=== PATIENT | female | born 1970 | race African-American/Black ===

== ENCOUNTER 2017-07-05 17:48 | Emergency (ER) | payer OTHER ==
--- NOTE | 2017-07-05 19:15 | ER ---
Nurse's Notes [facility] Name: Bailey Loepz Age: 46 yrs Sex: Female : 1970 Arrival Date: 07/05/2017 Time: 17:52 Bed 17 Private MD: Diagnosis: Acute pharyngitis;Fever, unspecified;Acute tonsillitis Presentation: 07/05 17:56 Presenting complaint: Patient states: i have sore throat that started yesterday, its hj hard to swallow; denies fever, reports cold;. Transition of care: patient was not received from another setting of care. Onset of symptoms was July 05, 2017. Care prior to arrival: None. 17:56 Method Of Arrival: Ambulatory hj 17:56 Acuity: ALBERTO 4 hj Triage Assessment: 17:57 General: Appears in no apparent distress. uncomfortable, Behavior is calm, cooperative, hj appropriate for age. Pain: Complains of pain in throat. EENT: Reports pain when swallowing. 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 - Social history:: Smoking status: Patient/guardian denies using tobacco. - Family history:: not pertinent. Screenin:44 Abuse screen: Denies threats or abuse. Nutritional screening: No deficits noted. tw2 Tuberculosis screening: No symptoms or risk factors identified. Fall Risk None identified. Assessment: 17:58 Respiratory: Airway is patent Respiratory effort is even, unlabored, Respiratory hj pattern is regular, symmetrical, Breath sounds are clear. EENT: Throat. 18:45 General: Appears in no apparent distress. comfortable, Behavior is calm, cooperative, em sore throat since yesterday, denies fever. Pain: Complains of pain in throat. Neuro: Level of Consciousness is awake, alert, obeys commands, Oriented to person, place, time, situation. Cardiovascular: Denies chest pain, Capillary refill < 3 seconds Patient's skin is warm and dry. Respiratory: Airway is patent Respiratory effort is even, unlabored, Respiratory pattern is regular, symmetrical. GI: Abdomen is round non-distended. : No signs and/or symptoms were reported regarding the genitourinary system. EENT: Throat is clear is pink. Derm: Skin is intact, Skin is pink, warm \T\ dry. Musculoskeletal: Range of motion: intact in all extremities. 18:50 Reassessment: I agree with the above assessment by Greg Lema LVN. 19:43 Reassessment: Patient appears in no apparent distress at this time. Patient and/or wh family updated on plan of care and expected duration. Pain level reassessed. Patient is alert, oriented x 3, equal unlabored respirations, skin warm/dry/pink. Vital Signs: 17:58 BP 137 / 94; Pulse 96; Resp 18; Temp 97.5(TE); Pulse Ox 98% on R/A; Weight 113.4 kg; hj Height 5 ft. 3 in. (160.02 cm); 17:58 Body Mass Index 44.29 (113.40 kg, 160.02 cm) ED Course: 17:52 Patient arrived in ED. rg4 17:56 Triage completed. hj 17:59 Arm band placed on right wrist. hj 18:34 Lucius Eubanks MD is Attending Physician. [facility] 18:36 Greg Lema LVN is Primary Nurse. em 18:40 No provider procedures requiring assistance completed. Patient did not have IV access em during this emergency room visit. 18:45 Call light in reach. Adult w/ patient. tw2 19:10 Rosalba Vines MD is Referral Physician. [facility] Administered Medications: 19:20 Drug: Rocephin (cefTRIAXone) 1 grams Route: IM; Site: right gluteus; 19:43 Follow up: Response: No adverse reaction 19:20 Drug: Augmentin 875 mg Route: PO; 19:43 Follow up: Response: No adverse reaction Outcome: 19:15 Discharge ordered by . [facility] 19:44 Discharged to home ambulatory, with family. 19:44 Condition: good 19:44 Discharge instructions given to patient, family, Instructed on discharge instructions, follow up and referral plans. medication usage, POC Pharyngitis Demonstrated understanding of instructions, follow-up care, medications, POC Prescriptions given X 1. 19:45 Patient left the ED. Signatures: Lucius Eubanks MD MD cha Munoz, Edgar, DOLL DRESSER DOLL DRESSER Caren Costello RN Valente Tierney RN RN hj Wise, Tara, RN RN tw2 Kary Dupree 4 Angelito Magana Corrections: (The following items were deleted from the chart) 18:00 17:58 Pulse 96bpm; Resp 18bpm; Pulse Ox 98% RA; Temp 97.5F Temporal; 113.4 kg; Height 5 hj ft. 3 in.; BMI: 44.2; hj
--- NOTE | 2017-07-05 19:15 | EDPHYS ---
Physician Documentation [facility] Name: Bailey Lopez Age: 46 yrs Sex: Female : 1970 Arrival Date: 07/05/2017 Time: 17:52 Bed 17 Private MD: ED Physician Lucius Eubanks HPI: 07/05 19:06 This 46 yrs old Black Female presents to ER via Ambulatory with complaints of Sore cayden Throat. 19:06 The patient presents with sore throat. The patient describes throat pain as raw, cayden scratchy. Onset: The symptoms/episode began/occurred 1 day(s) ago. Severity of symptoms: At their worst the symptoms were moderate, in the emergency department the symptoms are unchanged. Modifying factors: The symptoms are alleviated by. Associated signs and symptoms: The patient has no apparent associated signs or symptoms. The patient has not experienced similar symptoms in the past. 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 - Social history:: Smoking status: Patient/guardian denies using tobacco. - Family history:: not pertinent. ROS: 19:06 Constitutional: Negative for fever, chills, and weight loss, Eyes: Negative for injury, cayden pain, redness, and discharge, Neck: Negative for injury, pain, and swelling, Cardiovascular: Negative for chest pain, palpitations, and edema, Respiratory: Negative for shortness of breath, cough, wheezing, and pleuritic chest pain, Abdomen/GI: Negative for abdominal pain, nausea, vomiting, diarrhea, and constipation, Back: Negative for injury and pain, : Negative for injury, bleeding, discharge, and swelling, MS/Extremity: Negative for injury and deformity, Skin: Negative for injury, rash, and discoloration, Neuro: Negative for headache, weakness, numbness, tingling, and seizure, Psych: Negative for depression, anxiety, suicide ideation, homicidal ideation, and hallucinations, Allergy/Immunology: Negative for hives, rash, and allergies, Endocrine: Negative for neck swelling, polydipsia, polyuria, polyphagia, and marked weight changes, Hematologic/Lymphatic: Negative for swollen nodes, abnormal bleeding, and unusual bruising. 19:06 ENT: Positive for difficulty swallowing, rhinorrhea, sore throat. 19:06 Neck: Positive for swollen nodes, of the right jaw and left jaw. Exam: 19:06 Constitutional: This is a well developed, well nourished patient who is awake, alert, cayden and in no acute distress. Head/Face: Normocephalic, atraumatic. Eyes: Pupils equal round and reactive to light, extra-ocular motions intact. Lids and lashes normal. Conjunctiva and sclera are non-icteric and not injected. Cornea within normal limits. Periorbital areas with no swelling, redness, or edema. Chest/axilla: Normal chest wall appearance and motion. Nontender with no deformity. No lesions are appreciated. Cardiovascular: Regular rate and rhythm with a normal S1 and S2. No gallops, murmurs, or rubs. Normal PMI, no JVD. No pulse deficits. Respiratory: Lungs have equal breath sounds bilaterally, clear to auscultation and percussion. No rales, rhonchi or wheezes noted. No increased work of breathing, no retractions or nasal flaring. Abdomen/GI: Soft, non-tender, with normal bowel sounds. No distension or tympany. No guarding or rebound. No evidence of tenderness throughout. Back: No spinal tenderness. No costovertebral tenderness. Full range of motion. Pelvic Exam: Normal external genitalia. Speculum exam with closed cervical os, no discharge or bleeding noted. Bimanual exam with normal adnexa, no adnexal or cervical motion tenderness. Normal uterus. Female : Normal external genitalia. Skin: Warm, dry with normal turgor. Normal color with no rashes, no lesions, and no evidence of cellulitis. MS/ Extremity: Pulses equal, no cyanosis. Neurovascular intact. Full, normal range of motion. Neuro: Awake and alert, GCS 15, oriented to person, place, time, and situation. Cranial nerves II-XII grossly intact. Motor strength 5/5 in all extremities. Sensory grossly intact. Cerebellar exam normal. Normal gait. Psych: Awake, alert, with orientation to person, place and time. Behavior, mood, and affect are within normal limits. 19:06 ENT: Mouth: is normal, no abscess, no drooling, no injury, no laceration, no lesion(s), (-) tongue elevation (-) trismus no ulcerations, no gum abnomalities, no lip abnormalities, no mucosal abnormalities, no tongue abnormalities, Posterior pharynx: Tonsils: with erythema, Uvula: midline, swelling, that is mild, erythema, that is mild, that is moderate, exudate, is not appreciated, peritonsillar mass, is not appreciated, pooling of secretions, is not appreciated. Vital Signs: 17:58 BP 137 / 94; Pulse 96; Resp 18; Temp 97.5(TE); Pulse Ox 98% on R/A; Weight 113.4 kg; Height 5 ft. 3 in. (160.02 cm); 17:58 Body Mass Index 44.29 (113.40 kg, 160.02 cm) MDM: 18:34 Patient medically screened. [facility] 19:09 Data reviewed: vital signs, nurses notes, lab test result(s). [facility] 07/05 18:00 Order name: Strep; Complete Time: 19:05 07/05 18:27 Order name: Throat Culture EDMS Administered Medications: 19:20 Drug: Rocephin (cefTRIAXone) 1 grams Route: IM; Site: right gluteus; 19:43 Follow up: Response: No adverse reaction 19:20 Drug: Augmentin 875 mg Route: PO; 19:43 Follow up: Response: No adverse reaction Disposition: 07/05/17 19:15 Discharged to Home. Impression: Acute pharyngitis, Fever, unspecified, Acute tonsillitis. - Condition is Stable. - Discharge Instructions: Fever, Adult, Pharyngitis, Tonsillitis, Tonsillitis, [id number], Pharyngitis, [id number]. - Prescriptions for Augmentin 875- 125 mg Oral Tablet - take 1 tablet by ORAL route every 12 hours for 10 days; 20 tablet. - Medication Reconciliation Form, Thank You Letter, Antibiotic Education, Prescription Opioid Use form. - Follow up: Private Physician; When: 2 - 3 days; Reason: Recheck today's complaints, Continuance of care, Re-evaluation by your physician. Follow up: Rosalba Vines MD; When: 2 - 3 days; Reason: Recheck today's complaints, Continuance of care, Re-evaluation by your physician. - Problem is new. - Symptoms have improved. Signatures: Dispatcher [employer] Lucius Rashid MD MD cha Joaquin, Henry RN RN hj Cony Caro RN RN tw2 Angeilto Magana
[2017-07-05] MEDS ORDERED: AMOX/K CLAV 875 MG TAB ONE (19:29)
[2017-07-05] MEDS ORDERED: CEFTRIAXONE 1000 MG/VIAL ONE (19:29)
== END 2017-07-05 19:45 | disposition home or self-care (01) ==
LOC: ER 17:48
DX: J03.90 Acute tonsillitis, unspecified (principal); R50.9 Fever, unspecified; Z88.5 Allergy status to narcotic agent; Z88.6 Allergy status to analgesic agent; Z88.8 Allergy status to other drugs, medicaments and biological substances
CPT/HCPCS: 87070; 87081; 96372; 99283

== ENCOUNTER 2018-03-14 15:09 | Emergency (ER) | payer OTHER, SELFPAY ==
[2018-03-14] MEDS ORDERED: ONDANSETRON 4 MG/2 ML VIAL ONE ×2 (16:30→19:40)
[2018-03-14] MEDS ORDERED: NA CHLORIDE 0.9% 1,000 ML ONE (16:30)
[2018-03-14 16:34] LABS: Absolute Lymphocytes (CBC) 2.6 K/uL (0.7-4.9); Absolute Monocytes 0.9 K/uL (0.1-1.3); Absolute Neutrophil 8.6 K/uL (1.8-8.0); Basophils % 0.6 % (0-1.3); Eosinophils % 3.6 % (0-4.4); Lymphocytes % 20.5 % (15.3-44.8); MCH 28.2 pg (27.0-35.0); MPV 8.6 fL (7.6-11.3); Monocytes % 6.8 % (3.3-12.3); RBC Red Blood Cell Count 4.63 M/uL (3.86-4.86)
[2018-03-14 16:42] LABS: Protime INR 1.18
[2018-03-14 17:17] LABS: ALT/SGPT 35 U/L (12-78); AST/SGOT 19 U/L (15-37); Albumin 3.5 g/dL (3.4-5.0); Alkaline Phosphatase 91 U/L (45-117); BUN Blood Urea Nitrogen 3 mg/dL (7-18); Bicarbonate 29 mmol/L (21-32); Bilirubin Direct 0.1 mg/dL (0-0.2); Bilirubin Total 0.4 mg/dL (0.2-1.0); Glucose Level 130 mg/dL (74-106); Lipase 81 U/L (73-393); Magnesium 1.8 mg/dL (1.8-2.4); NT PRO-BNP 8 pg/mL (<125); Protein, Total 8.1 g/dL (6.4-8.2); Sodium Level 141 mmol/L (136-145); Troponin (Emerg Dept Use Only) < 0.02 ng/mL (0.0-0.045)
[2018-03-14 17:18] LABS: Potassium 2.6 mmol/L (3.5-5.1)
--- NOTE | 2018-03-14 17:25 | EKG ---
Test Date: 2018-03-14 Test Time: 16:12:05 Back Shoe Operator: TAMIKO MEASUREMENT RESULTS: Intervals: Rate: 91 HI: 200 QRSD: 98 QT: 382 QTc: 469 [place]: P: 27 HI: 200 QRS: -12 T: 83 INTERPRETIVE STATEMENTS: Normal sinus rhythm Nonspecific ST and T wave abnormality Abnormal ECG No previous ECG available for comparison Electronically Signed On 03-14-18 17:24:51 CONFIGURATION MANAGER by Ronak Connell
--- NOTE | 2018-03-14 17:28 | RAD REPORT ---
EXAM DESCRIPTION: [place]as[place] Single View03/14/2018 5:00 pm CLINICAL HISTORY: cough COMPARISON: none FINDINGS: The lungs appear clear of acute infiltrate. The heart is normal size IMPRESSION: No acute abnormalities displayed
[2018-03-14] MEDS ORDERED: KCL 20 MEQ/100 mL IVPB 20 MEQ/100 ML BAG IV ONE ×2 (17:50→18:50)
[2018-03-14] MEDS ORDERED: NS KCL 20MEQ 1,000 ML IV ONE (17:50)
[2018-03-14] MEDS ORDERED: KETOROLAC 30 MG/ML INJ ONE (17:57)
[2018-03-14] MEDS ORDERED: NA CHLORIDE 0.9% 500 ML ONE (18:53)
--- NOTE | 2018-03-14 19:17 | RAD REPORT ---
EXAM DESCRIPTION: CTAbdomen Pelvis W Contrast - 03/14/2018 6:56 pm CLINICAL HISTORY: Abdominal pain. ABD PAIN COMPARISON: No comparisons TECHNIQUE: Biphasic CT imaging of the abdomen and pelvis was performed with 100 ml non-ionic IV cont rast. All CT scans are performed using dose optimization technique as appropriate and may include automated exposure control or mA/KV adjustment according to patient size. FINDINGS: The lung bases are clear. Mild diffuse fatty liver. Postsurgical changes are present about the stomach. The spleen, adrenal gla nds, pancreas and kidneys are within normal limits. Small fat containing umbilical hernia. No bowel obstruction, free air, free fluid or abscess. The appendix is short but normal. Mild coloni c diverticulosis. No evidence of significant lymphadenopathy. No suspicious bony findings. IMPRESSION: No acute intra-abdominal or pelvic finding. Fatty liver.
--- NOTE | 2018-03-14 19:23 | ER ---
Nurse's Notes [facility] Name: Bailey Lopez Age: 47 yrs Sex: Female : 1970 Arrival Date: 03/14/2018 Time: 15:13 Bed 27 Private MD: out of town, doctor Diagnosis: Hypokalemia;Abdominal tenderness;Obesity, unspecified;Vomiting Presentation: 03/14 15:24 Presenting complaint: Patient states: RLQ pain and vomiting that began 4 days. ago. ss Transition of care: patient was not received from another setting of care. Onset of symptoms was March 10, 2018. Risk Assessment: Do you want to hurt yourself or someone else? Patient reports no desire to harm self or others. Initial Sepsis Screen: Does the patient meet any 2 criteria? No. Patient's initial sepsis screen is negative. Does the patient have a suspected source of infection? No. Patient's initial sepsis screen is negative. Care prior to arrival: None. 15:24 Method Of Arrival: Ambulatory ss 15:24 Acuity: ALBERTO 3 ss Triage Assessment: 16:42 General: Appears in no apparent distress. uncomfortable, well groomed, Behavior is kr2 calm, cooperative, appropriate for age. Pain: Complains of pain in right lower quadrant Pain does not radiate. Pain currently is 9 out of 10 on a pain scale. Quality of pain is described as aching, sharp, Is continuous, Alleviated by nothing. Aggravated by increased activity. GI: Reports nausea, vomiting. Historical: - Allergies: 15:25 ACETAMINOPHEN; ss 15:25 Codeine; ss 15:25 meperidine HCl; ss 15:25 Oxycodone HCl; ss 15:25 propoxyphene napsylate; ss 15:25 Morphine; ss - PSHx: 15:25 Back surgery; Hysterectomy; ss - Immunization history:: Adult Immunizations unknown. - Social history:: Smoking status: Patient/guardian denies using tobacco. - Ebola Screening: : Patient denies exposure to infectious person Patient denies travel to an Ebola-affected area in the 21 days before illness onset. Screenin:42 Abuse screen: Denies threats or abuse. Denies injuries from another. Nutritional kr2 screening: No deficits noted. Tuberculosis screening: No symptoms or risk factors identified. Fall Risk None identified. Assessment: 16:43 General: Appears in no apparent distress. uncomfortable, well groomed, well developed, kr2 well nourished, Behavior is calm, cooperative, appropriate for age. Pain: Complains of pain in right lower quadrant Pain does not radiate. Pain currently is 9 out of 10 on a pain scale. Quality of pain is described as aching, sharp, Is continuous, Alleviated by rest, Aggravated by increased activity. Neuro: Level of Consciousness is awake, alert, obeys commands, Oriented to person, place, time, situation, Appropriate for age. Cardiovascular: Capillary refill < 3 seconds in bilateral fingers Patient's skin is warm and dry. Respiratory: Airway is patent Respiratory effort is even, unlabored, Respiratory pattern is regular, symmetrical. GI: Abdomen is non-distended, obese, Bowel sounds present X 4 quads. Abd is soft X 4 quads Abdomen is tender to palpation in right lower quadrant Reports nausea, vomiting. : Urine is clear. EENT: Oral mucosa is moist. Derm: Skin is intact, is healthy with good turgor, Skin is pink, warm \T\ dry. Musculoskeletal: Circulation, motion, and sensation intact. 18:00 Reassessment: Patient appears in no apparent distress at this time. Patient and/or kr2 family updated on plan of care and expected duration. Pain level reassessed. Patient is alert, oriented x 3, equal unlabored respirations, skin warm/dry/pink. 19:05 Reassessment: Patient appears in no apparent distress at this time. Patient and/or kr2 family updated on plan of care and expected duration. Pain level reassessed. Patient is alert, oriented x 3, equal unlabored respirations, skin warm/dry/pink. States pain has decreased. 20:00 Reassessment: Patient appears in no apparent distress at this time. Patient and/or kr2 family updated on plan of care and expected duration. Pain level reassessed. Patient is alert, oriented x 3, equal unlabored respirations, skin warm/dry/pink. 21:40 Reassessment: Patient appears in no apparent distress at this time. Patient and/or kr2 family updated on plan of care and expected duration. Pain level reassessed. Patient is alert, oriented x 3, equal unlabored respirations, skin warm/dry/pink. Patient states feeling better. Vital Signs: 15:25 BP 162 / 101; Pulse 97; Resp 16; Temp 98.0(TE); Pulse Ox 99% on R/A; Weight 117.93 kg; ss Height 5 ft. 3 in. (160.02 cm); Pain 10/10; 16:41 BP 139 / 79; Pulse 97; Resp 17; Pulse Ox 99% ; kr2 18:00 BP 134 / 67; Pulse 88; Resp 17; Pulse Ox 99% on R/A; kr2 19:06 BP 120 / 66; Pulse 80; Resp 16; Pulse Ox 99% on R/A; kr2 20:00 BP 130 / 70; Pulse 89; Resp 17; Pulse Ox 99% on R/A; kr2 21:30 BP 124 / 84; Pulse 82; Resp 16; Pulse Ox 99% on R/A; kr2 15:25 Body Mass Index 46.06 (117.93 kg, 160.02 cm) ED Course: 15:13 Patient arrived in ED. mr 15:13 None, None is Private Physician. mr 15:13 out of town, doctor is Private Physician. mr 15:24 Triage completed. ss 15:25 Arm band placed on right wrist. ss 15:47 Johanne Castañeda, KOMAL is Primary Nurse. kr2 15:51 Lucius Eubanks MD is Attending Physician. cayden 16:25 Inserted saline lock: 20 gauge in left antecubital area, using aseptic technique. Blood kr2 collected. 16:48 Patient has correct armband on for positive identification. Bed in low position. Call kr2 light in reach. Side rails up X 1. radiation monitor on. Pulse ox on. NIBP on. Door closed. Warm blanket given. Pillow given. Head of bed elevated. 17:32 XRAY Chest (1 view) In Process Unspecified. EDMS 18:56 CT Abd/Pelvis - W/Contrast In Process Unspecified. EDMS 21:40 No provider procedures requiring assistance completed. IV discontinued, intact, kr2 bleeding controlled, No redness/swelling at site. Pressure dressing applied. Administered Medications: 16:27 Drug: Zofran 4 mg Route: IVP; Site: left antecubital; kr2 16:28 Drug: NS 0.9% 1000 ml Route: IV; Rate: 1 bolus; Site: left antecubital; kr2 17:45 Drug: Potassium Chloride 20 mEq Route: IV; Rate: per protocol; Site: left antecubital; kr2 20:47 Follow up: Response: No adverse reaction; IV Status: Completed infusion kr2 17:45 Drug: NS 0.9% with KCl 20 mEq/L 1000 ml Route: IV; Rate: 125 ml/hr; Site: left kr2 antecubital; 21:35 Follow up: Response: No adverse reaction; IV Status: Order to discontinue infusion kr2 18:40 Drug: Zofran 4 mg Route: IVP; Site: left antecubital; kr2 19:00 Follow up: Response: No adverse reaction; Nausea is decreased kr2 18:56 Drug: Potassium Chloride 20 mEq Route: IV; Rate: per protocol; Site: left antecubital; kr2 20:50 Follow up: Response: No adverse reaction; IV Status: Completed infusion kr2 19:37 Drug: Potassium Effervescent Tablet 50 mEq Route: PO; kr2 20:46 Follow up: Response: No adverse reaction kr2 20:45 Drug: Bentyl 20 mg Route: PO; kr2 21:30 Follow up: Response: No adverse reaction; Pain is decreased kr2 Outcome: 19:23 Discharge ordered by MD. rodarte 21:40 Discharged to home ambulatory. kr2 21:40 Condition: good 21:40 Discharge instructions given to patient, Instructed on discharge instructions, follow up and referral plans. medication usage, Demonstrated understanding of instructions, follow-up care, medications, Prescriptions given X 4. 21:41 Patient left the ED. kr2 Signatures: Dispatcher [employer] Lucius Rashid MD MD cha Rivera, Mary mr Nelli Meadows RN RN ss Reaves, Karey, RN RN kr2
--- NOTE | 2018-03-14 19:23 | EDPHYS ---
Physician Documentation [facility] Name: Bailey Lopez Age: 47 yrs Sex: Female : 1970 Arrival Date: 03/14/2018 Time: 15:13 Bed 27 Private MD: out of town, doctor ED Physician Lucius Eubanks HPI: 03/14 16:46 This 47 yrs old Black Female presents to ER via Ambulatory with complaints of Vomiting. cayden 16:46 The patient presents to the emergency department with nausea, vomiting, abdominal pain, cayden of the right lower quadrant. Onset: The symptoms/episode began/occurred 3 day(s) ago. Possible causes: unknown. The symptoms are aggravated by nothing. The symptoms are alleviated by nothing. Associated signs and symptoms: The patient has no apparent associated signs or symptoms. Severity of symptoms: At their worst the symptoms were mild moderate in the emergency department the symptoms have resolved. The patient has not experienced similar symptoms in the past. Historical: - Allergies: 15:25 ACETAMINOPHEN; ss 15:25 Codeine; ss 15:25 meperidine HCl; ss 15:25 Oxycodone HCl; ss 15:25 propoxyphene napsylate; ss 15:25 Morphine; ss - PSHx: 15:25 Back surgery; Hysterectomy; ss - Immunization history:: Adult Immunizations unknown. - Social history:: Smoking status: Patient/guardian denies using tobacco. - Ebola Screening: : Patient denies exposure to infectious person Patient denies travel to an Ebola-affected area in the 21 days before illness onset. ROS: 16:48 Constitutional: Negative for fever, chills, and weight loss, Eyes: Negative for injury, cayden pain, redness, and discharge, ENT: Negative for injury, pain, and discharge, Neck: Negative for injury, pain, and swelling, Cardiovascular: Negative for chest pain, palpitations, and edema, Respiratory: Negative for shortness of breath, cough, wheezing, and pleuritic chest pain, Back: Negative for injury and pain, : Negative for injury, bleeding, discharge, and swelling, MS/Extremity: Negative for injury and deformity, Skin: Negative for injury, rash, and discoloration, Neuro: Negative for headache, weakness, numbness, tingling, and seizure, Psych: Negative for depression, anxiety, suicide ideation, homicidal ideation, and hallucinations, Allergy/Immunology: Negative for hives, rash, and allergies, Endocrine: Negative for neck swelling, polydipsia, polyuria, polyphagia, and marked weight changes, Hematologic/Lymphatic: Negative for swollen nodes, abnormal bleeding, and unusual bruising. 16:48 Abdomen/GI: Positive for abdominal pain, of the right lower quadrant. Exam: 16:48 Constitutional: This is a well developed, well nourished patient who is awake, alert, cayden and in no acute distress. Head/Face: Normocephalic, atraumatic. Eyes: Pupils equal round and reactive to light, extra-ocular motions intact. Lids and lashes normal. Conjunctiva and sclera are non-icteric and not injected. Cornea within normal limits. Periorbital areas with no swelling, redness, or edema. ENT: Nares patent. No nasal discharge, no septal abnormalities noted. Tympanic membranes are normal and external auditory canals are clear. Oropharynx with no redness, swelling, or masses, exudates, or evidence of obstruction, uvula midline. Mucous membranes moist. Neck: Trachea midline, no thyromegaly or masses palpated, and no cervical lymphadenopathy. Supple, full range of motion without nuchal rigidity, or vertebral point tenderness. No Meningismus. Chest/axilla: Normal chest wall appearance and motion. Nontender with no deformity. No lesions are appreciated. Cardiovascular: Regular rate and rhythm with a normal S1 and S2. No gallops, murmurs, or rubs. Normal PMI, no JVD. No pulse deficits. Respiratory: Lungs have equal breath sounds bilaterally, clear to auscultation and percussion. No rales, rhonchi or wheezes noted. No increased work of breathing, no retractions or nasal flaring. Back: No spinal tenderness. No costovertebral tenderness. Full range of motion. Skin: Warm, dry with normal turgor. Normal color with no rashes, no lesions, and no evidence of cellulitis. MS/ Extremity: Pulses equal, no cyanosis. Neurovascular intact. Full, normal range of motion. Neuro: Awake and alert, GCS 15, oriented to person, place, time, and situation. Cranial nerves II-XII grossly intact. Motor strength 5/5 in all extremities. Sensory grossly intact. Cerebellar exam normal. Normal gait. Psych: Awake, alert, with orientation to person, place and time. Behavior, mood, and affect are within normal limits. 16:48 Abdomen/GI: Inspection: abdomen appears normal, Bowel sounds: normal, Palpation: moderate abdominal tenderness, Liver: no appreciated palpable abnormalities, Hernia: not appreciated. Vital Signs: 15:25 BP 162 / 101; Pulse 97; Resp 16; Temp 98.0(TE); Pulse Ox 99% on R/A; Weight 117.93 kg; ss Height 5 ft. 3 in. (160.02 cm); Pain 10/10; 16:41 BP 139 / 79; Pulse 97; Resp 17; Pulse Ox 99% ; kr2 18:00 BP 134 / 67; Pulse 88; Resp 17; Pulse Ox 99% on R/A; kr2 19:06 BP 120 / 66; Pulse 80; Resp 16; Pulse Ox 99% on R/A; kr2 20:00 BP 130 / 70; Pulse 89; Resp 17; Pulse Ox 99% on R/A; kr2 21:30 BP 124 / 84; Pulse 82; Resp 16; Pulse Ox 99% on R/A; kr2 15:25 Body Mass Index 46.06 (117.93 kg, 160.02 cm) ss MDM: 15:52 Patient medically screened. [facility] 16:49 Data reviewed: vital signs, nurses notes, lab test result(s), EKG, radiologic studies. [facility] 03/14 15:55 Order name: Basic Metabolic Panel; Complete Time: 18:25 [facility] 03/14 15:55 Order name: CBC with Diff; Complete Time: 17:25 [facility] 03/14 15:55 Order name: LFT's; Complete Time: 18:25 [facility] 03/14 15:55 Order name: Magnesium; Complete Time: 18:25 [facility] 03/14 15:55 Order name: NT PRO-BNP; Complete Time: 18:25 [facility] 12 15:55 Order name: PT-INR; Complete Time: 17:25 [facility] 12 15:55 Order name: Troponin (emerg Dept Use Only); Complete Time: 18:25 [facility] 03/14 15:55 Order name: XRAY Chest (1 view); Complete Time: 18:25 [facility] 03/14 15:55 Order name: Lipase; Complete Time: 18:25 [facility] 03/14 15:55 Order name: Urine Culture [facility] 03/14 16:43 Order name: CT Abd/Pelvis - W/Contrast; Complete Time: 19:27 [facility] 03/14 16:54 Order name: Urine Dipstick--Ancillary (enter results) 03/14 16:54 Order name: Urine --Ancillary (enter results) 03/14 21:03 Order name: Potassium kr2 03/14 15:55 Order name: EKG; Complete Time: 15:56 [facility] 03/14 15:55 Order name: Cardiac monitoring; Complete Time: 16:13 [facility] 03/14 15:55 Order name: EKG - Nurse/Tech; Complete Time: 16:13 [facility] 03/14 15:55 Order name: IV Saline Lock; Complete Time: 16:14 [facility] 03/14 15:55 Order name: Labs collected and sent; Complete Time: 16:14 [facility] 03/14 15:55 Order name: O2 Per Protocol; Complete Time: 16:14 [facility] 03/14 15:55 Order name: O2 Sat Monitoring; Complete Time: 16:14 [facility] 03/14 15:55 Order name: Urine Dipstick-Ancillary (obtain specimen); Complete Time: 16:49 [facility] 03/14 19:21 Order name: PO challenge: juice; Complete Time: 19:38 [facility] Administered Medications: 16:27 Drug: Zofran 4 mg Route: IVP; Site: left antecubital; kr2 16:28 Drug: NS 0.9% 1000 ml Route: IV; Rate: 1 bolus; Site: left antecubital; kr2 17:45 Drug: Potassium Chloride 20 mEq Route: IV; Rate: per protocol; Site: left antecubital; kr2 20:47 Follow up: Response: No adverse reaction; IV Status: Completed infusion kr2 17:45 Drug: NS 0.9% with KCl 20 mEq/L 1000 ml Route: IV; Rate: 125 ml/hr; Site: left kr2 antecubital; 21:35 Follow up: Response: No adverse reaction; IV Status: Order to discontinue infusion kr2 18:40 Drug: Zofran 4 mg Route: IVP; Site: left antecubital; kr2 19:00 Follow up: Response: No adverse reaction; Nausea is decreased kr2 18:56 Drug: Potassium Chloride 20 mEq Route: IV; Rate: per protocol; Site: left antecubital; kr2 20:50 Follow up: Response: No adverse reaction; IV Status: Completed infusion kr2 19:37 Drug: Potassium Effervescent Tablet 50 mEq Route: PO; kr2 20:46 Follow up: Response: No adverse reaction kr2 20:45 Drug: Bentyl 20 mg Route: PO; kr2 21:30 Follow up: Response: No adverse reaction; Pain is decreased kr2 Disposition: 03/14/18 19:23 Discharged to Home. Impression: Hypokalemia, Abdominal tenderness, Obesity, unspecified, Vomiting. - Condition is Stable. - Discharge Instructions: Abdominal Pain, Adult, Potassium Content of Foods, Nausea and Vomiting, Adult, Obesity, Adult, Nausea and Vomiting, Adult, [id number], Abdominal Pain, Adult, [id number], Hypokalemia. - Prescriptions for Bentyl 20 mg Oral Tablet - take 1 tablet by ORAL route every 6 hours As needed; 20 tablet. Pepcid 20 mg Oral Tablet - take 1 tablet by ORAL route every 12 hours for 10 days; 20 tablet. Zofran 4 mg Oral Tablet - take 1 tablet by ORAL route every 12 hours As needed; 14 tablet. Potassium Chloride 20 meq Oral Packet - take 1 packet by ORAL route every 12 hours 1 packet in 6 (six) ounces of water or juice; Take after meal; 20 packet. - Medication Reconciliation Form, Thank You Letter, Antibiotic Education, Prescription Opioid Use form. - Follow up: Private Physician; When: 2 - 3 days; Reason: Recheck today's complaints, Continuance of care, Re-evaluation by your physician. - Problem is new. - Symptoms have improved. Signatures: Dispatcher [employer] EDIN Lucius Eubanks MD MD cha Smirch, Shelby, RN RN Johanne Castañeda RN RN kr2 Corrections: (The following items were deleted from the chart) 21:41 19:23 03/14/2018 19:23 Discharged to Home. Impression: Hypokalemia; Abdominal kr2 tenderness; Obesity, unspecified; Vomiting. Condition is Stable. Forms are Medication Reconciliation Form, Thank You Letter, Antibiotic Education, Prescription Opioid Use. Follow up: Private Physician; When: 2 - 3 days; Reason: Recheck today's complaints, Continuance of care, Re-evaluation by your physician. Problem is new. Symptoms have improved. cayden
[2018-03-14] MEDS ORDERED: POTASSIUM 25 MEQ EFFERV TAB ONE (19:40)
[2018-03-14] MEDS ORDERED: DICYCLOMINE HCL 10 MG CAP ONE (20:41)
[2018-03-14 22:07] LABS: Urine Blood NEGATIVE (NEG); Urine Glucose NEGATIVE (NEG); Urine Protein NEGATIVE (NEG); Urine Specific Gravity 1.015 (1.005-1.030)
== END 2018-03-14 21:41 | disposition home or self-care (01) ==
LOC: ER 15:09
DX: E87.6 Hypokalemia (principal); R11.10 Vomiting, unspecified; E66.9 Obesity, unspecified; Z88.5 Allergy status to narcotic agent; Z88.6 Allergy status to analgesic agent; Z88.8 Allergy status to other drugs, medicaments and biological substances
CPT/HCPCS: 36415; 71045; 74177; 80048; 80076; 81003; 81025; 83690; 83735; 83880; 84132; 84484; 85025; 85610; 87086; 87088; 93005; 96361; 96365; 96366; 96375; 99284; J2405; J7030; Q9967

== ENCOUNTER 2018-09-28 23:54 | Emergency (ER) | payer SELFPAY ==
[2018-09-29 00:44] LABS: Absolute Lymphocytes (CBC) 2.7 K/uL (0.7-4.9); Basophils % 0.6 % (0-1.3); Eosinophils % 3.2 % (0-4.4); Hematocrit 39.7 % (36.0-45.0); Lymphocytes % 26.5 % (15.3-44.8); MPV 8.5 fL (7.6-11.3); Monocytes % 7.8 % (3.3-12.3); RBC Red Blood Cell Count 4.96 M/uL (3.86-4.86)
[2018-09-29] MEDS ORDERED: PROMETHAZINE 25 MG/ML VIAL ONE (00:44)
[2018-09-29] MEDS ORDERED: FENTANYL CITR 100 MCG/2 ML ONE (00:46)
[2018-09-29] MEDS ORDERED: NA CHLORIDE 0.9% 1,000 ML ONE (00:46)
[2018-09-29 01:08] LABS: Urine Blood NEGATIVE (NEG); Urine Glucose NEGATIVE (NEG); Urine Protein NEGATIVE (NEG); Urine Specific Gravity 1.015 (1.005-1.030)
[2018-09-29 01:09] LABS: ALT/SGPT 25 U/L (12-78); AST/SGOT 19 U/L (15-37); Albumin 3.5 g/dL (3.4-5.0); Alkaline Phosphatase 83 U/L (45-117); BUN Blood Urea Nitrogen 6 mg/dL (7-18); Bicarbonate 29 mmol/L (21-32); Bilirubin Direct < 0.1 mg/dL (0-0.2); Bilirubin Total 0.2 mg/dL (0.2-1.0); Glucose Level 94 mg/dL (74-106); Lipase 83 U/L (73-393); Potassium 2.6 mmol/L (3.5-5.1); Protein, Total 7.8 g/dL (6.4-8.2); Sodium Level 140 mmol/L (136-145)
[2018-09-29] MEDS ORDERED: KCL 20 MEQ/100 mL IVPB 20 MEQ/100 ML BAG IV ONE (01:36)
[2018-09-29] MEDS ORDERED: KETOROLAC 30 MG/ML INJ ONE (02:07)
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
[2018-09-29] MEDS ORDERED: HYDROMORPHONE HCL 1 MG/ML INJ ONE (03:19)
--- NOTE | 2018-09-29 10:31 | RAD REPORT ---
EXAM DESCRIPTION: CT - Abdomen Pelvis W Contrast - 09/29/2018 6:33 am CLINICAL HISTORY: The patient is 47 years old and is Female; right lower abdominal pain TECHNIQUE: Axial computed tomography images of the abdomen and pelvis with intravenous contrast. S agittal and coronal reformatted images were created and reviewed. This CT exam was performed using one or more of the following dose reduction techniques: automated exposure control, adjustment of t he mA and/or kV according to patient size, and/or use of iterative reconstruction technique. COMPARISON: CT of the abdomen and pelvis March 14, 2018. FINDINGS: LUNG BASES: There is mild subsegmental atelectasis and/or scarring in bilateral lung bas es. ABDOMEN: LIVER: There is a diffuse decrease in hepatic parenchymal density, consistent with fatty infiltr ation. GALLBLADDER AND BILE DUCTS: The gallbladder is not well distended. PANCREAS: No ductal dilation. No mass. SPLEEN: Unremarkable. ADRENALS: Unremarkable. No mass. KIDNEYS AND URETERS: The right kidney has a lobular contour. The kidneys enhance symmetrically. No obstructing renal or ureteral calculus is seen. STOMACH AND BOWEL: Postsurgical change of the stomach consistent with a gastric sleeve is noted. The small bowel is normal in caliber. A moderate amount stool is present throughout the colon. There is no mucosal thickening or evidence of bowel obstruction. PELVIS: APPENDIX: The appendix is normal in caliber without surrounding inflammation. BLADDER: The bladder is not well distended. Mild diffuse bladder wall thickening is present. REPRODUCTIVE: The patient is status post hysterectomy. Suggestion of a bilobed right ovarian c yst measuring approximately 4.7 x 2.4 cm is noted. ABDOMEN and PELVIS: INTRAPERITONEAL SPACE: Unremarkable. No free air. No significant fluid collection. BONES/JOINTS: No acute fracture. SOFT TISSUES: The soft tissues are normal. VASCULATURE: Unremarkable. No abdominal aortic aneurysm. LYMPH NODES: Unremarkable. No enlarged lymph nodes. IMPRESSION: 1. Mild diffuse bladder wall thickening which may be secondary to incomplete: However, mild cystitis is within the differential. 2. Findings suggestive of a bilobed right ovarian cyst. Recommend follow-up pelvic US in 6-12 weeks . Reference: J Am Cassidy Radiol 2013;[id number] Electronically signed by: Shanice Avila MD 09/29/2018 1:59 AM CDT Due to temporary technical issues with the PACS/Fluency reporting system, reports are being signed by the in house radiologist as a courtesy to ensure prompt reporting. The interpreting radiologist is f ully responsible for the content of the report.
== END 2018-09-29 03:48 | disposition home or self-care (01) ==
LOC: ER 23:54
DX: N83.299 Other ovarian cyst, unspecified side (principal); Z88.5 Allergy status to narcotic agent; Z88.8 Allergy status to other drugs, medicaments and biological substances
CPT/HCPCS: 36415; 74177; 80048; 80076; 81003; 83690; 85025; 99285; J1170; J2550; J3010; J7030; Q9967

== ENCOUNTER 2019-06-13 10:38 | Emergency (ER) | payer SELFPAY ==
--- OUTSIDE RECORDS SUMMARY | 2019-06-13 10:40 | XMS REPORT ---
:1970 [facility] Address [address] [place] [address] Dr. Abraham [address] [place] [id number] Care Team Providers Name Role Phone Unavailable Unavailable Unavailable Problems This patient has no known problems. Allergies, Adverse Reactions, Alerts This patient has no known allergies or adverse reactions. Medications This patient has no known medications.
[2019-06-13] MEDS ORDERED: CLINDAMYCIN 600MG/D5W 600 MG/50 ML BAG IV ONE (11:45)
[2019-06-13] MEDS ORDERED: NA CHLORIDE 0.9% 1,000 ML ONE (11:45)
[2019-06-13] MEDS ORDERED: TRAMADOL HCL 50 MG TAB ONE (11:46)
[2019-06-13 12:02] LABS: Absolute Lymphocytes (CBC) 2.2 K/uL (0.7-4.9); Basophils % 0.7 % (0-1.3); Hematocrit 37.8 % (36.0-45.0); Lymphocytes % 23.9 % (15.3-44.8); MPV 8.4 fL (7.6-11.3); RBC Red Blood Cell Count 4.72 M/uL (3.86-4.86)
[2019-06-13 12:22] LABS: Albumin 3.6 g/dL (3.4-5.0); Bilirubin Total 0.5 mg/dL (0.2-1.0); Protein, Total 8.4 g/dL (6.4-8.2)
--- NOTE | 2019-06-13 12:59 | RAD REPORT ---
EXAM DESCRIPTION: CT - Abdomen Pelvis W Contrast - 06/13/2019 12:41 pm CLINICAL HISTORY: Abdominal pain COMPARISON: September 2018 TECHNIQUE: Computed axial tomography of the abdomen pelvis was obtained. 100 cc Isovue-300 was admin istered intravenously. Oral contrast was not requested which limits evaluation of bowel. All CT scans are performed using dose optimization technique as appropriate and may include automated exposure control or mA/KV adjustment according to patient size. FINDINGS: Areas of cortical thinning right kidney may be secondary to prior inflammation Mild fatty liver. Postsurgical changes involve the stomach The spleen, pancreas, adrenal and left kidney appear unremarkable. There is no evidence of diverticulitis. A amidline dehiscence involves the anterior subcutaneous fat of the pelvis. The AP diameter is approx imately 7 centimeters. No underlying fluid-filled abscess noted. Stranding within the anterior subcut aneous fat is present. Very small periumbilical hernia. IMPRESSION: Midline dehiscence involves the anterior subcutaneous fat of the pelvis with AP diameter of 7 centimeters No underlying fluid-filled abscess
[2019-06-13] MEDS ORDERED: FENTANYL CITR 100 MCG/2 ML ONE (13:37)
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
[2019-06-13 15:58] VITALS: O2SAT 100
[2019-06-13 16:02] VITALS: BP 122/78; TEMP 98
== END 2019-06-13 15:05 | disposition home or self-care (01) ==
LOC: ER 10:38
DX: S31.109A Unspecified open wound of abdominal wall, unspecified quadrant without penetration into peritoneal cavity, initial encounter (principal); Z88.5 Allergy status to narcotic agent; Z88.8 Allergy status to other drugs, medicaments and biological substances
CPT/HCPCS: 36415; 74177; 80053; 83690; 85025; 96365; 96366; 96375; 99284; J3010; J7030; Q9967

== ENCOUNTER 2020-10-01 06:28 | Emergency (ER) | payer SELFPAY ==
--- OUTSIDE RECORDS SUMMARY | 2020-10-01 06:30 | XMS REPORT | Continuity of Care Document ---
:1970 Author Organization [facility] t Address [address] [place] [address] Care Team Providers Name Role Phone Pa Kerr Attending Clinician Problems This patient has no known problems. Allergies, Adverse Reactions, Alerts This patient has no known allergies or adverse reactions. Medications This patient has no known medications. Procedures This patient has no known procedures. Encounters Start End Encounter Admission Attending Care Care Encounter Source Date/Time Date/Time Type Type Clinicians Facility Department ID 2019-08-09 2019-08-09 [id number] 07:42:49 09:05:00 Genevieve Pineda [id number] [place] [id number] [place] [id number] Results This patient has no known results.
[2020-10-01] MEDS ORDERED: ONDANSETRON 4 MG/2 ML VIAL ONE ×2 (07:23→08:48)
[2020-10-01] MEDS ORDERED: MORPHINE 4 MG/ML SYR ONE (07:23)
[2020-10-01] MEDS ORDERED: HYDROMORPHONE HCL 1 MG/ML INJ ONE ×2 (07:30→09:18)
[2020-10-01] MEDS ORDERED: NA CHLORIDE 0.9% 1,000 ML ONE (07:31)
[2020-10-01 07:34] LABS: Basophils % 0.5 % (0-1.3); Hematocrit 36.9 % (36.0-45.0); Lymphocytes % 25.3 % (15.3-44.8); RBC Red Blood Cell Count 4.71 M/uL (3.86-4.86)
[2020-10-01 07:57] LABS: Albumin 3.6 g/dL (3.4-5.0); Bilirubin Direct 0.2 mg/dL (0-0.2); Bilirubin Total 0.5 mg/dL (0.2-1.0); Protein, Total 7.8 g/dL (6.4-8.2)
[2020-10-01 08:00] LABS: Potassium 2.9 mmol/L (3.5-5.1)
[2020-10-01 08:01] LABS: Urine Specific Gravity/Preg 1.005 (1.005-1.030)
[2020-10-01] MEDS ORDERED: POTASSIUM CL SA 10 MEQ TAB PO ONE (08:25)
[2020-10-01] MEDS ORDERED: KCL 20 MEQ/100 mL IVPB 20 MEQ/100 ML BAG IV ONE (08:25)
--- NOTE | 2020-10-01 08:29 | RAD REPORT ---
EXAM DESCRIPTION: CT - Abdomen Pelvis W Contrast - 10/01/2020 8:12 am CLINICAL HISTORY: Abdominal pain COMPARISON: 2017 and 2019 TECHNIQUE: Computed axial tomography of the abdomen pelvis was obtained. 100 cc Isovue-300 was admin istered intravenously. Oral contrast was not requested which limits evaluation of bowel and appendix. All CT scans are performed using dose optimization technique as appropriate and may include automated exposure control or mA/KV adjustment according to patient size. FINDINGS: Fatty liver. Post surgical changes of gastric bypass Spleen, pancreas, and adrenals appear unremarkable. Renal cortical thinning perhaps related to prior inflammation. There is no evidence of diverticulitis. A portion of the appendix is seen and is normal caliber. 2.3 centimeter round structure within the posterior upper mid pelvis probably ovary. Hysterectomy has been performed. Small umbilical hernia IMPRESSION: No acute abnormality is displayed.
[2020-10-01] MEDS ORDERED: NA CHLORIDE 0.9% 100 ML ONE (09:18)
[2020-10-01] MEDS ORDERED: NA CHLORIDE 0.9% 250 ML ONE (09:21)
--- NOTE | 2020-10-01 09:56 | RAD REPORT ---
EXAM DESCRIPTION: US - Transvaginal Study Probe - 10/01/2020 9:31 am CLINICAL HISTORY: Abdominal pain COMPARISON: CT October 01, 2020 FINDINGS: Hysterectomy 2 centimeter structure is present within the right adnexa. Blood flow was not clearly seen. The left adnexae is unremarkable. Left ovary is not seen. No significant free fluid is seen. IMPRESSION: 2 centimeter structure within the right adnexa may represent the right ovary seen within the posterior upper pelvis midline on the recent CT scan. Blood flow was not clearly visualized. Alt nicholas this can indicate an ovarian torsion given that the ovary is not enlarged, there is no surround ing fluid and increased flow to the periphery is not seen most likely a torsion is not present and th e apparent lack of flow is secondary to technical factors. This all should be correlated clinically. If the patient has indeterminate clinical findings followup CT and ultrasound would be helpful for re -evaluation
[2020-10-01] MEDS ORDERED: PROMETHAZINE INJ 25 MG/ML AMP ONE (11:28)
[2020-10-01] MEDS ORDERED: FENTANYL CITR 100 MCG/2 ML ONE (11:29)
[2020-10-01] MEDS ORDERED: NA CHLORIDE 0.9% 50 ML ONE (11:29)
[2020-10-01] MEDS ORDERED: HYDROCODONE/APAP 10/325 TAB ONE (12:50)
--- NOTE | 2020-10-01 13:03 | EDPHYS ---
Physician Documentation [facility] Name: Bailey Lopez Age: 49 yrs Sex: Female : 1970 Arrival Date: 10/01/2020 Time: 06:33 Bed 14 Private MD: ED Physician Renan Marsh HPI: 10/01 07:40 This 49 yrs old Black Female presents to ER via Ambulatory with complaints of Abdominal kdr Pain, Nausea. 07:40 The patient presents to the emergency department with nausea, that is mild, abdominal kdr pain, of the right lower quadrant. Onset: The symptoms/episode began/occurred gradually, Wednesday. Possible causes: unknown. The symptoms are aggravated by movement, pressure, The symptoms are alleviated by nothing. Associated signs and symptoms: Pertinent positives: abdominal pain, nausea, Pertinent negatives: anorexia, belching, constipation, diarrhea, dysuria, flatulence, GI bleeding, hematuria. Severity of symptoms: At their worst the symptoms were moderate severe just prior to arrival, in the emergency department the symptoms are unchanged. The patient has not experienced similar symptoms in the past. The patient has not recently seen a physician. 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 - Social history:: Smoking status: unknown. ROS: 07:40 Constitutional: Negative for fever, chills, and weight loss, Eyes: Negative for injury, kdr pain, redness, and discharge, ENT: Negative for injury, pain, and discharge, Neck: Negative for injury, pain, and swelling, Cardiovascular: Negative for chest pain, palpitations, and edema, Respiratory: Negative for shortness of breath, cough, wheezing, and pleuritic chest pain, Back: Negative for injury and pain, : Negative for injury, bleeding, discharge, and swelling, MS/Extremity: Negative for injury and deformity, Skin: Negative for injury, rash, and discoloration, Neuro: Negative for headache, weakness, numbness, tingling, and seizure activity. Psych: Negative for depression, anxiety, suicide ideation, homicidal ideation, and hallucinations, Allergy/Immunology: Negative for hives, rash, and allergies, Endocrine: Negative for neck swelling, polydipsia, polyuria, polyphagia, and marked weight changes, Hematologic/Lymphatic: Negative for swollen nodes, abnormal bleeding, and unusual bruising. 07:40 Abdomen/GI: Positive for abdominal pain, nausea, Negative for diarrhea, constipation, abdominal cramps, abdominal distension, anorexia, dysphagia, hematemesis, black/tarry stool, rectal pain, rectal bleeding, bowel incontinence. Exam: 07:40 Constitutional: This is a well developed, well nourished patient who is awake, alert, kdr and in no acute distress. Head/Face: Normocephalic, atraumatic. Eyes: Pupils equal round and reactive to light, extra-ocular motions intact. Lids and lashes normal. Conjunctiva and sclera are non-icteric and not injected. Cornea within normal limits. Periorbital areas with no swelling, redness, or edema. Neck: Trachea midline, no thyromegaly or masses palpated, and no cervical lymphadenopathy. Supple, full range of motion without nuchal rigidity, or vertebral point tenderness. No Meningismus. Chest/axilla: Normal chest wall appearance and motion. Nontender with no deformity. No lesions are appreciated. Cardiovascular: Regular rate and rhythm with a normal S1 and S2. No gallops, murmurs, or rubs. Normal PMI, no JVD. No pulse deficits. Respiratory: Lungs have equal breath sounds bilaterally, clear to auscultation and percussion. No rales, rhonchi or wheezes noted. No increased work of breathing, no retractions or nasal flaring. Back: No spinal tenderness. No costovertebral tenderness. Full range of motion. Skin: Warm, dry with normal turgor. Normal color with no rashes, no lesions, and no evidence of cellulitis. MS/ Extremity: Pulses equal, no cyanosis. Neurovascular intact. Full, normal range of motion. Neuro: Awake and alert, GCS 15, oriented to person, place, time, and situation. Cranial nerves II-XII grossly intact. Motor strength 5/5 in all extremities. Sensory grossly intact. Cerebellar exam normal. Normal gait. Psych: Awake, alert, with orientation to person, place and time. Behavior, mood, and affect are within normal limits. 07:40 Abdomen/GI: Inspection: obese Bowel sounds: diminished, in all quadrants, Palpation: soft, moderate abdominal tenderness, in the right lower quadrant, mass, is not appreciated, rebound tenderness, is appreciated in the right lower quadrant. Vital Signs: 06:42 BP 156 / 94; Pulse 84; Resp 18; Temp 98.3(O); Pulse Ox 100% on R/A; Weight 108.86 kg; mw2 Height 5 ft. 2 in. (157.48 cm); 07:00 BP 144 / 67; Pulse 69; Resp 20; Pulse Ox 96% on R/A; kg 07:21 BP 154 / 79; Pulse 75; Resp 20; Pulse Ox 99% on R/A; kg 08:43 BP 121 / 76; Pulse 75; Resp 18; Pulse Ox 97% on R/A; ph 10:18 BP 113 / 74; Pulse 77; Resp 16; Pulse Ox 96% on R/A; ph 12:13 BP 144 / 103; Pulse 81; Resp 18; Temp 97.8; Pulse Ox 99% on R/A; ph 13:14 BP 142 / 78; Pulse 78; Resp 18; Temp 97.9; Pulse Ox 100% on R/A; ph 06:42 Body Mass Index 43.90 (108.86 kg, 157.48 cm) 2 MDM: 07:40 Differential diagnosis: Nonspecific abd pain, gastritis, cholecystitis, appendicitis. kdr Data reviewed: vital signs, nurses notes, lab test result(s), radiologic studies, CT scan. Counseling: I had a detailed discussion with the patient and/or guardian regarding: the historical points, exam findings, and any diagnostic results supporting the discharge/admit diagnosis, lab results, radiology results. 13:02 Patient medically screened. kdr 13:16 Physician consultation: Brenna Oviedo MD regarding consult, patient's condition, kdr need to come to ED to see patient, and will see patient in ED, shortly. 13:16 Response to treatment: the patient's symptoms have markedly improved after treatment, kdr patient is well hydrated. The patient was comfortable with d/c and follow-up. 10/01 07:07 Order name: Urine --Ancillary (enter results) kdr 10/01 07:07 Order name: CBC with Diff kdr 10/01 07:07 Order name: Chem 7 kdr 10/01 07:07 Order name: LFT's kdr 10/01 07:48 Order name: CBC with Automated Diff; Complete Time: 07:56 EDMS 10/01 08:00 Order name: Basic Metabolic Panel; Complete Time: 08:05 EDMS 10/01 07:07 Order name: CT Abd/Pelvis - IV Contrast Only kdr 10/01 08:00 Order name: Liver (Hepatic) Function; Complete Time: 08:05 EDMS 10/01 08:01 Order name: Urine --Ancillary; Complete Time: 08:05 EDMS 10/01 08:30 Order name: CT; Complete Time: 08:45 EDMS 10/01 08:59 Order name: US Transvaginal Study (Probe) [facility] 10/01 09:58 Order name: US; Complete Time: 10:07 EDMS 10/01 07:07 Order name: Urine Dipstick-Ancillary (obtain specimen); Complete Time: 07:19 [facility] Administered Medications: 07:17 Drug: Zofran (Ondansetron) 4 mg Route: IVP; Site: left antecubital; ph 08:43 Follow up: Response: No adverse reaction ph 07:17 Drug: NS 0.9% 1000 ml Route: IV; Rate: 1 bolus; Site: left antecubital; ph 09:00 Follow up: Response: No adverse reaction; IV Status: Completed infusion; IV Intake: ph 1000ml 07:19 Drug: Dilaudid (HYDROmorphone) 1 mg Route: IVP; Site: left antecubital; ph 08:43 Follow up: Response: No adverse reaction; Pain is decreased; RASS: Alert and Calm (0) ph 08:30 Drug: Potassium Chloride 20 mEq Route: IV; Rate: calculated rate; Site: left ph antecubital; 10:49 Follow up: Response: No adverse reaction; IV Status: Completed infusion; IV Intake: ph 100ml 08:30 Drug: Potassium Chloride 40 mEq Route: PO; ph 08:44 Follow up: Response: No adverse reaction ph 08:35 Drug: Zofran (Ondansetron) 4 mg Route: IVP; Site: left antecubital; ph 08:44 Follow up: Response: No adverse reaction ph 08:54 CANCELLED (Duplicate Order): Dilaudid (HYDROmorphone) 1 mg IVP at calculated rate once ph over 30 mins; RASS on ADMIN: Combtv4, Very Agttd3, Agttd2, Rstlss1, AlertClm0, Drwsy-1, Lt Sdtn-2, Mod Sdtn-3, Dp Sdtn-4, UnArsble-5 09:05 Drug: Dilaudid (HYDROmorphone) 1 mg Route: IVP; Site: left antecubital; ph 10:49 Follow up: Response: No adverse reaction; Pain is decreased ph 09:05 Drug: NS 0.9% 250 ml Route: IV; Rate: 150 ml/hr; Site: left antecubital; ph 10:25 Follow up: Response: No adverse reaction; IV Status: Completed infusion; IV Intake: ph 250ml 11:16 Drug: Phenergan (promethazine) 12.5 mg Route: IVP; Site: left antecubital; ph 13:14 Follow up: Response: No adverse reaction; Nausea is decreased ph 11:16 Drug: fentaNYL (PF) 50 mcg Route: IVP; Site: left antecubital; ph 13:14 Follow up: Response: No adverse reaction; Pain is decreased ph 12:35 Drug: [place] (HYDROcodone-acetaminophen) 10 mg-325 mg 1 tabs Route: PO; ph 13:14 Follow up: Response: No adverse reaction ph Disposition: 10/01/20 13:02 Discharged to Home. Impression: Abdominal and pelvic pain. - Condition is Stable. - Discharge Instructions: Abdominal Pain, Adult, Zjir-ae-Prma. - Prescriptions for Zofran ODT 4 mg Oral tablet,disintegrating - place 1 tablet by TRANSLINGUAL route every 4-6 hours As needed; 12 tablet. ketorolac 10 mg Oral tablet - take 1 tablet by ORAL route every 6 hours not to exceed 40 mg in 24hrs; 12 tablet. - Medication Reconciliation Form, Thank You Letter, SBAR form form. - Follow up: Private Physician; When: 2 - 3 days; Reason: If symptoms return, Further diagnostic work-up, Recheck today's complaints, Continuance of care, Re-evaluation by your physician. - Problem is new. - Symptoms have improved. Signatures: Dispatcher [employer] EDRenan Moreno MD MD kdr Lizz Whitley RN RN Nicolasa, Shawn, RN RN jm8 Dayanara Aldridge, RN RN kg Corrections: (The following items were deleted from the chart) 08:54 08:54 Dilaudid (HYDROmorphone) 1 mg IVP at calculated rate once over 30 mins; RASS on ph ADMIN: Combtv4, Very Agttd3, Agttd2, Rstlss1, AlertClm0, Drwsy-1, Lt Sdtn-2, Mod Sdtn-3, Dp Sdtn-4, UnArsble-5 ordered. ph 13:16 13:02 10/01/2020 13:02 Discharged to Home. Impression: Abdominal and pelvic pain. ph Condition is Stable. Forms are SBAR form, Medication Reconciliation Form, Thank You Letter, Antibiotic Education, Prescription Opioid Use. Follow up: Private Physician; When: 2 - 3 days; Reason: If symptoms return, Further diagnostic work-up, Recheck today's complaints, Continuance of care, Re-evaluation by your physician. Problem is new. Symptoms have improved. kdr
--- NOTE | 2020-10-01 13:03 | ER ---
Nurse's Notes [facility] Name: Bailey Lopez Age: 49 yrs Sex: Female : 1970 Arrival Date: 10/01/2020 Time: 06:33 Bed 14 Private MD: Diagnosis: Abdominal and pelvic pain Presentation: 10/01 06:49 Chief complaint: Patient states: I've been having abdominal pain and nausea since jm8 wednesday. Coronavirus screen: Client denies travel out of the [place] in the last 14 days. At this time, the client does not indicate any symptoms associated with coronavirus-19. Ebola Screen: Patient negative for fever greater than or equal to 101.5 degrees Fahrenheit, and additional compatible Ebola Virus Disease symptoms Patient denies exposure to infectious person. Patient denies travel to an Ebola-affected area in the 21 days before illness onset. Initial Sepsis Screen: Does the patient meet any 2 criteria? No. Patient's initial sepsis screen is negative. Does the patient have a suspected source of infection? No. Patient's initial sepsis screen is negative. Risk Assessment: Do you want to hurt yourself or someone else? Patient reports no desire to harm self or others. Onset of symptoms was September 29, 2020. 06:49 Method Of Arrival: Ambulatory 8 06:49 Acuity: ALBERTO 3 jm8 Triage Assessment: 06:53 General: Appears in no apparent distress. uncomfortable, Behavior is calm, cooperative, jm8 appropriate for age. Pain: Complains of pain in abdomen Pain currently is 10 out of 10 on a pain scale. Pain began 2-3 days ago. Noted to be guarding, Also complains of nausea. EENT: No deficits noted. No signs and/or symptoms were reported regarding the EENT system. Neuro: No deficits noted. Level of Consciousness is awake, alert, obeys commands, Oriented to person, place, time. Cardiovascular: No deficits noted. Respiratory: No deficits noted. Airway is patent Trachea midline Respiratory effort is even, unlabored, Respiratory pattern is regular, symmetrical. GI: Abdomen is round Bowel sounds present X 4 quads. Abd is soft and non tender Reports lower abdominal pain, upper abdominal pain, nausea. : No deficits noted. No signs and/or symptoms were reported regarding the genitourinary system. Derm: No deficits noted. No signs and/or symptoms reported regarding the dermatologic system. Musculoskeletal: No deficits noted. No signs and/or symptoms reported regarding the musculoskeletal system. 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 - Social history:: Smoking status: unknown. Screenin:52 Abuse screen: Denies threats or abuse. Denies injuries from another. Nutritional 8 screening: No deficits noted. Tuberculosis screening: No symptoms or risk factors identified. Fall Risk None identified. Assessment: 07:21 General: Appears in no apparent distress. uncomfortable, Behavior is calm, cooperative, ph appropriate for age, Denies fever. Pain: Complains of pain in right upper quadrant and right lower quadrant. Neuro: Level of Consciousness is awake, alert, obeys commands, Oriented to person, place, time, situation. Cardiovascular: Capillary refill < 3 seconds in bilateral fingers Patient's skin is warm and dry. Respiratory: Airway is patent Respiratory effort is even, unlabored, Respiratory pattern is regular, symmetrical. GI: Abdomen is non-distended, Reports lower abdominal pain, upper abdominal pain, nausea, Patient currently denies diarrhea, vomiting. : No signs and/or symptoms were reported regarding the genitourinary system. Derm: Skin is intact, Skin is pink, warm \\T\\ dry. Musculoskeletal: Circulation, motion, and sensation intact. Range of motion: intact in all extremities. 08:35 Reassessment: Patient appears in no apparent distress at this time. Patient and/or ph family updated on plan of care and expected duration. Pain level reassessed. Patient is alert, oriented x 3, equal unlabored respirations, skin warm/dry/pink. Pt reports that pain has " gone down to a tolerable level." C/O nausea after taking PO K+, ERP notified and verbal order received for IVP Zofran, see MAR. 09:11 Reassessment: Patient appears in no apparent distress at this time. Patient and/or ph family updated on plan of care and expected duration. Pain level reassessed. Patient is alert, oriented x 3, equal unlabored respirations, skin warm/dry/pink. PT taken to US via stretcher. 10:53 Reassessment: Patient appears in no apparent distress at this time. Patient and/or ph family updated on plan of care and expected duration. Pain level reassessed. Patient is alert, oriented x 3, equal unlabored respirations, skin warm/dry/pink. Pt states that pain has decreased, reports slight nausea, awaiting US results, VSS SO at bedside. 13:15 Reassessment: Patient appears in no apparent distress at this time. Patient and/or ph family updated on plan of care and expected duration. Pain level reassessed. Patient is alert, oriented x 3, equal unlabored respirations, skin warm/dry/pink. Pt instructed to follow up w/ vp ancillary, d/c home w/ SO. Vital Signs: 06:42 BP 156 / 94; Pulse 84; Resp 18; Temp 98.3(O); Pulse Ox 100% on R/A; Weight 108.86 kg; mw2 Height 5 ft. 2 in. (157.48 cm); 07:00 BP 144 / 67; Pulse 69; Resp 20; Pulse Ox 96% on R/A; kg 07:21 BP 154 / 79; Pulse 75; Resp 20; Pulse Ox 99% on R/A; kg 08:43 BP 121 / 76; Pulse 75; Resp 18; Pulse Ox 97% on R/A; ph 10:18 BP 113 / 74; Pulse 77; Resp 16; Pulse Ox 96% on R/A; ph 12:13 BP 144 / 103; Pulse 81; Resp 18; Temp 97.8; Pulse Ox 99% on R/A; ph 13:14 BP 142 / 78; Pulse 78; Resp 18; Temp 97.9; Pulse Ox 100% on R/A; ph 06:42 Body Mass Index 43.90 (108.86 kg, 157.48 cm) mw2 ED Course: 06:33 Patient arrived in ED. bp1 06:51 Triage completed. jm8 06:54 Patient has correct armband on for positive identification. Bed in low position. Call jm8 light in reach. Side rails up X2. Adult w/ patient. 06:55 Arm band placed on right wrist. jm8 06:59 Renan Marsh MD is Attending Physician. kdr 07:06 Lizz Whitley, RN is Primary Nurse. ph 07:18 Initial lab(s) drawn, by ED staff, sent to lab. Inserted saline lock: 20 gauge in left ph antecubital area, using aseptic technique. ,using aseptic technique. per Dayanara SAUCEDA Blood collected. 07:39 No provider procedures requiring assistance completed. Patient did not have IV access kg during this emergency room visit. 07:56 LFT's Sent. mh5 07:56 Chem 7 Sent. mh5 07:57 Warm blanket given. Pulse ox on. NIBP on. mh5 08:41 CBC with Diff Sent. mh5 Administered Medications: 07:17 Drug: Zofran (Ondansetron) 4 mg Route: IVP; Site: left antecubital; ph 08:43 Follow up: Response: No adverse reaction ph 07:17 Drug: NS 0.9% 1000 ml Route: IV; Rate: 1 bolus; Site: left antecubital; ph 09:00 Follow up: Response: No adverse reaction; IV Status: Completed infusion; IV Intake: ph 1000ml 07:19 Drug: Dilaudid (HYDROmorphone) 1 mg Route: IVP; Site: left antecubital; ph 08:43 Follow up: Response: No adverse reaction; Pain is decreased; RASS: Alert and Calm (0) ph 08:30 Drug: Potassium Chloride 20 mEq Route: IV; Rate: calculated rate; Site: left ph antecubital; 10:49 Follow up: Response: No adverse reaction; IV Status: Completed infusion; IV Intake: ph 100ml 08:30 Drug: Potassium Chloride 40 mEq Route: PO; ph 08:44 Follow up: Response: No adverse reaction ph 08:35 Drug: Zofran (Ondansetron) 4 mg Route: IVP; Site: left antecubital; ph 08:44 Follow up: Response: No adverse reaction ph 08:54 CANCELLED (Duplicate Order): Dilaudid (HYDROmorphone) 1 mg IVP at calculated rate once ph over 30 mins; RASS on ADMIN: Combtv4, Very Agttd3, Agttd2, Rstlss1, AlertClm0, Drwsy-1, Lt Sdtn-2, Mod Sdtn-3, Dp Sdtn-4, UnArsble-5 09:05 Drug: Dilaudid (HYDROmorphone) 1 mg Route: IVP; Site: left antecubital; ph 10:49 Follow up: Response: No adverse reaction; Pain is decreased ph 09:05 Drug: NS 0.9% 250 ml Route: IV; Rate: 150 ml/hr; Site: left antecubital; ph 10:25 Follow up: Response: No adverse reaction; IV Status: Completed infusion; IV Intake: ph 250ml 11:16 Drug: Phenergan (promethazine) 12.5 mg Route: IVP; Site: left antecubital; ph 13:14 Follow up: Response: No adverse reaction; Nausea is decreased ph 11:16 Drug: fentaNYL (PF) 50 mcg Route: IVP; Site: left antecubital; ph 13:14 Follow up: Response: No adverse reaction; Pain is decreased ph 12:35 Drug: [place] (HYDROcodone-acetaminophen) 10 mg-325 mg 1 tabs Route: PO; ph 13:14 Follow up: Response: No adverse reaction ph Intake: 09:00 IV: 1000ml; Total: 1000ml. ph 10:25 IV: 250ml; Total: 1250ml. ph 10:49 IV: 100ml; Total: 1350ml. ph Outcome: 13:02 Discharge ordered by . kdr 13:15 Discharged to home via wheelchair, with significant other. ph 13:15 Condition: good 13:15 Discharge instructions given to patient, Instructed on discharge instructions, follow up and referral plans. medication usage, Demonstrated understanding of instructions, follow-up care, medications, Prescriptions given X 3. 13:16 Patient left the ED. ph Signatures: Renan Marsh MD MD kdr Hall, Patricia RN RN ph Stefani Sanderson 5 Babita Dixon mw2 Alyce Bustamante Joseph RN RN jm8 Dayanara Aldridge RN RN kg Corrections: (The following items were deleted from the chart) 12:12 07:39 Discharged to home ambulatory, kg ph :03 18:39 Condition: good kg ph : Discharge instructions given to patient, Instructed on discharge instructions, ph follow up and referral plans. Demonstrated understanding of instructions, follow-up care, medications, Prescriptions given X 1, kg
[2020-10-01 13:49] VITALS: BP 142/78; TEMP 97.9; O2SAT 100
--- NOTE | 2020-10-01 14:49 | CON ---
Date of Consultation: 10/01/2020 Requesting Physician: Renan Marsh MD from the ER. Reason For Consultation: Right lower quadrant pain and right adnexal mass. History Of Present Illness: The patient is a 49-year-old, 5, para 5, presented to the emerge ncy room with severe abdominal pain, mostly right lower quadrant and severe nausea for 2 days. Onset of pain was 2 days ago. The patient woke up from her sleep, spontaneous onset. Pain is severe, sha rp, and constant. New onset pain. Never experienced pain to this level. Denies any vaginal bleedin g, urinary symptoms like dysuria or urgency or frequency, hematuria, and no evidence of any constipat ion, diarrhea, or blood in the stool. Review of Systems: No evidence of any fever, chills. Mostly anxious. Does not have any neurological symptoms or cardia c or respiratory symptoms. Past Copy Holder History: Significant for 5 pregnancies, all delivered via . The patient had an ab dominal hysterectomy at the time of her last delivery for hemorrhage by the patient's hist ory. No records available for review. No known prior history of ovarian cyst (on review of the melissa rds here at the hospital in 2019, the patient was seen for pain and she seemed to have a CT scan whic h showed about 4.7 cm cystic mass on the right ovary, but she had recovered well from it and has done well so far). Past Surgical History: Significant for back surgeries x2, section x5, abdominal hysterectom y in 1995, and a gastric bypass or sleeve. Past Medical History: Significant for back pain and morbid obesity. Medications: Tramadol p.r.n. Allergies: MULTIPLE TO CODEINE, DARVOCET-N 100, DEMEROL, MEPERIDINE, MORPHINE, OXYCODONE, AND PROPOX YPHENE. Social History: No tobacco, alcohol, or drug use. Physical Examination: Vital Signs: Most recently; temperature of 97.8, blood pressure of 144/103, pulse of 81, respiratory rate 18, and O2 sats 99% on room air. General: As I examined the patient in the room, she was not in distress; however, propped herself up on pillows in her bed. Awake, alert, and slightly anxious. The patient is a morbidly obese lady. Neck: No palpable masses. Abdomen: Soft, nondistended. Tender in the right lower quadrant. She seemed to have a bilobed pann us from her scar and on the scar on the anterior abdominal wall, there was at least 8 cm lower midline scar, intertrigo or superficial yeast infection due to which there was erosion on the skin and exposure between her divided panniculus. The patient stated that this was not unusual for her during the warm season where sweat gets trapped and she has this. On abdominal exam, no evid ence of any hernia. Tender right lower quadrant. No rebound. Left unremarkable. Pelvic: Deferred at this time due to the patient's discomfort. Laboratory Data: Her labs were all normal. No elevation in white cell count 10.2 and there is no le ft shift. Her hemoglobin 14; MCV and the white count is 7.9, hemoglobin of actually 12 g. Platelet count of 192. Ultrasound was reviewed. She has a 2.3 cm right adnexal mass, most likely an ovarian or adnexal cyst. On CT scan, she had a similar mass which is located in the mid pelvis in the posterior aspect and did not appear to be acutely inflamed around. All the bowels unremarkable, no evidence of any diverticulitis and on the appendix mostly unremarkable. Assessment And Plan: 1.Right lower quadrant pain. CT and ultrasound showing no acute inflammatory changes. The ovarian mass on the right side compared to previous CT from 2 years ago which was 4.7 cm is only 2.3 cm, so i t could be a physiological process or even if it is something like an endometrioma and it must be obs erved given the patient's risks and the size of the cyst being so small. 2.Pain medication has been given in the ER and she will be managed with oral pain medications. Her gynecological etiology does not seem likely to her severe constant right lower quadrant pain at this time. She can be managed as outpatient and she can definitely see me in the office. 3.Right pelvic mass which 2.3 cm, not suspicious for any cancer. No need for any CA-125. I would check an FSH level to see if she is close to menopause and if the cyst would go away. If t yunior were not, then I would manage her with Depot progesterone injection so we can suppress the ovulat ion and decrease the chance of this recurrence. 4.Morbid obesity. The patient has risk for sleep apnea as well as postoperative risk for any other problems, so to be managed appropriately and back pain is her other problem. She has chronic back pa in and back surgeries. Managing this would be appropriate and all these were communicated with Dr. Pa jason in the ER. No pecan huller etiology acute that needs any surgical intervention at this time. The patie nt will be seen as outpatient if she is deemed to be stable to be discharged and the etiology of GI a nd is ruled out. NITZA/SAIDA Voice ID: [id number] Report ID: [id number]
[2020-10-02] MEDS ORDERED: NA CHLORIDE 0.9% 500 ML ONE (15:13)
== END 2020-10-01 13:16 | disposition home or self-care (01) ==
LOC: ER 06:28
DX: R10.2 Pelvic and perineal pain (principal); Z88.5 Allergy status to narcotic agent; Z88.8 Allergy status to other drugs, medicaments and biological substances
CPT/HCPCS: 36415; 74177; 76830; 80048; 80076; 81025; 83001; 85025; 96361; 96365; 96366; 96375; 99284; J1170; J2405; J2550; J3010; J3480; J7030; J7050; Q9967

== ENCOUNTER 2021-10-11 14:02 | Emergency (ER) | payer BC ==
[2021-10-11] MEDS ORDERED: IBUPROFEN 400 MG TAB ONE (16:23)
--- NOTE | 2021-10-11 17:09 | ER ---
Nurse's Notes [facility] Name: Bailey Lopez Age: 50 yrs Sex: Female : 1970 Arrival Date: 10/11/2021 Time: 14:06 Bed 12 Private MD: Diagnosis: Coronavirus infection, unspecified Presentation: 10/11 14:26 Chief complaint: Patient states: fever, chills, body aches, SOB, cough, CP, sore throat vg1 and nausea x 3 days. Coronavirus screen: Vaccine status: Patient reports receiving the 2nd dose of the covid vaccine. Ebola Screen: Patient denies exposure to infectious person. Patient denies travel to an Ebola-affected area in the 21 days before illness onset. Initial Sepsis Screen: Does the patient meet any 2 criteria? HR > 90 bpm. Does the patient have a suspected source of infection? No. Patient's initial sepsis screen is negative. Risk Assessment: Do you want to hurt yourself or someone else? Patient reports no desire to harm self or others. Onset of symptoms was October 11, 2021. 14:26 Method Of Arrival: Ambulatory vg1 14:26 Acuity: ALBERTO 3 vg1 Triage Assessment: 14:28 General: Appears uncomfortable, Behavior is cooperative. Pain: Complains of pain in vg1 generalize body Pain currently is 10 out of 10 on a pain scale. 14:28 Neuro: Level of Consciousness is awake, alert, obeys commands, Oriented to person, vg1 place, time, situation. Cardiovascular: Patient's skin is warm and dry. Respiratory: Airway is patent Respiratory effort is even, unlabored. GI: Reports nausea. 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 - Social history:: Smoking status: Patient denies any tobacco usage or history of. Screenin:45 Abuse screen: Denies threats or abuse. Denies injuries from another. Nutritional ss screening: No deficits noted. Tuberculosis screening: Never had TB. Fall Risk None identified. Assessment: 17:34 Reassessment: Patient appears in no apparent distress at this time. Patient and/or jb4 family updated on plan of care and expected duration. Pain level reassessed. Patient is alert, oriented x 3, equal unlabored respirations, skin warm/dry/pink. Vital Signs: 14:26 BP 111 / 82; Pulse 100; Resp 16; Temp 99.0(O); Pulse Ox 100% ; Weight 98.88 kg; Height vg1 5 ft. 3 in. (160.02 cm); Pain 9/10; 14:26 Body Mass Index 38.62 (98.88 kg, 160.02 cm) vg1 ED Course: 14:06 Patient arrived in ED. 4 14:17 Adán Irvin PA is PHCP. [facility] 14:17 Renan Marsh MD is Attending Physician. [facility] 14:28 Triage completed. vg1 14:28 Arm band placed on. EKG completed in triage. Results shown to MD. vg1 14:36 EKG done, COVID swab sent to lab. Flu and/or RSV swab sent to lab. Strep swab sent to vg1 lab. 16:44 Nelli Meadows, RN is Primary Nurse. ss 16:45 Patient has correct armband on for positive identification. Bed in low position. Call ss light in reach. 17:34 No provider procedures requiring assistance completed. Patient did not have IV access jb4 during this emergency room visit. Administered Medications: 16:17 Drug: Ibuprofen 400 mg Route: PO; vg1 17:32 Not Given (Medication unavailablee): Robitussin Pediatric (dextromethorphan) Liquid 20 jb4 mg PO once Medication: 17:34 VIS not applicable for this client. jb4 Outcome: 17:08 Discharge ordered by . gustavo 17:34 Discharged to home ambulatory, with family. jb4 17:34 Condition: stable 17:34 Discharge instructions given to patient, Instructed on discharge instructions, follow up and referral plans. medication usage, Demonstrated understanding of instructions, follow-up care, medications, Prescriptions given X 3. 17:35 Patient left the ED. jb4 Signatures: Adán Irvin PA PA jmm Smirch, Shelby, RN RN ss Kary Dupree rg4 Masood Acevedo RN RN jb4 Oriana Dupree RN RN vg1
--- NOTE | 2021-10-11 17:09 | EDPHYS ---
Physician Documentation [facility] Name: Bailey Lopez Age: 50 yrs Sex: Female : 1970 Arrival Date: 10/11/2021 Time: 14:06 Bed 12 Private MD: ED Physician Renan Marsh HPI: 10/11 17:00 This 50 yrs old Black Female presents to ER via Ambulatory with complaints of Flu jmm Symptoms. 17:00 The patient or guardian reports cough. Onset: The symptoms/episode began/occurred jmm gradually, 3 day(s) ago. Modifying factors: The symptoms are alleviated by nothing. the symptoms are aggravated by nothing. Associated signs and symptoms: Pertinent positives: fever, sore throat. It is unknown whether or not the patient has had similar symptoms in the past. 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 - Social history:: Smoking status: Patient denies any tobacco usage or history of. ROS: 17:00 Constitutional: Positive for body aches, fatigue. jmm 17:00 Cardiovascular: Positive for chest pain, with cough. 17:00 All other systems are negative. 17:00 Cardiovascular: Positive for chest pain, with cough. jmm 17:00 Respiratory: Positive for cough. Exam: 17:00 Constitutional: This is a well developed, well nourished patient who is awake, alert, jmm and in no acute distress. Head/Face: atraumatic. Eyes: EOMI, no conjunctival erythema appreciated 17:00 Neck: Trachea midline, Supple Chest/axilla: Normal chest wall appearance and motion. Cardiovascular: Regular rate and rhythm. No edema appreciated Respiratory: Normal respirations, no respiratory distress appreciated Abdomen/GI: Non distended Back: Normal ROM Skin: General appearance color normal MS/ Extremity: Moves all extremities, no obvious deformities appreciated, no edema noted to the lower extremities Neuro: Awake and alert Psych: Behavior is normal, Mood is normal, Patient is cooperative and pleasant 17:00 ENT: Posterior pharynx: erythema, that is moderate. Vital Signs: 14:26 BP 111 / 82; Pulse 100; Resp 16; Temp 99.0(O); Pulse Ox 100% ; Weight 98.88 kg; Height vg1 5 ft. 3 in. (160.02 cm); Pain 9/10; 14:26 Body Mass Index 38.62 (98.88 kg, 160.02 cm) vg1 MDM: 16:07 Patient medically screened. [facility] 17:06 Data reviewed: vital signs, nurses notes. Counseling: I had a detailed discussion with [facility] the patient and/or guardian regarding: the historical points, exam findings, and any diagnostic results supporting the discharge/admit diagnosis, lab results, the need for outpatient follow up, to return to the emergency department if symptoms worsen or persist or if there are any questions or concerns that arise at home. ED course: Patient is alert and non toxic in appearance in the ED. No signs of resp distress. Advised to follow up with pcp and otherwise given strict return precautions. patient understood and agrees with the plan of care. . 10/11 14:25 Order name: SARS-COV-2 RT PCR (Document "Date of Onset" if Symptomatic); Complete Time: [facility] 16:54 10/11 14:25 Order name: Influenza Screen (a \\T\\ B); Complete Time: 16:47 [facility] 10/11 14:26 Order name: Strep; Complete Time: 16:47 [facility] 10/11 16:25 Order name: Throat Culture EDMS Administered Medications: 16:17 Drug: Ibuprofen 400 mg Route: PO; vg1 17:32 Not Given (Medication unavailablee): Robitussin Pediatric (dextromethorphan) Liquid 20 jb4 mg PO once Disposition: 17:42 Co-signature as Attending Physician, Renan Marsh MD I agree with the assessment and kdr plan of care. Disposition Summary: 10/11/21 17:08 Discharge Ordered Location: Home [facility] Condition: Stable [facility] Diagnosis - Coronavirus infection, unspecified [facility] Followup: jmm - With: Private Physician - When: 2 - 3 days - Reason: Recheck today's complaints, Continuance of care, Re-evaluation by your physician Discharge Instructions: - Discharge Summary Sheet daiiman - COVID-19 jm Forms: - Medication Reconciliation Form [facility] - Thank You Letter jmm - Antibiotic Education jmm - Prescription Opioid Use jm Prescriptions: - Paxlovid - take 1 application by ORAL route 2 times per day for 5 days; 1 packet; Refills: jmm 0, Product Selection Permitted - promethazine-DM - take 5 milliliter by ORAL route every 4-6 hours; 120 milliliter; Refills: 0, jmm Product Selection Permitted - albuterol sulfate 90 mcg/actuation Inhalation HFA aerosol inhaler - inhale 2 puff by INHALATION route every 4 hours; 1 Pump; Refills: 0, Product jmm Selection Permitted Signatures: Dispatcher [employer] EDRenan Moreno MD MD kdr Mickail, Joel, PA PA Oriana Carlin RN RN vg1 Masood Acevedo RN jb4 Corrections: (The following items were deleted from the chart) 17:02 17:00 Cardiovascular: Negative for chest pain, palpitations, and edema, Respiratory: [facility] Negative for shortness of breath, cough, wheezing, and pleuritic chest pain, jm
[2021-10-11 17:40] VITALS: BP 111/82; TEMP 99; O2SAT 100
--- NOTE | 2021-10-14 12:49 | EKG ---
Test Date: 2021-10-11 Test Time: 14:31:19 Borematic Operator: CATIA MEASUREMENT RESULTS: Intervals: Rate: 96 ME: 188 QRSD: 88 QT: 370 QTc: 467 [place]: P: 32 ME: 188 QRS: -30 T: 4 INTERPRETIVE STATEMENTS: Normal sinus rhythm Left axis deviation Voltage criteria for left ventricular hypertrophy Nonspecific T wave abnormality Abnormal ECG Compared to ECG 03/14/2018 16:12:05 Left-axis deviation now present Left ventricular hypertrophy now present T-wave abnormality now present ST (T wave) deviation no longer present Electronically Signed On 10-14-21 12:47:39 CDT by Kevin Crisostomo
== END 2021-10-11 17:35 | disposition home or self-care (01) ==
LOC: ER 14:02
DX: U07.1 COVID-19 (principal); Z88.5 Allergy status to narcotic agent; Z88.8 Allergy status to other drugs, medicaments and biological substances
CPT/HCPCS: 93005; 87070; 87081; 87804 ×2; 99284; U0003

== ENCOUNTER 2021-10-18 19:51 | Emergency (ER) | payer BC ==
[2021-10-18] MEDS ORDERED: NA CHLORIDE 0.9% 1,000 ML ONE (20:23)
[2021-10-18] MEDS ORDERED: ONDANSETRON 4 MG/2 ML VIAL ONE ×2 (20:23→21:55)
[2021-10-18] MEDS ORDERED: KETOROLAC 30 MG/ML INJ ONE (20:23)
[2021-10-18 20:39] LABS: Absolute Lymphocytes (CBC) 2.9 K/uL (0.7-4.9); Hematocrit 37.1 % (36.0-45.0); Lymphocytes % 30.4 % (15.3-44.8); MCV 80.9 fL (80-100); MPV 8.3 fL (7.6-11.3); RBC Red Blood Cell Count 4.58 M/uL (3.86-4.86)
[2021-10-18 20:50] LABS: Albumin 3.3 g/dL (3.4-5.0); Bilirubin Total 0.2 mg/dL (0.2-1.0); Protein, Total 7.5 g/dL (6.4-8.2)
--- NOTE | 2021-10-18 21:35 | RAD REPORT ---
EXAM DESCRIPTION: CT - Abdomen Pelvis W Contrast - 10/18/2021 9:18 pm CLINICAL HISTORY: Abdominal pain COMPARISON: 2020 TECHNIQUE: Computed axial tomography of the abdomen pelvis was obtained. 100 cc Isovue-300 was admin istered intravenously. Oral contrast was not requested which limits evaluation of bowel and appendix All CT scans are performed using dose optimization technique as appropriate and may include automated exposure control or mA/KV adjustment according to patient size. FINDINGS: Liver, spleen, pancreas and adrenals appear unremarkable Renal cortical thinning may be related to prior inflammation. An abnormal appendix is not visualized No adnexal mass There is no evidence of diverticulitis. Postsurgical changes involve the stomach IMPRESSION: No acute abnormality is displayed.
--- NOTE | 2021-10-18 22:19 | ER ---
Nurse's Notes [facility] Name: Bailey Lopez Age: 50 yrs Sex: Female : 1970 Arrival Date: 10/18/2021 Time: 19:55 Bed 20 Private MD: Diagnosis: Nausea with vomiting, unspecified Presentation: 10/18 20:00 Chief complaint: Patient states: "I have been vomiting since ." Patient also tw5 explains that she is having lower abdominal pain. Coronavirus screen: Vaccine status: Patient reports receiving the 2nd dose of the covid vaccine. Moderna. Ebola Screen: Patient negative for fever greater than or equal to 101.5 degrees Fahrenheit, and additional compatible Ebola Virus Disease symptoms Patient denies exposure to infectious person. Patient denies travel to an Ebola-affected area in the 21 days before illness onset. Initial Sepsis Screen: Does the patient meet any 2 criteria? HR > 90 bpm. No. Patient's initial sepsis screen is negative. Does the patient have a suspected source of infection? Yes: Acute abdominal pain. Risk Assessment: Do you want to hurt yourself or someone else? Patient reports no desire to harm self or others. Onset of symptoms was October 15, 2021. 20:00 Method Of Arrival: Ambulatory tw5 20:00 Acuity: ALBERTO 3 tw5 Triage Assessment: 20:02 Pain: Complains of pain in right lower quadrant Pain currently is 7 out of 10 on a pain tw5 scale. GI: Reports vomiting. 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 - Social history:: Smoking status: Patient/guardian denies using tobacco, the patient reports quitting approximately 10 years ago. Screenin:21 Abuse screen: Denies threats or abuse. Denies injuries from another. Nutritional lg3 screening: No deficits noted. Tuberculosis screening: No symptoms or risk factors identified. Fall Risk None identified. Assessment: 20:21 General: Appears in no apparent distress. uncomfortable, Behavior is calm, cooperative. lg3 Pain: Complains of pain in right upper quadrant and right lower quadrant. Neuro: No deficits noted. Level of Consciousness is awake, alert, Oriented to person, place, time, situation. Cardiovascular: No deficits noted. Denies chest pain, shortness of breath, Capillary refill < 3 seconds Clubbing of nail beds is absent JVD is absent Patient's skin is warm and dry. Respiratory: No deficits noted. Airway is patent Trachea midline Respiratory effort is even, unlabored, Respiratory pattern is regular, symmetrical, Breath sounds are clear bilaterally. GI: Abdomen is round non-distended, Bowel sounds present X 4 quads. Abd is soft X 4 quads Abdomen is tender to palpation in right upper quadrant and right lower quadrant Reports intolerance of fluids, intolerance of food, nausea, vomiting. : No deficits noted. No signs and/or symptoms were reported regarding the genitourinary system. EENT: No deficits noted. No signs and/or symptoms were reported regarding the EENT system. Derm: No deficits noted. No signs and/or symptoms reported regarding the dermatologic system. Skin is intact, is healthy with good turgor, Skin is dry, Skin temperature is warm. Musculoskeletal: No deficits noted. No signs and/or symptoms reported regarding the musculoskeletal system. Circulation, motion, and sensation intact. Range of motion: intact in all extremities. 21:27 Reassessment: Patient appears in no apparent distress at this time. No changes from lg3 previously documented assessment. Patient and/or family updated on plan of care and expected duration. Pain level reassessed. Patient is alert, oriented x 3, equal unlabored respirations, skin warm/dry/pink. 22:32 Reassessment: Patient appears in no apparent distress at this time. No changes from lg3 previously documented assessment. Patient and/or family updated on plan of care and expected duration. Pain level reassessed. Patient is alert, oriented x 3, equal unlabored respirations, skin warm/dry/pink. Patient states feeling better. Patient states symptoms have improved. Vital Signs: 20:00 BP 147 / 91; Pulse 101; Resp 18; Temp 98.3(O); Pulse Ox 100% on R/A; Weight 99.34 kg; tw5 Height 5 ft. 2 in. (157.48 cm); Pain 7/10; 22:32 BP 136 / 88; Pulse 84; Resp 17 S; Pulse Ox 100% on R/A; lg3 20:00 Body Mass Index 40.06 (99.34 kg, 157.48 cm) tw5 ED Course: 19:55 Patient arrived in ED. bp1 19:57 [facility]C [facility] kb 19:57 Lucius Eubanks MD is Attending Physician. kb 20:02 Triage completed. tw5 20:02 Arm band placed on right wrist. tw5 20:04 Angelica Olmos, KOMAL is Primary Nurse. lg3 20:20 Lipase Sent. lg3 20:20 CMP Sent. lg3 20:21 Patient has correct armband on for positive identification. Placed in gown. Bed in low lg3 position. Call light in reach. Side rails up X 1. Client placed on continuous cardiac and pulse oximetry monitoring. NIBP monitoring applied. Door closed. Noise minimized. Warm blanket given. 20:21 CBC with Diff Sent. lg3 20:21 Inserted saline lock: 22 gauge in left antecubital area, using aseptic technique. Blood lg3 collected. 21:20 CT Abd/Pelvis - IV Contrast Only In Process Unspecified. EDMS 22:32 No provider procedures requiring assistance completed. IV discontinued, intact, lg3 bleeding controlled, No redness/swelling at site. Pressure dressing applied. Administered Medications: 20:21 Drug: NS 0.9% 1000 ml Route: IV; Rate: 1 bolus; Site: left antecubital; lg3 22:32 Follow up: IV Status: Completed infusion; IV Intake: 1000ml lg3 20:21 Drug: Zofran (Ondansetron) 4 mg Route: IVP; Site: left antecubital; lg3 20:21 Follow up: Response: No adverse reaction lg3 20:21 Drug: Ketorolac 15 mg Route: IVP; Site: left antecubital; lg3 20:21 Follow up: Response: No adverse reaction lg3 21:59 Drug: Zofran (Ondansetron) 4 mg Route: IVP; Site: left antecubital; lg3 21:59 Follow up: Response: No adverse reaction lg3 Medication: 22:33 VIS not applicable for this client. lg3 Intake: 22:32 IV: 1000ml; Total: 1000ml. lg3 Outcome: 22:19 Discharge ordered by MD. evans 22:33 Discharged to home ambulatory. lg3 22:33 Condition: stable 22:33 Discharge instructions given to patient, Instructed on discharge instructions, medication usage, Demonstrated understanding of instructions, medications, Prescriptions given X 1. 22:45 Patient left the ED. lg3 Signatures: Dispatcher [employer] EDPina Ford, MARY-C HAT BRAIDER-Angelica Murguia, RN RN lg3 Alyce Bustamante Tiffany tw5 Corrections: (The following items were deleted from the chart) 20:06 20:00 Initial Sepsis Screen: Does the patient meet any 2 criteria? Temp <36.0*C tw5 (96.8*F)) or > 38.3*C (100.9*F). HR > 90 bpm. Yes Does the patient have a suspected source of infection? Yes: Acute abdominal pain tw5 20:06 20:00 BP 147 / 91; Pulse 101bpm; Resp 18bpm; Pulse Ox 100% RA; Temp 96.5F; 99.34 kg; tw5 Height 5 ft. 2 in.; BMI: 40.0; Pain 7/10; tw5
--- NOTE | 2021-10-18 22:20 | EDPHYS ---
Physician Documentation [facility] Name: Bailey Lopez Age: 50 yrs Sex: Female : 1970 Arrival Date: 10/18/2021 Time: 19:55 Bed 20 Private MD: ED Physician Lucius Eubanks HPI: 10/18 22:20 This 50 yrs old Black Female presents to ER via Ambulatory with complaints of Vomiting. kb 22:20 The patient presents to the emergency department with nausea, vomiting. Onset: The kb symptoms/episode began/occurred 3 day(s) ago. Possible causes: unknown. The symptoms are aggravated by nothing. The symptoms are alleviated by nothing. Associated signs and symptoms: Pertinent positives: nausea, vomiting. Severity of symptoms: At their worst the symptoms were moderate in the emergency department the symptoms are unchanged. The patient has not experienced similar symptoms in the past. The patient has not recently seen a physician. Pt reports nausea and vomiting for 3 days. States she had covid last week . 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 - Social history:: Smoking status: Patient/guardian denies using tobacco, the patient reports quitting approximately 10 years ago. ROS: 22:20 Constitutional: Negative for fever, chills, and weight loss. kb 22:20 Abdomen/GI: Positive for nausea and vomiting, Negative for abdominal pain, diarrhea. 22:20 All other systems are negative. Exam: 22:20 Constitutional: This is a well developed, well nourished patient who is awake, alert, kb and in no acute distress. Head/Face: Normocephalic, atraumatic. ENT: Moist Mucous membranes Cardiovascular: Regular rate and rhythm with a normal S1 and S2. No gallops, murmurs, or rubs. No pulse deficits. Respiratory: Respirations even and unlabored. No increased work of breathing. Talking in full sentences Skin: Warm, dry with normal turgor. Normal color. MS/ Extremity: Pulses equal, no cyanosis. Neurovascular intact. Full, normal range of motion. Neuro: Awake and alert, GCS 15, oriented to person, place, time, and situation. Moves all extremities. Normal gait. Psych: Awake, alert, with orientation to person, place and time. Behavior, mood, and affect are within normal limits. 22:20 Abdomen/GI: Inspection: abdomen appears normal, Bowel sounds: normal, Palpation: soft, moderate abdominal tenderness, in the right lower quadrant. Vital Signs: 20:00 BP 147 / 91; Pulse 101; Resp 18; Temp 98.3(O); Pulse Ox 100% on R/A; Weight 99.34 kg; tw5 Height 5 ft. 2 in. (157.48 cm); Pain 7/10; 22:32 BP 136 / 88; Pulse 84; Resp 17 S; Pulse Ox 100% on R/A; lg3 20:00 Body Mass Index 40.06 (99.34 kg, 157.48 cm) tw5 MDM: 20:01 Patient medically screened. kb 22:20 Data reviewed: vital signs, nurses notes. Data interpreted: Pulse oximetry: on room air kb is 100 %. Interpretation: normal. Counseling: I had a detailed discussion with the patient and/or guardian regarding: the historical points, exam findings, and any diagnostic results supporting the discharge/admit diagnosis, lab results, radiology results, the need for outpatient follow up, a family practitioner, to return to the emergency department if symptoms worsen or persist or if there are any questions or concerns that arise at home. 10/18 20:01 Order name: CBC with Diff; Complete Time: 20:57 kb 10/18 20:01 Order name: CMP; Complete Time: 20:57 kb 10/18 20:01 Order name: Lipase; Complete Time: 20:57 kb 10/18 20:01 Order name: CT Abd/Pelvis - IV Contrast Only; Complete Time: 21:37 kb 10/18 20:01 Order name: IV Saline Lock; Complete Time: 20:21 kb 10/18 20:01 Order name: Labs collected and sent; Complete Time: 20:21 kb 10/18 21:41 Order name: PO challenge; Complete Time: 22:10 kb Administered Medications: 20:21 Drug: NS 0.9% 1000 ml Route: IV; Rate: 1 bolus; Site: left antecubital; lg3 22:32 Follow up: IV Status: Completed infusion; IV Intake: 1000ml lg3 20:21 Drug: Zofran (Ondansetron) 4 mg Route: IVP; Site: left antecubital; lg3 20:21 Follow up: Response: No adverse reaction lg3 20:21 Drug: Ketorolac 15 mg Route: IVP; Site: left antecubital; lg3 20:21 Follow up: Response: No adverse reaction lg3 21:59 Drug: Zofran (Ondansetron) 4 mg Route: IVP; Site: left antecubital; lg3 21:59 Follow up: Response: No adverse reaction lg3 Disposition Summary: 10/18/21 22:19 Discharge Ordered Location: Home kb Condition: Stable kb Diagnosis - Nausea with vomiting, unspecified kb Followup: kb - With: Emergency Department - When: As needed - Reason: Worsening of condition Followup: kb - With: Private Physician - When: 2 - 3 days - Reason: Recheck today's complaints, Continuance of care, Re-evaluation by your physician Discharge Instructions: - Discharge Summary Sheet kb - Nausea and Vomiting, Adult, [id number] kb Forms: - Medication Reconciliation Form kb - Thank You Letter kb - Antibiotic Education kb - Prescription Opioid Use kb Prescriptions: - Zofran 4 mg Oral Tablet - take 1 tablet by ORAL route every 6 hours As needed; 20 tablet; Refills: 0, kb Product Selection Permitted Signatures: Dispatcher [employer] Pina [place], Angelica Turner, RN RN lg3 Regine Mares tw5
[2021-10-18 23:05] VITALS: TEMP 98.3; O2SAT 100
[2021-10-18 23:06] VITALS: BP 136/88
== END 2021-10-18 22:45 | disposition home or self-care (01) ==
LOC: ER 19:51
DX: R11.2 Nausea with vomiting, unspecified (principal); Z88.5 Allergy status to narcotic agent; Z88.8 Allergy status to other drugs, medicaments and biological substances
CPT/HCPCS: 85025; 36415; 83690; 80053; 74177; Q9967; J7030; J2405 ×2; 96361; 96374; 96375; 99284

== ENCOUNTER 2021-11-23 09:45 | Emergency (ER) | payer BC ==
--- OUTSIDE RECORDS SUMMARY | 2021-11-23 09:52 | XMS REPORT | Continuity of Care Document ---
:1970 Author Organization [facility] t Address [address] [place] [address] Care Team Providers Name Role Phone JUAQUIN INIGUEZ Primary Care Physician Unavailable AGUSTINA KURTZ Attending Clinician Unavailable Andria Burciaga MD Attending Clinician Ernestina Don MD Attending Clinician Ahmet Sarabia DO Attending Clinician Agustina Kurtz MD Attending Clinician Dante Nieves MD Attending Clinician Doctor Unassigned, [place] Attending Clinician Unavailable Javi Kerr Attending Clinician JAVI MCGEE Attending Clinician Unavailable AGUSTINA KURTZ Admitting Clinician Unavailable Ahmet Sarabia DO Admitting Clinician JAVI MCGEE Admitting Clinician Unavailable Payers Payer Name Policy Type Policy Number Effective Date Expiration Date S an[place] MEDICAID PENDING PENDING 2020 00:00:00 Problems Condition Condition Condition Status Onset Resolution Last Treating Co mments Source Name Details Category Date Date Treatment Clinician Date Gastrojeju Gastrojeju Disease Active Overview : Univers nal ulcer nal ulcer 6-30 Formattin i ty of 00:00: g of this [place] 00 note Medical might be Branch different from the original. 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 Added automatic ally from request for surgery [id number] Obesity Obesity Disease Active Univers (BMI (BMI 2- ity of 30-39.9) 30-39.9) 00:00: [place] 00 Medical Branch Seasonal Seasonal Disease Active Unive rs allergies allergies ity of [facility] Depression Depression Disease Active U nivers ity of [facility] Allergies, Adverse Reactions, Alerts Allergy Allergy Status Severity Reaction(s) Onset Inactive Treating Comm ents Source Name Type Date Date Clinician Britton Propensi Active Swelling Univer s ty to 2-07 ity of adverse 00:00: [place] reaction [facility] Branch Chocolat Propensi Active Swelling Univ ers e Flavor ty to 2-07 ity of adverse 00:00: [place] reaction Medical s Branch Latex Propensi Active Swelling Univer s ty to 2-07 ity of adverse 00:00: [place] reaction [facility] s Branch Mushroom Propensi Active Swelling Univ ers ty to 2-07 ity of adverse 00:00: [place] reaction Medical Branch Peanut Propensi Active Swelling Univer s ty to 2-07 ity of adverse 00:00: [place] reaction [facility] Branch AZITHROM DRUG Active Swelling Univer s YCIN INGREDI 2-07 ity of 00:00: [place] 00 Medical Branch BLACK DRUG Active Swelling Univers PEPPER INGREDI 2-07 ity of 00:00: [place] 00 Medical Branch TREE Food Active Swelling 2017-0 Univers NUTS 2-07 ity of 00:00: [place] 00 Medical Branch BRITTON DRUG Active Swelling 2017-0 Univers INGREDI 2-07 ity of 00:00: [place] 00 Medical Branch CHOCOLAT DRUG Active Swelling 2017-0 Univer s E FLAVOR INGREDI 2-07 ity of 00:00: [place] 00 Medical Branch LATEX DRUG Active Swelling 2017-0 Univers INGREDI 2-07 ity of 00:00: [place] 00 Medical Branch MUSHROOM DRUG Active Swelling 2017-0 Univer s INGREDI 2-07 ity of 00:00: [place] 00 Medical Branch PEANUT DRUG Active Swelling 2017-0 Univers INGREDI 2-07 ity of 00:00: [place] 00 Medical Branch Azithrom Propensi Active Swelling 2017-0 Univ ers ycin ty to 2-07 ity of adverse 00:00: [place] reaction 00 Medical s Branch Black Propensi Active Swelling 2017-0 Univer s Pepper ty to 2-07 ity of adverse 00:00: [place] reaction 00 Medical s Branch Tree Propensi Active Swelling 2017-0 Univer s Nuts ty to 2-07 ity of adverse 00:00: [place] reaction 00 Medical s Branch CODEINE DRUG Active Swelling 2016-0 Univers INGREDI 3-05 ity of 00:00: [place] 00 Medical Branch MEPERIDI DRUG Active Swelling 2016-0 Univer s NE HCL INGREDI 3-05 ity of 00:00: [place] 00 Medical Branch MORPHINE DRUG Active Swelling 2016-0 Univer s INGREDI 3-05 ity of 00:00: [place] 00 Medical Branch PENICILL DRUG Active Swelling 2016-0 Univer s IN INGREDI 3-05 ity of 00:00: [place] 00 Medical Branch METHOCAR DRUG Active Swelling 2016-0 Univer s BAMOL INGREDI 3-05 ity of 00:00: [place] 00 Medical Branch CARISOPR DRUG Active Swelling 2016-0 Univer s ODOL INGREDI 3-05 ity of 00:00: [place] 00 Medical Branch HYDROCOD DRUG Active Swelling 2016-0 Univer s ONE-ACET 3-05 ity of AMINOPHE 00:00: [place] N 00 Medical Branch Codeine Propensi Active Swelling 2016-0 Unive rs ty to 3-05 ity of adverse 00:00: [place] reaction 00 Medical s Branch Meperidi Propensi Active Swelling 2016-0 Univ ers ne Hcl ty to 3-05 ity of adverse 00:00: [place] reaction 00 Medical s Branch Morphine Propensi Active Swelling Univ ers ty to 3-05 ity of adverse 00:00: [place] reaction Medical s Branch Penicill Propensi Active Swelling Univ ers in ty to 3-05 ity of adverse 00:00: [place] reaction Medical s Branch Methocar Propensi Active Swelling Univ ers bamol ty to 3-05 ity of adverse 00:00: [place] reaction Medical s Branch Carisopr Propensi Active Swelling Univ ers odol ty to 3-05 ity of adverse 00:00: [place] reaction Medical s Branch Hydrocod Propensi Active Swelling Univ ers one-Acet ty to 3-05 ity of aminophe adverse 00:00: [place] n reaction Medical s Branch Penicill Propensi Active Swelling Univ ers in ty to 3-05 ity of adverse 00:00: [place] reaction Medical s Branch Social History Social Habit Start Date Stop Date Quantity Comments Source Exposure to Not sure University SARS-CoV-2 [place] Medical (event) Branch Alcohol intake 2020-10-09 2020-10-09 Current University of 00:00:00 00:00:00 non-drinker of [facility] alcohol Branch (finding) Tobacco use and 2020-10-09 2020-10-09 Never used Universit y of exposure 00:00:00 00:00:00 [facility] Sex Ass[birth year] Universit y of 00:00:00 00:00:00 [facility] Smoking Status Start Date Stop Date Source Former smoker 2020-10-09 00:00:00 2020-10-09 00:00:00 Universi ty of [facility] Medications Ordered Filled Start Stop Current Ordering Indication Dosage Frequency Signature Comments Components Source Medication Medication Date Date Medication? Clinician (SIG) Name Name busPIRone Yes 10mg Take 10 mg Un shin 10 mg 6-30 by mouth 3 ity of tablet 23:47: (three) [place] 20 times Medical daily. Branch lithium Yes 300mg Take 300 Unive rs carbonate 6-30 mg by ity of 300 mg 23:47: mouth 3 [place] tablet 20 (three) Medical times Branch daily. busPIRone 2020-0 Yes 10mg Take 10 mg Un shin 10 mg 6-30 by mouth 3 ity of tablet 17:46: (three) [place] 39 times Medical daily. Branch lithium 2020-0 Yes 300mg Take 300 Unive rs carbonate 6-30 mg by ity of 300 mg 17:46: mouth 3 [place] tablet 39 (three) Medical times Branch daily. omeprazole 2020-0 Yes 40mg 40 mg, Unive rs (PRILOSEC) 6-30 Oral, BID, ity of capsule 40 13:00: First dose [place] mg 00 on Wed Medical 10/09/20 at Branch 0800, Until Discontinu ed, Routine sucralfate 2020-0 Yes 1g 1,000 mg Uni vers (CARAFATE) 6-30 (1 g), ity of 100 mg/mL 13:00: Oral, QID, [place] suspension 00 First dose Med ical 1,000 mg on Wed [place] 10/09/20 at 0800, Until Discontinu ed, Routine omeprazole 2020-0 Yes 40mg 40 mg, Unive rs (PRILOSEC) 6-30 Oral, BID, ity of capsule 40 13:00: First dose [place] mg 00 on Wed [facility] 10/09/20 at Branch 0800, Until Discontinu ed, Routine sucralfate 2020-0 Yes 1g 1,000 mg Uni vers (CARAFATE) 6-30 (1 g), ity of 100 mg/mL 13:00: Oral, QID, [place] suspension 00 First dose Med ical 1,000 mg on Wed [place] 10/09/20 at 0800, Until Discontinu ed, Routine KCL 2020-0 2020- No 40meq 40 mEq, Univers (POTASSIUM 6-30 06-30 Intravenou it y of CHLORIDE) 13:00: 17:25 s, [place] 40 mEq in 00 :00 Administer Medi nicolas NaCl 0.9% over 4 Branch (NS) 250 mL Hours, ONCE, 1 dose, [facility] 10/09/20 at 0800, Routine KCL 2020-0 2020- No 40meq 40 mEq, Univers (POTASSIUM 6-30 06-30 Intravenou it y of CHLORIDE) 13:00: 17:25 s, [place] 40 mEq in 00 :00 Administer Medi nicolas NaCl 0.9% over 4 Branch (NS) 250 mL Hours, ONCE, 1 dose, 10/09/20 at 0800, Routine magnesium 2020-0 2020- No 4g 4 g, IV Univ ers sulfate in 10-09 Piggyback, it y of water 4 12:45: 13:24 ONCE, 1 [place] gram/50 mL 00 :00 dose, Wed Medi nicolas (8 %) IV 10/09/20 at [facility] Piggyback 4 0745, g Routine KCL 2020-2020- No 40meq 40 mEq, Univers (KLOR-CON 10-09 Oral, ity of M20) tablet 12:45: 13:25 ONCE, 1 [place] 40 mEq 00 :00 dose, Wed Medical 10/09/20 at [place] 0745, Routine magnesium 2020-0 2020- No 4g 4 g, IV Univ ers sulfate in 10-09 Piggyback, it y of water 4 12:45: 13:24 ONCE, 1 [place] gram/50 mL 00 :00 dose, Wed Medi nicolas (8 %) IV 10/09/20 at [facility] Piggyback 4 0745, g Routine KCL 2020-2020- No 40meq 40 mEq, Univers (KLOR-CON 10-09 Oral, ity of M20) tablet 12:45: 13:25 ONCE, 1 [place] 40 mEq 00 :00 dose, Wed Medical 10/09/20 at [place] 0745, Routine D5W 0.45% 2020-2020- No 50mL at 100 Unive rs NaCl 10-09 mL/hr, 50 ity of (1/2NS) IV 12:15: 20:44 mL, IV [place] infusion 50 00 :00 Infusion, Med ical mL CONTINUOUS Branch , Starting Wed10/09/20 at 0715, Until Wed10/09/20 at 1544, Routine D5W 0.45% 2020-0 2020- No 50mL at 100 Unive rs NaCl 10-09 mL/hr, 50 ity of (1/2NS) IV 12:15: 20:44 mL, IV [place] infusion 50 00 :00 Infusion, Med ical mL CONTINUOUS Branch , Starting Wed10/09/20 at 0715, Until Wed10/09/20 at 1544, Routine acetaminoph 2021-0 Yes 1000mg 1,000 mg, Univers en 6-30 Oral, Q8H, ity of (TYLENOL) 11:00: First dose [place] tablet 00 on Wed Medical 1,000 mg 10/09/20 at Bran h 0600, Until Discontinu ed, Routine acetaminoph 2021-0 Yes 1000mg 1,000 mg, Univers en 6-30 Oral, Q8H, ity of (TYLENOL) 11:00: First dose [place] tablet 00 on Wed Medical 1,000 mg 10/09/20 at Bran h 0600, Until Discontinu ed, Routine pantoprazol 2020-0 Yes 40mg 40 mg, IV U nivers e 630 Piggyback, ity of (PROTONIX) 01:00: Q12H, [place] 40 mg in 00 First dose Medic al NaCl 0.9% on Wed Branch (NS) 100 mL 10/08/20 at IV 1999, Piggyback Until Discontinu ed, 100 mL D5W 0.45% 2020-0 2020- No 1000mL at 100 Uni vers NaCl 10-09 06-30 mL/hr, ity of (1/2NS) IV 01:00: 12:01 1,000 mL, [place] infusion 00 :48 IV Medical 1,000 mL Infusion, Branch CONTINUOUS , Starting Wed10/08/20 at 2000, Until Wed10/09/20 at 0701, Routine D5W 0.45% 2020-0 2020- No 1000mL at 100 Uni vers NaCl 10-09-30 mL/hr, ity of (1/2NS) IV 01:00: 12:01 1,000 mL, [place] infusion 00 :48 IV Medical 1,000 mL Infusion, Branch CONTINUOUS , Starting Wed10/08/20 at 1999, Until Wed10/09/20 at 0701, Routine pantoprazol 2020-0 2020- No 40mg 40 mg, IV Univers e 10-0930 Piggyback, ity of (PROTONIX) 01:00: 19:04 Q12H, [place] 40 mg in 00 :36 First dose Medic al NaCl 0.9% on Tue Branch (NS) 100 mL 10/08/20 at IV 1999, Piggyback Until Discontinu ed, 100 mL acetaminoph 2020-0 Yes [id number] 1000mg Take 2 Univers en 500 mg 6-30 tablets by ity of tablet 00:00: mouth [place] 00 every 8 Medical (eight) Branch hours as needed for Pain. acetaminoph Yes [id number] 1000mg Take 2 Univers en 500 mg 6-30 tablets by ity of tablet 00:00: mouth [place] 00 every 8 Medical (eight) Branch hours as needed for Pain. omeprazole 2020- No [id number] 40mg Take 1 Univers 40 mg 6-30 08-12 capsule by ity of capsule 00:00: 04:59 mouth 2 [place] 00 :00 (two) Medical times Branch daily for 42 days. sucralfate 2020- No [id number] 1g Take 1 Univers 1 gram 6-30 08-12 tablet by ity of tablet 00:00: 04:59 mouth 4 [place] 00 :00 (four) Medical times Branch daily for 42 days. omeprazole 2020- No [id number] 40mg Take 1 Univers 40 mg 6-30 08-12 capsule by ity of capsule 00:00: 04:59 mouth 2 [place] 00 :00 (two) Medical times Branch daily for 42 days. sucralfate 2020- No [id number] 1g Take 1 Univers 1 gram 6-30 08-12 tablet by ity of tablet 00:00: 04:59 mouth 4 [place] 00 :00 (four) Medical times Branch daily for 42 days. KCL 20 mEq 2020- No [id number] 20meq Take 1 Univers tablet 6-30 07-04 tablet by ity of 00:00: 04:59 mouth [place] 00 :00 daily for Medical 3 days. Branch D5W 0.45% 2020- No 1000mL at 125 Uni vers NaCl 10-08 06-30 mL/hr, ity of (1/2NS) IV 20:45: 00:59 1,000 mL, [place] infusion 00 :45 IV Medical 1,000 mL Infusion, Branch CONTINUOUS , Starting 10/08/20 at 1545, Until Tu10/08/20 at 1959, Routine D5W 0.45% 2021-0 2021- No 1000mL at 125 Uni vers NaCl 10-08 06-30 mL/hr, ity of (1/2NS) IV 20:45: 00:59 1,000 mL, [place] infusion 00 :45 IV Medical 1,000 mL Infusion, Branch CONTINUOUS , Starting Wed10/08/20 at 1545, Until Wed10/08/20 at 1959, Routine KCL No Intravenou Univer s (POTASSIUM 10-08 06-30 s, ity of CHLORIDE) 17:15: 01:08 Administer [place] 40 mEq in 00 :00 over 4 Medical NaCl 0.9% Hours, Branch (NS) 250 mL ONCE, 1 dose, Wed10/08/20 at 1215, Routine KCL No Intravenou Univer s (POTASSIUM 10-08 06-30 s, ity of CHLORIDE) 17:15: 01:08 Administer [place] 40 mEq in 00 :00 over 4 Medical NaCl 0.9% Hours, Branch (NS) 250 mL ONCE, 1 dose, Wed10/08/20 at 1215, Routine acetaminoph No 1000mg 1,000 mg, Univers en ADULT 10-08 IV ity of (OFIRMEV) 11:00: 03:25 Infusion, [place] injection 00 :59 Administer Medi nicolas 1,000 mg over 15 Branch Minutes, Q8H, 3 doses, First dose on Wed10/08/20 at 0600, Last dose on Wed10/08/20 at 2200, Routine
Indicatio n: Non-periop erative Patient
Approved by: Per Policy (NPO Status) acetaminoph No 1000mg 1,000 mg, Univers en ADULT 10-08 IV ity of (OFIRMEV) 11:00: 03:25 Infusion, [place] injection 00 :59 Administer Medi nicolas 1,000 mg over 15 Branch Minutes, Q8H, 3 doses, First dose on Wed10/08/20 at 0600, Last dose on Wed10/08/20 at 2200, Routine
Indicatio n: Non-periop erative Patient
Approved by: Per Policy (NPO Status) D5W 0.45% 2020- No 1000mL at 125 Uni vers NaCl - 06-29 mL/hr, ity of (1/2NS) IV 04:30: 19:44 1,000 mL, [place] infusion 00 :00 IV Medical 1,000 mL Infusion, Branch CONTINUOUS , Starting 10/07/20 at 2330, Until Tu10/08/20 at 1444, Routine D5W 0.45% 2020- No 1000mL at 125 Uni vers NaCl 10-08-29 mL/hr, ity of (1/2NS) IV 04:30: 19:44 1,000 mL, [place] infusion 00 :00 IV Medical 1,000 mL Infusion, Branch CONTINUOUS , Starting 10/07/20 at 2330, Until Wed10/08/20 at 1444, Routine iohexol 2020- No [id number] 150mL 150 mL, Univers (OMNIPAQUE -07 10-28 Oral, ity of 300-150 mL) 16:15: 16:10 ONCE, 1 [place] injection 00 :00 dose, Mon Medic al 150 mL 10/07/20 at Branch 1115, Routine iohexol 2020- No [id number] 150mL 150 mL, Univers (OMNIPAQUE - 06-28 Oral, ity of 300-150 mL) 16:15: 16:10 ONCE, 1 [place] injection 00 :00 dose, Mon Medic al 150 mL 10/07/20 at Branch 1115, Routine FENTanyl PF Yes 50ug 50 mcg, Uni vers (SUBLIMAZE 6-27 Slow IV ity of (PF)) 23:33: Push, [place] injection 01 Q6HPRN, Medical 50 mcg Starting Branch [place] 10/06/20 at 1833, Until Discontinu ed, Routine, Pain (scale 7-10) FENTanyl PF Yes 50ug 50 mcg, Uni vers (SUBLIMAZE 6-27 Slow IV ity of (PF)) 23:33: Push, [place] injection 01 Q6HPRN, Medical 50 mcg Starting Branch [place] 10/06/20 at 1833, Until Discontinu ed, Routine, Pain (scale 7-10) metoclopram Yes 10mg 10 mg, IV U nivers bibi HCl 10-06 Piggyback, ity of (REGLAN) 10 23:00: Q6H, First [place] mg in NaCl 00 dose on Medica l 0.9% (NS) [facility] piggyback 10/06/20 at 1800, Until Discontinu ed, 50 mL metoclopram 0 Yes 10mg 10 mg, IV U nivers bibi HCl 10-06 Piggyback, ity of (REGLAN) 10 23:00: Q6H, First [place] mg in NaCl 00 dose on Medica l 0.9% (NS) [facility] piggyback 10/06/20 at 1800, Until Discontinu ed, 50 mL enoxaparin 0 Yes 40mg 40 mg, Unive rs (LOVENOX) 10-06 Subcutaneo ity of injection 22:00: us, DAILY, [place] 40 mg 00 First dose Medical on [facility] 10/06/20 at 1700, Until Discontinu ed, Routine enoxaparin Yes 40mg 40 mg, Unive rs (LOVENOX) 10-06 Subcutaneo ity of injection 22:00: us, DAILY, [place] 40 mg 00 First dose Medical on [facility] 10/06/20 at 1700, Until Discontinu ed, Routine bisacodyL 2020-2020- No 10mg 10 mg, Unive rs (DULCOLAX) 10-06 Rectal, ity o f suppository 20:00: 20:47 ONCE, 1 [place] 10 mg 00 :00 dose, [facility] 10/06/20 at Branch 1500, Routine NaCl 0.9% 2020-0 202- No IV Univers (NS) 1000 10-06 Infusion, ity of mL + KCL 40 20:00: 20:47 at 42 [place] mEq 00 :00 mL/hr, Medical ONCE, 1 Branch dose, [place] 10/06/20 at 1500, Routine bisacodyL 2020-0 2020- No 10mg 10 mg, Unive rs (DULCOLAX) 10-06 Rectal, ity o f suppository 20:00: 20:47 ONCE, 1 [place] 10 mg 00 :00 dose, [facility] 10/06/20 at Branch 1500, Routine NaCl 0.9% 2021-0 2021- No IV Univers (NS) 1000 10-06 Infusion, ity of mL + KCL 40 20:00: 20:47 at 42 [place] mEq 00 :00 mL/hr, Medical ONCE, 1 Branch dose, 10/06/20 at 1500, Routine D5W 0.45% 2020- No 1000mL at 100 Uni vers NaCl 10-06 mL/hr, ity of (1/2NS) IV 19:45: 04:19 1,000 mL, [place] infusion 00 :04 IV Medical 1,000 mL Infusion, Branch CONTINUOUS , Starting 10/06/20 at 1445, Until 10/07/20 at 2319, Routine D5W 0.45% 2020- No 1000mL at 100 Uni vers NaCl 10-06 mL/hr, ity of (1/2NS) IV 19:45: 04:19 1,000 mL, [place] infusion 00 :04 IV Medical 1,000 mL Infusion, Branch CONTINUOUS , Starting 10/06/20 at 1445, Until 10/07/20 at 2319, Routine pantoprazol 2020- No 40mg 40 mg, IV Univers e 10-06 Piggyback, ity of (PROTONIX) 19:30: 13:42 Q24H, 3 [place] as 40 mg in 00 :18 doses, Medical NaCl 0.9% First dose Bran ch (NS) 100 mL on Sun MINI-BAG 10/06/20 at 1430, Last dose on Wed10/08/20 at 1430, 100 mL pantoprazol 2020- No 40mg 40 mg, IV Univers e 10-06 Piggyback, ity of (PROTONIX) 19:30: 13:42 Q24H, 3 [place] as 40 mg in 00 :18 doses, Medical NaCl 0.9% First dose Bran ch (NS) 100 mL on Sun MINI-BAG 10/06/20 at 1430, Last dose on Wed10/08/20 at 1430, 100 mL ketorolac 2020- No 30mg 30 mg, Unive rs (TORADOL) 10-06 Slow IV ity of injection 18:47: 21:08 [place], [place] 30 mg 44 :00 Q6HPRN, 4 Medical doses, Branch Starting 10/06/20 at 1347, Until Discontinu ed, Routine, Pain (scale 4-6)
[facility] : LEON DALTON ketorolac 2020- No 30mg 30 mg, Unive rs (TORADOL) 10-06 Slow IV ity of injection 18:47: 21:08 [place], [place] 30 mg 44 :00 Q6HPRN, 4 Medical doses, Branch Starting 10/06/20 at 1347, Until Discontinu ed, Routine, Pain (scale 4-6)
Fa culty member approving Restricted medication : LEON DALTON KCL 2020- No 75mL/h IV Univers (POTASSIUM 10-06 Infusion, ity of CHLORIDE) 13:30: 18:42 Q12H ABX, [place] 10 mEq in 00 :28 2 doses, Medica l NaCl 0.9% First dose Bran ch (NS) 1,000 on Sun mL IV 10/06/20 at Infusion 0830, Last dose on 10/06/20 at 2030, 1,000 mL, at 75 mL/hr KCL 2020- No 75mL/h IV Univers (POTASSIUM 10-06 Infusion, ity of CHLORIDE) 13:30: 18:42 Q12H ABX, [place] 10 mEq in 00 :28 2 doses, Medica l NaCl 0.9% First dose Bran ch (NS) 1,000 on Sun mL IV 10/06/20 at Infusion 0830, Last dose on 10/06/20 at 2030, 1,000 mL, at 75 mL/hr metroNIDAZO 2020- No 500mg 500 mg, IV Univers LE in NaCl 10-06 Infusion, ity of (iso-os) 11:30: 03:25 Q8H ABX, [place] (FLAGYL 00 :59 First dose Medica l I.V.) RTU on [place] Branch IV infusion 10/06/20 at 500 mg 0630, Until Discontinu ed, 100 mL
Reas on for Anti-Infec tive: Empiric Therapy for Suspected Infection< br>Empiric Therapy Site: Abdominal< br>Duratio n of therapy: 7 days ciprofloxac 2020- No 400mg 400 mg, IV Univers in in 5 % 10-06 Piggyback, ity of dextrose 11:30: 03:25 Administer [place] (CIPRO) 00 :59 over 60 Medical piggyback Minutes, Branch 400 mg Q12H ABX, First dose on [place] 10/06/20 at 0630, Until Discontinu ed, Routine
Reason for Anti-Infec tive: Empiric Therapy for Suspected Infection< br>Empiric Therapy Site: Abdominal< br>Duratio n of therapy: 7 days metroNIDAZO 2020- No 500mg 500 mg, IV Univers LE in NaCl 10-06 Infusion, ity of (iso-os) 11:30: 03:25 Q8H ABX, [place] (FLAGYL 00 :59 First dose Medica l I.V.) RTU on [facility] IV infusion 10/06/20 at 500 mg 0630, Until Discontinu ed, 100 mL
Reas on for Anti-Infec tive: Empiric Therapy for Suspected Infection< br>Empiric Therapy Site: Abdominal< br>Duratio n of therapy: 7 days ciprofloxac 2020- No 400mg 400 mg, IV Univers in in 5 % 10-06 Piggyback, ity of dextrose 11:30: 03:25 Administer [place] (CIPRO) 00 :59 over 60 Medical piggyback Minutes, Branch 400 mg Q12H ABX, First dose on [place] 10/06/20 at 0630, Until Discontinu ed, Routine
Reason for Anti-Infec tive: Empiric Therapy for Suspected Infection< br>Empiric Therapy Site: Abdominal< br>Duratio n of therapy: 7 days FENTanyl PF No 25ug 25 mcg, Un shin (SUBLIMAZE 10-06 Slow IV ity o f (PF)) 10:15: 23:34 [place], [place] injection 29 :13 Q6HPRN, Medical 25 mcg Starting Branch [place] 10/06/20 at 0515, Until [place] 10/06/20 at 1834, Routine, Pain (scale 7-10) FENTanyl PF No 25ug 25 mcg, Un shin (SUBLIMAZE 10-06 Slow IV ity o f (PF)) 10:15: 23:34 [place], [place] injection 29 :13 Q6HPRN, Medical 25 mcg Starting [facility] 10/06/20 at 0515, Until [place] 10/06/20 at 1834, Routine, Pain (scale 7-10) traMADoL No 50mg 50 mg, Univer s (ULTRAM) 10-06 Oral, ity of tablet 50 08:15: 07:42 ONCE, 1 [place] mg 00 :00 dose, [facility] 10/06/20 at [place] 0315, Routine traMADoL 2020- No 50mg 50 mg, Univer s (ULTRAM) 10-06 Oral, ity of tablet 50 08:15: 07:42 ONCE, 1 [place] mg 00 :00 dose, [facility] 10/06/20 at [place] 0315, Routine NaCl 0.9% No 1000mL at 125 Uni vers (NS) IV 10-06 mL/hr, IV ity of infusion 08:00: 10:28 Infusion, [place] 1,000 mL 00 :29 CONTINUOUS Medic al , Starting [facility] 10/06/20 at 0300, Until [place] 10/06/20 at 0528, Routine NaCl 0.9% 2020- No 1000mL at 125 Uni vers (NS) IV 10-06 mL/hr, IV ity of infusion 08:00: 10:28 Infusion, [place] 1,000 mL 00 :29 CONTINUOUS Medic al , Starting [facility] 10/06/20 at 0300, Until [place] 10/06/20 at 0528, Routine Tramadol No 50mg Take 50 mg Un shin (RYBIX ODT) 10-06 by mouth 3 i ty of 50 mg 07:48: 00:00 (three) [place] tablet 52 :00 times Medical daily. [place] cyclobenzap No 10mg Take 10 mg Univers rine 10-06 by mouth. ity of (FLEXERIL) 07:48: 00:00 [place] 10 mg 52 :00 Medical tablet Branch Tramadol 2020- No 50mg Take 50 mg Un shin (RYBIX ODT) 10-06 by mouth 3 i ty of 50 mg 07:48: 00:00 (three) [place] tablet 52 :00 times Medical daily. Branch cyclobenzap 2020- No 10mg Take 10 mg Univers rine 10-06 by mouth. ity of (FLEXERIL) 07:48: 00:00 [place] 10 mg 52 :00 Medical tablet Branch ondansetron Yes 4mg 4 mg, Slow Univers (ZOFRAN 6-27 IV Push, ity of (PF)) 07:48: Q6HPRN, [place] injection 4 Starting Medi nicolas mg [facility] 10/06/20 at 0248, Until Discontinu ed, Routine, Nausea and Vomiting (N/V) ondansetron Yes 4mg 4 mg, Slow Univers (ZOFRAN 6-27 IV Push, ity of (PF)) 07:48: Q6HPRN, [place] injection 4 Starting Medi nicolas mg [facility] 10/06/20 at 0248, Until Discontinu ed, Routine, Nausea and Vomiting (N/V) iopamidol 2020- No [id number] 100mL 100 mL, Univers (ISOVUE 10-06 Intravenou ity o f 370-500 mL) 06:00: 04:50 s, ONCE, 1 [place] injection 00 :00 dose, Sun Medic al 100 mL 10/06/20 at Branch 0100, Routine iopamidol 2020- No [id number] 100mL 100 mL, Univers (ISOVUE 10-06 Intravenou ity o f 370-500 mL) 06:00: 04:50 s, ONCE, 1 [place] injection 00 :00 dose, Sun Medic al 100 mL 10/06/20 at Branch 0100, Routine NaCl 0.9% 2020- No 1000mL at 999 Uni vers (NS) IV 10-06 mL/hr, ity of infusion 05:30: 10:28 Intravenou [place] 1,000 mL 00 :29 s, Medical CONTINUOUS Branch , Starting 10/06/20 at 0030, Until 10/06/20 at 0528, Routine ondansetron 2020- No 4mg 4 mg, Slow Univers (ZOFRAN 10-06 IV Push, ity of (PF)) 05:30: 04:34 ONCE, 1 [place] injection 4 00 :00 dose, Sun Med ical mg 10/06/20 at Branch 0030, VISHAL dicyclomine 2020- No 20mg 20 mg, Uni vers (BENTYL) 10-06 Intramuscu ity of injection 05:30: 04:34 [place], ONCE, [place] 20 mg 00 :00 1 dose, [facility] [facility] 10/[facility]/20 at 0030, Routine NaCl 0.9% 2020- No 1000mL at 999 Uni vers (NS) IV 10-06 mL/hr, ity of infusion 05:30: 10:28 [place] 1,000 mL 00 :29 s, [facility] , Starting 10/06/20 at 0030, Until 10/06/20 at 0528, Routine ondansetron 2020- No 4mg 4 mg, Slow Univers (ZOFRAN 10-06 IV Push, ity of (PF)) 05:30: 04:34 ONCE, 1 [place] injection 4 00 :00 dose, [facility] mg 10/06/20 at Branch 0030, VISHAL dicyclomine 2020- No 20mg 20 mg, Uni vers (BENTYL) 10-06 Intramuscu ity of injection 05:30: 04:34 lar, ONCE, [place] 20 mg 00 :00 1 dose, [facility] 10/06/20 at 0030, Routine benzonatate 2020-0 Yes [id number] 100mg Take 1 Univers 100 mg 4-29 capsule by ity of capsule 00:00: mouth 3 [place] 00 (three) Medical times Branch daily as needed for Cough. benzonatate 2020-0 Yes [id number] 100mg Take 1 Univers 100 mg 4-29 capsule by ity of capsule 00:00: mouth 3 [place] 00 (three) Medical times Branch daily as needed for Cough. benzonatate 2020- No [id number] 100mg Take 1 Univers 100 mg 08-08 capsule by ity of capsule 00:00: 00:00 mouth 3 [place] 00 :00 (three) Medical times Branch daily as needed for Cough. benzonatate 2020- No [id number] 100mg Take 1 Univers 100 mg 08-08- capsule by ity of capsule 00:00: 00:00 mouth 3 [place] 00 :00 (three) Medical times Branch daily as needed for Cough. predniSONE 2019- No [id number] 20mg Take 1 Univers 20 mg 08-08 05-04 tablet by ity of tablet 00:00: 04:59 mouth 2 [place] 00 :00 (two) Medical times Branch daily for 4 days. dicyclomine Yes [id number] 20mg Take 1 Univers (BENTYL) 20 6-21 tablet by ity of mg tablet 00:00: mouth 4 [place] 00 (four) Medical times Branch daily. dicyclomine Yes [id number] 20mg Take 1 Univers (BENTYL) 20 6-21 tablet by ity of mg tablet 00:00: mouth 4 [place] 00 (four) Medical times Branch daily. dicyclomine 2020- No [id number] 20mg Take 1 Univers (BENTYL) 20 6-21 -26 tablet by it y of mg tablet 00:00: 00:00 mouth 4 [place] (four) Medical times Branch daily. dicyclomine 2020- No [id number] 20mg Take 1 Univers (BENTYL) 20 6-21 -26 tablet by it y of mg tablet 00:00: 00:00 mouth 4 [place] 00 :[place] (four) Medical times Branch daily. Tramadol 2017- Yes 50mg Take 50 mg Uni vers (RYBIX ODT) 9-27 by mouth 3 it y of 50 mg 21:42: (three) [place] tablet 38 times Medical daily. Branch cyclobenzap Yes 10mg Take 10 mg Univers rine - by mouth. ity of (FLEXERIL) 21:42: [place] 10 mg 38 Medical tablet Branch Tramadol 2016- Yes 50mg Take 50 mg Uni vers (RYBIX ODT) 9-27 by mouth 3 it y of 50 mg 21:42: (three) [place] tablet 38 times Medical daily. Branch cyclobenzap Yes 10mg Take 10 mg Univers rine 9-27 by mouth. ity of (FLEXERIL) 21:42: [place] 10 mg 38 Medical tablet Branch traMADOL Yes 50mg Take 1 Tab Uni vers (ULTRAM) 50 3-06 by mouth ity of mg tablet 00:00: every 8 [place] 00 (eight) Medical hours as Branch needed for Pain (scale 4-6). traMADOL Yes 50mg Take 1 Tab Uni vers (ULTRAM) 50 3-06 by mouth ity of mg tablet 00:00: every 8 [place] 00 (eight) Medical hours as Branch needed for Pain (scale 4-6). traMADOL 2020- No 50mg Take 1 Tab Un shin (ULTRAM) 50 06-15-26 by mouth ity of mg tablet 00:00: 00:00 [place] 8 [place] 00 :[place] (eight) Medical hours as Branch needed for Pain (scale 4-6). traMADOL 2020- No 50mg Take 1 Tab Un shin (ULTRAM) 50 06-15-26 by mouth ity of mg tablet 00:00: 00:00 [place] 8 [place] 00 :[place] (eight) Medical hours as Branch needed for Pain (scale 4-6). Immunizations Ordered Filled Immunization Date Status Comments [facility] e Immunization Name Name SARS-COV-2 COVID-19 2020-06-09 Completed Unive rsity of MODERNA VACCINE 00:00:00 [facility] SARS-COV-2 COVID-19 2020-06-09 Completed Unive rsity of MODERNA VACCINE 00:00:00 [facility] SARS-COV-2 COVID-19 2020-05-26 Completed Unive rsity of MODERNA VACCINE 00:00:00 [facility] SARS-COV-2 COVID-19 2020-05-26 Completed Unive rsity of MODERNA VACCINE 00:00:00 [facility] Vital Signs Vital Name Observation Time Observation Value Comments Source Systolic blood 2020-10-09 20:48:00 155 mm[Hg] Univer sity of pressure [facility] Diastolic blood 2020-10-09 20:48:00 94 mm[Hg] Unive rsity of pressure [facility] Heart rate 2020-10-09 20:48:00 70 /min [facility] [place] [facility] Body temperature 2020-10-09 20:48:00 36.33 Sayra Univ ers[facility] [place] [facility] Respiratory rate 2020-10-09 20:48:00 16 /min Univ [facility] [place] [facility] Oxygen saturation in 2020-10-09 20:48:00 95 /min University of Arterial blood by [place] [employer] nicolas Pulse oximetry Branch Body height 2020-10-08 18:02:00 152.4 cm [facility] [place] [facility] Body weight 2020-10-08 18:02:00 113 kg [facility] [place] [facility] BMI 2020-10-08 18:02:00 48.65 kg/m2 [facility] [place] [facility] Systolic blood 2020-10-08 18:02:00 146 mm[Hg] Univer sity of pressure [facility] [place] [facility] Diastolic blood 2020-10-08 18:02:00 89 mm[Hg] Unive rsity of pressure [facility] [place] [facility] Heart rate 2020-10-08 18:02:00 72 /min [facility] [place] [facility] Body temperature 2020-10-08 18:02:00 36.28 Sayra [facility] [place] [facility] Respiratory rate 2020-10-08 18:02:00 18 /min Univ [facility] [place] [facility] Body height 2020-10-08 18:02:00 152.4 cm [facility] [place] [facility] Body weight 2020-10-08 18:02:00 113 kg [facility] [place] [facility] BMI 2020-10-08 18:02:00 48.65 kg/m2 [facility] [place] [facility] Oxygen saturation in 2020-10-08 18:02:00 98 /min University of Arterial blood by [facility] nicolas Pulse oximetry Branch Systolic blood 2019-08-09 13:42:00 148 mm[Hg] Univer sity of pressure [place] [facility] Diastolic blood 2019-08-09 13:42:00 90 mm[Hg] Unive rsity of pressure [place] [facility] Heart rate 2019-08-09 13:42:00 87 /min [facility] [place] [facility] Respiratory rate 2019-08-09 13:42:00 16 /min Univ ersity of [place] [facility] Oxygen saturation in 2019-08-09 13:42:00 98 /min University of Arterial blood by [facility] Pulse oximetry Strong Body temperature 2019-08-09 12:48:00 36.83 Sayra [facility] ersity [facility] Body height 2019-08-09 12:48:00 157.5 cm Universi ty [facility] Body weight 2019-08-09 12:48:00 114.306 kg Universi ty [facility] BMI 2019-08-09 12:48:00 46.09 kg/m2 Universi ty [facility] Systolic blood 2019-08-09 13:42:00 148 mm[Hg] Univer sity of pressure [facility] Diastolic blood 2019-08-09 13:42:00 90 mm[Hg] Unive rsity of pressure [facility] Heart rate 2019-08-09 13:42:00 87 /min [facility] Respiratory rate 2019-08-09 13:42:00 16 /min [facility] Oxygen saturation in 2019-08-09 13:42:00 98 /min [place] of Arterial blood by [facility] Pulse oximetry [place] Body temperature 2019-08-09 12:48:00 36.83 Sayra [facility] Body height 2019-08-09 12:48:00 157.5 cm Universi ty [facility] Body weight 2019-08-09 12:48:00 114.306 kg [facility] BMI 2019-08-09 12:48:00 46.09 kg/m2 [facility] Procedures Procedure Date / Time Performing Source Performed Clinician MAGNESIUM 2020-10-09 [facility] 22:[facility]00 [facility] BASIC METABOLIC PANEL (NA, K, CL, 2020-10-09 Srini gunderson, University of CO2, GLUCOSE, BUN, CREATININE, CA) 22:25:00 [facility] PHOSPHORUS 2020-10-09 Srini Yates, [facility] 09:52:00 [facility] MAGNESIUM 2020-10-09 [facility] 09:52:00 [facility] BASIC METABOLIC PANEL (NA, K, CL, 2020-10-09 Srini gunderson, University of CO2, GLUCOSE, BUN, CREATININE, CA) 09:52:00 [facility] CBC WITH DIFF 2020-10-09 Srini Yates, [place] of 09:52:00 [facility] PHOSPHORUS 2020-10-09 Srini Yates, [place] of 09:52:00 [facility] MAGNESIUM 2020-10-09 Srini Yates, [place] of 09:52:00 [facility] BASIC METABOLIC PANEL (NA, K, CL, 2020-10-09 Srini gunderson, [facility] CO2, GLUCOSE, BUN, CREATININE, CA) 09:52:00 [facility] CBC WITH DIFF 2020-10-09 Srini Yates, [place] of 09:52:00 [facility] ESOPHAGOGASTRODUODENOSCOPY 2020-10-08 Dante Nieves Uni versity of 18:05:00 [facility] ESOPHAGOGASTRODUODENOSCOPY 2020-10-08 [facility] 18:05:00 [facility] EGD (ENDO) 2020-10-08 [facility] of 15:42:34 [facility] EGD (ENDO) 2020-10-08 [facility] of 15:42:34 [facility] CBC WITH DIFF 2020-10-08 Shalom [facility] 10:22:00 [facility] CBC WITH DIFF 2020-10-08 Shalom [facility] 10:22:00 [facility] PREALBUMIN, SERUM 2020-10-08 Santiago RauschDerek [facility] 09:31:00 [facility] PHOSPHORUS 2020-10-08 [facility] 09:31:00 [facility] MAGNESIUM 2020-10-08 [facility] 09:31:00 [facility] HEPATIC FUNCTION PANEL ([id number]) 2020-10-08 Ruben Rausch U niversity of (ALB,T.PRO,BILI 09:31:00 [facility],BU/BC,ALT,AST,ALK PHOS) Branch BASIC METABOLIC PANEL (NA, K, CL, 2020-10-08 [facility] CO2, GLUCOSE, BUN, CREATININE, CA) 09:31:00 [facility] PREALBUMIN, SERUM 2020-10-08 Santiago RauschDerek [place] of 09:31:00 [facility] PHOSPHORUS 2020-10-08 Milligan [facility]ly [facility] 09:31:00 [facility] MAGNESIUM 2020-10-08 [facility] of 09:31:00 [facility] HEPATIC FUNCTION PANEL ([id number]) 2020-10-08 Ruben Rausch niversity of (ALB,T.PRO,BILI 09:31:00 [facility],BU/BC,ALT,AST,ALK PHOS) Strong BASIC METABOLIC PANEL (NA, K, CL, 2020-10-08 [facility] CO2, GLUCOSE, BUN, CREATININE, CA) 09:31:00 [facility] PROTHROMBIN TIME / INR 2020-10-08 Shalom [facility] Universit y of 09:30:00 [facility] PROTHROMBIN TIME / INR 2020-10-08 [facility] [place] [facility] of 09:30:00 [facility] ENDOSCOPY PROCEDURE DOCUMENTATION 2020-10-08 [facility] of 05:01:00 Unassigned, No [facility] ENDOSCOPY PROCEDURE DOCUMENTATION 2020-10-08 [facility] of 05:01:00 Unassigned, No [facility] POCT GLUCOSE (AUTOMATED) 2020-10-07 Ahmet Sarabia Univers ity of 21:39:00 [facility] POCT GLUCOSE (AUTOMATED) 2020-10-07 Ahmet Sarabia Univers ity of 21:39:00 [facility] UPPER GI SERIES 2020-10-07 [facility] of 16:59:55 [facility] UPPER GI SERIES 2020-10-07 [facility] 16:59:55 Silas [facility] POCT GLUCOSE (AUTOMATED) 2020-10-07 Ahmet Sarabia Univers ity of 16:24:00 [facility] POCT GLUCOSE (AUTOMATED) 2020-10-07 Ahmet Sarabia Univers ity of 16:24:00 [facility] POCT GLUCOSE (AUTOMATED) 2020-10-07 Ahmet Sarabia Univers ity of 12:38:00 [facility] POCT GLUCOSE (AUTOMATED) 2020-10-07 Ahmet Sarabia of 12:38:00 [facility] BASIC METABOLIC PANEL (NA, K, CL, 2020-10-07 [facility] of CO2, GLUCOSE, BUN, CREATININE, CA) 09:36:00 [facility] CBC WITH DIFF 2020-10-07 [facility], [facility] of 09:36:00 [facility] BASIC METABOLIC PANEL (NA, K, CL, 2020-10-07 [facility] of CO2, GLUCOSE, BUN, CREATININE, CA) 09:36:00 [facility] CBC WITH DIFF 2020-10-07 [facility] of 09:36:00 [facility] MAGNESIUM 2020-10-06 Tennille Bahena of 15:16:00 [facility] COMP. METABOLIC PANEL ([id number]) 2020-10-06 Tennille Bahena iversity of 15:16:00 [facility] CBC WITH DIFF 2020-10-06 Tennille [place] of 15:16:00 [facility] PROTHROMBIN TIME / INR 2020-10-06 Tennille Bahena y of 15:16:00 [facility] ACTIVATED PARTIAL THRMPLAS MATHIEU 2020-10-06 Tennille Ba[place]a niversity of 15:16:00 [facility] MAGNESIUM 2020-10-06 Tennille [place] of 15:16:00 [facility] COMP. METABOLIC PANEL ([id number]) 2020-10-06 Tennille Bahena iversity of 15:16:00 [facility] CBC WITH DIFF 2020-10-06 Tennille [place] of 15:16:00 [facility] PROTHROMBIN TIME / INR 2020-10-06 [facility] 15:16:00 [facility] ACTIVATED PARTIAL THRMPLAS MATHIEU 2020-10-06 Tennille Bahena U niversity of 15:16:00 [facility] ABORH CONFIRMATION 2020-10-06 [facility] o f 15:15:00 [facility] ABORH CONFIRMATION 2020-10-06 [facility] o f 15:15:00 [facility] HB ABO GROUPING 2020-10-06 Tennille Bahena [place] of 15:00:00 [facility] HB ABO GROUPING 2020-10-06 [facility] of 15:00:00 [facility] COVID-19 (ID NOW RAPID TESTING) 2020-10-06 Andria Burciaga [place] of 05:45:00 [facility] LAB ONLY COVID INTERPRETATION 2020-10-06 Andria Burciaga U niversity of 05:45:00 [facility] COVID-19 (ID NOW RAPID TESTING) 2020-10-06 Andria Burciaga [place] of 05:45:00 [facility] LAB ONLY COVID INTERPRETATION 2020-10-06 Andria Burciaga U niversity of 05:45:[address] [facility] [address] ABDOMEN PELVIS W CONTRAST 2020-10-06 Andria Burciaga Un iversity of 04:57:[address] [facility] [address] ABDOMEN PELVIS W CONTRAST 2020-10-06 Andria Burciaga Un iversity of 04:57:14 [facility] URINALYSIS 2020-10-06 Andria Burciaga [place] of 03:23:00 [facility] URINALYSIS 2020-10-06 Andria Burciaga [place] of 03:23:00 [facility] LIPASE 2020-10-06 Andria Burciaga [place] of 03:15:00 [facility] COMP. METABOLIC PANEL ([id number]) 2020-10-06 Andria Burciaga U niversity of 03:15:00 [facility] CBC WITH DIFF 2020-10-06 Andria Burciaga [place] of 03:15:00 [facility] LIPASE 2020-10-06 Andria Burciaga [place] of 03:15:00 [facility] COMP. METABOLIC PANEL ([id number]) 2020-10-06 Andria Burciaga U niversity of 03:15:00 [facility] CBC WITH DIFF 2020-10-06 Andria Burciaga [place] of 03:15:00 [facility] NOTICE OF PRIVACY PRACTICES 2020-10-06 Doctor Univ ersity of 02:28:51 Unassigned, No [facility] NOTICE OF PRIVACY PRACTICES 2020-10-[address] [facility] ersity of 02:28:51 Unassigned, No [facility] CONSENT/REFUSAL FOR DIAGNOSIS AND 2020-10-06 [facility] 02:24:47 Unassigned, No [facility] HOSPITAL ADMISSION 2020-10-05 [facility] of 05:01:00 Unassigned, No [facility] HOSPITAL ADMISSION 2020-10-05 [facility] of 05:01:00 Unassigned, No [facility] XR CHEST 1 VW COVID 2019-08-09 Javi Mcgee [place] o f 13:20:51 [facility] CORONAVIRUS COVID-19 TESTING 2019-08-09 Javi Mcgee [facility] versity of 12:53:00 [facility] Encounters Start End Encounter Admission Attending Care Care Encounter Source Date/Time Date/Time Type Type Clinicians Facility Department ID 2021-02-10 Outpatient [facility] [id number] Univers 13:59:03 [place] ity of [facility] 2021-02-10 Emergency [facility] [id number] Univers 04:05:52 ity of [facility] 2020-10-05 2020-10-09 Emergency KennedimdAndria [id number] Univers 21:33:00 18:47:00 Ernestina Don [id number] ity of [facility] [id number] [facility] chew [id number] Medical 091 Branch 2020-10-08 2020-10-08 [facility] [id number] Univers 12:55:00 13:27:00 Dante ICAL [id number] it y of SCIENCES 4.2.7.2.686 [place] as BLDG [id number] [facility] 020 Branch 2020-10-05 2020-10-05 Orders Doctor QUINTERO [id number] Univers 00:00:00 00:00:00 Only UnassignedBRYAN [id number] ity of [facility] [id number] [place] as [id number] Medi [address] 2019-08-09 2019-08-09 Emergency [facility] [id number] 07:42:49 09:05:00 Javi Pineda [id number] [place] 4.2.7.2.686 [place] [id number] 2019-08-09 2019-08-09 Emergency [facility] ERT [id number] Univers 07:42:49 09:05:00 JAVI ity of [facility] 2019-08-09 2019-08-09 Emergency [facility] [id number] Univers 07:42:49 09:05:00 Javi Pa Pineda [id number] i ty of [place] 4.2.7.2.686 [facility] [id number] [address] Results Test Description Test Time Test Comments Results Result Comments Source BASIC METABOLIC PANEL (NA, K, CL, CO2, GLUCOSE, BUN, 2020-09 23:24:32 CREATININE, CA) Test Item Value Reference Range Interpretation Comme nts NA (test code = 6527854390) 138 mmol/L 135-145 K (test code = 6140767570) 3.6 mmol/L 3.5-5.0 CL (test code = 1562132452) 109 mmol/L 98-108 H CO2 TOTAL (test code = 5248724282) 22 mmol/L 23-31 L AGAP (test code = 9176758310) 2-16 BUN (test code = 0921396324) <2 7-23 L GLUCOSE (test code = 4190618403) 89 mg/dL 70-110 CREATININE (test code = 0.82 mg/dL 0.50-1.04 4026229089) CALCIUM (test code = 0438704330) 8.8 mg/dL 8.6-10.6 eGFR (test code = 6985182125) mL/min/1.73m2 TARYN (test code = TARYN) Association of Glomerular Filtration Rate (GFR) and Staging of Kidney Disease* + +-------- + ------+| GFR (mL/min/1.73 m2) ?| With Kidney Damage ?| ?Without Kidney Damage+ +-- + +| ?>90 ?| ?Stage one ?| ? Normal ?+ +------- + -------+| ?60-89 ?| ?Stage two ?| ? Decreased GFR ? + +-------- + ------+| ?30-59 ?| ?Stage three ?| ? Stage three ? + +-------- + ------+| ?15-29 ?| ?Stage four ? | ? Stage four ?+ +------- + -------+| ?<15 (or dialysis) ? ?| ?Stage five ? | ? Stage five ?+ +------- + -------+ *Each stage assumes the associated GFR level has been in effect for at least three months. ?Stages 1 to 5, with or without kidney disease, indicate chronic kidney disease. Notes: Determination of stages one and two (with eGFR >59mL/min/1.73 m2) requires estimation of kidney damage for at least three months as defined by structural or functional abnormalities of the kidney, manifested by either:Pathological abnormalities or Markers of kidney damage (including abnormalities in the composition of the blood or urine or abnormalities in imaging tests). Lab Interpretation (test code = Abnormal 99834-2) [facility]19[facility]12 Test Item Value Reference Range Interpretation Comments MAGNESIUM (test code = 9170443575) 2.5 mg/dL 1.7-2.4 H Lab Interpretation (test code = Abnormal 94152-1) [facility]OLIC PAN[facility] (NA, K, CL, CO2, GLUCOSE, BUN, CREATININE, CA)2020-10-09 10:44:18 Test Item Value Reference Range Interpretation Comments NA (test code = 140 mmol/L 135-145 8847994021) K (test code = 3.1 mmol/L 3.5-5.0 L 2624496942) CL (test code = 106 mmol/L 98-108 0829038292) CO2 TOTAL (test code = 27 mmol/L 23-31 6627645648) AGAP (test code = 2-16 4238188475) BUN (test code = 2 mg/dL 7-23 L 1145379245) GLUCOSE (test code = 106 mg/dL 70-110 1925425277) CREATININE (test code = 0.91 mg/dL 0.50-1.04 6721511124) CALCIUM (test code = 9.1 mg/dL 8.6-10.6 1035520590) eGFR (test code = mL/min/1.73m2 6298160204) TARYN (test code = TARYN) Association of Glomerular Filtration Rate (GFR) and Staging of Kidney Disease* + --+ --+ ------+| GFR (mL/min/1.73 m2) ?| With Kidney Damage ?| ?Without Kidney Damage+ --------+ --------+ +| ?>90 ?| ?Stage one ?| ? Normal ?+ ---+ ---+ -------+| ?60-89 ?| ?Stage two ?| ? Decreased GFR ? + --+ --+ ------+| ?30-59 ?| ?Stage three ?| ? Stage three ? + --+ --+ ------+| ?15-29 ?| ?Stage four ? | ? Stage four ?+ ---+ ---+ -------+| ?<15 (or dialysis) ? ?| ?Stage five ? | ? Stage five ?+ ---+ ---+ -------+ *Each stage assumes the associated GFR level has been in effect for at least three months. ?Stages 1 to 5, with or without kidney disease, indicate chronic kidney disease. Notes: Determination of stages one and two (with eGFR >59mL/min/1.73 m2) requires estimation of kidney damage for at least three months as defined by structural or functional abnormalities of the kidney, manifested by either:Pathological abnormalities or Markers of kidney damage (including abnormalities in the composition of the blood or urine or abnormalities in imaging tests). Lab Interpretation Abnormal (test code = 34423-6) [facility] 10:44:18 Test Item Value Reference Range Interpretation Comments MAGNESIUM (test code = 2794892783) 1.6 mg/dL 1.7-2.4 L Lab Interpretation (test code = Abnormal 63006-2) [facility] 10:44:18 Test Item Value Reference Range Interpretation Comments PHOSPHORUS (test code = 9101057864) 2.9 mg/dL 2.5-5.0 Lab Interpretation (test code = Normal 88535-0) [facility] METABOLIC PANEL (NA, K, CL, CO2, GLUCOSE, BUN, CREATININE, CA)2020-10-09 10:44:18 Test Item Value Reference Range Interpretation Comments NA (test code = 140 mmol/L 135-145 1393189194) K (test code = 3.1 mmol/L 3.5-5.0 L 2594880735) CL (test code = 106 mmol/L 98-108 8935213848) CO2 TOTAL (test code = 27 mmol/L 23-31 1620985771) AGAP (test code = 2-16 6790705796) BUN (test code = 2 mg/dL 7-23 L 4200223622) GLUCOSE (test code = 106 mg/dL 70-110 5926316158) CREATININE (test code = 0.91 mg/dL 0.50-1.04 4386601843) CALCIUM (test code = 9.1 mg/dL 8.6-10.6 8345489048) eGFR (test code = mL/min/1.73m2 1208018633) TARYN (test code = TARYN) Association of Glomerular Filtration Rate (GFR) and Staging of Kidney Disease* + --+ --+ ------+| GFR (mL/min/1.73 m2) ?| With Kidney Damage ?| ?Without Kidney Damage+ --------+ --------+ +| ?>90 ?| ?Stage one ?| ? Normal ?+ ---+ ---+ -------+| ?60-89 ?| ?Stage two ?| ? Decreased GFR ? + --+ --+ ------+| ?30-59 ?| ?Stage three ?| ? Stage three ? + --+ --+ ------+| ?15-29 ?| ?Stage four ? | ? Stage four ?+ ---+ ---+ -------+| ?<15 (or dialysis) ? ?| ?Stage five ? | ? Stage five ?+ ---+ ---+ -------+ *Each stage assumes the associated GFR level has been in effect for at least three months. ?Stages 1 to 5, with or without kidney disease, indicate chronic kidney disease. Notes: Determination of stages one and two (with eGFR >59mL/min/1.73 m2) requires estimation of kidney damage for at least three months as defined by structural or functional abnormalities of the kidney, manifested by either:Pathological abnormalities or Markers of kidney damage (including abnormalities in the composition of the blood or urine or abnormalities in imaging tests). Lab Interpretation Abnormal (test code = 92325-6) [facility]18 Test Item Value Reference Range Interpretation Comments MAGNESIUM (test code = 5041877983) 1.6 mg/dL 1.7-2.4 L Lab Interpretation (test code = Abnormal 92134-6) [facility] 10[facility]44:18 Test Item Value Reference Range Interpretation Comments PHOSPHORUS (test code = 0906447602) 2.9 mg/dL 2.5-5.0 Lab Interpretation (test code = Normal 20363-3) [facility] [id number] 10:29:58 Test Item Value Reference Range Interpretation Comments WBC (test code = See_Comment [Automated 0790-2) message] The sy stem which generated this result transmitted reference range : 4.30 - 11.10 10*3/?L. The reference range was not used to interpret this result as normal/abnormal . RBC (test code = See_Comment [Automated 219-8) message] The sy stem which generated this result transmitted reference range : 3.93 - 5.25 10*6/?L. The reference range was not used to interpret this result as normal/abnormal . HGB (test code = 11.2 g/dL 11.6-15.0 L 718-7) HCT (test code = 34.6 % 35.7-45.2 L 4544-3) MCV (test code = 79.9 fL 80.6-95.5 L 787-2) MCH (test code = 25.9 pg 25.9-32.8 785-6) MCHC (test code = 32.4 g/dL 31.6-35.1 786-4) RDW-SD (test code = 37.1 fL 39.0-49.9 L 70315-6) RDW-CV (test code = 13.0 % 12.0-15.5 788-0) PLT (test code = See_Comment [Automated 537-3) message] The sy stem which generated this result transmitted reference range : 166 - 358 10*3/ ?L. The reference r christy was not used to interpret this result as normal/abnormal . MPV (test code = 10.5 fL 9.5-12.9 36633-7) NRBC/100 WBC (test See_Comment [Automat ed code = 8960076090) message] The system which generated this result transmitted reference range : 0.0 - 10.0 /100 WBCs. The refer ence range was not u sed to interpret th is result as normal/abnormal . NRBC x10^3 (test code <0.01 See_Comment [Auto mated = 2090346138) message] The s ystem which generated this result transmitted reference range : 10*3/?L. The reference range was not used to interpret this result as normal/abnormal . GRAN MAT (NEUT) % 60.2 % (test code = 770-8) IMM GRAN % (test code 0.20 % = 6239602261) LYMPH % (test code = 24.1 % 736-9) MONO % (test code = 9.5 % 5905-5) EOS % (test code = 5.4 % 713-8) BASO % (test code = 0.6 % 706-2) GRAN MAT x10^3(ANC) 2.99 10*3/uL 1.88-7.09 (test code = 1221607425) IMM GRAN x10^3 (test <0.03 0.00-0.06 code = 1572384616) LYMPH x10^3 (test code 1.20 10*3/uL 1.32-3.29 L = 731-0) MONO x10^3 (test code 0.47 10*3/uL 0.33-0.92 = 742-7) EOS x10^3 (test code = 0.27 10*3/uL 0.03-0.39 711-2) BASO x10^3 (test code 0.03 10*3/uL 0.01-0.07 = 704-7) Lab Interpretation Abnormal (test code = 69970-3) [facility] WITH [id number] 10:29:58 Test Item Value Reference Range Interpretation Comments WBC (test code = See_Comment [Automated 6690-2) message] The sy stem which generated this result transmitted reference range : 4.30 - 11.10 10*3/?L. The reference range was not used to interpret this result as normal/abnormal . RBC (test code = See_Comment [Automated 789-8) message] The sy stem which generated this result transmitted reference range : 3.93 - 5.25 10*6/?L. The reference range was not used to interpret this result as normal/abnormal . HGB (test code = 11.2 g/dL 11.6-15.0 L 718-7) HCT (test code = 34.6 % 35.7-45.2 L 4544-3) MCV (test code = 79.9 fL 80.6-95.5 L 787-2) MCH (test code = 25.9 pg 25.9-32.8 785-6) MCHC (test code = 32.4 g/dL 31.6-35.1 786-4) RDW-SD (test code = 37.1 fL 39.0-49.9 L 62092-8) RDW-CV (test code = 13.0 % 12.0-15.5 788-0) PLT (test code = See_Comment [Automated 777-3) message] The sy stem which generated this result transmitted reference range : 166 - 358 10*3/ ?L. The reference r christy was not used to interpret this result as normal/abnormal . MPV (test code = 10.5 fL 9.5-12.9 48062-6) NRBC/100 WBC (test See_Comment [Automat ed code = 5261576282) message] The system which generated this result transmitted reference range : 0.0 - 10.0 /100 WBCs. The refer ence range was not u sed to interpret th is result as normal/abnormal . NRBC x10^3 (test code <0.01 See_Comment [Auto mated = 7170252207) message] The s ystem which generated this result transmitted reference range : 10*3/?L. The reference range was not used to interpret this result as normal/abnormal . GRAN MAT (NEUT) % 60.2 % (test code = 770-8) IMM GRAN % (test code 0.20 % = 7600822952) LYMPH % (test code = 24.1 % 736-9) MONO % (test code = 9.5 % 5905-5) EOS % (test code = 5.4 % 713-8) BASO % (test code = 0.6 % 706-2) GRAN MAT x10^3(ANC) 2.99 10*3/uL 1.88-7.09 (test code = 9591545822) IMM GRAN x10^3 (test <0.03 0.00-0.06 code = 8992448400) LYMPH x10^3 (test code 1.20 10*3/uL 1.32-3.29 L = 731-0) MONO x10^3 (test code 0.47 10*3/uL 0.33-0.92 = 742-7) EOS x10^3 (test code = 0.27 10*3/uL 0.03-0.39 711-2) BASO x10^3 (test code 0.03 10*3/uL 0.01-0.07 = 704-7) Lab Interpretation Abnormal (test code = 93295-4) [facility] Test Item Value Reference Range Interpretation Comments MAGNESIUM (test code = 9977927828) 1.7 mg/dL 1.7-2.4 Lab Interpretation (test code = Normal 17133-2) [facility] 16:43:24 Test Item Value Reference Range Interpretation Comments PHOSPHORUS (test code = 2967791269) 2.9 mg/dL 2.5-5.0 Lab Interpretation (test code = Normal 27964-1) [facility] Test Item Value Reference Range Interpretation Comments MAGNESIUM (test code = 6297741124) 1.7 mg/dL 1.7-2.4 Lab Interpretation (test code = Normal 79049-8) [facility] 16:43:24 Test Item Value Reference Range Interpretation Comments PHOSPHORUS (test code = 4032573990) 2.9 mg/dL 2.5-5.0 Lab Interpretation (test code = Normal 37243-1) [facility] WITH [id number] 10:49:23 Test Item Value Reference Range Interpretation Comments WBC (test code = See_Comment [Automated 6690-2) message] The sy stem which generated this result transmitted reference range : 4.30 - 11.10 10*3/?L. The reference range was not used to interpret this result as normal/abnormal . RBC (test code = See_Comment [Automated 789-8) message] The sy stem which generated this result transmitted reference range : 3.93 - 5.25 10*6/?L. The reference range was not used to interpret this result as normal/abnormal . HGB (test code = 10.9 g/dL 11.6-15.0 L 718-7) HCT (test code = 33.1 % 35.7-45.2 L 4544-3) MCV (test code = 78.8 fL 80.6-95.5 L 787-2) MCH (test code = 26.0 pg 25.9-32.8 785-6) MCHC (test code = 32.9 g/dL 31.6-35.1 786-4) RDW-SD (test code = 37.0 fL 39.0-49.9 L 16956-3) RDW-CV (test code = 13.0 % 12.0-15.5 788-0) PLT (test code = See_Comment [Automated 777-3) message] The sy stem which generated this result transmitted reference range : 166 - 358 10*3/ ?L. The reference r christy was not used to interpret this result as normal/abnormal . MPV (test code = 10.2 fL 9.5-12.9 79994-4) NRBC/100 WBC (test See_Comment [Automat ed code = 9559175227) message] The system which generated this result transmitted reference range : 0.0 - 10.0 /100 WBCs. The refer ence range was not u sed to interpret th is result as normal/abnormal . NRBC x10^3 (test code <0.01 See_Comment [Auto mated = 0179862908) message] The s ystem which generated this result transmitted reference range : 10*3/?L. The reference range was not used to interpret this result as normal/abnormal . GRAN MAT (NEUT) % 56.3 % (test code = 770-8) IMM GRAN % (test code 0.20 % = 9390926860) LYMPH % (test code = 29.2 % 736-9) MONO % (test code = 9.2 % 5905-5) EOS % (test code = 4.7 % 713-8) BASO % (test code = 0.4 % 706-2) GRAN MAT x10^3(ANC) 3.11 10*3/uL 1.88-7.09 (test code = 2469904147) IMM GRAN x10^3 (test <0.03 0.00-0.06 code = 3338926831) LYMPH x10^3 (test code 1.61 10*3/uL 1.32-3.29 = 731-0) MONO x10^3 (test code 0.51 10*3/uL 0.33-0.92 = 742-7) EOS x10^3 (test code = 0.26 10*3/uL 0.03-0.39 711-2) BASO x10^3 (test code <0.03 0.01-0.07 = 704-7) Lab Interpretation Abnormal (test code = 90465-4) [facility] WITH [id number] 10:49:23 Test Item Value Reference Range Interpretation Comments WBC (test code = See_Comment [Automated 8390-2) message] The sy stem which generated this result transmitted reference range : 4.30 - 11.10 10*3/?L. The reference range was not used to interpret this result as normal/abnormal . RBC (test code = See_Comment [Automated 519-8) message] The sy stem which generated this result transmitted reference range : 3.93 - 5.25 10*6/?L. The reference range was not used to interpret this result as normal/abnormal . HGB (test code = 10.9 g/dL 11.6-15.0 L 718-7) HCT (test code = 33.1 % 35.7-45.2 L 4544-3) MCV (test code = 78.8 fL 80.6-95.5 L 787-2) MCH (test code = 26.0 pg 25.9-32.8 785-6) MCHC (test code = 32.9 g/dL 31.6-35.1 786-4) RDW-SD (test code = 37.0 fL 39.0-49.9 L 11478-1) RDW-CV (test code = 13.0 % 12.0-15.5 788-0) PLT (test code = See_Comment [Automated 777-3) message] The sy stem which generated this result transmitted reference range : 166 - 358 10*3/ ?L. The reference r christy was not used to interpret this result as normal/abnormal . MPV (test code = 10.2 fL 9.5-12.9 80450-8) NRBC/100 WBC (test See_Comment [Automat ed code = 5439672241) message] The system which generated this result transmitted reference range : 0.0 - 10.0 /100 WBCs. The refer ence range was not u sed to interpret th is result as normal/abnormal . NRBC x10^3 (test code <0.01 See_Comment [Auto mated = 2738075151) message] The s ystem which generated this result transmitted reference range : 10*3/?L. The reference range was not used to interpret this result as normal/abnormal . GRAN MAT (NEUT) % 56.3 % (test code = 770-8) IMM GRAN % (test code 0.20 % = 0356641460) LYMPH % (test code = 29.2 % 736-9) MONO % (test code = 9.2 % 5905-5) EOS % (test code = 4.7 % 713-8) BASO % (test code = 0.4 % 706-2) GRAN MAT x10^3(ANC) 3.11 10*3/uL 1.88-7.09 (test code = 8539980672) IMM GRAN x10^3 (test <0.03 0.00-0.06 code = 4758688571) LYMPH x10^3 (test code 1.61 10*3/uL 1.32-3.29 = 731-0) MONO x10^3 (test code 0.51 10*3/uL 0.33-0.92 = 742-7) EOS x10^3 (test code = 0.26 10*3/uL 0.03-0.39 711-2) BASO x10^3 (test code <0.03 0.01-0.07 = 704-7) Lab Interpretation Abnormal (test code = 30431-2) [facility] 10:[facility]00 Test Item Value Reference Range Interpretation Comments PALB (test code = 86987-8) 10.1 mg/dL 18.0-45.0 L Lab Interpretation (test code = Abnormal 83225-3) [facility] 10:42:00 Test Item Value Reference Range Interpretation Comments PALB (test code = 30173-4) 10.1 mg/dL 18.0-45.0 L Lab Interpretation (test code = Abnormal 17564-5) [facility] (NA, K, CL, CO2, GLUCOSE, BUN, CREATININE, CA)2020-10-08 10:33:38 Test Item Value Reference Range Interpretation Comments NA (test code = 142 mmol/L 135-145 4746637249) K (test code = 3.3 mmol/L 3.5-5.0 L 6256052570) CL (test code = 107 mmol/L 98-108 6427196615) CO2 TOTAL (test code = 24 mmol/L 23-31 2023703323) AGAP (test code = 2-16 2672021964) BUN (test code = 4 mg/dL 7-23 L 9124044564) GLUCOSE (test code = 100 mg/dL 70-110 4601197135) CREATININE (test code = 0.84 mg/dL 0.50-1.04 4659535866) CALCIUM (test code = 9.3 mg/dL 8.6-10.6 2670825827) eGFR (test code = mL/min/1.73m2 6572964151) TARYN (test code = TARYN) Association of Glomerular Filtration Rate (GFR) and Staging of Kidney Disease* + --+ --+ ------+| GFR (mL/min/1.73 m2) ?| With Kidney Damage ?| ?Without Kidney Damage+ --------+ --------+ +| ?>90 ?| ?Stage one ?| ? Normal ?+ ---+ ---+ -------+| ?60-89 ?| ?Stage two ?| ? Decreased GFR ? + --+ --+ ------+| ?30-59 ?| ?Stage three ?| ? Stage three ? + --+ --+ ------+| ?15-29 ?| ?Stage four ? | ? Stage four ?+ ---+ ---+ -------+| ?<15 (or dialysis) ? ?| ?Stage five ? | ? Stage five ?+ ---+ ---+ -------+ *Each stage assumes the associated GFR level has been in effect for at least three months. ?Stages 1 to 5, with or without kidney disease, indicate chronic kidney disease. Notes: Determination of stages one and two (with eGFR >59mL/min/1.73 m2) requires estimation of kidney damage for at least three months as defined by structural or functional abnormalities of the kidney, manifested by either:Pathological abnormalities or Markers of kidney damage (including abnormalities in the composition of the blood or urine or abnormalities in imaging tests). Lab Interpretation Abnormal (test code = 51527-3) [facility] (ALB,T.PRO,BILI T,BU/BC,ALT,AST,ALK PHOS)2020-10-08 10:33:38 Test Item Value Reference Range Interpretation Comments TOTAL BILI (test code = 6722427109) 0.4 mg/dL 0.1-1.1 BILI UNCON (test code = 7378492779) 0.0 mg/dL 0.1-1.1 L BILI CONJ (test code = 3185795524) 0.0 mg/dL 0.0-0.3 T PROTEIN (test code = 7255453925) 6.8 g/dL 6.3-8.2 ALBUMIN (test code = 0975368644) 3.7 g/dL 3.5-5.0 ALK PHOS (test code = 1021174839) 69 U/L 34-122 ALTv (test code = 1742-6) 14 U/L 5-35 AST(SGOT) (test code = 0146350852) 22 U/L 13-40 Lab Interpretation (test code = Abnormal 37114-9) [facility] (NA, K, CL, CO2, GLUCOSE, BUN, CREATININE, CA)2020-10-08 10:33:38 Test Item Value Reference Range Interpretation Comments NA (test code = 142 mmol/L 135-145 2111488868) K (test code = 3.3 mmol/L 3.5-5.0 L 8345696377) CL (test code = 107 mmol/L 98-108 4518279225) CO2 TOTAL (test code = 24 mmol/L 23-31 8227024574) AGAP (test code = 2-16 8865305509) BUN (test code = 4 mg/dL 7-23 L 2845417658) GLUCOSE (test code = 100 mg/dL 70-110 7423609389) CREATININE (test code = 0.84 mg/dL 0.50-1.04 4238565665) CALCIUM (test code = 9.3 mg/dL 8.6-10.6 3603421051) eGFR (test code = mL/min/1.73m2 4282074624) TARYN (test code = TARYN) Association of Glomerular Filtration Rate (GFR) and Staging of Kidney Disease* + --+ --+ ------+| GFR (mL/min/1.73 m2) ?| With Kidney Damage ?| ?Without Kidney Damage+ --------+ --------+ +| ?>90 ?| ?Stage one ?| ? Normal ?+ ---+ ---+ -------+| ?60-89 ?| ?Stage two ?| ? Decreased GFR ? + --+ --+ ------+| ?30-59 ?| ?Stage three ?| ? Stage three ? + --+ --+ ------+| ?15-29 ?| ?Stage four ? | ? Stage four ?+ ---+ ---+ -------+| ?<15 (or dialysis) ? ?| ?Stage five ? | ? Stage five ?+ ---+ ---+ -------+ *Each stage assumes the associated GFR level has been in effect for at least three months. ?Stages 1 to 5, with or without kidney disease, indicate chronic kidney disease. Notes: Determination of stages one and two (with eGFR >59mL/min/1.73 m2) requires estimation of kidney damage for at least three months as defined by structural or functional abnormalities of the kidney, manifested by either:Pathological abnormalities or Markers of kidney damage (including abnormalities in the composition of the blood or urine or abnormalities in imaging tests). Lab Interpretation Abnormal (test code = 72814-0) [facility]40009[facility] (ALB,T.PRO,BILI T,BU/BC,ALT,AST,ALK PHOS)2020-10-08 10:33:38 Test Item Value Reference Range Interpretation Comments TOTAL BILI (test code = 0830748209) 0.4 mg/dL 0.1-1.1 BILI UNCON (test code = 7331007760) 0.0 mg/dL 0.1-1.1 L BILI CONJ (test code = 4898219604) 0.0 mg/dL 0.0-0.3 T PROTEIN (test code = 3244879270) 6.8 g/dL 6.3-8.2 ALBUMIN (test code = 5487971048) 3.7 g/dL 3.5-5.0 ALK PHOS (test code = 5212325675) 69 U/L 34-122 ALTv (test code = 1742-6) 14 U/L 5-35 AST(SGOT) (test code = 7480007835) 22 U/L 13-40 Lab Interpretation (test code = Abnormal 17690-2) [facility] CenterPROTHROM[facility] / [id number] 09:53:19 Test Item Value Reference Range Interpretation Comments PROTIME PATIENT (test See_Comment H [Auto mated message] code = 5964-2) The system [employer] generated this result transmitted ref erence range: 10.1 - 1 2.6 Seconds. The reference range was not used to int erpret this result as normal/abnormal . INR (test code = 6301-6) Nor mal INR <1.1; Warfarin Therap eutic range 2.0 to 3. 0 or 2.5 to 3.5, dep ending upon the indica tions. Lab Interpretation (test Abnormal code = 91479-0) [facility] Center[facility] / [id number] 09:53:19 Test Item Value Reference Range Interpretation Comments PROTIME PATIENT (test See_Comment H [Auto mated message] code = 5964-2) The system [employer] generated this result transmitted ref erence range: 10.1 - 1 2.6 Seconds. The reference range was not used to int erpret this result as normal/abnormal . INR (test code = 6301-6) Nor mal INR <1.1; Warfarin Therap eutic range 2.0 to 3. 0 or 2.5 to 3.5, dep ending upon the indica tions. Lab Interpretation (test Abnormal code = 45944-9) [facility] [id number] 22:24:38COVID DMT InterpretationInterpretation/Recommendations: Molecular NAAT Tests for Active Infection with the SARS-CoV-2 Virus: The patient has currently tested negative for the SARS-CoV-2 virus that causes COVID-19 illness. This most likely indicates that the patient does not have an active infection with the SARS-CoV-2 virus. However, infection is not completely ruled out as the false negative rate for molecular NAAT testing using a nasopharyngeal sample can be up to 30%, mostly dependent on the timing of sample collection in relation to illness onset and any deficiencies in sampling techniques. If the patient has symptoms concerning for COVID-19 illness, a repeat NAAT test (PCR, Rapid ID Now, etc.) should be performed, at which time the SARS-CoV-2 virus - if present - may have reached a detectable viral load (usually peaking by the end of the first week of symptoms). Tests for IgM and/or IgG Antibodies to the SARS-CoV-2 Virus: If the patient develops COVID-19 illness in the future, testing for IgM and IgG antibodies approximately 3 weeks after illness onset will likely indicate if the patient has produced antibodies to the SARS-CoV-2 virus. However, some patients may take longer to develop detectable antibodies, while some patients who were infected with SARS-CoV-2 may never develop antibodies. While antibodies to SARS-CoV-2 may provide some degree of immunity, at this time the strength and duration of the antibody response is unknown. Interpretation Result Comments:These interpretation comments are based upon all COVID-19 testing the patient has had at [facility], including molecular NAAT testing (more commonly known as PCR testing and Rapid ID Now testing) and antibody testing. It does not take into account any testingthat a patient has had outside of the [facility] medical record. [facility] SERVICESCOVID NopzjomNEYU-AeP-2 Rapid ID NOW (no units) ? ? Date ? Value ? 10/06/2020 ? Not Detected ? ? ? 08/09/2019 ? Not Detected ? [facility] [id number] 22:24:38COVID DMT InterpretationInterpretation/Recommendations: Molecular NAAT Tests for Active Infection with the SARS-CoV-2 Virus: The patient has currently tested negative for the SARS-CoV-2 virus that causes COVID-19 illness. This most likely indicates that the patient does not have an active infection with the SARS-CoV-2 virus. However, infection is not completely ruled out as the false negative rate for molecular NAAT testing using a nasopharyngeal sample can be up to 30%, mostly dependent on the timing of sample collection in relation to illness onset and any deficiencies in sampling techniques. If the patient has symptoms concerning for COVID-19 illness, a repeat NAAT test (PCR, Rapid ID Now, etc.) should be performed, at which time the SARS-CoV-2 virus - if present - may have reached a detectable viral load (usually peaking by the end of the first week of symptoms). Tests for IgM and/or IgG Antibodies to the SARS-CoV-2 Virus: If the patient develops COVID-19 illness in the future, testing for IgM and IgG antibodies approximately 3 weeks after illness onset will likely indicate if the patient has produced antibodies to the SARS-CoV-2 virus. However, some patients may take longer to develop detectable antibodies, while some patients who were infected with SARS-CoV-2 may never develop antibodies. While antibodies to SARS-CoV-2 may provide some degree of immunity, at this time the strength and duration of the antibody response is unknown. Interpretation Result Comments:These interpretation comments are based upon all COVID-19 testing the patient has had at [facility], including molecular NAAT testing (more commonly known as PCR testing and Rapid ID Now testing) and antibody testing. It does not take into account any testingthat a patient has had outside of the [facility] medical record. [facility] SERVICESC[facility] VcapafqLMHH-AgR-0 Rapid ID NOW (no units) ? ? Date ? Value ? 10/06/2020 ? Not Detected ? ? ? 08/09/2019 ? Not Detected ? [facility]UCOSE (AUTOMATED)2020-10-07 21:55:58 Test Item Value Reference Range Interpretation Comments POCT GLU (test code = 1505305216) 91 mg/dL 70-110 Lab Interpretation (test code = Normal 31371-6) [facility]2020-10-07 21:55:58 Test Item Value Reference Range Interpretation Comments POCT GLU (test code = 4853070892) 91 mg/dL 70-110 Lab Interpretation (test code = Normal 79808-0) [facility] CenterFL [facility] [id number] 19:11:13 Focal accumulation of contrast which widely communicates with the adjacentbowel is present along the posterior margin of the jejunum at the level ofthe gastrojejunostomy. No free spill of contrast into the peritonealcavity. Findings correspond to appearance on CT and thick and may representcontained perforation or contained area of focal dehiscence. EXAM: [place] UPPER GI SERIES HISTORY: 49 years old Female with gastric leak after sleeve May do in AM TECHNIQUE: Oral Omnipaque was administered as contrast for this focusedexam. COMPARISON: CT abdomen pelvis with contrast, 10/06/2020 FINDINGS: Focused evaluation of the gastric pouch and gastrojejunal anastomosis wasperformed in this patient with history of gastric bypass. Focal accumulation of contrast along the posterior margin of the jejunalsegment at the level of the gastrojejunostomy anastomosis best seen onlater images which were performed with patient in supine AP and LPOposition (see arrows). Normal bowel folds are not seen in this area.Appears t o communicate widely with the adjacent bowel lumen. Corresponds toappearance seen on recent CT examination. No free spill of contrast intothe peritoneal cavity. 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 COMPARISON: CT abdomen pelvis with contrast, 10/06/2020FINDINGS:Focused evaluation of the gastric pouch and gastrojejunal anastomosis wasperformed in thispatient with history of gastric bypass.Focal accumulation of contrast along the posterior margin of the jejunalsegment at the level of the gastrojejunostomy anastomosis best seen onlater images which were performed with patient in supine AP and LPOposition (see arrows). Normal bowel folds are not seenin this area.Appears to communicate widely with the adjacent bowel lumen. Corresponds toappearance seen on recent CT examination. No free spill of contrast intothe peritoneal cavity.IMPRESSIONFocal accumulation of contrast which widely communicates with the adjacentbowel is present along the posteriormargin of the jejunum at the level ofthe gastrojejunostomy. No free spill of contrast into the perito nealcavity. Findings correspond to appearance on CT and thick and may representcontained perforationor contained area of focal dehiscence.[facility] UPPER GI [id number] 19:11:13 Focal accumulation of contrast which widely communicates with the adjacentbowel is present along the posterior margin of the jejunum at the level ofthe gastrojejunostomy. No free spill of contrast into the peritonealcavity. Findings correspond to appearance on CT and thick and may representcontained perforation or contained area of focal dehiscence. EXAM: [place] UPPER GI SERIES HISTORY: 49 years old Female with gastric leak after sleeve May do in AM TECHNIQUE: Oral Omnipaque was administered as contrast for this focusedexam. COMPARISON: CT abdomen pelvis with contrast, 10/06/2020 FINDINGS: Focused evaluation of the gastric pouch and gastrojejunal anastomosis wasperformed in this patient with history of gastric bypass. Focal accumulation of contrast along the posterior margin of the jejunalsegment at the level of the gastrojejunostomy anastomosis best seen onlater images which were performed with patient in supine AP and LPOposition (see arrows). Normal bowel folds are not seen in this area.Appears to communicate widely with the adjacent bowel lumen. Corresponds toappearance seen on recent CT examination. No free spill of contrast intothe peritoneal cavity. 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 COMPARISON: CT abdomen pelvis with contrast, 10/06/2020FINDINGS:Focused evaluation of the gastric pouch and gastrojejunal anastomosis wasperformed in thispatient with history of gastric bypass.Focal accumulation of contrast along the posterior margin of the jejunalsegment at the level of the gastrojejunostomy anastomosis best seen onlater images which were performed with patient in supine AP and LPOposition (see arrows). Normal bowel folds are not seenin this area.Appears to communicate widely with the adjacent bowel lumen. Corresponds toappearance seen on recent CT examination. No free spill of contrast intothe peritoneal cavity.IMPRESSIONFocal accumulation of contrast which widely communicates with the adjacentbowel is present along the posteriormargin of the jejunum at the level ofthe gastrojejunostomy. No free spill of contrast into the peritonealcavity. Findings correspond to appearance on CT and thick and may representcontained perforation or contained area of focal dehiscence.[facility] GLUCOSE (AUTOMATED)2020-10-07 16:47:39 Test Item Value Reference Range Interpretation Comments POCT GLU (test code = 8726526997) 88 mg/dL 70-110 Lab Interpretation (test code = Normal 00693-2) [facility] GLUCOSE (AUTOMATED)2020-10-07 16:47:39 Test Item Value Reference Range Interpretation Comments POCT GLU (test code = 0441677772) 88 mg/dL 70-110 Lab Interpretation (test code = Normal 52565-2) [facility] ABDOMEN PELVIS W [id number] 14:27:34Addendum by Umang Sheldon MD on 10/07/2020 9:43 AM* * * * * * * * ADDENDUM: * * * * * * * *New focal wall thickening of left lower quadrant abdominal wall at the oflaparoscopic scar. 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 Findingssuggestive of dehiscence of gastroduodenal anastomosis versus containedperforation of gastrojejunal anastomosis ulceration. Small pocket of ?fluidnear anastomosis as above. ?Surgical consultation is recommended. The findings of this study, including contained perforation of sleevegastrectomy, have been discussed with and acknowledged by ANDRIA Sanford S over the phone on 10/06/2020 at 12:49 AM with readback. Preliminary Report Dictated by Resident: Umang Franz ?MD Pito., have reviewed this study and agree with theabove report.EXAM: CT ABDOMEN/PELVIS WITH CONTRAST HISTORY: ? 49 years-old Female presenting with Diverticulitis suspected LLQPAIN COMPARISON: CT abdomen pelvis with contrast 09/30/2018 TECHNIQUE AND FINDINGS: Contiguous axial imaging from the level of the lungbases through the proximal thighs was performed after the administration of120 cc of intravenous Omnipaque contrast. Coronal and sagittalreconstructions were obtained. ?Auto mA and/or iterative reconstructionwere used to reduce radiation dose. FINDINGS: LOWER THORAX: The lungs bases are clear. No cardiomegaly. LIVER: No focal hepatic lesions. Normal contour. GALLBLADDER AND BILIARY TREE: No intrahepatic biliary ductal dilation. Noradiopaque cholelithias is. No gallbladder wall thickening. Top normaldiameter common bile duct measuring up to 6 mm in diameter with tapering atampulla of Vater. SPLEEN: No splenomegaly. PANCREAS: No ductal dilation or masses. Mild pancreatic lipomatosis isnoted. ADRENAL GLANDS: No adrenal nodules. KIDNEYS: No hydronephrosis, stones, or masses. Lobulated appearance of bothkidneys with parenchymal scarring. Symmetric enhancement of the renalparenchyma. LYMPH NODES: No lymphadenopathy. 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 There is disruption of the jejunal wall near anastomosis withadj acent edema suggestive of dehiscence at anastomoses (2:37). Otherpossibility includes anastomosis consultation with contained perforation.There is associated diffuse wall thickening of the stomach witha 2.1 x 2.0x 2.6 cm fluid collection and surrounding fat stranding. Fat strandingsurrounds the adjacent distal transverse colon/splenic flexure. No boweldilation. The appendix is not visualized; however, no pericecalinflammatory changes to suggest appendicitis.No free intra-abdominal air. PELVIS/BLADDER: The urinary bladder appears unremarkable for the degree ofdistention. Prior hysterectomy. VESSELS: Unremarkable. BONES AND SOFT TISSUES: No suspicious lytic or sclerotic bony lesions. OPLLat the level of T12-L1 with mild spinal canal narrowing. [facility], Radiant Results Inft User - 10/07/2020 9:28 AM CDT EXAM: CT ABDOMEN/PELVIS WITH CONTRASTHISTORY: 49 years-old Female presenting with Diverticulitis suspected LLQPAINCOMPARISON: CT abdomen pelvis with contrast 09/30/2018TECHNIQUE AND FINDINGS: Contiguous axial imaging from the level of the lungbases through the proximal thighs was performed after the administration of120 cc of intravenous Omnipaque contrast. Coronal and sagittalreconstructions were obtained. Auto mA and/or iterative reconstructionwere used to reduce radiation dose.FINDINGS:LOWER THORAX: The lungs bases are clear. No cardiomegaly.LIVER: No focal hepatic lesions. Normal contour.GALLBLADDER AND BILIARY TREE: No intrahepatic biliary ductal dilation. Noradiopaque cholelithiasis. No gallbladder wall thickening. Top normaldiameter common bile duct measuring up to 6 mm in diameter with tapering atampulla of Vater.SPLEEN: No splenomegaly.PANCREAS: No ductal dilation or masses. Mild pancreatic lipomatosis isnoted.ADRENAL GLANDS:No adrenal nodules.KIDNEYS: No hydronephrosis, stones, or masses. Lobulated appearance of bothkidneys with parenchymal scarring. 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 There is disruption of the jejunal wall near anastomosis withadjacent edema suggestive of dehiscence at anastomoses (2:37). Otherpossibility includes anastomosis consultation with contained perforation.There is associated diffuse wall thickening of the stomach with a 2.1 x 2.0x 2.6 cm fluid collection and surrounding fat stranding. Fat strandingsurrounds the adjacent distal transverse colon/splenic flexure. No boweldilation. The appendix is not visualized; however, no pericecalinflammatory changes to suggest appendicitis.No free intra-abdominal air.PELVIS/BLADDER: The urinary bladder appears unremarkable for the degreeofdistention. Prior hysterectomy.VESSELS: Unremarkable.BONES AND SOFT TISSUES: No suspicious lytic or sclerotic bony lesions. OPLLat the level of T12-L1 with mild spinal canal narrowing.IMPRESSIONChanges of modified sleeve gastrectomy with gastric bypass. Findingssuggestive of dehiscence of gastroduodenal anastomosis versus containedperforation of gastrojejunal anastomosis ulceration. Small pocket of fluidnear anastomosis as above. Surgical consultation is recommended.The findings of this study, including contained perforation of sleevegastrectomy, have been discussed with and acknowledged by ANDRIA Sanford S over the phone on 10/06/2020 at 12:49 AM with readback.Preliminary Report Dictated by Resident: Umang Beasley MD., have reviewed this study and agree with theabove report.[facility] 2020[facility] 14:27:34Addendum by Umang Sheldon MD on 10/07/2020 9:43 AM* * * * * * * * ADDENDUM: * * * * * * * *New focal wall thickening of left lower quadrant abdominal wall at the oflaparoscopic scar. 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 Findingssuggestive of dehiscence of gastroduodenal anastomosis versus containedperforation of gastrojejunal anastomosis ulceration. Small pocket of ?fluidnear anastomosis as above. ?Surgical consultation is recommended. The findings of this study, including contained perforation of sleevegastrectomy, have been discussed with and acknowledged by ANDRIA Sanford S over the phone on 10/06/2020 at 12:49 AM with readback. Preliminary Report Dictated by Resident: Umang Franz MD., have reviewed this study and agree with theabove report.EXAM: CT ABDOMEN/PELVIS WITH CONTRAST HISTORY: ? 49 years-old Female presenting with Diverticulitis suspected LLQPAIN COMPARISON: CT abdomen pelvis with contrast 09/30/2018 TECHNIQUE AND FINDINGS: Contiguous axial imaging from the level of the lungbases through the proximal thighs was performed after the administration of120 cc of intravenous Omnipaque contrast. Coronal and sagittalreconstructions were obtained. ?Auto mA and/or iterative reconstructionwere used to reduce radiation dose. FINDINGS: LOWER THORAX: The lungs bases are clear. No cardiomegaly. LIVER: No focal hepatic lesions. Normal contour. GALLBLADDER AND BILIARY TREE: No intrahepatic biliary ductal dilation. Noradiopaque cholelithias is. No gallbladder wall thickening. Top normaldiameter common bile duct measuring up to 6 mm in diameter with tapering atampulla of Vater. SPLEEN: No splenomegaly. PANCREAS: No ductal dilation or masses. Mild pancreatic lipomatosis isnoted. ADRENAL GLANDS: No adrenal nodules. KIDNEYS: No hydronephrosis, stones, or masses. Lobulated appearance of bothkidneys with parenchymal scarring. Symmetric enhancement of the renalparenchyma. LYMPH NODES: No lymphadenopathy. 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 There is disruption of the jejunal wall near anastomosis withadj acent edema suggestive of dehiscence at anastomoses (2:37). Otherpossibility includes anastomosis consultation with contained perforation.There is associated diffuse wall thickening of the stomach witha 2.1 x 2.0x 2.6 cm fluid collection and surrounding fat stranding. Fat strandingsurrounds the adjacent distal transverse colon/splenic flexure. No boweldilation. The appendix is not visualized; however, no pericecalinflammatory changes to suggest appendicitis.No free intra-abdominal air. PELVIS/BLADDER: The urinary bladder appears unremarkable for the degree ofdistention. Prior hysterectomy. VESSELS: Unremarkable. BONES AND SOFT TISSUES: No suspicious lytic or sclerotic bony lesions. OPLLat the level of T12-L1 with mild spinal canal narrowing. [facility], Radiant Results Inft User - 10/07/2020 9:28 AM CDT EXAM: CT ABDOMEN/PELVIS WITH CONTRASTHISTORY: 49 years-old Female presenting with Diverticulitis suspected LLQPAINCOMPARISON: CT abdomen pelvis with contrast 09/30/2018TECHNIQUE AND FINDINGS: Contiguous axial imaging from the level of the lungbases through the proximal thighs was performed after the administration of120 cc of intravenous Omnipaque contrast. Coronal and sagittalreconstructions were obtained. Auto mA and/or iterative reconstructionwere used to reduce radiation dose.FINDINGS:LOWER THORAX: The lungs bases are clear. No cardiomegaly.LIVER: No focal hepatic lesions. Normal contour.GALLBLADDER AND BILIARY TREE: No intrahepatic biliary ductal dilation. Noradiopaque cholelithiasis. No gallbladder wall thickening. Top normaldiameter common bile duct measuring up to 6 mm in diameter with tapering atampulla of Vater.SPLEEN: No splenomegaly.PANCREAS: No ductal dilation or masses. Mild pancreatic lipomatosis isnoted.ADRENAL GLANDS:No adrenal nodules.KIDNEYS: No hydronephrosis, stones, or masses. Lobulated appearance of bothkidneys with parenchymal scarring. 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 There is disruption of the jejunal wall near anastomosis withadjacent edema suggestive of dehiscence at anastomoses (2:37). Otherpossibility includes anastomosis consultation with contained perforation.There is associated diffuse wall thickening of the stomach with a 2.1 x 2.0x 2.6 cm fluid collection and surrounding fat stranding. Fat strandingsurrounds the adjacent distal transverse colon/splenic flexure. No boweldilation. The appendix is not visualized; however, no pericecalinflammatory changes to suggest appendicitis.No free intra-abdominal air.PELVIS/BLADDER: The urinary bladder appears unremarkable for the degreeofdistention. Prior hysterectomy.VESSELS: Unremarkable.BONES AND SOFT TISSUES: No suspicious lytic or sclerotic bony lesions. OPLLat the level of T12-L1 with mild spinal canal narrowing.IMPRESSIONChanges of modified sleeve gastrectomy with gastric bypass. Findingssuggestive of dehiscence of gastroduodenal anastomosis versus containedperforation of gastrojejunal anastomosis ulceration. Small pocket of fluidnear anastomosis as above. Surgical consultation is recommended.The findings of this study, including contained perforation of sleevegastrectomy, have been discussed with and acknowledged by ANDRIA Sanford S over the phone on 10/06/2020 at 12:49 AM with readback.Preliminary Report Dictated by Resident: Adalid Wong, Umang Sheldon MD., have reviewed this study and agree with theabove report.[facility] GLUCOSE (AUTOMATED) 2020-10-07 12:46:58 Test Item Value Reference Range Interpretation Comments POCT GLU (test code = 0570746698) 105 mg/dL 70-110 Lab Interpretation (test code = Normal 13046-3) [facility] GLUCOSE (AUTOMATED)2020-10-07 12:46:58 Test Item Value Reference Range Interpretation Comments POCT GLU (test code = 1705454261) 105 mg/dL 70-110 Lab Interpretation (test code = Normal 97535-8) [facility] Metabolic Panel (NA, K, CL, CO2, GLUCOSE, BUN, CREATININE, CA)2020-10-07 11:03:21 Test Item Value Reference Range Interpretation Comments NA (test code = 139 mmol/L 135-145 7593595373) K (test code = 3.5 mmol/L 3.5-5.0 1298219719) CL (test code = 108 mmol/L 98-108 0680890417) CO2 TOTAL (test code 23 mmol/L 23-31 = 6452263042) AGAP (test code = 2-16 5671424601) BUN (test code = 7 mg/dL 7-23 4500990718) GLUCOSE (test code = 74 mg/dL 70-110 0813454158) CREATININE (test code 0.87 mg/dL 0.50-1.04 = 6828003422) CALCIUM (test code = 9.2 mg/dL 8.6-10.6 1014796561) eGFR (test code = mL/min/1.73m2 1330439651) TARYN (test code = TARYN) Association of Glomerular Filtration Rate (GFR) and Staging of Kidney Disease* + + +- +| GFR (mL/min/1.73 m2) ?| With Kidney Damage ?| ?Without Kidney Damage+ ------+ ----+ ------+| ?>90 ?| ?Stage one ?| ? Normal ?+ -+ + -+| ?60-89 ?| ?Stage two ?| ? Decreased GFR ? + + +- +| ?30-59 ?| ?Stage three ?| ? Stage three ? + + +- +| ?15-29 ?| ?Stage four ? | ? Stage four ?+ -+ + -+| ?<15 (or dialysis) ? ?| ?Stage five ? | ? Stage five ?+ -+ + -+ *Each stage assumes the associated GFR level has been in effect for at least three months. ?Stages 1 to 5, with or without kidney disease, indicate chronic kidney disease. Notes: Determination of stages one and two (with eGFR >59mL/min/1.73 m2) requires estimation of kidney damage for at least three months as defined by structural or functional abnormalities of the kidney, manifested by either:Pathological abnormalities or Markers of kidney damage (including abnormalities in the composition of the blood or urine or abnormalities in imaging tests). [facility] Metabolic Panel (NA, K, CL, CO2, GLUCOSE, BUN, CREATININE, CA)2020-10-07 11:03:21 Test Item Value Reference Range Interpretation Comments NA (test code = 139 mmol/L 135-145 5229995473) K (test code = 3.5 mmol/L 3.5-5.0 2006766435) CL (test code = 108 mmol/L 98-108 8640813795) CO2 TOTAL (test code 23 mmol/L 23-31 = 7251408010) AGAP (test code = 2-16 6598310169) BUN (test code = 7 mg/dL 7-23 2997958473) GLUCOSE (test code = 74 mg/dL 70-110 5312112074) CREATININE (test code 0.87 mg/dL 0.50-1.04 = 9049876351) CALCIUM (test code = 9.2 mg/dL 8.6-10.6 6847844101) eGFR (test code = mL/min/1.73m2 3037021179) TARYN (test code = TARYN) Association of Glomerular Filtration Rate (GFR) and Staging of Kidney Disease* + + +- +| GFR (mL/min/1.73 m2) ?| With Kidney Damage ?| ?Without Kidney Damage+ ------+ ----+ ------+| ?>90 ?| ?Stage one ?| ? Normal ?+ -+ + -+| ?60-89 ?| ?Stage two ?| ? Decreased GFR ? + + +- +| ?30-59 ?| ?Stage three ?| ? Stage three ? + + +- +| ?15-29 ?| ?Stage four ? | ? Stage four ?+ -+ + -+| ?<15 (or dialysis) ? ?| ?Stage five ? | ? Stage five ?+ -+ + -+ *Each stage assumes the associated GFR level has been in effect for at least three months. ?Stages 1 to 5, with or without kidney disease, indicate chronic kidney disease. Notes: Determination of stages one and two (with eGFR >59mL/min/1.73 m2) requires estimation of kidney damage for at least three months as defined by structural or functional abnormalities of the kidney, manifested by either:Pathological abnormalities or Markers of kidney damage (including abnormalities in the composition of the blood or urine or abnormalities in imaging tests). [facility] with [id number] 10:54:19 Test Item Value Reference Range Interpretation Comments WBC (test code = See_Comment [Automated 7490-2) message] The sy stem which generated this result transmitted reference range : 4.30 - 11.10 10*3/?L. The reference range was not used to interpret this result as normal/abnormal . RBC (test code = See_Comment [Automated 279-8) message] The sy stem which generated this result transmitted reference range : 3.93 - 5.25 10*6/?L. The reference range was not used to interpret this result as normal/abnormal . HGB (test code = 10.8 g/dL 11.6-15.0 L 718-7) HCT (test code = 34.7 % 35.7-45.2 L 4544-3) MCV (test code = 84.0 fL 80.6-95.5 787-2) MCH (test code = 26.2 pg 25.9-32.8 785-6) MCHC (test code = 31.1 g/dL 31.6-35.1 L 786-4) RDW-SD (test code = 39.9 fL 39.0-49.9 94039-0) RDW-CV (test code = 13.2 % 12.0-15.5 788-0) PLT (test code = See_Comment L [Automated 777-3) message] The sy stem which generated this result transmitted reference range : 166 - 358 10*3/ ?L. The reference r christy was not used to interpret this result as normal/abnormal . MPV (test code = 11.9 fL 9.5-12.9 88580-4) NRBC/100 WBC (test See_Comment [Automat ed code = 2979027172) message] The system which generated this result transmitted reference range : 0.0 - 10.0 /100 WBCs. The refer ence range was not u sed to interpret th is result as normal/abnormal . NRBC x10^3 (test code <0.01 See_Comment [Auto mated = 0994197308) message] The s ystem which generated this result transmitted reference range : 10*3/?L. The reference range was not used to interpret this result as normal/abnormal . GRAN MAT (NEUT) % 53.8 % (test code = 770-8) IMM GRAN % (test code 0.20 % = 5702984352) LYMPH % (test code = 32.6 % 736-9) MONO % (test code = 7.5 % 5905-5) EOS % (test code = 5.3 % 713-8) BASO % (test code = 0.6 % 706-2) GRAN MAT x10^3(ANC) 2.64 10*3/uL 1.88-7.09 (test code = 6005887974) IMM GRAN x10^3 (test <0.03 0.00-0.06 code = 6789221742) LYMPH x10^3 (test code 1.60 10*3/uL 1.32-3.29 = 731-0) MONO x10^3 (test code 0.37 10*3/uL 0.33-0.92 = 742-7) EOS x10^3 (test code = 0.26 10*3/uL 0.03-0.39 711-2) BASO x10^3 (test code 0.03 10*3/uL 0.01-0.07 = 704-7) Lab Interpretation Abnormal (test code = 35988-5) [facility] with Rkqsspiyvqpq3210-28-83 10:54:19 Test Item Value Reference Range Interpretation Comments WBC (test code = See_Comment [Automated 6690-2) message] The sy stem which generated this result transmitted reference range : 4.30 - 11.10 10*3/?L. The reference range was not used to interpret this result as normal/abnormal . RBC (test code = See_Comment [Automated 789-8) message] The sy stem which generated this result transmitted reference range : 3.93 - 5.25 10*6/?L. The reference range was not used to interpret this result as normal/abnormal . HGB (test code = 10.8 g/dL 11.6-15.0 L 718-7) HCT (test code = 34.7 % 35.7-45.2 L 4544-3) MCV (test code = 84.0 fL 80.6-95.5 787-2) MCH (test code = 26.2 pg 25.9-32.8 785-6) MCHC (test code = 31.1 g/dL 31.6-35.1 L 786-4) RDW-SD (test code = 39.9 fL 39.0-49.9 81490-1) RDW-CV (test code = 13.2 % 12.0-15.5 788-0) PLT (test code = See_Comment L [Automated 777-3) message] The sy stem which generated this result transmitted reference range : 166 - 358 10*3/ ?L. The reference r christy was not used to interpret this result as normal/abnormal . MPV (test code = 11.9 fL 9.5-12.9 76994-8) NRBC/100 WBC (test See_Comment [Automat ed code = 6052164156) message] The system which generated this result transmitted reference range : 0.0 - 10.0 /100 WBCs. The refer ence range was not u sed to interpret th is result as normal/abnormal . NRBC x10^3 (test code <0.01 See_Comment [Auto mated = 5011706026) message] The s ystem which generated this result transmitted reference range : 10*3/?L. The reference range was not used to interpret this result as normal/abnormal . GRAN MAT (NEUT) % 53.8 % (test code = 770-8) IMM GRAN % (test code 0.20 % = 6537498196) LYMPH % (test code = 32.6 % 736-9) MONO % (test code = 7.5 % 5905-5) EOS % (test code = 5.3 % 713-8) BASO % (test code = 0.6 % 706-2) GRAN MAT x10^3(ANC) 2.64 10*3/uL 1.88-7.09 (test code = 7426280334) IMM GRAN x10^3 (test <0.03 0.00-0.06 code = 0841226834) LYMPH x10^3 (test code 1.60 10*3/uL 1.32-3.29 = 731-0) MONO x10^3 (test code 0.37 10*3/uL 0.33-0.92 = 742-7) EOS x10^3 (test code = 0.26 10*3/uL 0.03-0.39 711-2) BASO x10^3 (test code 0.03 10*3/uL 0.01-0.07 = 704-7) Lab Interpretation Abnormal (test code = 72168-2) [facility] Tnskzfi6061-32-75 16:10:08 Test Item Value Reference Range Interpretation Comments ABO & RH (test code O Positive Performe d at [facility] = 20) Laboratory [facility] [place], [place] [id number] Free: [phone] A No. [id number] IAT (test code = Negative Performed a t [place] 1185) Laboratory [facility] [place] [phone] Free: [phone] A No. [id number] [facility] Volxycf4105-82-75 16:10:08 Test Item Value Reference Range Interpretation Comments ABO & RH (test code O Positive Performe d at [place] = 20) Laboratory [facility] [place] [phone] Free: [phone] A No. [id number] IAT (test code = Negative Performed a t [facility] 1185) Laboratory [facility] [place] [phone] Free: [phone] A No. [id number] [facility]:44[facility]41 Test Item Value Reference Range Interpretation Comments MAGNESIUM (test code = 9722844793) 2.0 mg/dL 1.7-2.4 Lab Interpretation (test code = Normal 04878-9) [facility] 15:44:41 Test Item Value Reference Range Interpretation Comments MAGNESIUM (test code = 5952572822) 2.0 mg/dL 1.7-2.4 Lab Interpretation (test code = Normal 74298-9) [facility] ([id number])2020-10-06 15:44:21 Test Item Value Reference Range Interpretation Comments NA (test code = 140 mmol/L 135-145 7894250729) K (test code = 3.0 mmol/L 3.5-5.0 L 6337053965) CL (test code = 106 mmol/L 98-108 4091656431) CO2 TOTAL (test code = 26 mmol/L 23-31 6127982916) AGAP (test code = 2-16 8125355448) BUN (test code = 9 mg/dL 7-23 5589065311) GLUCOSE (test code = 81 mg/dL 70-110 9960732865) CREATININE (test code = 0.91 mg/dL 0.50-1.04 3430793275) TOTAL BILI (test code = 0.5 mg/dL 0.1-1.3 3727773380) CALCIUM (test code = 9.2 mg/dL 8.6-10.6 1104877727) T PROTEIN (test code = 7.4 g/dL 6.3-8.2 0026543895) ALBUMIN (test code = 3.8 g/dL 3.5-5.0 5145471743) ALK PHOS (test code = 80 U/L 34-122 0132877961) ALTv (test code = 17 U/L 5-35 1742-6) AST(SGOT) (test code = 21 U/L 13-40 4919672558) eGFR (test code = mL/min/1.73m2 0959302291) TARYN (test code = TARYN) Association of Glomerular Filtration Rate (GFR) and Staging of Kidney Disease* + --+ --+ ------+| GFR (mL/min/1.73 m2) ?| With Kidney Damage ?| ?Without Kidney Damage+ --------+ --------+ +| ?>90 ?| ?Stage one ?| ? Normal ?+ ---+ ---+ -------+| ?60-89 ?| ?Stage two ?| ? Decreased GFR ? + --+ --+ ------+| ?30-59 ?| ?Stage three ?| ? Stage three ? + --+ --+ ------+| ?15-29 ?| ?Stage four ? | ? Stage four ?+ ---+ ---+ -------+| ?<15 (or dialysis) ? ?| ?Stage five ? | ? Stage five ?+ ---+ ---+ -------+ *Each stage assumes the associated GFR level has been in effect for at least three months. ?Stages 1 to 5, with or without kidney disease, indicate chronic kidney disease. Notes: Determination of stages one and two (with eGFR >59mL/min/1.73 m2) requires estimation of kidney damage for at least three months as defined by structural or functional abnormalities of the kidney, manifested by either:Pathological abnormalities or Markers of kidney damage (including abnormalities in the composition of the blood or urine or abnormalities in imaging tests). Lab Interpretation Abnormal (test code = 62591-0) [facility]. METABOLIC PANEL (74326)2020-10-06 15:44:21 Test Item Value Reference Range Interpretation Comments NA (test code = 140 mmol/L 135-145 8155429569) K (test code = 3.0 mmol/L 3.5-5.0 L 7857415315) CL (test code = 106 mmol/L 98-108 7044170667) CO2 TOTAL (test code = 26 mmol/L 23-31 3355212299) AGAP (test code = 2-16 8016749950) BUN (test code = 9 mg/dL 7-23 4365241699) GLUCOSE (test code = 81 mg/dL 70-110 5497777897) CREATININE (test code = 0.91 mg/dL 0.50-1.04 7318631004) TOTAL BILI (test code = 0.5 mg/dL 0.1-1.1 6426245296) CALCIUM (test code = 9.2 mg/dL 8.6-10.6 7127468290) T PROTEIN (test code = 7.4 g/dL 6.3-8.2 7318053931) ALBUMIN (test code = 3.8 g/dL 3.5-5.0 5187085827) ALK PHOS (test code = 80 U/L 34-122 5761508031) ALTv (test code = 17 U/L 5-35 1742-6) AST(SGOT) (test code = 21 U/L 13-40 3506639952) eGFR (test code = mL/min/1.73m2 3557703858) TARYN (test code = TARYN) Association of Glomerular Filtration Rate (GFR) and Staging of Kidney Disease* + --+ --+ ------+| GFR (mL/min/1.73 m2) ?| With Kidney Damage ?| ?Without Kidney Damage+ --------+ --------+ +| ?>90 ?| ?Stage one ?| ? Normal ?+ ---+ ---+ -------+| ?60-89 ?| ?Stage two ?| ? Decreased GFR ? + --+ --+ ------+| ?30-59 ?| ?Stage three ?| ? Stage three ? + --+ --+ ------+| ?15-29 ?| ?Stage four ? | ? Stage four ?+ ---+ ---+ -------+| ?<15 (or dialysis) ? ?| ?Stage five ? | ? Stage five ?+ ---+ ---+ -------+ *Each stage assumes the associated GFR level has been in effect for at least three months. ?Stages 1 to 5, with or without kidney disease, indicate chronic kidney disease. Notes: Determination of stages one and two (with eGFR >59mL/min/1.73 m2) requires estimation of kidney damage for at least three months as defined by structural or functional abnormalities of the kidney, manifested by either:Pathological abnormalities or Markers of kidney damage (including abnormalities in the composition of the blood or urine or abnormalities in imaging tests). Lab Interpretation Abnormal (test code = 76832-6) [facility] [id number] 15:36:39 Test Item Value Reference Range Interpretation Comments ABO & RH (test code O Positive Performe d at RUST = 20) Laboratory Serv [facility] [address] [place] [address] Free: [phone] A No. [id number] [facility] [id number] 15:36:39 Test Item Value Reference Range Interpretation Comments ABO & RH (test code O Positive Performe d at [facility] = 20) Laboratory Serv [facility] [address] [place] [address] Free: [phone] A No. [id number] [facility] [id number] 15:33:00 Test Item Value Reference Range Interpretation Comments APTT Patient (test See_Comment [Automat ed code = 3173-2) message] The system which generated this result transmitted reference range : 23 - 38 Seconds . The reference range was not used to interpr et this result as normal/abnormal . TARYN (test code = TARYN) The [facility] patient population mean normal value for aPTT is 30 seconds. Lab Interpretation Normal (test code = 98430-4) [facility] [id number] 15:33:00 Test Item Value Reference Range Interpretation Comments APTT Patient (test See_Comment [Automat ed code = 3173-2) message] The system which generated this result transmitted reference range : 23 - 38 Seconds . The reference range was not used to interpr et this result as normal/abnormal . TARYN (test code = TARYN) The [facility] patient population mean normal value for aPTT is 30 seconds. Lab Interpretation Normal (test code = 07555-9) [facility] / [id number] 15:31:00 Test Item Value Reference Range Interpretation Comments PROTIME PATIENT (test See_Comment [Auto mated message] code = 5964-2) The system [facility] generated this result transmitted ref erence range: 12.0 - 1 4.7 Seconds. The re ference range was not u sed to interpret this result as normal/abnor mal. INR (test code = 6301-6) Nor mal INR <1.1; Warfarin Therap eutic range 2.0 to 3. 0 or 2.5 to 3.5, dep ending upon the indica tions. Lab Interpretation (test Normal code = 01991-8) [facility] / [id number] 15:31:00 Test Item Value Reference Range Interpretation Comments PROTIME PATIENT (test See_Comment [Auto mated message] code = 5964-2) The system ich generated this result transmitted ref erence range: 12.0 - 1 4.7 Seconds. The re ference range was not u sed to interpret this result as normal/abnor mal. INR (test code = 6301-6) Nor mal INR <1.1; Warfarin Therap eutic range 2.0 to 3. 0 or 2.5 to 3.5, dep ending upon the indica tions. Lab Interpretation (test Normal code = 63940-0) [facility] WITH [id number] 15:22:21 Test Item Value Reference Range Interpretation Comments WBC (test code = See_Comment [Automated 9290-2) message] The sy stem which generated this result transmitted reference range : 4.30 - 11.10 10*3/?L. The reference range was not used to interpret this result as normal/abnormal . RBC (test code = See_Comment [Automated 379-8) message] The sy stem which generated this result transmitted reference range : 3.93 - 5.25 10*6/?L. The reference range was not used to interpret this result as normal/abnormal . HGB (test code = 11.0 g/dL 11.6-15.0 L 718-7) HCT (test code = 33.2 % 35.7-45.2 L 4544-3) MCV (test code = 79.2 fL 80.6-95.5 L 787-2) MCH (test code = 26.3 pg 25.9-32.8 785-6) MCHC (test code = 33.1 g/dL 31.6-35.1 786-4) RDW-SD (test code = 37.1 fL 39.0-49.9 L 36253-4) RDW-CV (test code = 13.1 % 12.0-15.5 788-0) PLT (test code = See_Comment [Automated 777-3) message] The sy stem which generated this result transmitted reference range : 166 - 358 10*3/ ?L. The reference r christy was not used to interpret this result as normal/abnormal . MPV (test code = 10.2 fL 9.5-12.9 73621-7) NRBC/100 WBC (test See_Comment [Automat ed code = 7310748191) message] The system which generated this result transmitted reference range : 0.0 - 10.0 /100 WBCs. The refer ence range was not u sed to interpret th is result as normal/abnormal . NRBC x10^3 (test code <0.01 See_Comment [Auto mated = 4162443696) message] The s ystem which generated this result transmitted reference range : 10*3/?L. The reference range was not used to interpret this result as normal/abnormal . GRAN MAT (NEUT) % 65.3 % (test code = 770-8) IMM GRAN % (test code 0.40 % = 6235122971) LYMPH % (test code = 22.6 % 736-9) MONO % (test code = 8.8 % 5905-5) EOS % (test code = 2.5 % 713-8) BASO % (test code = 0.4 % 706-2) GRAN MAT x10^3(ANC) 4.75 10*3/uL 1.88-7.09 (test code = 7881749695) IMM GRAN x10^3 (test 0.03 10*3/uL 0.00-0.06 code = 5254795221) LYMPH x10^3 (test code 1.64 10*3/uL 1.32-3.29 = 731-0) MONO x10^3 (test code 0.64 10*3/uL 0.33-0.92 = 742-7) EOS x10^3 (test code = 0.18 10*3/uL 0.03-0.39 711-2) BASO x10^3 (test code 0.03 10*3/uL 0.01-0.07 = 704-7) Lab Interpretation Abnormal (test code = 43279-0) [facility] WITH [id number] 15:22:21 Test Item Value Reference Range Interpretation Comments WBC (test code = See_Comment [Automated 6690-2) message] The sy stem which generated this result transmitted reference range : 4.30 - 11.10 10*3/?L. The reference range was not used to interpret this result as normal/abnormal . RBC (test code = See_Comment [Automated 789-8) message] The sy stem which generated this result transmitted reference range : 3.93 - 5.25 10*6/?L. The reference range was not used to interpret this result as normal/abnormal . HGB (test code = 11.0 g/dL 11.6-15.0 L 718-7) HCT (test code = 33.2 % 35.7-45.2 L 4544-3) MCV (test code = 79.2 fL 80.6-95.5 L 787-2) MCH (test code = 26.3 pg 25.9-32.8 785-6) MCHC (test code = 33.1 g/dL 31.6-35.1 786-4) RDW-SD (test code = 37.1 fL 39.0-49.9 L 65732-3) RDW-CV (test code = 13.1 % 12.0-15.5 788-0) PLT (test code = See_Comment [Automated 777-3) message] The sy stem which generated this result transmitted reference range : 166 - 358 10*3/ ?L. The reference r christy was not used to interpret this result as normal/abnormal . MPV (test code = 10.2 fL 9.5-12.9 22120-6) NRBC/100 WBC (test See_Comment [Automat ed code = 1209428747) message] The system which generated this result transmitted reference range : 0.0 - 10.0 /100 WBCs. The refer ence range was not u sed to interpret th is result as normal/abnormal . NRBC x10^3 (test code <0.01 See_Comment [Auto mated = 8562690250) message] The s ystem which generated this result transmitted reference range : 10*3/?L. The reference range was not used to interpret this result as normal/abnormal . GRAN MAT (NEUT) % 65.3 % (test code = 770-8) IMM GRAN % (test code 0.40 % = 0077284290) LYMPH % (test code = 22.6 % 736-9) MONO % (test code = 8.8 % 5905-5) EOS % (test code = 2.5 % 713-8) BASO % (test code = 0.4 % 706-2) GRAN MAT x10^3(ANC) 4.75 10*3/uL 1.88-7.09 (test code = 2872551382) IMM GRAN x10^3 (test 0.03 10*3/uL 0.00-0.06 code = 7909325970) LYMPH x10^3 (test code 1.64 10*3/uL 1.32-3.29 = 731-0) MONO x10^3 (test code 0.64 10*3/uL 0.33-0.92 = 742-7) EOS x10^3 (test code = 0.18 10*3/uL 0.03-0.39 711-2) BASO x10^3 (test code 0.03 10*3/uL 0.01-0.07 = 704-7) Lab Interpretation Abnormal (test code = 92502-7) [facility]ID [facility]2020-10-06 06:31:15 Test Item Value Reference Range Interpretation Comments SARS-CoV-2 Rapid ID NOW Not Detected Not Detected (test code = 71888-7) TARYN (test code = TARYN) ID NOW COVID-19 Assay is an isothermal nucleic acid amplification test intended for the qualitative detection of nucleic acid from SARS-CoV-2 viral RNA in nasopharyngeal (ARTIST MANAGER) specimens. It is used under Emergency Use Authorization (EUA) by FDA. The limit of detection (LOD) of the assay is 125 Genome Equivalents/mL. A positive result is indicative of the presence of SARS-CoV-2 RNA. ?Clinical correlation with patient history and other diagnostic information is necessary to determine patient infection status. A negative (Not Detected) result does not preclude SARS-CoV-2 infection. In patients with clinical symptoms and other tests that are consistent with SARS-CoV-2 infection, negative results should be treated as presumptive negative and a new specimen should be tested with alternative PCR molecular test. Invalid: Please collect a new specimen for repeat patient testing if clinically indicated. Lab Interpretation Normal (test code = 97949-2) [facility]ID [facility]2020-10-06 06:31:15 Test Item Value Reference Range Interpretation Comments SARS-CoV-2 Rapid ID NOW Not Detected Not Detected (test code = 12951-1) TARYN (test code = TARYN) ID NOW COVID-19 Assay is an isothermal nucleic acid amplification test intended for the qualitative detection of nucleic acid from SARS-CoV-2 viral RNA in nasopharyngeal (ARTIST MANAGER) specimens. It is used under Emergency Use Authorization (EUA) by FDA. The limit of detection (LOD) of the assay is 125 Genome Equivalents/mL. A positive result is indicative of the presence of SARS-CoV-2 RNA. ?Clinical correlation with patient history and other diagnostic information is necessary to determine patient infection status. A negative (Not Detected) result does not preclude SARS-CoV-2 infection. In patients with clinical symptoms and other tests that are consistent with SARS-CoV-2 infection, negative results should be treated as presumptive negative and a new specimen should be tested with alternative PCR molecular test. Invalid: Please collect a new specimen for repeat patient testing if clinically indicated. Lab Interpretation Normal (test code = 81427-5) [facility] [id number] 04:23:07 Test Item Value Reference Range Interpretation Comments NA (test code = 139 mmol/L 135-145 3114321648) K (test code = 3.0 mmol/L 3.5-5.0 L 9794186246) CL (test code = 103 mmol/L 98-108 3197670195) CO2 TOTAL (test code = 28 mmol/L 23-31 2017008143) AGAP (test code = 2-16 6194519227) BUN (test code = 12 mg/dL 7-23 7141411746) GLUCOSE (test code = 100 mg/dL 70-110 6924260086) CREATININE (test code = 1.18 mg/dL 0.50-1.04 H 7952016195) TOTAL BILI (test code = 0.4 mg/dL 0.1-1.7 2873802269) CALCIUM (test code = 9.5 mg/dL 8.6-10.6 4131924668) T PROTEIN (test code = 7.8 g/dL 6.3-8.2 4094380620) ALBUMIN (test code = 4.1 g/dL 3.5-5.0 8735254337) ALK PHOS (test code = 90 U/L 34-122 5910136796) ALTv (test code = 19 U/L 5-35 1742-6) AST(SGOT) (test code = 24 U/L 13-40 9252013840) eGFR (test code = mL/min/1.73m2 7483121527) TARYN (test code = TARYN) Association of Glomerular Filtration Rate (GFR) and Staging of Kidney Disease* + --+ --+ ------+| GFR (mL/min/1.73 m2) ?| With Kidney Damage ?| ?Without Kidney Damage+ --------+ --------+ +| ?>90 ?| ?Stage one ?| ? Normal ?+ ---+ ---+ -------+| ?60-89 ?| ?Stage two ?| ? Decreased GFR ? + --+ --+ ------+| ?30-59 ?| ?Stage three ?| ? Stage three ? + --+ --+ ------+| ?15-29 ?| ?Stage four ? | ? Stage four ?+ ---+ ---+ -------+| ?<15 (or dialysis) ? ?| ?Stage five ? | ? Stage five ?+ ---+ ---+ -------+ *Each stage assumes the associated GFR level has been in effect for at least three months. ?Stages 1 to 5, with or without kidney disease, indicate chronic kidney disease. Notes: Determination of stages one and two (with eGFR >59mL/min/1.73 m2) requires estimation of kidney damage for at least three months as defined by structural or functional abnormalities of the kidney, manifested by either:Pathological abnormalities or Markers of kidney damage (including abnormalities in the composition of the blood or urine or abnormalities in imaging tests). Lab Interpretation Abnormal (test code = 82092-6) [facility] [id number] 04:23:07 Test Item Value Reference Range Interpretation Comments NA (test code = 139 mmol/L 135-145 5664875282) K (test code = 3.0 mmol/L 3.5-5.0 L 8626033809) CL (test code = 103 mmol/L 98-108 4623218223) CO2 TOTAL (test code = 28 mmol/L 23-31 9721155054) AGAP (test code = 2-16 6477982046) BUN (test code = 12 mg/dL 7-23 1306950952) GLUCOSE (test code = 100 mg/dL 70-110 6040022753) CREATININE (test code = 1.18 mg/dL 0.50-1.04 H 7794093381) TOTAL BILI (test code = 0.4 mg/dL 0.1-1.2 3791960327) CALCIUM (test code = 9.5 mg/dL 8.6-10.6 9833090761) T PROTEIN (test code = 7.8 g/dL 6.3-8.2 1184502077) ALBUMIN (test code = 4.1 g/dL 3.5-5.0 0147305798) ALK PHOS (test code = 90 U/L 34-122 0842806409) ALTv (test code = 19 U/L 5-35 1742-6) AST(SGOT) (test code = 24 U/L 13-40 6008354274) eGFR (test code = mL/min/1.73m2 1631750408) TARYN (test code = TARYN) Association of Glomerular Filtration Rate (GFR) and Staging of Kidney Disease* + --+ --+ ------+| GFR (mL/min/1.73 m2) ?| With Kidney Damage ?| ?Without Kidney Damage+ --------+ --------+ +| ?>90 ?| ?Stage one ?| ? Normal ?+ ---+ ---+ -------+| ?60-89 ?| ?Stage two ?| ? Decreased GFR ? + --+ --+ ------+| ?30-59 ?| ?Stage three ?| ? Stage three ? + --+ --+ ------+| ?15-29 ?| ?Stage four ? | ? Stage four ?+ ---+ ---+ -------+| ?<15 (or dialysis) ? ?| ?Stage five ? | ? Stage five ?+ ---+ ---+ -------+ *Each stage assumes the associated GFR level has been in effect for at least three months. ?Stages 1 to 5, with or without kidney disease, indicate chronic kidney disease. Notes: Determination of stages one and two (with eGFR >59mL/min/1.73 m2) requires estimation of kidney damage for at least three months as defined by structural or functional abnormalities of the kidney, manifested by either:Pathological abnormalities or Markers of kidney damage (including abnormalities in the composition of the blood or urine or abnormalities in imaging tests). Lab Interpretation Abnormal (test code = 52817-7) [facility], [id number] 04:22:26 Test Item Value Reference Range Interpretation Comments LIPASE (test code = 8287467461) 37 U/L 0-220 Lab Interpretation (test code = Normal 54998-3) [facility], [id number] 04:22:26 Test Item Value Reference Range Interpretation Comments LIPASE (test code = 0757401371) 37 U/L 0-220 Lab Interpretation (test code = Normal 18926-6) [facility]ysis[facility] 04:12:09 Test Item Value Reference Range Interpretation Comments APPEARANCE (test code = Cloudy Clear A 8142088520) COLOR (test code = Chanel Yellow A 1137122351) PH (test code = 4.8-8.0 6466619731) SP GRAVITY (test code = 1.003-1.030 0022635432) GLU U QUAL (test code = Normal Normal 8630825597) BLOOD (test code = Negative Negative 1291142211) KETONES (test code = 20 mg/dL Negative A 9499795561) PROTEIN (test code = 30 mg/dL Negative A 2887-8) UROBILIN (test code = 2.0 mg/dL Normal A 4023701154) BILIRUBIN (test code = Negative Negative 9835366908) NITRITE (test code = Negative Negative 1596283508) LEUK DENG (test code = Negative Negative 7071463684) RBC/HPF (test code = See_Comment H [Autom ated message] 2065867891) The system [employer] generated this result transmit arturo reference range : 0 - 3 HPF. The refe rence range was not u sed to interpret th is result as normal/abnormal . WBC/HPF (test code = See_Comment H [Autom ated message] 2972229416) The system [employer] generated this result transmit arturo reference range : 0 - 5 HPF. The refe rence range was not u sed to interpret th is result as normal/abnormal . BACTERIA (test code = Few Negative A 5329803824) MUCOUS (test code = Marked Negative LPF A 6742656842) SQ EPITH (test code = HPF 4760973757) HYAL CAST (test code = See_Comment H [Aut omated message] 8344718353) The system [employer] generated this result transmit arturo reference range : <=2 LPF. The refere nce range was not u sed to interpret th is result as normal/abnormal . Lab Interpretation (test Abnormal code = 11405-3) [facility] 04:12:09 Test Item Value Reference Range Interpretation Comments APPEARANCE (test code = Cloudy Clear A 3904540960) COLOR (test code = Chanel Yellow A 6694591011) PH (test code = 4.8-8.0 0508078055) SP GRAVITY (test code = 1.003-1.030 4809941230) GLU U QUAL (test code = Normal Normal 3818424306) BLOOD (test code = Negative Negative 9247087899) KETONES (test code = 20 mg/dL Negative A 3174836799) PROTEIN (test code = 30 mg/dL Negative A 2887-8) UROBILIN (test code = 2.0 mg/dL Normal A 0208854704) BILIRUBIN (test code = Negative Negative 7061294457) NITRITE (test code = Negative Negative 3126318174) LEUK DENG (test code = Negative Negative 9161185569) RBC/HPF (test code = See_Comment H [Autom ated message] 4779593335) The system [employer] generated this result transmit arturo reference range : 0 - 3 HPF. The refe rence range was not u sed to interpret th is result as normal/abnormal . WBC/HPF (test code = See_Comment H [Autom ated message] 6104787693) The system [employer] generated this result transmit arturo reference range : 0 - 5 HPF. The refe rence range was not u sed to interpret th is result as normal/abnormal . BACTERIA (test code = Few Negative A 4753859239) MUCOUS (test code = Marked Negative LPF A 9962377353) SQ EPITH (test code = HPF 9329516407) HYAL CAST (test code = See_Comment H [Aut omated message] 5369036858) The system [employer] generated this result transmit arturo reference range : <=2 LPF. The refere nce range was not u sed to interpret th is result as normal/abnormal . Lab Interpretation (test Abnormal code = 12509-3) [facility] with Xgrxclyqzlqi7629-20-17 03:48:43 Test Item Value Reference Range Interpretation Comments WBC (test code = See_Comment [Automated 6690-2) message] The sy stem which generated this result transmitted reference range : 4.30 - 11.10 10*3/?L. The reference range was not used to interpret this result as normal/abnormal . RBC (test code = See_Comment [Automated 789-8) message] The sy stem which generated this result transmitted reference range : 3.93 - 5.25 10*6/?L. The reference range was not used to interpret this result as normal/abnormal . HGB (test code = 11.7 g/dL 11.6-15.0 718-7) HCT (test code = 35.3 % 35.7-45.2 L 4544-3) MCV (test code = 78.8 fL 80.6-95.5 L 787-2) MCH (test code = 26.1 pg 25.9-32.8 785-6) MCHC (test code = 33.1 g/dL 31.6-35.1 786-4) RDW-SD (test code = 36.4 fL 39.0-49.9 L 73914-1) RDW-CV (test code = 12.9 % 12.0-15.5 788-0) PLT (test code = See_Comment [Automated 777-3) message] The sy stem which generated this result transmitted reference range : 166 - 358 10*3/ ?L. The reference r christy was not used to interpret this result as normal/abnormal . MPV (test code = 10.5 fL 9.5-12.9 71380-0) NRBC/100 WBC (test See_Comment [Automat ed code = 7177047768) message] The system which generated this result transmitted reference range : 0.0 - 10.0 /100 WBCs. The refer ence range was not u sed to interpret th is result as normal/abnormal . NRBC x10^3 (test code <0.01 See_Comment [Auto mated = 0244629776) message] The s ystem which generated this result transmitted reference range : 10*3/?L. The reference range was not used to interpret this result as normal/abnormal . GRAN MAT (NEUT) % 64.4 % (test code = 770-8) IMM GRAN % (test code 0.30 % = 1401037629) LYMPH % (test code = 23.9 % 736-9) MONO % (test code = 9.0 % 5905-5) EOS % (test code = 2.1 % 713-8) BASO % (test code = 0.3 % 706-2) GRAN MAT x10^3(ANC) 4.93 10*3/uL 1.88-7.09 (test code = 8279820637) IMM GRAN x10^3 (test <0.03 0.00-0.06 code = 6340546070) LYMPH x10^3 (test code 1.83 10*3/uL 1.32-3.29 = 731-0) MONO x10^3 (test code 0.69 10*3/uL 0.33-0.92 = 742-7) EOS x10^3 (test code = 0.16 10*3/uL 0.03-0.39 711-2) BASO x10^3 (test code <0.03 0.01-0.07 = 704-7) Lab Interpretation Abnormal (test code = 43928-2) [facility] with Cvfhmllxohld6073-54-19 03:48:43 Test Item Value Reference Range Interpretation Comments WBC (test code = See_Comment [Automated 6690-2) message] The sy stem which generated this result transmitted reference range : 4.30 - 11.10 10*3/?L. The reference range was not used to interpret this result as normal/abnormal . RBC (test code = See_Comment [Automated 789-8) message] The sy stem which generated this result transmitted reference range : 3.93 - 5.25 10*6/?L. The reference range was not used to interpret this result as normal/abnormal . HGB (test code = 11.7 g/dL 11.6-15.0 718-7) HCT (test code = 35.3 % 35.7-45.2 L 4544-3) MCV (test code = 78.8 fL 80.6-95.5 L 787-2) MCH (test code = 26.1 pg 25.9-32.8 785-6) MCHC (test code = 33.1 g/dL 31.6-35.1 786-4) RDW-SD (test code = 36.4 fL 39.0-49.9 L 96869-4) RDW-CV (test code = 12.9 % 12.0-15.5 788-0) PLT (test code = See_Comment [Automated 777-3) message] The sy stem which generated this result transmitted reference range : 166 - 358 10*3/ ?L. The reference r christy was not used to interpret this result as normal/abnormal . MPV (test code = 10.5 fL 9.5-12.9 99263-8) NRBC/100 WBC (test See_Comment [Automat ed code = [id number]) message] The system which generated this result transmitted reference range : 0.0 - 10.0 /100 WBCs. The refer ence range was not u sed to interpret th is result as normal/abnormal . NRBC x10^3 (test code <0.01 See_Comment [Auto mated = [id number]) message] The s ystem which generated this result transmitted reference range : 10*3/?L. The reference range was not used to interpret this result as normal/abnormal . GRAN MAT (NEUT) % 64.4 % (test code = 770-8) IMM GRAN % (test code 0.30 % = 7650028068) LYMPH % (test code = 23.9 % 736-9) MONO % (test code = 9.0 % 5905-5) EOS % (test code = 2.1 % 713-8) BASO % (test code = 0.3 % 706-2) GRAN MAT x10^3(ANC) 4.93 10*3/uL 1.88-7.09 (test code = 9016080235) IMM GRAN x10^3 (test <0.03 0.00-0.06 code = 9714666939) LYMPH x10^3 (test code 1.83 10*3/uL 1.32-3.29 = 731-0) MONO x10^3 (test code 0.69 10*3/uL 0.33-0.92 = 742-7) EOS x10^3 (test code = 0.16 10*3/uL 0.03-0.39 711-2) BASO x10^3 (test code <0.03 0.01-0.07 = 704-7) Lab Interpretation Abnormal (test code = 77584-8) [facility] [id number] 13:36:00 Test Item Value Reference Range Interpretation Comments SARS-CoV-2 (test code = Not Detected Not Detected 66610-6) TARYN (test code = TARYN) ID NOW COVID-19 Assay is an isothermal nucleic acid amplification test intended for the qualitative detection of nucleic acid from SARS-CoV-2 viral RNA in nasopharyngeal (ARTIST MANAGER) specimens. It is used under Emergency Use Authorization (EUA) by FDA. The limit of detection (LOD) of the assay is 125 Genome Equivalents/mL. A positive result is indicative of the presence of SARS-CoV-2 RNA. ?Clinical correlation with patient history and other diagnostic information is necessary to determine patient infection status. A negative (Not Detected) result does not preclude SARS-CoV-2 infection. Clinical correlation with patient history and other diagnostic information should be used in patient management decisions. Invalid: Please collect a new specimen for repeat patient testing if clinically indicated. Lab Interpretation Normal (test code = 06351-7) [facility] 1 VW [id number] 13:25:33 1. Minimal bibasilar pulmonary congestion, nonspecific finding were viralinfection/bronchitis.2. Nopneumonia. Disclaimer: Generally, the findings on chest imaging in COVID-19 are notspecific, and overlap with other infections, including influenza, H1N1,SARS and MERS.According to the Centers for Disease Control (CDC) and the [employer], viral testing remains the only specific method of diagnosiseven if CXR or CT findings are suggestive of COVID-19. PROCEDURE: CHEST XRAY, portable AP erect view. CLINICAL INDICATION: cough COMPARISON: Chest x-ray dated 11/25/2017. FINDINGS: Lungs: Minimal congestion in the lower lungs without focal area ofconsolidation. Pleura: No pleural effusion or pneumothorax is seen. The heart isborderline enlarged. No acute bony abnormality. [facility], Radiant Results Inft User - 08/09/2019 8:26 AM CDTPROCEDURE: CHEST XRAY, portable AP erect view.CLINICAL INDICATION: cough COMPARISON: Chest x-ray dated 11/25/2017.FINDINGS:Lungs: Minimal congestion in the lower lungs without focal area ofconsolidation.Pleura: No pleural effusion or pneumothorax is seen. The heart isborderline enlarged.No acute bony abnormality.IMPRESSION1. Minimal bibasilar pulmonary congestion, nonspecific finding were viralinfection/bronchitis.2. No pneumonia. Disclaimer: Generally, the findings on chest imaging in COVID-19 are notspecific, and overlap with other infections, including influenza, H1N1,SARS and MERS.According to the Centers for Disease Control (CDC) and the [employer], viral testing remains the only specific method of diagnosiseven if CXR or CT findings are suggestive of COVID-19.[facility]"
[2021-11-23 11:48] LABS: Absolute Lymphocytes (CBC) 2.2 K/uL (0.7-4.9); Hematocrit 37.2 % (36.0-45.0); Lymphocytes % 21.8 % (15.3-44.8); MCV 81.4 fL (80-100); RBC Red Blood Cell Count 4.57 M/uL (3.86-4.86)
--- NOTE | 2021-11-23 12:38 | RAD REPORT ---
EXAM DESCRIPTION: CT - Soft Tissue Neck W/Contr CLINICAL HISTORY: left sided swelling Neck pain and swelling. COMPARISON: SOFT TISSUE NECK W CONTRAST dated 12/31/[address] scans are performed using dose optimization technique as appropriate and may includ e automated exposure control or mA/KV adjustment according to patient size. FINDINGS: Nasopharyngeal tissues are normal in appearance. Fossa Rosenmller are normal. Parapharyngeal fat triangles are symmetric. Tongue base structures are normal. Left palatine tonsil a ppears prominent in size. Epiglottis and aryepiglottic folds are normal. Piriform sinuses are well aerated. The vocal cords are normal in appearance. There is enlargement with surrounding swelling inflammation and mildly prominent lymph nodes affectin g the left submandibular gland. There is no evidence of ranula. No evidence of sialolith. Upper lung wang are clear. Included intracranial contents are unremarkable. IMPRESSION: Sialoadenitis of the left submandibular gland is suspected. Enlargement of the left palatine tonsils noted. Direct visualization may be considered for followup.
[2021-11-23] MEDS ORDERED: TRAMADOL HCL 50 MG TAB ONE (12:47)
[2021-11-23] MEDS ORDERED: CEFTRIAXONE 1000 MG/VIAL ONE (13:09)
--- NOTE | 2021-11-23 13:11 | ER ---
Nurse's Notes [facility] Name: Bailey Lopez Age: 50 yrs Sex: Female : 1970 Arrival Date: 11/23/2021 Time: 09:47 Bed 18 Private MD: Diagnosis: Acute sialoadenitis Presentation: 11/23 10:44 Chief complaint: Patient states: Swelling to L side of neck and jaw that began last ss night, worse this morning. Coronavirus screen: Client denies travel out of the [place] in the last 14 days. Ebola Screen: Patient denies exposure to infectious person. Patient denies travel to an Ebola-affected area in the 21 days before illness onset. Initial Sepsis Screen: Does the patient meet any 2 criteria? No. Patient's initial sepsis screen is negative. Does the patient have a suspected source of infection? No. Patient's initial sepsis screen is negative. Risk Assessment: Do you want to hurt yourself or someone else? Patient reports no desire to harm self or others. Onset of symptoms was November 23, 2021. 10:44 Method Of Arrival: Ambulatory ss 10:44 Acuity: ALBERTO 3 ss Triage Assessment: 13:22 General: Appears in no apparent distress. comfortable, Behavior is calm, cooperative, bm7 appropriate for age. Pain: Complains of pain in face. EENT: left side of face swollen . Neuro: No deficits noted. Cardiovascular: No deficits noted. Respiratory: No deficits noted. GI: No deficits noted. No signs and/or symptoms were reported involving the gastrointestinal system. : No deficits noted. No signs and/or symptoms were reported regarding the genitourinary system. Derm: swelling to to the left side of the face. 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 - Social history:: Smoking status: Patient denies any tobacco usage or history of. Screenin:23 Abuse screen: Denies threats or abuse. Nutritional screening: No deficits noted. bm7 Tuberculosis screening: No symptoms or risk factors identified. Fall Risk None identified. Assessment: 12:35 Reassessment: Patient and/or family updated on plan of care and expected duration. Pain bm7 level reassessed. Patient is alert, oriented x 3, equal unlabored respirations, skin warm/dry/pink. Vital Signs: 10:44 BP 137 / 94; Pulse 73; Resp 17; Temp 98.3(TE); Pulse Ox 98% on R/A; Weight 99.34 kg; ss Height 5 ft. 3 in. (160.02 cm); Pain 10/10; 13:25 BP 148 / 90; Pulse 78; Resp 16; Pulse Ox 100% on R/A; Pain 3/10; bm7 10:44 Body Mass Index 38.79 (99.34 kg, 160.02 cm) ED Course: 09:47 Patient arrived in ED. rg4 10:25 Adán Irvin PA is PHCP. jmm 10:25 Lucius Eubanks MD is Attending Physician. jmm 10:45 Triage completed. ss 10:45 Arm band placed on right wrist. ss 11:32 Initial lab(s) drawn, by me, sent to lab. Inserted saline lock: 20 gauge in right dh3 antecubital area, using aseptic technique. Blood collected. 12:25 Alyce Raymond, RN is Primary Nurse. bm7 12:[address] via stretcher. bm7 12:28 CT Soft Tissue Neck W/contr In Process Unspecified. EDMS 13:10 Apolonia Watson MD is Referral Physician. jmm 13:23 Patient has correct armband on for positive identification. Bed in low position. Call bm7 light in reach. Side rails up X 1. equipment monitor phototypesetting on. Pulse ox on. 13:23 No provider procedures requiring assistance completed. IV discontinued, intact, bm7 bleeding controlled, No redness/swelling at site. Pressure dressing applied. Administered Medications: 12:40 Drug: traMADol 50 mg Route: PO; bm7 13:25 Follow up: Response: Pain is decreased bm7 13:04 Drug: Rocephin (cefTRIAXone) 1 grams Route: IV; Rate: calculated rate; Site: right bm7 antecubital; 13:25 Follow up: Response: No adverse reaction bm7 Medication: 13:23 VIS not applicable for this client. bm7 Outcome: 13:10 Discharge ordered by . gustavo 13:23 Discharged to home ambulatory. bm7 13:23 Condition: good 13:23 Discharge instructions given to patient, Instructed on discharge instructions, follow up and referral plans. medication usage, Demonstrated understanding of instructions, follow-up care, medications, Prescriptions given X 1. 13:25 Patient left the ED. bm7 Signatures: Dispatcher [employer] EDMS Adán Irvin PA PA jmm Smirch, Shelby, RN RN Kary Apple 4 Joelle Vines 3 Alyce Raymond, RN RN bm7
--- NOTE | 2021-11-23 13:11 | EDPHYS ---
Physician Documentation [facility] Name: Bailey Lopez Age: 50 yrs Sex: Female : 1970 Arrival Date: 11/23/2021 Time: 09:47 Bed 18 Private MD: Lucius Martin HPI: 11/23 10:28 This 50 yrs old Black Female presents to ER via Ambulatory with complaints of Facial jmm Swelling. 10:28 Onset: The symptoms/episode began/occurred gradually, this morning. Associated signs jmm and symptoms: Pertinent positives:. This is a 50-year-old female with no chronic medical conditions presents emerged department with complaints of left-sided neck swelling which she awoke to earlier this morning. Patient denies sore throat, cough, earache, fever. Patient states pain is elicited on swallowing.. 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 - Social history:: Smoking status: Patient denies any tobacco usage or history of. ROS: 10:28 Constitutional: Negative for fever, chills, and weight loss, Cardiovascular: Negative jmm for chest pain, palpitations, and edema, Respiratory: Negative for shortness of breath, cough, wheezing, and pleuritic chest pain. 10:28 ENT: Positive for Neck swelling. 10:28 All other systems are negative. Exam: 10:28 Constitutional: This is a well developed, well nourished patient who is awake, alert, jmm and in no acute distress. Head/Face: atraumatic. Eyes: EOMI, no conjunctival erythema appreciated 10:28 Chest/axilla: Normal chest wall appearance and motion. Cardiovascular: Regular rate and rhythm. No edema appreciated Respiratory: Normal respirations, no respiratory distress appreciated Abdomen/GI: Non distended Back: Normal ROM Skin: General appearance color normal MS/ Extremity: Moves all extremities, no obvious deformities appreciated, no edema noted to the lower extremities Neuro: Awake and alert Psych: Behavior is normal, Mood is normal, Patient is cooperative and pleasant 10:28 ENT: Left-sided submandibular swelling, mildly tender to palpation. Vital Signs: 10:44 BP 137 / 94; Pulse 73; Resp 17; Temp 98.3(TE); Pulse Ox 98% on R/A; Weight 99.34 kg; ss Height 5 ft. 3 in. (160.02 cm); Pain 10/10; 13:25 BP 148 / 90; Pulse 78; Resp 16; Pulse Ox 100% on R/A; Pain 3/10; bm7 10:44 Body Mass Index 38.79 (99.34 kg, 160.02 cm) ss MDM: 10:28 Patient medically screened. [facility] 12:56 Data reviewed: vital signs, nurses notes. Counseling: I had a detailed discussion with [facility] the patient and/or guardian regarding: the historical points, exam findings, and any diagnostic results supporting the discharge/admit diagnosis. 12:58 Counseling: I had a detailed discussion with the patient and/or guardian regarding: lab [facility] results, radiology results, the need for outpatient follow up, to return to the emergency department if symptoms worsen or persist or if there are any questions or concerns that arise at home. 11/23 10:30 Order name: CBC with Diff; Complete Time: 12:09 [facility] 11/23 10:30 Order name: BMP; Complete Time: 12:09 [facility] 11/23 10:30 Order name: Saline Lock; Complete Time: 11:34 [facility] 11/23 10:30 Order name: CT Soft Tissue Neck W/contr; Complete Time: 12:42 [facility] Administered Medications: 12:40 Drug: traMADol 50 mg Route: PO; bm7 13:25 Follow up: Response: Pain is decreased bm7 13:04 Drug: Rocephin (cefTRIAXone) 1 grams Route: IV; Rate: calculated rate; Site: right bm7 antecubital; 13:25 Follow up: Response: No adverse reaction bm7 Disposition Summary: 11/23/21 13:10 Discharge Ordered Location: Home [facility] Condition: Stable [facility] Diagnosis - Acute sialoadenitis [facility] Followup: [facility] - With: Apolonia Watson MD - When: 2 - 3 days - Reason: Recheck today's complaints, Continuance of care, Re-evaluation by your physician Discharge Instructions: - Discharge Summary Sheet dai - Salivary Gland Infection [facility] Forms: - Medication Reconciliation Form [facility] - Thank You Letter gustavo - Antibiotic Education dai - Prescription Opioid Use [facility] Prescriptions: - Augmentin 875-125 mg Oral Tablet - take 1 tablet by ORAL route every 12 hours for 10 days; 20 tablet; Refills: 0, [facility] Product Selection Permitted - Ultracet 37.5-325 mg Oral Tablet - take 1 tablet by ORAL route every 6 hours - for up to 5 days; do not exceed 8 jmm tablets per day.; 12 tablet; Refills: 0, Product Selection Permitted Signatures: Dispatcher [employer] Adán Howard PA PA jmm Smirch, Shelby, RN RN ss Alyce Raymond RN RN bm7
[2021-11-23 13:36] VITALS: TEMP 98.3
[2021-11-23 13:38] VITALS: BP 148/90; O2SAT 100
== END 2021-11-23 13:25 | disposition home or self-care (01) ==
LOC: ER 09:45
DX: K11.21 Acute sialoadenitis (principal); Z88.5 Allergy status to narcotic agent; Z88.8 Allergy status to other drugs, medicaments and biological substances
CPT/HCPCS: 85025; 80048; 36415; 70491; Q9967; 96374; 99285

== ENCOUNTER 2023-08-04 20:38 | Emergency (ER) | payer BC ==
--- OUTSIDE RECORDS SUMMARY | 2023-08-04 20:47 | XMS REPORT | Continuity of Care Document ---
Author Name Unknown Address [address] [facility] [address] [place] [address] [facility] Address [address] [facility] [address] [place] [address] Care Team Providers Care [employer] Name Role Phone Nico Black Primary Care Physician [phone] AGUSTINA KURTZ Attending Clinician Unavailable RADIOLOGY Attending Clinician Unavailable MICHELL MÉNDEZ Attending Clinician UnavailMichell Chery MD Attending Clinician [phone] Doctor Unassigned, [place] Attending Clinician U navailable Radiology Attending Clinician Unavailable Pob, [facility] Main Attending Clinician UnavailKLEBER Stewart Attending Clinician Unavailable Kleber Amador MD Attending Clinician [phone] [facility] Attending Clinician Unavailable General Surgery, General Attending Clinician Anita vailable [email or web address] Attending Clinician UnavailAndria Martin MD Attending Clinician [phone] Ernestina Don MD Attending Clinician [phone] Ahmet Sarabia DO Attending Clinician [phone] Agustina Kurtz MD Attending Clinician [phone] Dante Nieves MD Attending Clinician [phone] Javi Kerr Attending Clinician [phone] JAVI MCGEE Attending Clinician Unavailable AGUSTINA KURTZ Admitting Clinician Unavailable MICHELL MÉNDEZ Admitting Clinician UnavailMichell Chery MD Admitting Clinician [phone] KLEBER AMADOR Admitting Clinician Unavailable [email or web address]_S Admitting Clinician UnavailAhmet Corona DO Admitting Clinician [phone] JAVI MCGEE Admitting Clinician Unavailable Payers Payer Name Policy Type Policy Number Effective Date Expirati on Date Source MEDICAID PENDING PENDING 2020 00:00:00 [facility] [id number] 2022 00:00:00 [facility] [id number] 2023 00:00:00 Problems Condition Name Condition Details Condition Category Status Onset Date Resolution Date Last Treatment Date Treating Clinician Comments Source Chronic wound infection of abdomen, 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 Disease Active 628 00:00: 00 [facility] Abdominal pain Abdominal pain Disease Active 10-06 00:00: 00 [facility] Morbid obesity with body mass index of 40.0-49.9 Morbid obesity with body mass index of 40.0-49.9 Disease Active 6 00:00: 00 [facility] Morbid obesity with body mass index of 40.0-49.9 Morbid obesity with body mass index of 40.0-49.9 Disease Active 10-06 00:00: 00 [facility] Anastomoti c leak of stomach Anastomoti c leak of stomach Disease Active 10-05 00:00: 00 Overview: Formattin g of this note might be different from the original. Added automatic ally from request for surgery [id number] [facility] Obesity (BMI 30-39.9) Obesity (BMI 30-39.9) Disease Active 05-19 00:00: 00 [facility] Seasonal allergies Seasonal allergies Disease Active [facility] Depression Depression Disease Active [facility] Allergies, Adverse Reactions, Alerts Allergy Name Allergy Type Status Severity Reaction(s) Onset Date Inactive Date Treating Clinician Comments Source Demerol - Oral Propensi ty to adverse reaction to drug Active 2021-04 0 00:00: 00 Demerol Propensi ty to adverse reaction to drug Active 8 00:00: 00 AZITHROM YCIN DRUG INGREDI Active Swelling 05-19 00:00: 00 [facility] BLACK PEPPER DRUG INGREDI Active Swelling 05-19 00:00: 00 [facility] TREE NUTS Food Active Swelling 05-19 00:00: 00 [facility] BRITTON DRUG INGREDI Active Swelling 05-19 00:00: 00 [facility] CHOCOLAT E FLAVOR DRUG INGREDI Active Swelling 05-19 00:00: 00 [facility] LATEX DRUG INGREDI Active Swelling 05-19 00:00: 00 [facility] MUSHROOM DRUG INGREDI Active Swelling 05-19 00:00: 00 [facility] PEANUT DRUG INGREDI Active Swelling 05-19 00:00: 00 [facility] Azithrom ycin Propensi ty to adverse reaction s Active Swelling 05-19 00:00: 00 [facility] Black Pepper Propensi ty to adverse reaction s Active Swelling 05-19 00:00: 00 [facility] Tree Nuts Propensi ty to adverse reaction s Active Swelling 0 05-19 00:00: 00 [facility] Britton Propensi ty to adverse reaction s Active Swelling 0 05-19 00:00: 00 [facility] Chocolat e Flavor Propensi ty to adverse reaction s Active Swelling 0 05-19 00:00: 00 [facility] Latex Propensi ty to adverse reaction s Active Swelling 0 05-19 00:00: 00 [facility] Mushroom Propensi ty to adverse reaction s Active Swelling 05-19 00:00: 00 [facility] Peanut Propensi ty to adverse reaction s Active Swelling 05-19 00:00: 00 [facility] CODEINE DRUG INGREDI Active Swelling 0 06-14 00:00: 00 [facility] MEPERIDI NE HCL DRUG INGREDI Active Swelling 0 06-14 00:00: 00 [facility] MORPHINE DRUG INGREDI Active Swelling 06-14 00:00: 00 [facility] PENICILL IN DRUG INGREDI Active Swelling 0 06-14 00:00: 00 [facility] METHOCAR BAMOL DRUG INGREDI Active Swelling 0 06-14 00:00: 00 [facility] CARISOPR ODOL DRUG INGREDI Active Swelling 06-14 00:00: 00 [facility] HYDROCOD ONE-ACET AMINOPHE N DRUG Active Swelling 0 06-14 00:00: 00 [facility] Codeine Propensi ty to adverse reaction s Active Swelling 0 06-14 00:00: 00 [facility] Meperidi ne Hcl Propensi ty to adverse reaction s Active Swelling 0 06-14 00:00: 00 [facility] Morphine Propensi ty to adverse reaction s Active Swelling 0 305 00:00: 00 [facility] Penicill in Propensi ty to adverse reaction s Active Swelling 0 06-14 00:00: 00 [facility] Methocar bamol Propensi ty to adverse reaction s Active Swelling 06-14 00:00: 00 [facility] Carisopr odol Propensi ty to adverse reaction s Active Swelling 06-14 00:00: 00 [facility] Hydrocod one-Acet aminophe n Propensi ty to adverse reaction s Active Swelling 06-14 00:00: 00 [facility] Penicill in Propensi ty to adverse reaction s Active Swelling 06-14 00:00: 00 [facility] Social History Social Habit Start Date Stop Date Quantity Comments Source History of tobacco use Current smoker [facility] Sexual orientation [facility] Exposure to SARS-CoV-2 (event) Not sure [facility] History of Social function 2023-05-27 00:00:00 2023-05-27 00:00:00 [facility] Alcohol intake 2023-05-21 00:00:00 2023-05-21 00:00:00 Current non-drinker of alcohol (finding) [facility] Tobacco use and exposure 2023-05-03 00:00:00 2023-05-03 00:00:00 Smokeless tobacco non-user [facility] Sex Assigned At 1970 00:00:00 1970 00:00:00 [facility] Smoking Status Start Date Stop Date Source Ex-smoker 2023-05-03 00:00:00 2023-05-03 00:00:00 [facility] Medications Ordered Medication Name Filled Medication Name Start Date Stop Date Current Medication? Ordering Clinician Indication Dosage Frequency Signature (SIG) Comments Components Source busPIRone 10 mg tablet 05-27 09:45: 48 05-27 00:00 :00 No 10mg Take 1 tablet by mouth in the morning and 1 tablet at noon and 1 tablet in the evening. [facility] lithium carbonate 300 mg tablet 05-27 09:45: 48 05-27 00:00 :00 No 300mg Take 1 tablet by mouth in the morning and 1 tablet at noon and 1 tablet in the evening. [facility] traMADoL 50 mg tablet 05-27 09:45: 48 05-27 00:00 :00 No 50mg Take 1 tablet by mouth every 6 (six) hours as needed. [facility] cyclobenzap rine HCl (CYCLOBENZA SHAYE ORAL) 05-27 09:45: 48 05-27 00:00 :00 No Take by mouth. [facility] ergocalcife rol, vitamin d2, (VITAMIN D2) 1,250 mcg (50,000 unit) capsule 05-24 00:00: 00 10-21 04:59 :00 Yes [id number] 45221S Take 1 capsule by mouth weekly for 150 days. [facility] iopamidol (ISOVUE 370-500 mL) injection 90 mL 05-21 14:30: 00 05-21 14:35 :00 No [id number] 90mL 90 mL, Intravenou s, ONCE, 1 dose, On Wed05/21/23 at 0845, Routine [facility] cyclobenzap rine HCl (CYCLOBENZA SHAYE ORAL) 05-17 10:11: 15 Yes Take by mouth. [facility] lithium carbonate 300 mg tablet 05-17 10:09: 07 Yes 300mg Take 1 tablet by mouth in the morning and 1 tablet at noon and 1 tablet in the evening. [facility] traMADoL 50 mg tablet 05-17 10:09: 07 Yes 50mg Take 1 tablet by mouth every 6 (six) hours as needed. [facility] iopamidol (ISOVUE 370-500 mL) injection 80 mL 05-06 17:00: 00 05-06 16:15 :00 No [id number] 80mL 80 mL, Intravenou s, ONCE, 1 dose, On Wed05/06/23 at 1100, Routine [facility] busPIRone 10 mg tablet 05-03 08:43: 36 Yes 10mg Take 1 tablet by mouth in the morning and 1 tablet at noon and 1 tablet in the evening. [facility] lithium carbonate 300 mg tablet 05-03 08:43: 36 Yes 300mg Take 1 tablet by mouth in the morning and 1 tablet at noon and 1 tablet in the evening. [facility] traMADoL 50 mg tablet 05-03 08:43: 36 Yes 50mg Take 1 tablet by mouth every 6 (six) hours as needed. [facility] pantoprazol e 40 mg EC tablet 05-03 00:00: 00 05-27 00:00 :00 No [id number] 40mg Take 1 tablet by mouth in the morning for 90 days. [facility] FLUoxetine 20 mg capsule 04-28 00:00: 00 05-27 00:00 :00 No 20mg Take 1 capsule by mouth every morning. [facility] hydrOXYzine 25 mg tablet 04-28 00:00: 00 05-27 00:00 :00 No TAKE 1 TABLET BY MOUTH FOUR TIMES DAILY NEEDED FOR ANXIETY [facility] risperiDONE 1 mg tablet 04-28 00:00: 00 05-27 00:00 :00 No 1mg Take 1 tablet by mouth at bedtime. [facility] traZODone 50 mg tablet 04-28 00:00: 00 05-27 00:00 :00 No TAKE 1 TABLET BY MOUTH EVERY DAY NEEDED FOR SLEEP. [facility] TAKE 1 TABLET BY MOUTH THREE TIMES A DAY DIRECTED FOR 30 DAYS 2021-04 00:00: 00 No TAKE 1 TABLET BY MOUTH THREE TIMES DAILY FOR 7 DAYS 2021-04 0-24 00:00: 00 No busPIRone 10 mg tablet 10-09 23:47: 20 Yes 10mg Take 10 mg by mouth 3 (three) times daily. [facility] lithium carbonate 300 mg tablet 10-09 23:47: 20 Yes 300mg Take 300 mg by mouth 3 (three) times daily. [facility] busPIRone 10 mg tablet 10-09 18:47: 20 Yes 10mg Take 10 mg by mouth 3 (three) times daily. [facility] lithium carbonate 300 mg tablet 10-09 18:47: 20 Yes 300mg Take 300 mg by mouth 3 (three) times daily. [facility] it[facility] busPIRone 10 mg tablet 10-09 17:46: 39 Yes 10mg Take 10 mg by mouth 3 (three) times daily. [facility] it[facility] lithium carbonate 300 mg tablet 10-09 17:46: 39 Yes 300mg Take 300 mg by mouth 3 (three) times daily. [facility] omeprazole (PRILOSEC) capsule 40 mg 10-09 13:00: 00 Yes 40mg 40 mg, Oral, BID, First dose on Wed10/09/20 at 0800, Until Discontinu ed, Routine [facility] sucralfate (CARAFATE) 100 mg/mL suspension 1,000 mg 10-09 13:00: 00 Yes 1g 1,000 mg (1 g), Oral, QID, First dose on Wed10/09/20 at 0800, Until Discontinu ed, Routine [facility] KCL (POTASSIUM CHLORIDE) 40 mEq in NaCl 0.9% (NS) 250 mL 10-09 13:00: 00 10-09 17:25 :00 No 40meq 40 mEq, Intravenou s, Administer over 4 Hours, ONCE, 1 dose, Wed10/09/20 at 0800, Routine [facility] magnesium sulfate in water 4 gram/50 mL (8 %) IV Piggyback 4 g 10-09 12:45: 00 10-09 13:24 :00 No 4g 4 g, IV Piggyback, ONCE, 1 dose, Wed10/09/20 at 0745, Routine [facility] KCL (KLOR-CON M20) tablet 40 mEq 10-09 12:45: 00 10-09 13:25 :00 No 40meq 40 mEq, Oral, ONCE, 1 dose, Wed10/09/20 at 0745, Routine [facility] D5W 0.45% NaCl (1/2NS) IV infusion 50 mL 10-09 12:15: 00 10-09 20:44 :00 No 50mL at 100 mL/hr, 50 mL, IV Infusion, CONTINUOUS , Starting Wed10/09/20 at 0715, Until Wed10/09/20 at 1544, Routine [facility] acetaminoph en (TYLENOL) tablet 1,000 mg 10-09 11:00: 00 Yes 1000mg 1,000 mg, Oral, Q8H, First dose on Wed10/09/20 at 0600, Until Discontinu ed, Routine [facility] D5W 0.45% NaCl (1/2NS) IV infusion 1,000 mL 10-09 01:00: 00 10-09 12:01 :48 No 1000mL at 100 mL/hr, 1,000 mL, IV Infusion, CONTINUOUS , Starting Wed10/08/20 at 2000, Until Wed10/09/20 at 0701, Routine [facility] pantoprazol e (PROTONIX) 40 mg in NaCl 0.9% (NS) 100 mL IV Piggyback 10-09 01:00: 00 10-09 19:04 :36 No 40mg 40 mg, IV Piggyback, Q12H, First dose on Wed10/08/20 at 2000, Until Discontinu ed, 100 mL [facility] acetaminoph en 500 mg tablet 10-09 00:00: 00 05-27 00:00 :00 No [id number] 1000mg Take 2 tablets by mouth every 8 (eight) hours as needed for Pain. [facility] omeprazole 40 mg capsule 10-09 00:00: 00 11-21 04:59 :00 No [id number] 40mg Take 1 capsule by mouth 2 (two) times daily for 42 days. [facility] sucralfate 1 gram tablet 10-09 00:00: 00 11-21 04:59 :00 No [id number] 1g Take 1 tablet by mouth 4 (four) times daily for 42 days. [facility] KCL 20 mEq tablet 10-09 00:00: 00 10-13 04:59 :00 No [id number] 20meq Take 1 tablet by mouth daily for 3 days. [facility] D5W 0.45% NaCl (1/2NS) IV infusion 1,000 mL 10-08 20:45: 00 10-09 00:59 :45 No 1000mL at 125 mL/hr, 1,000 mL, IV Infusion, CONTINUOUS , Starting Wed10/08/20 at 1545, Until Wed10/08/20 at 1959, Routine [facility] KCL (POTASSIUM CHLORIDE) 40 mEq in NaCl 0.9% (NS) 250 mL 10-08 17:15: 00 10-09 01:08 :00 No Intravenou s, Administer over 4 Hours, ONCE, 1 dose, Wed10/08/20 at 1215, Routine [facility] acetaminoph en ADULT (OFIRMEV) injection 1,000 mg 10-08 11:00: 00 10-09 03:25 :59 No 1000mg 1,000 mg, IV Infusion, Administer over 15 Minutes, Q8H, 3 doses, First dose on Wed10/08/20 at 0600, Last dose on Wed10/08/20 at 2200, Routine
Indicatio n: Non-periop erative Patient
Approved by: Per Policy (NPO Status) [facility] D5W 0.45% NaCl (1/2NS) IV infusion 1,000 mL 10-08 04:30: 00 10-08 19:44 :00 No 1000mL at 125 mL/hr, 1,000 mL, IV Infusion, CONTINUOUS , Starting Wed10/07/20 at 2330, Until Wed10/08/20 at 1444, Routine [facility] iohexol (OMNIPAQUE 300-150 mL) injection 150 mL 10-07 16:15: 00 10-07 16:10 :00 No [id number] 150mL 150 mL, Oral, ONCE, 1 dose, Wed10/07/20 at 1115, Routine [facility] FENTanyl PF (SUBLIMAZE (PF)) injection 50 mcg 10-06 23:33: 01 Yes 50ug 50 mcg, Slow IV Push, Q6HPRN, Starting Wed10/06/20 at 1833, Until Discontinu ed, Routine, Pain (scale 7-10) [facility] metoclopram bibi HCl (REGLAN) 10 mg in NaCl 0.9% (NS) piggyback 10-06 23:00: 00 Yes 10mg 10 mg, IV Piggyback, Q6H, First dose on Wed10/06/20 at 1800, Until Discontinu ed, 50 mL [facility] enoxaparin (LOVENOX) injection 40 mg 10-06 22:00: 00 Yes 40mg 40 mg, Subcutaneo us, DAILY, First dose on Wed10/06/20 at 1700, Until Discontinu ed, Routine [facility] bisacodyL (DULCOLAX) suppository 10 mg 10-06 20:00: 00 10-06 20:47 :00 No 10mg 10 mg, Rectal, ONCE, 1 dose, Wed10/06/20 at 1500, Routine [facility] NaCl 0.9% (NS) 1000 mL + KCL 40 mEq 10-06 20:00: 00 10-06 20:47 :00 No IV Infusion, at 42 mL/hr, ONCE, 1 dose, Wed10/06/20 at 1500, Routine [facility] D5W 0.45% NaCl (1/2NS) IV infusion 1,000 mL 10-06 19:45: 00 10-08 04:19 :04 No 1000mL at 100 mL/hr, 1,000 mL, IV Infusion, CONTINUOUS , Starting Wed10/06/20 at 1445, Until Wed10/07/20 at 2319, Routine [facility] pantoprazol e (PROTONIX) 40 mg in NaCl 0.9% (NS) 100 mL MINI-BAG 10-06 19:30: 00 10-08 13:42 :18 No 40mg 40 mg, IV Piggyback, Q24H, 3 doses, First dose on Wed10/06/20 at 1430, Last dose on Wed10/08/20 at 1430, 100 mL [facility] ketorolac (TORADOL) injection 30 mg 10-06 18:47: 44 10-08 21:08 :00 No 30mg 30 mg, Slow IV Push, Q6HPRN, 4 doses, Starting Wed10/06/20 at 1347, Until Discontinu ed, Routine, Pain (scale 4-6)
Fa culty member approving Restricted medication : LEON DELCID [facility] KCL (POTASSIUM CHLORIDE) 10 mEq in NaCl 0.9% (NS) 1,000 mL IV Infusion 10-06 13:30: 00 10-06 18:42 :28 No 75mL/h IV Infusion, Q12H ABX, 2 doses, First dose on Wed10/06/20 at 0830, Last dose on Wed10/06/20 at 2030, 1,000 mL, at 75 mL/hr [facility] metroNIDAZO LE in NaCl (iso-os) (FLAGYL I.V.) RTU IV infusion 500 mg 10-06 11:30: 00 10-09 03:25 :59 No 500mg 500 mg, IV Infusion, Q8H ABX, First dose on Wed10/06/20 at 0630, Until Discontinu ed, 100 mL
Reas on for Anti-Infec tive: Empiric Therapy for Suspected Infection< br>Empiric Therapy Site: Abdominal< br>Duratio n of therapy: 7 days [facility] ciprofloxac in in 5 % dextrose (CIPRO) piggyback 400 mg 10-06 11:30: 00 10-09 03:25 :59 No 400mg 400 mg, IV Piggyback, Administer over 60 Minutes, Q12H ABX, First dose on Wed10/06/20 at 0630, Until Discontinu ed, Routine
Reason for Anti-Infec tive: Empiric Therapy for Suspected Infection& lt;br>Empi latonya Therapy Site: Abdominal< br>Duratio n of therapy: 7 days [facility] FENTanyl PF (SUBLIMAZE (PF)) injection 25 mcg 10-06 10:15: 29 10-06 23:34 :13 No 25ug 25 mcg, Slow IV Push, Q6HPRN, Starting 10/06/20 at 0515, Until 10/06/20 at 1834, Routine, Pain (scale 7-10) [facility] traMADoL (ULTRAM) tablet 50 mg 10-06 08:15: 00 10-06 07:42 :00 No 50mg 50 mg, Oral, ONCE, 1 dose, [place] 10/06/20 at 0315, Routine [facility] NaCl 0.9% (NS) IV infusion 1,000 mL 10-06 08:00: 00 10-06 10:28 :29 No 1000mL at 125 mL/hr, IV Infusion, CONTINUOUS , Starting [place] 10/06/20 at 0300, Until 10/06/20 at 0528, Routine [facility] Tramadol (RYBIX ODT) 50 mg tablet 10-06 07:48: 52 10-05 00:00 :00 No 50mg Take 50 mg by mouth 3 (three) times daily. [facility] cyclobenzap rine (FLEXERIL) 10 mg tablet 10-06 07:48: 52 10-05 00:00 :00 No 10mg Take 10 mg by mouth. [facility] ondansetron (ZOFRAN (PF)) injection 4 mg 10-06 07:48: 21 Yes 4mg 4 mg, Slow IV Push, Q6HPRN, Starting [place] 10/06/20 at 0248, Until Discontinu ed, Routine, Nausea and Vomiting (N/V) [facility] iopamidol (ISOVUE 370-500 mL) injection 100 mL 10-06 06:00: 00 10-06 04:50 :00 No [id number] 100mL 100 mL, Intravenou s, ONCE, 1 dose, [place] 10/06/20 at 0100, Routine [facility] NaCl 0.9% (NS) IV infusion 1,000 mL 10-06 05:30: 00 10-06 10:28 :29 No 1000mL at 999 mL/hr, Intravenou s, CONTINUOUS , Starting 10/06/20 at 0030, Until 10/06/20 at 0528, Routine [facility] ondansetron (ZOFRAN (PF)) injection 4 mg 10-06 05:30: 00 10-06 04:34 :00 No 4mg 4 mg, Slow IV Push, ONCE, 1 dose, 10/06/20 at 0030, VISHAL [facility] dicyclomine (BENTYL) injection 20 mg 10-06 05:30: 00 10-06 04:34 :00 No 20mg 20 mg, Intramuscu lar, ONCE, 1 dose, 10/06/20 at 0030, Routine [facility] benzonatate 100 mg capsule 08-08 00:00: 00 10-05 00:00 :00 No [id number] 100mg Take 1 capsule by mouth 3 (three) times daily as needed for Cough. [facility] predniSONE 20 mg tablet 08-08 00:00: 00 08-13 04:59 :00 No [id number] 20mg Take 1 tablet by mouth 2 (two) times daily for 4 days. [facility] lithium carbonate ER 450 mg tablet,exte nded release 11-15 00:00: 00 No 3mg Dose Unknown 11-15 00:00: 00 No dicyclomine (BENTYL) 20 mg tablet 09-30 00:00: 00 10-05 00:00 :00 No [id number] 20mg Take 1 tablet by mouth 4 (four) times daily. [facility] Tramadol (RYBIX ODT) 50 mg tablet 01-06 21:42: 38 Yes 50mg Take 50 mg by mouth 3 (three) times daily. [facility] cyclobenzap rine (FLEXERIL) 10 mg tablet 01-06 21:42: 38 Yes 10mg Take 10 mg by mouth. [facility] traMADOL (ULTRAM) 50 mg tablet 06-15 00:00: 00 10-05 00:00 :00 No 50mg Take 1 Tab by mouth every 8 (eight) hours as needed for Pain (scale 4-6). [facility] Immunizations Ordered Immunization Name Filled Immunization Name Date Status Comments Source SARS-COV-2 COVID-19 MODERNA VACCINE 2020-06-09 00:00:00 Completed [facility] SARS-COV-2 COVID-19 MODERNA VACCINE 2020-06-09 00:00:00 Completed [facility] SARS-COV-2 COVID-19 MODERNA VACCINE 2020-05-26 00:00:00 Completed [facility] SARS-COV-2 COVID-19 MODERNA VACCINE 2020-05-26 00:00:00 Completed [facility] SARS-COV-2 COVID-19 MODERNA 12+ YRS VACCINE Unknown Completed [facility] SARS-COV-2 COVID-19 MODERNA 12+ YRS VACCINE Unknown Completed [facility] SARS-COV-2 COVID-19 MODERNA 12+ YRS VACCINE Unknown Completed [facility] SARS-COV-2 COVID-19 MODERNA 12+ YRS VACCINE Unknown Completed [facility] SARS-COV-2 COVID-19 MODERNA 12+ YRS VACCINE Unknown Completed [facility] SARS-COV-2 COVID-19 MODERNA 12+ YRS VACCINE Unknown Completed [facility] SARS-COV-2 COVID-19 MODERNA 12+ YRS VACCINE Unknown Completed [facility] SARS-COV-2 COVID-19 MODERNA 12+ YRS VACCINE Unknown Completed [facility] SARS-COV-2 COVID-19 MODERNA 12+ YRS VACCINE Unknown Completed [facility] SARS-COV-2 COVID-19 MODERNA 12+ YRS VACCINE Unknown Completed [facility] SARS-COV-2 COVID-19 MODERNA 12+ YRS VACCINE Unknown Completed [facility] SARS-COV-2 COVID-19 MODERNA 12+ YRS VACCINE Unknown Completed [facility] SARS-COV-2 COVID-19 MODERNA 12+ YRS VACCINE Unknown Completed [facility] SARS-COV-2 COVID-19 MODERNA 12+ YRS VACCINE Unknown Completed [facility] SARS-COV-2 COVID-19 MODERNA 12+ YRS VACCINE Unknown Completed [facility] SARS-COV-2 COVID-19 MODERNA 12+ YRS VACCINE Unknown Completed [facility] SARS-COV-2 COVID-19 MODERNA 12+ YRS VACCINE Unknown Completed [facility] [facility] SARS-COV-2 COVID-19 MODERNA 12+ YRS VACCINE Unknown Completed [facility] SARS-COV-2 COVID-19 MODERNA 12+ YRS VACCINE Unknown Completed [facility] SARS-COV-2 COVID-19 MODERNA 12+ YRS VACCINE Unknown Completed [facility] SARS-COV-2 COVID-19 MODERNA 12+ YRS VACCINE Unknown Completed [facility] SARS-COV-2 COVID-19 MODERNA 12+ YRS VACCINE Unknown Completed [facility] SARS-COV-2 COVID-19 MODERNA 12+ YRS VACCINE Unknown Completed [facility] SARS-COV-2 COVID-19 MODERNA 12+ YRS VACCINE Unknown Completed [facility] SARS-COV-2 COVID-19 MODERNA 12+ YRS VACCINE Unknown Completed [facility] SARS-COV-2 COVID-19 MODERNA 12+ YRS VACCINE Unknown Completed [facility] SARS-COV-2 COVID-19 MODERNA 12+ YRS VACCINE Unknown Completed [facility] SARS-COV-2 COVID-19 MODERNA 12+ YRS VACCINE Unknown Completed [facility] SARS-COV-2 COVID-19 MODERNA 12+ YRS VACCINE Unknown Completed [facility] SARS-COV-2 COVID-19 MODERNA 12+ YRS VACCINE Unknown Completed [facility] SARS-COV-2 COVID-19 MODERNA 12+ YRS VACCINE Unknown Completed [facility] SARS-COV-2 COVID-19 MODERNA 12+ YRS VACCINE Unknown Completed [facility] Vital Signs Vital Name Observation Time Observation Value Comments S ource Systolic blood pressure 2023-05-27 15:21:00 127 mm[Hg] [facility] Diastolic blood pressure 2023-05-27 15:21:00 74 mm[Hg] [facility] Heart rate 2023-05-27 15:21:00 88 /min [facility] Respiratory rate 2023-05-27 15:21:00 20 /min [facility] Oxygen saturation in Arterial blood by Pulse oximetry 2023-05-27 15:21:00 100 /min [facility] Body temperature 2023-05-27 14:59:00 36.28 Sayra [facility] Body height 2023-05-27 12:13:00 163 cm [facility] Body weight 2023-05-27 12:13:00 67.949 kg [facility] BMI 2023-05-27 12:13:00 25.57 kg/m2 [facility] Systolic blood pressure 2023-05-27 13:43:00 154 mm[Hg] [facility] Diastolic blood pressure 2023-05-27 13:43:00 68 mm[Hg] [facility] Heart rate 2023-05-27 13:43:00 101 /min [facility] Body temperature 2023-05-27 13:43:00 36.89 Sayra [facility] Respiratory rate 2023-05-27 13:43:00 20 /min [facility] Oxygen saturation in Arterial blood by Pulse oximetry 2023-05-27 13:43:00 95 /min [facility] Body height 2023-05-27 12:13:00 163 cm [facility] Body weight 2023-05-27 12:13:00 67.949 kg [facility] BMI 2023-05-27 12:13:00 25.57 kg/m2 [facility] Systolic blood pressure 2023-05-17 16:08:00 106 mm[Hg] [facility] Diastolic blood pressure 2023-05-17 16:08:00 73 mm[Hg] [facility] Heart rate 2023-05-17 16:08:00 94 /min [facility] Body temperature 2023-05-17 16:08:00 35.94 Sayra [facility] Respiratory rate 2023-05-17 16:08:00 20 /min [facility] Body height 2023-05-17 16:08:00 157.5 cm [facility] Body weight 2023-05-17 16:08:00 65.318 kg [facility] BMI 2023-05-17 16:08:00 26.34 kg/m2 [facility] Oxygen saturation in Arterial blood by Pulse oximetry 2023-05-17 16:08:00 98 /min [facility] Systolic blood pressure 2023-05-03 14:41:00 129 mm[Hg] [facility] Diastolic blood pressure 2023-05-03 14:41:00 82 mm[Hg] [facility] Heart rate 2023-05-03 14:41:00 92 /min [facility] Body temperature 2023-05-03 14:41:00 36.83 Sayra [facility] Respiratory rate 2023-05-03 14:41:00 18 /min [facility] Body height 2023-05-03 14:41:00 157.5 cm [facility] Body weight 2023-05-03 14:41:00 68.493 kg [facility] BMI 2023-05-03 14:41:00 27.62 kg/m2 [facility] Oxygen saturation in Arterial blood by Pulse oximetry 2023-05-03 14:41:00 98 /min [facility] Systolic blood pressure 2020-10-09 20:48:00 155 mm[Hg] [facility] Diastolic blood pressure 2020-10-09 20:48:00 94 mm[Hg] [facility] Heart rate 2020-10-09 20:48:00 70 /min [facility] Body temperature 2020-10-09 20:48:00 36.33 Sayra [facility] Respiratory rate 2020-10-09 20:48:00 16 /min [facility] Oxygen saturation in Arterial blood by Pulse oximetry 2020-10-09 20:48:00 95 /min [facility] Body height 2020-10-08 18:02:00 152.4 cm [facility] Body weight 2020-10-08 18:02:00 113 kg [facility] BMI 2020-10-08 18:02:00 48.65 kg/m2 [facility] Systolic blood pressure 2020-10-08 18:02:00 146 mm[Hg] [facility] Diastolic blood pressure 2020-10-08 18:02:00 89 mm[Hg] [facility] Heart rate 2020-10-08 18:02:00 72 /min [facility] Body temperature 2020-10-08 18:02:00 36.28 Sarya [facility] Respiratory rate 2020-10-08 18:02:00 18 /min [facility] Body height 2020-10-08 18:02:00 152.4 cm [facility] Body weight 2020-10-08 18:02:00 113 kg [facility] BMI 2020-10-08 18:02:00 48.65 kg/m2 [facility] Oxygen saturation in Arterial blood by Pulse oximetry 2020-10-08 18:02:00 98 /min [facility] Systolic blood pressure 2019-08-09 13:42:00 148 mm[Hg] [facility] Diastolic blood pressure 2019-08-09 13:42:00 90 mm[Hg] [facility] Heart rate 2019-08-09 13:42:00 87 /min [facility] Respiratory rate 2019-08-09 13:42:00 16 /min [facility] Oxygen saturation in Arterial blood by Pulse oximetry 2019-08-09 13:42:00 98 /min [facility] Body temperature 2019-08-09 12:48:00 36.83 Sayra [facility] Body height 2019-08-09 12:48:00 157.5 cm [facility] Body weight 2019-08-09 12:48:00 114.306 kg [facility] BMI 2019-08-09 12:48:00 46.09 kg/m2 [facility] Systolic blood pressure 2019-08-09 13:42:00 148 mm[Hg] [facility] Diastolic blood pressure 2019-08-09 13:42:00 90 mm[Hg] [facility] Heart rate 2019-08-09 13:42:00 87 /min [facility] Respiratory rate 2019-08-09 13:42:00 16 /min [facility] Oxygen saturation in Arterial blood by Pulse oximetry 2019-08-09 13:42:00 98 /min [facility] Body temperature 2019-08-09 12:48:00 36.83 Sayra [facility] Body height 2019-08-09 12:48:00 157.5 cm [facility] Body weight 2019-08-09 12:48:00 114.306 kg [facility] BMI 2019-08-09 12:48:00 46.09 kg/m2 [facility] BP Diastolic 2022-02-02 11:06:00 89 mm[Hg] Weight Measured 2022-02-02 11:06:00 215.20 pounds Height Measured 2022-02-02 11:06:00 64.10 inches Body Temperature 2022-02-02 11:06:00 97.90 degrees Heart Rate 2022-02-02 11:06:00 96.00 /min Respiratory Rate 2022-02-02 11:06:00 18.00 /min BP Systolic 2022-02-02 11:06:00 135 mm[Hg] BP Systolic 2018-11-15 11:05:00 131 mm[Hg] BP Diastolic 2018-11-15 11:05:00 88 mm[Hg] Weight Measured 2018-11-15 11:05:00 245.60 pounds Height Measured 2018-11-15 11:05:00 64.10 inches Body Temperature 2018-11-15 11:05:00 98.30 degrees Heart Rate 2018-11-15 11:05:00 78.00 /min Respiratory Rate 2018-11-15 11:05:00 18.00 /min Procedures Procedure Date / Time Performed Performing Clinician Source SURGICAL PATHOLOGY EXAM 2023-05-27 14:53:00 Michell Méndez [facility] ESOPHAGOGASTRODUODENOSCOPY 2023-05-27 14:26:00 Honey Michell [facility] ESOPHAGOGASTRODUODENOSCOPY 2023-05-27 14:26:00 Michell Méndez [facility] EGD (ENDO) 2023-05-27 12:45:29 Jm Gonzales [facility] EGD (ENDO) 2023-05-27 12:45:29 Jm Gonzales [facility] ASSIGNMENT OF BENEFITS 2023-05-27 11:17:13 Doctor Unassigned, [place] [facility] CT ABDOMEN PELVIS W CONTRAST 2023-05-21 14:35:00 Honey [facility] VITAMIN B12, LEVEL 2023-05-21 14:22:00 Honey [facility] FOLATE 2023-05-21 14:22:00 Honey [facility] IRON PANEL 2023-05-21 14:22:00 Honey [facility] CBC WITH DIFF 2023-05-21 14:22:00 Kleber Amador [facility] VITAMIN D, 25-OH 2023-05-21 14:22:00 Honey [facility] CONSENT/REFUSAL FOR DIAGNOSI S AND TREATMENT 2023-05-17 16:02:16 Doctor Unassigned, [place] [facility] CT ABDOMEN W CONTRAST 2023-05-06 16:04:00 Opal Richardson [facility] REFERRAL- REQUEST/RESPONSE 2023-04-06 06:01:00 Doctor Unassigned, [place] [facility] MAGNESIUM 2020-10-09 22:25:00 Srini Yates [facility] BASIC METABOLIC PANEL (NA, K , CL, CO2, GLUCOSE, BUN, CREATININE, CA) 2020-10-09 22:25:00 [facility] 2020-10-09 09:52:00 Srini Yates [facility] MAGNESIUM 2020-10-09 09:52:00 Srini Yates [facility] BASIC METABOLIC PANEL (NA, K , CL, CO2, GLUCOSE, BUN, CREATININE, CA) 2020-10-09 09:52:00 [facility] WITH DIFF 2020-10-09 09:52:00 [facility] 2020-10-09 09:52:00 Srini Yates [facility] MAGNESIUM 2020-10-09 09:52:00 Srini Yates [facility] BASIC METABOLIC PANEL (NA, K , CL, CO2, GLUCOSE, BUN, CREATININE, CA) 2020-10-09 09:52:00 Srini Yates [facility] CBC WITH DIFF 2020-10-09 09:52:00 Srini Yates [facility] ESOPHAGOGASTRODUODENOSCOPY 2020-10-08 18:05:00 Ezequiel [facility] ESOPHAGOGASTRODUODENOSCOPY 2020-10-08 18:05:00 Ezequiel [facility] EGD (ENDO) 2020-10-08 15:42:34 [facility] EGD (ENDO) 2020-10-08 15:42:34 Jerardo [facility] CBC WITH DIFF 2020-10-08 10:22:00 [facility] CBC WITH DIFF 2020-10-08 10:22:00 [facility] PREALBUMIN, SERUM 2020-10-08 09:31:00 [facility] PHOSPHORUS 2020-10-08 09:31:00 Srini Yates [facility] MAGNESIUM 2020-10-08 09:31:00 Srini Yates [facility] HEPATIC FUNCTION PANEL ([id number]) (ALB,T.PRO,BILI T,BU/BC,ALT,AST,ALK PHOS) 2020-10-08 09:31:00 [facility] BASIC METABOLIC PANEL (NA, K , CL, CO2, GLUCOSE, BUN, CREATININE, CA) 2020-10-08 09:31:00 [facility] PREALBUMIN, SERUM 2020-10-08 09:31:00 [facility] PHOSPHORUS 2020-10-08 09:31:00 Leopoldo Cox [facility] MAGNESIUM 2020-10-08 09:31:00 Srini Yates [facility] HEPATIC FUNCTION PANEL ([id number]) (ALB,T.PRO,BILI T,BU/BC,ALT,AST,ALK PHOS) 2020-10-08 09:31:00 [facility] (NA, K , CL, CO2, GLUCOSE, BUN, CREATININE, CA) 2020-10-08 09:31:00 [facility] PROTHROMBIN TIME / INR 2020-10-08 09:30:00 [facility] PROTHROMBIN TIME / INR 2020-10-08 09:30:00 [facility] ENDOSCOPY PROCEDURE DOCUMENTATION 10-08 05:01:00 Doctor Unassigned, [place] [facility] ENDOSCOPY PROCEDURE DOCUMENTATION 10-08 05:01:00 Doctor Unassigned, [place] [facility] POCT GLUCOSE (AUTOMATED) 2020-10-07 21:39:00 [facility] POCT GLUCOSE (AUTOMATED) 2020-10-07 21:39:00 Ahmet Sarabia [facility] FL UPPER GI SERIES 2020-10-07 16:59:55 Leon Delcid [facility] FL UPPER GI SERIES 2020-10-07 16:59:55 Leon Delcid [facility] POCT GLUCOSE (AUTOMATED) 2020-10-07 16:24:00 Ahmet Sarabia [facility] POCT GLUCOSE (AUTOMATED) 2020-10-07 16:24:00 Ahmet Sarabia [facility] POCT GLUCOSE (AUTOMATED) 2020-10-07 12:38:00 Ahmet Sarabia [facility] POCT GLUCOSE (AUTOMATED) 2020-10-07 12:38:00 Ahmet Sarabia [facility] BASIC METABOLIC PANEL (NA, K , CL, CO2, GLUCOSE, BUN, CREATININE, CA) 2020-10-07 09:36:00 Ernestina Don [facility] CBC WITH DIFF 2020-10-07 09:36:00 Florencia [facility] BASIC METABOLIC PANEL (NA, K , CL, CO2, GLUCOSE, BUN, CREATININE, CA) 2020-10-07 09:36:00 Florencia [facility] CBC WITH DIFF 2020-10-07 09:36:00 Florencia [facility] MAGNESIUM 2020-10-06 15:16:00 [facility] COMP. METABOLIC PANEL ([id number]) 2020-10-06 15:16:00 [facility] WITH DIFF 2020-10-06 15:16:00 [facility] PROTHROMBIN TIME / INR 2020-10-06 15:16:00 [facility] ACTIVATED PARTIAL THRMPLAS MATHIEU 2020-09-11 7 15:16:00 [facility] 2020-10-06 15:16:00 [facility] COMP. METABOLIC PANEL ([id number]) 2020-10-06 15:16:00 [facility] CBC WITH DIFF 2020-10-06 15:16:00 [facility] PROTHROMBIN TIME / INR 2020-10-06 15:16:00 [facility] ACTIVATED PARTIAL THRMPLAS MATHIEU 2020-09-11 7 15:16:00 Olga Bahenaherine [facility] ABORH CONFIRMATION 2020-10-06 15:15:00 Andria Burciaga [facility] ABORH CONFIRMATION 2020-10-06 15:15:00 Andria Burciaga [facility] HB ABO GROUPING 2020-10-06 15:00:00 [facility] 2020-10-06 15:00:00 [facility] COVID-19 (ID NOW RAPID TESTING) 05:45:00 Andria Burciaga [facility] LAB ONLY COVID INTERPRETATION 2020-10-06 05:45:00 Andria Burciaga [facility] COVID-19 (ID NOW RAPID TESTING) 05:45:00 Andria Burciaga [facility] LAB ONLY COVID INTERPRETATION 2020-10-06 05:45:00 Andria Burciaga [facility] CT ABDOMEN PELVIS W CONTRAST 2020-10-06 04:57:14 Andria Burciaga [facility] CT ABDOMEN PELVIS W CONTRAST 2020-10-06 04:57:14 Andria Burciaga [facility] URINALYSIS 2020-10-06 03:23:00 Andria Burciaga [facility] URINALYSIS 2020-10-06 03:23:00 Andrai Burciaga [facility] LIPASE 2020-10-06 03:15:00 Andria Burciaga [facility] COMP. METABOLIC PANEL ([id number]) 2020-10-06 03:15:00 Andria Burciaga [facility] CBC WITH DIFF 2020-10-06 03:15:00 Andria Burciaga [facility] LIPASE 2020-10-06 03:15:00 Andria Burciaga [facility] COMP. METABOLIC PANEL ([id number]) 2020-10-06 03:15:00 Andria Burciaga [facility] CBC WITH DIFF 2020-10-06 03:15:00 Andria Burciaga [facility] NOTICE OF PRIVACY PRACTICES 2020-10-06 02:28:51 Doctor Unassigned, [place] [facility] NOTICE OF PRIVACY PRACTICES 2020-10-06 02:28:51 Doctor Unassigned, [place] [facility] CONSENT/REFUSAL FOR DIAGNOSI S AND TREATMENT 2020-10-06 02:24:47 Doctor Unassigned, [place] [facility] HOSPITAL ADMISSION 2020-10-05 05:01:00 Doctor Unassigned, [place] [facility] HOSPITAL ADMISSION 2020-10-05 05:01:00 Doctor Unassigned, [place] [facility] XR CHEST 1 VW COVID 2019-08-09 13:20:51 Javi Mcgee [facility] CORONAVIRUS COVID-19 TESTING 2019-08-09 12:53:00 Javi Mcgee [facility] Plan of Care Planned Activity Planned Date Details Comments Source Goal Plan of Care Note [code = 05268-9] Goal Plan of Care Note [code = 52154-9] Goal Plan of Care Note [code = 45257-4] Goal Plan of Care Note [code = 04130-8] Goal Plan of Care Note [code = 42751-8] Goal Plan of Care Note [code = 77851-7] Goal Plan of Care Note [code = 25873-7] Encounters Start Date/Time End Date/Time Encounter Type Admission Type Attending Clinicians Care Facility Care Department Encounter ID Source 2021-02-10 13:59:03 Outpatient JERARDO AGUSTINA [facility] [id number] [facility] 2021-02-10 04:05:52 Emergency [facility] [id number] [facility] 2023-07-21 00:00:00 2023-07-21 00:00:00 Outpatient R RADIOLOGY [facility] [id number] [facility] 2023-06-28 11:30:00 2023-06-28 11:30:00 Outpatient R MICHELL MÉNDEZ [facility] [id number] [facility] 2023-06-09 00:00:00 2023-06-09 00:00:00 Outpatient R RADIOLOGY [facility] [id number] [facility] 2023-06-03 14:08:04 2023-06-03 14:08:04 Outpatient SFA SFA [id number] Yobani Freeman 2023-05-27 05:17:00 2023-05-27 09:45:00 Outpatient R MICHELL MÉNDEZ [facility] [id number] [facility] 2023-05-27 05:17:00 2023-05-27 09:45:00 Hospital Encounter Michell Méndez [facility] [id number] 350.1.13.10 4.2.7.2.686 [id number] [facility] 2023-05-27 08:21:00 2023-05-27 08:45:00 Surgery Michell Méndez [facility] [id number] 350.1.13.10 4.2.7.2.686 [id number] [facility] 2023-05-27 00:00:00 2023-05-27 00:00:00 Orders Only Doctor Unassigned, [place] [facility] [id number] 350.1.13.10 4.2.7.2.686 [id number] [facility] 2023-05-21 07:40:59 2023-05-21 23:59:00 Hospital Encounter Radiology [facility] 1.2840.114 350.1.13.10 4.2.7.2.686 [id number] [facility] 2023-05-21 07:40:49 2023-05-21 23:59:00 Outpatient R YNES MÉNDEZEN [facility] [id number] [facility] 2023-05-21 07:40:49 2023-05-21 23:59:00 Hospital Encounter Michell Méndez [facility] 1.2840.114 350.1.13.10 4.2.7.2.686 [id number] [facility] 2023-05-21 10:30:00 2023-05-21 10:45:00 Pit Shoveler Visit Pob, Adc Lab Main Radiology [facility] 1.2840.114 350.1.13.10 4.2.7.2.686 [id number] [facility] 2023-05-17 10:30:00 2023-05-17 11:07:15 Outpatient R HONEYYNES COXEN [facility] [id number] [facility] 2023-05-17 10:30:00 2023-05-17 11:07:15 Office Visit Michell Méndez [facility] 1.2.114 350.1.13.10 4.2.7.2.686 [id number] [facility] 2023-05-17 00:00:00 2023-05-17 00:00:00 Orders Only Doctor Unassigned, [place] [facility] 1.114 350.1.13.10 4.2.7.2.686 [id number] [facility] 2023-05-14 00:00:00 2023-05-14 00:00:00 Outpatient R RADIOLOGY [facility] [id number] [facility] 2023-05-10 08:45:00 2023-05-10 08:45:00 Outpatient KLEBER VEGA [facility] [id number] [facility] 2023-05-06 09:20:58 2023-05-06 23:59:00 Outpatient KLEBER VEGA [facility] [id number] [facility] 2023-05-06 09:20:58 2023-05-06 23:59:00 Hospital Encounter Kleber Amador [facility] 1.114 350.1.13.10 4.2.7.2.686 [id number] [facility] 2023-05-03 09:30:00 2023-05-03 09:45:00 Pit Shoveler Visit [facility] Kleber Amador [facility] 1.114 350.1.13.10 4.2.7.2.686 [id number] [facility] 2023-05-03 08:45:00 2023-05-03 09:16:48 Outpatient KLEBER VEGA [facility] [id number] [facility] 2023-05-03 08:45:00 2023-05-03 09:16:[address] [facility] 1.2.840.114 350.1.13.10 4.2.7.2.686 [id number] [facility] 2023-04-22 00:00:00 2023-04-22 00:00:00 Letter (Out) General Surgery [facility] 1.2.840.114 350.1.13.10 4.2.7.2.686 [id number] [facility] 2023-04-06 00:00:00 2023-04-06 00:00:00 Orders Only Doctor Unassigned, [place] [facility] 1.2.840.114 350.1.13.10 4.2.7.2.686 [id number] [facility] 2023-03-30 08:15:05 2023-03-30 08:15:05 Outpatient SFA SFA [id number] Yobani Cole Pete 2023-02-26 15:19:40 2023-02-26 15:19:40 Outpatient SFA SFA [id number] Yobani Freeman 2023-02-08 08:53:38 2023-02-08 08:53:38 Outpatient SFA SFA [id number] Yobani rFeeman 2023-02-06 00:00:00 2023-02-06 00:00:00 Outpatient GC_GCBZW_Ka diyala_S [facility] [id number] [facility] 2022-04-23 09:11:08 2022-04-23 09:11:08 Outpatient SFA SFA [id number] Yboani Freeman 2022-02-02 11:08:16 2022-02-02 11:08:16 Outpatient SFA SFA [id number] Yobani Freeman 2022-02-02 00:00:00 2022-02-02 00:00:00 Outpatient Visit [id number] 2020-10-05 21:33:00 2020-10-09 18:47:00 Emergency Andria Burciaga, Ernestina Sarabia, [facility] 1.2840.114 350.1.13.10 4.2.7.2.686 [id number] [facility] 2020-10-08 12:55:00 2020-10-08 13:27:00 Surgery IsabelDante richards [facility] 1.2840.114 350.1.13.10 4.2.7.2.686 [id number] [facility] 2020-10-05 00:00:00 2020-10-05 00:00:00 Orders Only Doctor Unassigned, [place] [facility] 1.2840.114 350.1.13.10 4.2.7.2.686 [id number] [facility] 2019-08-09 07:42:49 2019-08-09 09:05:00 Emergency Javi Mcgee [facility] 1.2840.114 350.1.13.10 4.2.7.2.686 [id number] 2019-08-09 07:42:49 2019-08-09 09:05:00 Emergency X JAVI MCGEE [facility] ERT [id number] [facility] 2019-08-09 07:42:49 2019-08-09 09:05:00 Emergency Javi Mcgee [facility] 1.2840.114 350.1.13.10 4.2.7.2.686 [id number] [facility] Results Test Description Test Time Test Comments Results Result Co mments Source [facility], [id number] 22:25:57* Test Item Value Reference Range Interpretation Comme nts VIT B12 (test code = 9949630405) 336 pg/mL 240-930 TARYN (test code = TARYN) Biotin has been reported to cause a positive bias, interpret results relative to patient's use of biotin. Lab Interpretation (test code = 61395-1) Normal [facility] 22:25:57* Test Item Value Reference Range Interpretation Comme nts FOLATE SER (test code = 7931146420) 5.3 ng/mL 3.0-20.0 Biotin has been reported to cause a positive bias, interpret results relative to patient's use of biotin. Lab Interpretation (test code = 39479-5) Normal [facility], [id number] 22:20:33* Test Item Value Reference Range Interpretation Comme nts VIT D 25OH (test code = 37607-8) 14 ng/mL 25-80 L TARYN (test code = TARYN) Deficiency: <20 ng/mLInsufficiency: 20-24 ng/mLOptimal: 25-80 ng/mL Lab Interpretation (test code = 66092-9) Abnormal [facility] P[facility] W [id number] 18:04:25ABDOMEN AND PELVIS CT WITH INTRAVENOUS CONTRAST. CLINICAL INDICATIONS: ? chronic abdominal wound, concern for possible ECfistula With oral and IV contrast Ordering Physician: MICHELL VICTOR TECHNIQUE: ?Axial computed tomographic images of the abdomen and pelviswere performed after administration of nonionic intravenous contrast. TheCT Imaging data was obtained utilizing radiation dose parameters inaccordance with ALARA (As Low As Reasonably Achievable). Oral contrast wasnot used on this examination Quality of Study: Good - Diagnostic COMPARISON: ?05/06/2023 FINDINGS: ? Heart size is normal. No pericardial effusion. The lung bases appear clear. Emphysematous changes noted in the lateralbasal left lower lobe. Postoperative changes of gastric sleeve surgery. The gastric sleeve hasbeen converted to a gastric bypass. The distal, excluded portion of thestomach is decompressed. The duodenum and pancreas appear normal. Theadrenal glands appear normal. No hydronephrosis of the kidneys. There is multifocal, bilateral renalcortical scarring and cortical volume loss, right side greater than left. The spleen appears normal. The liver and gallbladder appear normal. No inguinal lymphadenopathy. Urinary bladder is mildly distended. The uterus is absent. The ovariesappear to have been left in place. There is a tiny-small amount of freefluid in the posterior cul-de-sac of thepelvis. Gas and stool noted within the colon. No evidence of mechanical small bowelobstruction. No evidence of appendicitis. There is mild soft tissue infiltration in the midline abdominal/pelvic walljust inferior to the umbilicus and just to the left of midline. There arefew tiny bubbles of gas and a trace amount of fluid within this region ofsoft tissue infiltration. This may potentially communicate with theumbilicus. The regions of soft tissue gas in the midline abdominal wallappear to communicate with the skin at the level of a fold within thepatient's pain is on image 107. No definite extension of the soft tissuegas into the peritoneal cavity. No fluid collections identified in theperitoneal cavity. Normal alignment of the spine. No compression fracture. There iscalcification of the posterior longitudinal ligament at T12-L1. Nocompression fracture. No suspicious lytic or blastic lesions.[facility] HospitalIro [id number] 15:42:43* Test Item Value Reference Range Interpretation Comme nts IRON (test code = 5802137786) 76 ug/dL 50-160 TIBC (test code = 8485742980) 231 ug/dL 250-410 L % FE SAT (test code = 2938672245) 33 % 20-50 Lab Interpretation (test cod e = 67808-5) Abnormal [facility] with [id number] 14:40:12* Test Item Value Reference Range Interpretation Comme nts WBC (test code = 6690-2) 4.72 4.30-11.10 RBC (test code = 789-8) 3.97 3.93-5.25 HGB (test code = 718-7) 10.7 g/dL 11.6-15.0 L HCT (test code = 4544-3) 32.4 % 35.7-45.2 L MCV (test code = 787-2) 81.6 fL 80.6-95.5 MCH (test code = 785-6) 27.0 pg 25.9-32.8 MCHC (test code = 786-4) 33.0 g/dL 31.6-35.1 RDW-SD (test code = 53423-7) 37.2 fL 39.0-49.9 L RDW-CV (test code = 788-0) 12.5 % 12.0-15.5 PLT (test code = 777-3) 187 166-358 MPV (test code = 53039-1) 10.3 fL 9.5-12.9 NRBC/100 WBC (test code = 4482660348) 0.0 0.0-10.0 NRBC x10^3 (test code = 0176901599) See_Comment [Automated SeeVolutiona ge] The system which generated this result transmitted reference range: 10*3/?L. The reference range was not used to interpret this result as normal/abnormal. GRAN MAT (NEUT) % (test code = 770-8) 46.2 % IMM GRAN % (test code = 3395088339) 0.20 % LYMPH % (test code = 736-9) 41.9 % MONO % (test code = 5905-5) 8.3 % EOS % (test code = 713-8) 3.0 % BASO % (test code = 706-2) 0.4 % GRAN MAT x10^3(ANC) (test code = 1481823830) 2.18 10*3/uL 1.88-7.09 IMM GRAN x10^3 (test code = 3758894409) 0.00-0.06 LYMPH x10^3 (test code = 731-0) 1.98 10*3/uL 1.32-3.29 MONO x10^3 (test code = 742-7) 0.39 10*3/uL 0.33-0.92 EOS x10^3 (test code = 711-2) 0.14 10*3/uL 0.03-0.39 BASO x10^3 (test code = 704-7) 0.01-0.07 Lab Interpretation (test code = 30510-3) Abnormal [facility] HospitalCT [facility] W [id number] 16:24:58CT Abdomen with intravenous contrast. CLINICAL HISTORY: Acute, nonlocalized Abdominal pain. DOSE: Up-to-date CT equipment and radiation dose reduction techniques wereemployed. CTDIvol: ? 8.25 mGy. DLP: 269.26 ?mGy-cm. TECHNIQUE : Contiguous axial imaging from the level of the lung basesthrough the level of iliac crests were performed after the uncomplicatedadministration of nonionic contrast material. ?Coronal and sagittalreconstructions were obtained. Auto mA and/or iterative reconstruction wereused to reduce radiation dose. FINDINGS: ? Lower lungs: Clear. No pleural effusion or pericardial effusion. Liver, Gallbladder and Spleen: Gallbladder is elongated shaped measuringmore than 9 cm in length and up to 2.9 cm in diameter. No gallstonesvisualized. Hypodense lesion in the subcapsular left lobe of the liver nearfalciform ligament is focal fat sparing area of the liver or a small benigncystic lesion. No enhancing lesions are seen in the liver or in the spleen.Biliary ducts and the pancreatic duct appeared of normal size. Peritoneum: ?No free air or free fluid. No lymphadenopathy. Pancreas and Adrenals: ?Unremarkable pancreas and adrenal glands. Kidneys and Ureters: ?No visible calculi in the renal collecting systems. No hydroureter or hydronephrosis. Multiple sites of cortical scarring notedin both kidneys, more on the right side. 5 mm hypodense lesion in thelateral interpolarcortex of left kidney is probably a small cyst. 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 Retroperitoneum: No abnormal fluid or lymphadenopathy. Bowel: ?S/P sleeve gastrectomy. Visualized large bowel showed gaseousdistention. Small bowel gas pattern is unremarkable. Bones: ?Calcified posterior longitudinal ligament at T12-L1 levelencroaching on the spinal canal causing mild central spinal stenosis. Soft tissues: Scar tissue noted extending from left rectus muscle/sheathtoward umbilicus, partially visualized. CONCLUSION:1. No acute find ings in contrast enhanced CT scan of abdomen.2. S/P sleeve gastrectomy.3. Elongated shaped mildly hydropic gallbladder noted without any other CTdetectable abnormalities.4. Areas of cortical scarringof the kidneys, likely secondary to remoteurinary tract infection, less likely due to remote vascular insults.[facility] HospitalCULTNORTH [facility]FL[facility], [id number] 14:46:44 SPECIMEN NUMBER: [id number] CULTURE, ROUTINE SPECIMEN NUMBER: [id number] SPECIMEN COMMENT: ABDOMEN SOURCE: ABDOMEN REPORT STATUS: FINAL DIRECT GRAM STAIN: NO WBCs SEEN NO BACTERIA SEEN ISOLATE NUMBER 1: ORGANISM: 04/02/2023 RARE STAPHYLOCOCCUS SPECIES IDENTIFICATION: 04/04/2023 STAPHYLOCOCCUS AUREUS ISOLATE NUMBER 2: IDENTIFICATION: 04/05/2023 RARE BETA-STREPTOCOCCUS GROUP G ADDITIONAL OBSERVATIONS: PENICILLIN AND AMPICILLIN ARE DRUGS OF CHOICE FOR TREATMENT OF B- HEMOLYTIC STREPTOCOCCAL INFECTIONS. SUSCEPTIBILITY TESTING OF PENICILLIN AND OTHER B-LACTAMS APPROVED BY THE [place] FOOD AND DRUG ADMINISTRATION FOR TREATMENT OF B-HEMOLYTIC STREPTOCOCCAL INFECTIONS NEED NOT BE PERFORMED ROUTINELY. PRELI MINARY REPORT: 04/01/2023 RARE MIXED GRAM POSITIVE JÚNIOR STAPH. AUREUS AMOXICILLIN/CA SENSITIVE <=4/2CEFAZOLIN SENSITIVE <=4CLINDAMYCIN SENSITIVE <=0.25ERYTHROMYCIN SENSITIVE<=0.25OXACILLIN SENSITIVE 0.5RIFAMPIN SENSITIVE <=1TETRACYCLINE SENSITIVE <=1TRIMETH/SULFA SENSITIVE *1 Note 1: <=0.5/9.5VANCOMYCIN SENSITIVE 1 NOTE: NUMBERS DISPLAYED REPRESENT MINIMUM I NHIBITORY CONCENTRATION (SHARON) WHICH IS EXPRESSED IN MCG/ML. UNLESS OTHERWISE INDICATED, ALL TESTINGPERFORMED AT [facility] [address] [place] [address] [employer] SUPERVISOR: LOUISA CHATTERJEE M.D. CLIA NUMBER [id number] [facility] [place]. [id number], THIRD [id number] 10:11:43* Test Item Value Reference Range Interpretation Comme nts TSH, THIRD GENERATION (test code = 2821) 0.304 UIU/ML 0.400-4.100 L COMPREHENSIVE METABOLIC [id number] 08:21:02* Test Item Value Reference Range Interpretation Comme nts GLUCOSE (test code = 2217) 63 MG/DL 70-99 L BUN (test code = 2208) 7 MG/DL 6-20 CREATININE (test code = 2214) 1.03 MG/DL 0.60-1.30 eGFR (2020 CKD-EPI) (test co de = 25411) 66 ML/MIN/1.73 >60 CALC BUN/CREAT (test code = 2235) 7 RATIO 6-28 SODIUM (test code = 2231) 146 MEQ/L 133-146 POTASSIUM (test code = 2228) 3.1 MEQ/L 3.5-5.4 L CHLORIDE (test code = 2214) 105 MEQ/L 95-107 CARBON DIOXIDE (test code = 2205) 29 MEQ/L 19-31 CALCIUM (test code = 2208) 9.6 MG/DL 8.5-10.5 PROTEIN, TOTAL (test code = 2228) 6.6 G/DL 6.1-8.3 ALBUMIN (test code = 2200) 3.9 G/DL 3.5-5.2 CALC GLOBULIN (test code = 2239) 2.7 G/DL 1.9-3.7 CALC A/G RATIO (test code = 2233) 1.4 RATIO 1.0-2.6 BILIRUBIN, TOTAL (test code = 2206) 0.2 MG/DL <=1.2 ALKALINE PHOSPHATASE (test code = 2203) 58 U/L 40-130 AST (test code = 2217) 22 U/L 9-40 ALT (test code = 2218) 16 U/L 5-40 LIPID [id number] 08:21:02* Test Item Value Reference Range Interpretation Comme nts CHOLESTEROL (test code = 2209) 171 MG/DL <200 TRIGLYCERIDES (test code = 2231) 65 MG/DL <150 HDL CHOLESTEROL (test code = 2219) 80 MG/DL >39 CALC LDL CHOL (test code = 2236) 77 MG/DL <100 NOTE: CALCULATED LDL IS BASED ON MICHELLE-ONEAL METHOD WHICHINCLUDES ADJUSTABLE TRIGLYCERIDE:VLDL CHOLESTEROL RATIO.THIS FACTOR VARIES BY MEASURED TRIGLYCERIDE AND NON-HDLCHOLESTEROL CONCENTRATIONS WITH INCREASED CALCULATED LDL SEENIN HIGHER TRIGLYCERIDE OR LOWER NON-HDL SPECIMENS. FOR MOREINFORMATION, SEE CLIENT ANNOUNCEMENT AT [email or web address] [email or web address] RATIO LDL/HDL (test code = 2237) 0.96 RATIO <3.22 [id number] 04:39:42* Test Item Value Reference Range Interpretation Comme nts LITHIUM (test code = 2038) 0.24 MEQ/L 0.60-1.20 L UNLESS OTHERWISE INDICATED, ALL TESTING PERFORMED AT [facility] [address] [place] [address] [employer] SUPERVISOR: LOUISA CHATTERJEE M.D. CLIA NUMBER [id number] [place]. [id number] CBC W/AUTO DIFF WITH [id number] 04:12:51* Test Item Value Reference Range Interpretation Comme nts WBC (test code = 1001) 6.4 K/UL 3.5-11.0 RBC (test code = 1002) 4.40 M/UL 3.80-5.40 HEMOGLOBIN (test code = 1003) 12.0 G/DL 11.5-15.5 HEMATOCRIT (test code = 1004) 37.5 % 34.0-45.0 MCV (test code = 1005) 85.2 fL 80.0-99.0 MCH (test code = 1006) 27.3 PG 25.0-33.0 MCHC (test code = 1007) 32.0 G/DL 31.0-36.0 RDW (test code = 1038) 12.5 % 11.5-15.0 NEUTROPHILS (test code = 1008) 63.6 % LYMPHOCYTES (test code = 1010) 25.4 % MONOCYTES (test code = 1011) 7.3 % EOSINOPHILS (test code = 1012) 2.6 % BASOPHILS (test code = 1013) 0.8 % IMMATURE GRANULOCYTES (test code = 1036) 0.3 % NUCLEATED RBCS (test code = 1065) 0.0 /100 WBC'S See_Comment [Automated SeeVolutiona ge] The system which generated this result transmitted reference range: 0.0. The reference range was not used to interpret this result as normal/abnormal. PLATELET COUNT (test code = 1015) 218 K/UL 130-400 ABSOLUTE NEUTROPHILS (test code = 1066) 4.08 K/UL 1.50-7.50 ABSOLUTE LYMPHOCYTES (test code = 1067) 1.63 K/UL 1.00-4.00 ABSOLUTE MONOCYTES (test code = 1068) 0.47 K/UL 0.20-1.00 ABSOLUTE EOSINOPHILS (test code = 1040) 0.17 K/UL 0.00-0.50 ABSOLUTE BASOPHILS (test code = 1069) 0.05 K/UL 0.00-0.20 ABS IMMATURE GRANULOCYTES (test code = 1020) 0.02 K/UL 0.00-0.10 ABS NUCLEATED RBCS (test code = 42612) 0.00 K/UL 0.00-0.11 HEMOGLOBIN [id number] 03:09:51* Test Item Value Reference Range Interpretation Comme nts HEMOGLOBIN A1c (test code = 35794) 4.8 % 4.2-5.6 TSH, THIRD [id number] 06:35:25* Test Item Value Reference Range Interpretation Comme nts TSH, THIRD GENERATION (test code = 2821) 0.776 UIU/ML 0.400-4.100 HEMOGLOBIN [id number] 04:04:29* Test Item Value Reference Range Interpretation Comme nts HEMOGLOBIN A1c (test code = 48691) 5.2 % 4.2-5.6 CBC W/AUTO DIFF WITH [id number] 04:02:10* Test Item Value Reference Range Interpretation Comme nts WBC (test code = 1001) 8.6 K/UL 3.5-11.0 RBC (test code = 1002) 4.24 M/UL 3.80-5.40 HEMOGLOBIN (test code = 1003) 11.4 G/DL 11.5-15.5 L HEMATOCRIT (test code = 1004) 33.9 % 34.0-45.0 L MCV (test code = 1005) 80.0 fL 80.0-99.0 MCH (test code = 1006) 26.9 PG 25.0-33.0 MCHC (test code = 1007) 33.6 G/DL 31.0-36.0 RDW (test code = 1038) 13.2 % 11.5-15.0 NEUTROPHILS (test code = 1008) 70.2 % LYMPHOCYTES (test code = 1010) 19.4 % MONOCYTES (test code = 1011) 7.6 % EOSINOPHILS (test code = 1012) 2.2 % BASOPHILS (test code = 1013) 0.2 % IMMATURE GRANULOCYTES (test code = 1036) 0.4 % NUCLEATED RBCS (test code = 1065) 0.0 /100 WBC'S See_Comment [Automated SeeVolutiona ge] The system which generated this result transmitted reference range: 0.0. The reference range was not used to interpret this result as normal/abnormal. PLATELET COUNT (test code = 1015) 222 K/UL 130-400 ABSOLUTE NEUTROPHILS (test code = 1066) 6.00 K/UL 1.50-7.50 ABSOLUTE LYMPHOCYTES (test code = 1067) 1.66 K/UL 1.00-4.00 ABSOLUTE MONOCYTES (test code = 1068) 0.65 K/UL 0.20-1.00 ABSOLUTE EOSINOPHILS (test code = 1040) 0.19 K/UL 0.00-0.50 ABSOLUTE BASOPHILS (test code = 1069) 0.02 K/UL 0.00-0.20 ABS IMMATURE GRANULOCYTES (test code = 1020) 0.03 K/UL 0.00-0.10 ABS NUCLEATED RBCS (test code = 01665) 0.00 K/UL 0.00-0.11 COMPREHENSIVE METABOLIC [id number] 03:52:44* Test Item Value Reference Range Interpretation Comme nts GLUCOSE (test code = 2216) 98 MG/DL 70-99 BUN (test code = 2207) 8 MG/DL 6-20 CREATININE (test code = 2213) 1.01 MG/DL 0.60-1.30 eGFR (2020 CKD-EPI) (test code = 12787) 68 ML/MIN/1.73 >60 CALC BUN/CREAT (test code = 5) 8 RATIO 6-28 SODIUM (test code = 223) 144 MEQ/L 133-146 POTASSIUM (test code = 2228) 3.6 MEQ/L 3.5-5.4 CHLORIDE (test code = 2215) 107 MEQ/L 95-107 CARBON DIOXIDE (test code = 2206) 27 MEQ/L 19-31 CALCIUM (test code = 220) 9.3 MG/DL 8.5-10.5 PROTEIN, TOTAL (test code = 2228) 6.7 G/DL 6.1-8.3 ALBUMIN (test code = 2200) 3.9 G/DL 3.5-5.2 CALC GLOBULIN (test code = 2240) 2.8 G/DL 1.9-3.7 CALC A/G RATIO (test code = 2234) 1.4 RATIO 1.0-2.6 BILIRUBIN, TOTAL (test code = 220) <0.2 MG/DL See_Comment [Automated me ssage] The system which generated this result transmitted reference range: <=1.2. The reference range was not used to interpret this result as normal/abnormal. ALKALINE PHOSPHATASE (test code = 4) 76 U/L 40-128 AST (test code = 2218) 19 U/L 9-40 ALT (test code = 2219) 15 U/L 5-40 LIPID [id number] 03:52:44* Test Item Value Reference Range Interpretation Comme nts CHOLESTEROL (test code = 2210) 143 MG/DL <200 TRIGLYCERIDES (test code = 2232) 96 MG/DL <150 HDL CHOLESTEROL (test code = 0) 61 MG/DL >39 CALC LDL CHOL (test code = 2236) 64 MG/DL <100 NOTE: CALCULATED LDL IS BASED ON MICHELLE-ONEAL METHOD WHICHINCLUDES ADJUSTABLE TRIGLYCERIDE:VLDL CHOLESTEROL RATIO.THIS FACTOR VARIES BY MEASURED TRIGLYCERIDE AND NON-HDLCHOLESTEROL CONCENTRATIONS WITH INCREASED CALCULATED LDL SEENIN HIGHER TRIGLYCERIDE OR LOWER NON-HDL SPECIMENS. FOR MOREINFORMATION, SEE CLIENT ANNOUNCEMENT AT [email or web address] RATIO LDL/HDL (test code = 2237) 1.05 RATIO <3.22 [id number] 03:52:15* Test Item Value Reference Range Interpretation Comme nts LITHIUM (test code = 2038) <0.05 MEQ/L 0.60-1.20 L RESULTS RECHECKE D AND VERIFIED UNLESS OTHERWISE INDICATED, ALL TESTING PER[facility]MED [facility] [address] [place] [address] [employer] SUPERVISOR: LUCILLE MONTGOMERY M.D. CLIA NUMBER [id number] [facility] [place]. [id number] BASIC METABOLIC PANEL (NA, K, CL, CO2, GLUCOSE, BUN, CREATININE, CA)2020-10-09 23:24:32* Test Item Value Reference Range Interpretation Comme nts NA (test code = 8762629434) 138 mmol/L 135-145 K (test code = 2652916271) 3.6 mmol/L 3.5-5.0 CL (test code = 2372444003) 109 mmol/L 98-108 H CO2 TOTAL (test code = 8600497297) 22 mmol/L 23-31 L AGAP (test code = 7845353668) 2-16 BUN (test code = 0070638040) <2 7-23 L GLUCOSE (test code = 6400594245) 89 mg/dL 70-110 CREATININE (test code = 1088539979) 0.82 mg/dL 0.50-1.04 CALCIUM (test code = 5128068606) 8.8 mg/dL 8.6-10.6 eGFR (test code = 9074394489) mL/min/1.73m2 TARYN (test code = TARYN) Association [...] imaging tests). Lab Interpretation (test code = 00583-8) [facility]normal [facility] 23:19:12* Test Item Value Reference Range Interpretation Comme nts MAGNESIUM (test code = 7257511198) 2.5 mg/dL 1.7-2.4 H Lab Interpretation (test cod e = 14685-6) Abnormal [facility]BAS[facility] MET[facility]OLIC PANEL (NA, K, CL, CO2, GLUCOSE, BUN, CREATININE, CA)2020-10-09 10:44:18* Test Item Value Reference Range Interpretation Comme nts NA (test code = 1748397203) 140 mmol/L 135-145 K (test code = 5781991024) 3.1 mmol/L 3.5-5.0 L CL (test code = 2799352001) 106 mmol/L 98-108 CO2 TOTAL (test code = 7897098443) 27 mmol/L 23-31 AGAP (test code = 9627601042) 2-16 BUN (test code = 4758648696) 2 mg/dL 7-23 L GLUCOSE (test code = 7807113034) 106 mg/dL 70-110 CREATININE (test code = 1354122797) 0.91 mg/dL 0.50-1.04 CALCIUM (test code = 4615249917) 9.1 mg/dL 8.6-10.6 eGFR (test code = 2126764026) mL/min/1.73m2 TARYN (test code = TARYN) Association [...] imaging tests). Lab Interpretation (test code = 74492-0) [facility] 10:44:18* Test Item Value Reference Range Interpretation Comme nts MAGNESIUM (test code = 1215453279) 1.6 mg/dL 1.7-2.4 L Lab Interpretation (test cod e = 73106-5) Abnormal [facility]2021-[facility] 10:44:18* Test Item Value Reference Range Interpretation Comme nts PHOSPHORUS (test code = 8061620160) 2.9 mg/dL 2.5-5.0 Lab Interpretation (test cod e = 89076-0) Normal [facility] (NA, K, CL, CO2, GLUCOSE, BUN, CREATININE, CA)2020-10-09 10:44:18* Test Item Value Reference Range Interpretation Comme nts NA (test code = 1054720180) 140 mmol/L 135-145 K (test code = 2067026243) 3.1 mmol/L 3.5-5.0 L CL (test code = 2893157970) 106 mmol/L 98-108 CO2 TOTAL (test code = 9554864988) 27 mmol/L 23-31 AGAP (test code = 3349676355) 2-16 BUN (test code = 6403463781) 2 mg/dL 7-23 L GLUCOSE (test code = 3469702205) 106 mg/dL 70-110 CREATININE (test code = 2022808905) 0.91 mg/dL 0.50-1.04 CALCIUM (test code = 4012274439) 9.1 mg/dL 8.6-10.6 eGFR (test code = 3512452140) mL/min/1.73m2 TARYN (test code = TARYN) Association [...] imaging tests). Lab Interpretation (test code = 65114-8) [facility]normal [facility] 10:44:18* Test Item Value Reference Range Interpretation Comme nts MAGNESIUM (test code = 7238383077) 1.6 mg/dL 1.7-2.4 L Lab Interpretation (test cod e = 64112-6) [facility]normal [facility] 10:44:18* Test Item Value Reference Range Interpretation Comme nts PHOSPHORUS (test code = 7477856975) 2.9 mg/dL 2.5-5.0 Lab Interpretation (test cod e = 03198-6) Normal [facility] HospitalCB WITH [id number] 10:29:58* Test Item Value Reference Range Interpretation Comme nts WBC (test code = 6690-2) See_Comment [Automated SeeVolutiona Social Median] The system which generated this result transmitted reference range: 4.30 - 11.10 10*3/?L. The reference range was not used to interpret this result as normal/abnormal. RBC (test code = 789-8) See_Comment [Automated SeeVolutiona Social Median] The system which generated this result transmitted reference range: 3.93 - 5.25 10*6/?L. The reference range was not used to interpret this result as normal/abnormal. HGB (test code = 718-7) 11.2 g/dL 11.6-15.0 L HCT (test code = 4544-3) 34.6 % 35.7-45.2 L MCV (test code = 787-2) 79.9 fL 80.6-95.5 L MCH (test code = 785-6) 25.9 pg 25.9-32.8 MCHC (test code = 786-4) 32.4 g/dL 31.6-35.1 RDW-SD (test code = 16135-5) 37.1 fL 39.0-49.9 L RDW-CV (test code = 788-0) 13.0 % 12.0-15.5 PLT (test code = 777-3) See_Comment [Automated messa ge] The system which generated this result transmitted reference range: 166 - 358 10*3/?L. The reference range was not used to interpret this result as normal/abnormal. MPV (test code = 46208-9) 10.5 fL 9.5-12.9 NRBC/100 WBC (test code = 2888934472) See_Comment [Automated [employer] ssage] The system which generated this result transmitted reference range: 0.0 - 10.0 /100 WBCs. The reference range was not used to interpret this result as normal/abnormal. NRBC x10^3 (test code = 9928212582) <0.01 See_Comment [Automated messa ge] The system which generated this result transmitted reference range: 10*3/?L. The reference range was not used to interpret this result as normal/abnormal. GRAN MAT (NEUT) % (test code = 770-8) 60.2 % IMM GRAN % (test code = 2664175837) 0.20 % LYMPH % (test code = 736-9) 24.1 % MONO % (test code = 5905-5) 9.5 % EOS % (test code = 713-8) 5.4 % BASO % (test code = 706-2) 0.6 % GRAN MAT x10^3(ANC) (test code = 2659993923) 2.99 10*3/uL 1.88-7.09 IMM GRAN x10^3 (test code = 5993590841) <0.03 0.00-0.06 LYMPH x10^3 (test code = 731-0) 1.20 10*3/uL 1.32-3.29 L MONO x10^3 (test code = 742-7) 0.47 10*3/uL 0.33-0.92 EOS x10^3 (test code = 711-2) 0.27 10*3/uL 0.03-0.39 BASO x10^3 (test code = 704-7) 0.03 10*3/uL 0.01-0.07 Lab Interpretation (test code = 17486-6) Abnormal [facility] WITH [id number] 10:29:58* Test Item Value Reference Range Interpretation Comme nts WBC (test code = 6690-2) See_Comment [Automated messa ge] The system which generated this result transmitted reference range: 4.30 - 11.10 10*3/?L. The reference range was not used to interpret this result as normal/abnormal. RBC (test code = 789-8) See_Comment [Automated messa ge] The system which generated this result transmitted reference range: 3.93 - 5.25 10*6/?L. The reference range was not used to interpret this result as normal/abnormal. HGB (test code = 718-7) 11.2 g/dL 11.6-15.0 L HCT (test code = 4544-3) 34.6 % 35.7-45.2 L MCV (test code = 787-2) 79.9 fL 80.6-95.5 L MCH (test code = 785-6) 25.9 pg 25.9-32.8 MCHC (test code = 786-4) 32.4 g/dL 31.6-35.1 RDW-SD (test code = 42024-4) 37.1 fL 39.0-49.9 L RDW-CV (test code = 788-0) 13.0 % 12.0-15.5 PLT (test code = 777-3) See_Comment [Automated messa ge] The system which generated this result transmitted reference range: 166 - 358 10*3/?L. The reference range was not used to interpret this result as normal/abnormal. MPV (test code = 54827-8) 10.5 fL 9.5-12.9 NRBC/100 WBC (test code = 3290896359) See_Comment [Automated me ssage] The system which generated this result transmitted reference range: 0.0 - 10.0 /100 WBCs. The reference range was not used to interpret this result as normal/abnormal. NRBC x10^3 (test code = 0451166382) <0.01 See_Comment [Automated messa ge] The system which generated this result transmitted reference range: 10*3/?L. The reference range was not used to interpret this result as normal/abnormal. GRAN MAT (NEUT) % (test code = 770-8) 60.2 % IMM GRAN % (test code = 5850521890) 0.20 % LYMPH % (test code = 736-9) 24.1 % MONO % (test code = 5905-5) 9.5 % EOS % (test code = 713-8) 5.4 % BASO % (test code = 706-2) 0.6 % GRAN MAT x10^3(ANC) (test code = 3607924679) 2.99 10*3/uL 1.88-7.09 IMM GRAN x10^3 (test code = 6726711315) <0.03 0.00-0.06 LYMPH x10^3 (test code = 731-0) 1.20 10*3/uL 1.32-3.29 L MONO x10^3 (test code = 742-7) 0.47 10*3/uL 0.33-0.92 EOS x10^3 (test code = 711-2) 0.27 10*3/uL 0.03-0.39 BASO x10^3 (test code = 704-7) 0.03 10*3/uL 0.01-0.07 Lab Interpretation (test code = 35778-0) [facility] Test Item Value Reference Range Interpretation Comme nts MAGNESIUM (test code = 6039286967) 1.7 mg/dL 1.7-2.4 Lab Interpretation (test cod e = 26581-3) [facility]* Test Item Value Reference Range Interpretation Comme nts PHOSPHORUS (test code = 1495037659) 2.9 mg/dL 2.5-5.0 Lab Interpretation (test cod e = 79134-9) Normal [facility]GNESIUM2021-06-29 16:43:24* Test Item Value Reference Range Interpretation Comme nts MAGNESIUM (test code = 7442731295) 1.7 mg/dL 1.7-2.4 Lab Interpretation (test cod e = 39831-4) [facility] 16:43:24* Test Item Value Reference Range Interpretation Comme nts PHOSPHORUS (test code = 1197659788) 2.9 mg/dL 2.5-5.0 Lab Interpretation (test cod e = 69005-3) Normal [facility] [id number] 10:49:23* Test Item Value Reference Range Interpretation Comme nts WBC (test code = 6690-2) See_Comment [Automated SeeVolutiona ge] The system which generated this result transmitted reference range: 4.30 - 11.10 10*3/?L. The reference range was not used to interpret this result as normal/abnormal. RBC (test code = 789-8) See_Comment [Automated SeeVolutiona ge] The system which generated this result transmitted reference range: 3.93 - 5.25 10*6/?L. The reference range was not used to interpret this result as normal/abnormal. HGB (test code = 718-7) 10.9 g/dL 11.6-15.0 L HCT (test code = 4544-3) 33.1 % 35.7-45.2 L MCV (test code = 787-2) 78.8 fL 80.6-95.5 L MCH (test code = 785-6) 26.0 pg 25.9-32.8 MCHC (test code = 786-4) 32.9 g/dL 31.6-35.1 RDW-SD (test code = 13642-5) 37.0 fL 39.0-49.9 L RDW-CV (test code = 788-0) 13.0 % 12.0-15.5 PLT (test code = 777-3) See_Comment [Automated SeeVolutiona ge] The system which generated this result transmitted reference range: 166 - 358 10*3/?L. The reference range was not used to interpret this result as normal/abnormal. MPV (test code = 28407-6) 10.2 fL 9.5-12.9 NRBC/100 WBC (test code = 6595986388) See_Comment [Automated CogniK ssage] The system which generated this result transmitted reference range: 0.0 - 10.0 /100 WBCs. The reference range was not used to interpret this result as normal/abnormal. NRBC x10^3 (test code = 2174630307) <0.01 See_Comment [Automated messa ge] The system which generated this result transmitted reference range: 10*3/?L. The reference range was not used to interpret this result as normal/abnormal. GRAN MAT (NEUT) % (test code = 770-8) 56.3 % IMM GRAN % (test code = 6140703171) 0.20 % LYMPH % (test code = 736-9) 29.2 % MONO % (test code = 5905-5) 9.2 % EOS % (test code = 713-8) 4.7 % BASO % (test code = 706-2) 0.4 % GRAN MAT x10^3(ANC) (test code = 9802881246) 3.11 10*3/uL 1.88-7.09 IMM GRAN x10^3 (test code = 1855152516) <0.03 0.00-0.06 LYMPH x10^3 (test code = 731-0) 1.61 10*3/uL 1.32-3.29 MONO x10^3 (test code = 742-7) 0.51 10*3/uL 0.33-0.92 EOS x10^3 (test code = 711-2) 0.26 10*3/uL 0.03-0.39 BASO x10^3 (test code = 704-7) <0.03 0.01-0.07 Lab Interpretation (test code = 82807-6) Abnormal [facility] WITH [id number] 10:49:23* Test Item Value Reference Range Interpretation Comme nts WBC (test code = 6690-2) See_Comment [Automated messa ge] The system which generated this result transmitted reference range: 4.30 - 11.10 10*3/?L. The reference range was not used to interpret this result as normal/abnormal. RBC (test code = 789-8) See_Comment [Automated SeeVolutiona ge] The system which generated this result transmitted reference range: 3.93 - 5.25 10*6/?L. The reference range was not used to interpret this result as normal/abnormal. HGB (test code = 718-7) 10.9 g/dL 11.6-15.0 L HCT (test code = 4544-3) 33.1 % 35.7-45.2 L MCV (test code = 787-2) 78.8 fL 80.6-95.5 L MCH (test code = 785-6) 26.0 pg 25.9-32.8 MCHC (test code = 786-4) 32.9 g/dL 31.6-35.1 RDW-SD (test code = 73714-6) 37.0 fL 39.0-49.9 L RDW-CV (test code = 788-0) 13.0 % 12.0-15.5 PLT (test code = 777-3) See_Comment [Automated SeeVolutiona ge] The system which generated this result transmitted reference range: 166 - 358 10*3/?L. The reference range was not used to interpret this result as normal/abnormal. MPV (test code = 99571-9) 10.2 fL 9.5-12.9 NRBC/100 WBC (test code = 1714139045) See_Comment [Automated CogniK ssage] The system which generated this result transmitted reference range: 0.0 - 10.0 /100 WBCs. The reference range was not used to interpret this result as normal/abnormal. NRBC x10^3 (test code = 0856960092) <0.01 See_Comment [Automated SeeVolutiona ge] The system which generated this result transmitted reference range: 10*3/?L. The reference range was not used to interpret this result as normal/abnormal. GRAN MAT (NEUT) % (test code = 770-8) 56.3 % IMM GRAN % (test code = 5427507774) 0.20 % LYMPH % (test code = 736-9) 29.2 % MONO % (test code = 5905-5) 9.2 % EOS % (test code = 713-8) 4.7 % BASO % (test code = 706-2) 0.4 % GRAN MAT x10^3(ANC) (test code = 6104382459) 3.11 10*3/uL 1.88-7.09 IMM GRAN x10^3 (test code = 7950588353) <0.03 0.00-0.06 LYMPH x10^3 (test code = 731-0) 1.61 10*3/uL 1.32-3.29 MONO x10^3 (test code = 742-7) 0.51 10*3/uL 0.33-0.92 EOS x10^3 (test code = 711-2) 0.26 10*3/uL 0.03-0.39 BASO x10^3 (test code = 704-7) <0.03 0.01-0.07 Lab Interpretation (test code = 91163-1) [facility] 10:42:00* Test Item Value Reference Range Interpretation Comme nts PALB (test code = 35011-6) 10.1 mg/dL 18.0-45.0 L Lab Interpretation (test cod e = 10821-0) [facility]normal [facility] 10:42:00* Test Item Value Reference Range Interpretation Comme nts PALB (test code = 56645-5) 10.1 mg/dL 18.0-45.0 L Lab Interpretation (test cod e = 00584-2) [facility]normal [facility] (NA, K, CL, CO2, GLUCOSE, BUN, CREATININE, CA)2020-10-08 10:33:38* Test Item Value Reference Range Interpretation Comme nts NA (test code = 7410595030) 142 mmol/L 135-145 K (test code = 9557234999) 3.3 mmol/L 3.5-5.0 L CL (test code = 6116625726) 107 mmol/L 98-108 CO2 TOTAL (test code = 9789610562) 24 mmol/L 23-31 AGAP (test code = 5100412110) 2-16 BUN (test code = 6736507863) 4 mg/dL 7-23 L GLUCOSE (test code = 4590282834) 100 mg/dL 70-110 CREATININE (test code = 2830721450) 0.84 mg/dL 0.50-1.04 CALCIUM (test code = 0633416303) 9.3 mg/dL 8.6-10.6 eGFR (test code = 6823994104) mL/min/1.73m2 TARYN (test code = TARYN) Association [...] imaging tests). Lab Interpretation (test code = 03522-3) [facility]normal [facility]HEPAT[facility] FUNCTION PANEL (93429) (ALB,T.PRO,BILI T,BU/BC,ALT,AST,ALK PHOS)2020-10-08 10:33:38* Test Item Value Reference Range Interpretation Comme nts TOTAL BILI (test code = 8686390318) 0.4 mg/dL 0.1-1.1 BILI UNCON (test code = 1377277218) 0.0 mg/dL 0.1-1.1 L BILI CONJ (test code = 8090684638) 0.0 mg/dL 0.0-0.3 T PROTEIN (test code = 9703372423) 6.8 g/dL 6.3-8.2 ALBUMIN (test code = 1020263210) 3.7 g/dL 3.5-5.0 ALK PHOS (test code = 9555101327) 69 U/L 34-122 ALTv (test code = 1742-6) 14 U/L 5-35 AST(SGOT) (test code = 6688904667) 22 U/L 13-40 Lab Interpretation (test cod e = 64450-1) Abnormal [facility] METABOLIC PANEL (NA, K, CL, CO2, GLUCOSE, BUN, CREATININE, CA)2020-10-08 10:33:38* Test Item Value Reference Range Interpretation Comme nts NA (test code = 1115956959) 142 mmol/L 135-145 K (test code = 6599032845) 3.3 mmol/L 3.5-5.0 L CL (test code = 9943844925) 107 mmol/L 98-108 CO2 TOTAL (test code = 9880494070) 24 mmol/L 23-31 AGAP (test code = 7549512445) 2-16 BUN (test code = 3806416556) 4 mg/dL 7-23 L GLUCOSE (test code = 1811322241) 100 mg/dL 70-110 CREATININE (test code = 0791120518) 0.84 mg/dL 0.50-1.04 CALCIUM (test code = 2177818501) 9.3 mg/dL 8.6-10.6 eGFR (test code = 6409181397) mL/min/1.73m2 TARYN (test code = TARYN) Association [...] imaging tests). Lab Interpretation (test code = 64101-5) [facility]normal [facility] (80825) (ALB,T.PRO,BILI T,BU/BC,ALT,AST,ALK PHOS)2020-10-08 10:33:38* Test Item Value Reference Range Interpretation Comme nts TOTAL BILI (test code = 8580564148) 0.4 mg/dL 0.1-1.1 BILI UNCON (test code = 4371299962) 0.0 mg/dL 0.1-1.1 L BILI CONJ (test code = 6729612045) 0.0 mg/dL 0.0-0.3 T PROTEIN (test code = 1561005909) 6.8 g/dL 6.3-8.2 ALBUMIN (test code = 3239298948) 3.7 g/dL 3.5-5.0 ALK PHOS (test code = 4406333236) 69 U/L 34-122 ALTv (test code = 1742-6) 14 U/L 5-35 AST(SGOT) (test code = 3395887522) 22 U/L 13-40 Lab Interpretation (test cod e = 44190-2) Abnormal [facility] HospitalPROTHROMBIN TIME / [id number] 09:53:19* Test Item Value Reference Range Interpretation Comme nts PROTIME PATIENT (test code = 5964-2) See_Comment H [Automated SeeVolutiona Social Median] The system which generated this result transmitted reference range: 10.1 - 12.6 Seconds. The reference range was not used to interpret this result as normal/abnormal. INR (test code = 6301-6) Normal INR <1.1; Warfarin Therapeutic range 2.0 to 3.0 or 2.5 to 3.5, depending upon the indications. Lab Interpretation (test code = 66706-4) Abnormal [facility] HospitalPROTHROMBIN TIME / [id number] 09:53:19* Test Item Value Reference Range Interpretation Comme nts PROTIME PATIENT (test code = 5964-2) See_Comment H [Automated messa ge] The system which generated this result transmitted reference range: 10.1 - 12.6 Seconds. The reference range was not used to interpret this result as normal/abnormal. INR (test code = 6301-6) Normal INR <1.1; Warfarin Therapeutic range 2.0 to 3.0 or 2.5 to 3.5, depending upon the indications. Lab Interpretation (test code = 77769-0) [facility]normal [facility] COVID [id number] 22:24:38COVID DMT InterpretationInterpretation/Recommendations: Molecular NAAT Tests for Active Infection with the SARS-CoV-2 Virus: The patient has currently tested negative for the SARS-CoV-2 virus that causes COVID-19 illness. This most likely indicates that the patient does not have an active infectionwith the SARS-CoV-2 virus. However, infection is not completely ruled out as the false negative rate for molecular NAAT testing using a nasopharyngeal sample can be up to 30%, mostly dependent on thetiming of sample collection in relation to illness [...] COVID-19 testing the patient has had at [facility], including molecular NAAT testing (more commonly known as PCR testing and Rapid ID Now testing) and antibody testing. It does not take into account any testing that a patient has had outside of the [facility] medical record. [facility] LABORATORY SERVICESCOVID [id number]-JlU-9 Rapid ID NOW (no units) ? ? Date ? Value ? 10/06/2020 ? Not Detected ? ? ? 08/09/2019 ? Not Detected ? [facility]Un[facility]LAB [facility] COVID [id number] 22:24:38COVID DMT InterpretationInterpretation/Recommendations: Molecular NAAT Tests for Active Infection with the SARS-CoV-2 Virus: The patient has currently tested negative for the SARS-CoV-2 virus that causes COVID-19 illness. This most likely indicates that the patient does not have an active infectionwith the SARS-CoV-2 virus. However, infection is not completely ruled out as the false negative rate for molecular NAAT testing using a nasopharyngeal sample can be up to 30%, mostly dependent on thetiming of sample collection in relation to illness [...] COVID-19 testing the patient has had at [facility], including molecular NAAT testing (more commonly known as PCR testing and Rapid ID Now testing) and antibody testing. It does not take into account any testing that a patient has had outside of the [facility] medical record. [facility] LABORATORY SERVICESCOVID UyqxskhKETU-UbQ-8 Rapid ID NOW (no units) ? ? Date ? Value ? 10/06/2020 ? Not Detected ? ? ? 08/09/2019 ? Not Detected ? [facility]2020-10-07 21:55:58* Test Item Value Reference Range Interpretation Comme nts POCT GLU (test code = 4131726097) 91 mg/dL 70-110 Lab Interpretation (test cod e = 32928-2) Normal [facility] GLUCOSE (AUTOMATED)2020-10-07 21:55:58* Test Item Value Reference Range Interpretation Comme nts POCT GLU (test code = 6029994720) 91 mg/dL 70-110 Lab Interpretation (test cod e = 85028-5) Normal [facility] HospitalFL UPPER GI [id number] 19:11:13Focal accumulation of contrast which widely communicates with [...] CT abdomen pelvis with contrast, 10/06/2020 FINDINGS: Focusedevaluation of the gastric pouch and gastrojejunal anastomosis [...] in this patient with history of gastric bypass.Focal accumulation of [...] representcontained perforation or contained area of focal dehiscence.[facility] UPPER GI [id number] 19:11:13Focal accumulation of contrast which widely communicates with [...] CT abdomen pelvis with contrast, 10/06/2020 FINDINGS: Focusedevaluation of the gastric pouch and gastrojejunal anastomosis [...] free spill of contrast intothe peritoneal cavity. [facility], Radiant Results Inft User - 10/07/2020 2:12 PM CDT EXAM: [place] UPPER GI SERIESHISTORY: 49 years old Female with gastric leak after sleeve May do in AM TECHNIQUE: OralOmnipaque was administered as contrast for this focusedexam. COMPARISON: CT abdomen pelvis with contrast, 10/06/2020FINDINGS:Focused evaluation of the gastric pouch and gastrojejunal anastomosis wasperformed in this patient with history of gastric bypass.Focal accumulation of [...] free spill of contrast intothe peritoneal cavity. IMPRESSIONFocal accumulation of contrast which widely communicates with the adjacentbowel is present along the posterior margin of the jejunum at the level ofthe gastrojejunostomy. No free spill of contrast into the peritonealcavity. Findings correspond to appearance on CT and thick and may representcontained perforation or contained area of focal dehiscence.[facility] GLUCOSE (AUTOMATED)2020-10-07 16:47:39* Test Item Value Reference Range Interpretation Comme nts POCT GLU (test code = 8883676449) 88 mg/dL 70-110 Lab Interpretation (test cod e = 05660-5) Normal [facility] GLUCOSE (AUTOMATED)2020-10-07 16:47:39* Test Item Value Reference Range Interpretation Comme nts POCT GLU (test code = 6706324807) 88 mg/dL 70-110 Lab Interpretation (test cod e = 71723-6) Normal [facility] ABDOMEN PELVIS W [id number] 14:27:34Addendum by Umang Sheldon MD on 10/07/2020 [...] HISTORY: ? 49 years-old Female presenting with Dive rticulitis suspected LLQPAIN COMPARISON: CT abdomen pelvis with [...] thickening. Top normaldiameter common bile duct measuring upto 6 mm in diameter with tapering atampulla [...] fluid collection and surrounding fat stranding. Fat stran dingsurrounds the adjacent distal transverse colon/splenic flexure. No [...] User - 10/07/2020 9:28 AM CDT EXAM: CTABDOMEN/PELVIS WITH CONTRASTHISTORY: 49 years-old Female presenting with Diverticulitis suspected LL QPAINCOMPARISON: CT abdomen pelvis with contrast 09/30/2018TECHNIQUE AND [...] up to 6 mm in diameter with taper ing atampulla of Vater.SPLEEN: No splenomegaly.PANCREAS: No ductal dilation or masses. Mild pancreatic lipomatosis isnoted.ADRENAL GLANDS: No adrenal nodules.KIDNEYS: No hydronephrosis, stones, or masses. Lobulated appearance of bothkidneys with parenchymal scarring. 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 There is disruption of the jejunal wall near anastomosis withadjacent edema suggestive of dehiscence at anastomoses (2:37). Otherpossibility includes anastomosis consultation with contained perforation.There is associated diffuse wall thickening of the stomach with a 2.1 x 2.0x2.6 cm fluid collection and surrounding fat stranding. Fat strandingsurrounds the adjacent distal transverse colon/splenic flexure. No boweldilation. The appendix is not visualized; however, no pericecalinflammatory changes to suggest appendicitis.No free intra-abdominal air.PELVIS/BLADDER: The urinary bladder appears unremarkable for the degree ofdistention. Prior hysterectomy.VESSELS: Unremarkable.BONES AND SOFT TISSUES: No [...] Sanford S over the phone on 10/06/2020 at12:49 AM with readback.Preliminary Report Dictated by Resident: Umang Beasley MD., have reviewed this study and agree with theabove report.[facility] W [facility]AST 2020-10-07 14:27:34Addendum by [...] with readback. Preliminary Report Dictated by Resident: Bobbi Franzbanner boswell medical centerstarla ?MD. Pito, have reviewed this study and agree with theabove report.EXAM: CT ABDOMEN/PELVIS WITH CONTRAST HISTORY: ? 49 years-old Female presenting with Dive rticulitis suspected LLQPAIN COMPARISON: CT abdomen pelvis with [...] thickening. Top normaldiameter common bile duct measuring upto 6 mm in diameter with tapering atampulla [...] fluid collection and surrounding fat stranding. Fat stran dingsurrounds the adjacent distal transverse colon/splenic flexure. No [...] User - 10/07/2020 9:28 AM CDT EXAM: CTABDOMEN/PELVIS WITH CONTRASTHISTORY: 49 years-old Female presenting with Diverticulitis suspected LL QPAINCOMPARISON: CT abdomen pelvis with contrast 09/30/2018TECHNIQUE AND [...] up to 6 mm in diameter with taper ing atampulla of Vater.SPLEEN: No splenomegaly.PANCREAS: No ductal dilation or masses. Mild pancreatic lipomatosis isnoted.ADRENAL GLANDS: No adrenal nodules.KIDNEYS: No hydronephrosis, stones, or masses. Lobulated appearance of bothkidneys with parenchymal scarring. 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 There is disruption of the jejunal wall near anastomosis withadjacent edema suggestive of dehiscence at anastomoses (2:37). Otherpossibility includes anastomosis consultation with contained perforation.There is associated diffuse wall thickening of the stomach with a 2.1 x 2.0x2.6 cm fluid collection and surrounding fat stranding. Fat strandingsurrounds the adjacent distal transverse colon/splenic flexure. No boweldilation. The appendix is not visualized; however, no pericecalinflammatory changes to suggest appendicitis.No free intra-abdominal air.PELVIS/BLADDER: The urinary bladder appears unremarkable for the degree ofdistention. Prior hysterectomy.VESSELS: Unremarkable.BONES AND SOFT TISSUES: No [...] Sanford S over the phone on 10/06/2020 at12:49 AM with readback.Preliminary Report Dictated by Resident: Adalid Wong, Umang Sheldon MD., have reviewed this study and agree with theabove report.[facility] GLUCOSE (AUTOMATED) 2020-10-07 12:46:58* Test Item Value Reference Range Interpretation Comme nts POCT GLU (test code = 6645852251) 105 mg/dL 70-110 Lab Interpretation (test cod e = 40602-8) Normal [facility] GLUCOSE (AUTOMATED)2020-10-07 12:46:58* Test Item Value Reference Range Interpretation Comme nts POCT GLU (test code = 6380958037) 105 mg/dL 70-110 Lab Interpretation (test cod e = 01884-5) Normal [facility] Metabolic Panel (NA, K, CL, CO2, GLUCOSE, BUN, CREATININE, CA)2020-10-07 11:03:21* Test Item Value Reference Range Interpretation Comme nts NA (test code = 3141188477) 139 mmol/L 135-145 K (test code = 7950384541) 3.5 mmol/L 3.5-5.0 CL (test code = 8801837956) 108 mmol/L 98-108 CO2 TOTAL (test code = 9168608492) 23 mmol/L 23-31 AGAP (test code = 5416444010) 2-16 BUN (test code = 1628711896) 7 mg/dL 7-23 GLUCOSE (test code = 0028728151) 74 mg/dL 70-110 CREATININE (test code = 0995551971) 0.87 mg/dL 0.50-1.04 CALCIUM (test code = 7112949945) 9.2 mg/dL 8.6-10.6 eGFR (test code = 6723633374) mL/min/1.73m2 TARYN (test code = TARYN) Association [...] or urine or abnormalities in imaging tests). [facility] (NA, K, CL, CO2, GLUCOSE, BUN, CREATININE, CA)2020-10-07 11:03:21* Test Item Value Reference Range Interpretation Comme nts NA (test code = 4130141001) 139 mmol/L 135-145 K (test code = 6229561397) 3.5 mmol/L 3.5-5.0 CL (test code = 1043787087) 108 mmol/L 98-108 CO2 TOTAL (test code = 9839930382) 23 mmol/L 23-31 AGAP (test code = 4566614050) 2-16 BUN (test code = 4348303524) 7 mg/dL 7-23 GLUCOSE (test code = 4576904654) 74 mg/dL 70-110 CREATININE (test code = 7296582764) 0.87 mg/dL 0.50-1.04 CALCIUM (test code = 9811123850) 9.2 mg/dL 8.6-10.6 eGFR (test code = 3426394323) mL/min/1.73m2 TARYN (test code = TARYN) Association [...] or urine or abnormalities in imaging tests). [facility] with [id number] 10:54:19* Test Item Value Reference Range Interpretation Comme nts WBC (test code = 6690-2) See_Comment [Automated SeeVolutiona Social Median] The system which generated this result transmitted reference range: 4.30 - 11.10 10*3/?L. The reference range was not used to interpret this result as normal/abnormal. RBC (test code = 789-8) See_Comment [Automated SeeVolutiona ge] The system which generated this result transmitted reference range: 3.93 - 5.25 10*6/?L. The reference range was not used to interpret this result as normal/abnormal. HGB (test code = 718-7) 10.8 g/dL 11.6-15.0 L HCT (test code = 4544-3) 34.7 % 35.7-45.2 L MCV (test code = 787-2) 84.0 fL 80.6-95.5 MCH (test code = 785-6) 26.2 pg 25.9-32.8 MCHC (test code = 786-4) 31.1 g/dL 31.6-35.1 L RDW-SD (test code = 02433-4) 39.9 fL 39.0-49.9 RDW-CV (test code = 788-0) 13.2 % 12.0-15.5 PLT (test code = 777-3) See_Comment L [Automated SeeVolutiona ge] The system which generated this result transmitted reference range: 166 - 358 10*3/?L. The reference range was not used to interpret this result as normal/abnormal. MPV (test code = 14796-5) 11.9 fL 9.5-12.9 NRBC/100 WBC (test code = 1364682977) See_Comment [Automated CogniK ssage] The system which generated this result transmitted reference range: 0.0 - 10.0 /100 WBCs. The reference range was not used to interpret this result as normal/abnormal. NRBC x10^3 (test code = 5731145969) <0.01 See_Comment [Automated SeeVolutiona ge] The system which generated this result transmitted reference range: 10*3/?L. The reference range was not used to interpret this result as normal/abnormal. GRAN MAT (NEUT) % (test code = 770-8) 53.8 % IMM GRAN % (test code = 9098772192) 0.20 % LYMPH % (test code = 736-9) 32.6 % MONO % (test code = 5905-5) 7.5 % EOS % (test code = 713-8) 5.3 % BASO % (test code = 706-2) 0.6 % GRAN MAT x10^3(ANC) (test code = 1950042115) 2.64 10*3/uL 1.88-7.09 IMM GRAN x10^3 (test code = 4470205140) <0.03 0.00-0.06 LYMPH x10^3 (test code = 731-0) 1.60 10*3/uL 1.32-3.29 MONO x10^3 (test code = 742-7) 0.37 10*3/uL 0.33-0.92 EOS x10^3 (test code = 711-2) 0.26 10*3/uL 0.03-0.39 BASO x10^3 (test code = 704-7) 0.03 10*3/uL 0.01-0.07 Lab Interpretation (test code = 38483-3) Abnormal [facility] with [id number] 10:54:19* Test Item Value Reference Range Interpretation Comme nts WBC (test code = 6690-2) See_Comment [Automated SeeVolutiona ge] The system which generated this result transmitted reference range: 4.30 - 11.10 10*3/?L. The reference range was not used to interpret this result as normal/abnormal. RBC (test code = 789-8) See_Comment [Automated SeeVolutiona ge] The system which generated this result transmitted reference range: 3.93 - 5.25 10*6/?L. The reference range was not used to interpret this result as normal/abnormal. HGB (test code = 718-7) 10.8 g/dL 11.6-15.0 L HCT (test code = 4544-3) 34.7 % 35.7-45.2 L MCV (test code = 787-2) 84.0 fL 80.6-95.5 MCH (test code = 785-6) 26.2 pg 25.9-32.8 MCHC (test code = 786-4) 31.1 g/dL 31.6-35.1 L RDW-SD (test code = 94816-9) 39.9 fL 39.0-49.9 RDW-CV (test code = 788-0) 13.2 % 12.0-15.5 PLT (test code = 777-3) See_Comment L [Automated messa ge] The system which generated this result transmitted reference range: 166 - 358 10*3/?L. The reference range was not used to interpret this result as normal/abnormal. MPV (test code = 64922-9) 11.9 fL 9.5-12.9 NRBC/100 WBC (test code = 7399479877) See_Comment [Automated me ssage] The system which generated this result transmitted reference range: 0.0 - 10.0 /100 WBCs. The reference range was not used to interpret this result as normal/abnormal. NRBC x10^3 (test code = 3799531006) <0.01 See_Comment [Automated messa ge] The system which generated this result transmitted reference range: 10*3/?L. The reference range was not used to interpret this result as normal/abnormal. GRAN MAT (NEUT) % (test code = 770-8) 53.8 % IMM GRAN % (test code = 6894542242) 0.20 % LYMPH % (test code = 736-9) 32.6 % MONO % (test code = 5905-5) 7.5 % EOS % (test code = 713-8) 5.3 % BASO % (test code = 706-2) 0.6 % GRAN MAT x10^3(ANC) (test code = 9624040438) 2.64 10*3/uL 1.88-7.09 IMM GRAN x10^3 (test code = 8869509957) <0.03 0.00-0.06 LYMPH x10^3 (test code = 731-0) 1.60 10*3/uL 1.32-3.29 MONO x10^3 (test code = 742-7) 0.37 10*3/uL 0.33-0.92 EOS x10^3 (test code = 711-2) 0.26 10*3/uL 0.03-0.39 BASO x10^3 (test code = 704-7) 0.03 10*3/uL 0.01-0.07 Lab Interpretation (test code = 82668-2) [facility] Lnwusdp7887-02-33 16:10:08* Test Item Value Reference Range Interpretation Comme nts ABO & RH (test code = 20) O Positive Performed at [facility] Laboratory Services [facility] Blood [place] [address]Toll Free: [phone] No. [id number] IAT (test code = 1185) Negative Performed at [facility] Laboratory [facility] Blood [place] [address]Toll Free: [phone] No. [id number] [facility] - ONCE Kcjpmdu2867-29-00 16:10:08* Test Item Value Reference Range Interpretation Comme nts ABO & RH (test code = 20) O Positive Performed at [facility] Laboratory [facility] Blood [address] Free: [phone] No. [id number] IAT (test code = 1185) Negative Performed at [facility] Laboratory [address] Free: [phone] No. [id number] [facility]GNESIUM2021-06-27 15:44:41* Test Item Value Reference Range Interpretation Comme nts MAGNESIUM (test code = 8032163588) 2.0 mg/dL 1.7-2.4 Lab Interpretation (test cod e = 06291-8) [facility] 15:44:[facility]* Test Item Value Reference Range Interpretation Comme nts MAGNESIUM (test code = 6944718317) 2.0 mg/dL 1.7-2.4 Lab Interpretation (test cod e = 02690-9) Normal [facility] HospitalCOMP[facility] METABOLIC PANEL (17959)2020-10-06 15:44:21* Test Item Value Reference Range Interpretation Comme nts NA (test code = 0325207865) 140 mmol/L 135-145 K (test code = 3878145893) 3.0 mmol/L 3.5-5.0 L CL (test code = 2391152435) 106 mmol/L 98-108 CO2 TOTAL (test code = 0539058183) 26 mmol/L 23-31 AGAP (test code = 1994126474) 2-16 BUN (test code = 2665576361) 9 mg/dL 7-23 GLUCOSE (test code = 5478985171) 81 mg/dL 70-110 CREATININE (test code = 1123891848) 0.91 mg/dL 0.50-1.04 TOTAL BILI (test code = 3743946324) 0.5 mg/dL 0.1-1.1 CALCIUM (test code = 8477597269) 9.2 mg/dL 8.6-10.6 T PROTEIN (test code = 4812835046) 7.4 g/dL 6.3-8.2 ALBUMIN (test code = 1883724972) 3.8 g/dL 3.5-5.0 ALK PHOS (test code = 1543991341) 80 U/L 34-122 ALTv (test code = 1742-6) 17 U/L 5-35 AST(SGOT) (test code = 8115481656) 21 U/L 13-40 eGFR (test code = 2634065428) mL/min/1.73m2 TARYN (test code = TARYN) Association [...] imaging tests). Lab Interpretation (test code = 39589-0) Abnormal [facility]. METABOLIC PANEL (91294)2020-10-06 15:44:21* Test Item Value Reference Range Interpretation Comme nts NA (test code = 8596349319) 140 mmol/L 135-145 K (test code = 7144114021) 3.0 mmol/L 3.5-5.0 L CL (test code = 4062879308) 106 mmol/L 98-108 CO2 TOTAL (test code = 5179418946) 26 mmol/L 23-31 AGAP (test code = 3817128401) 2-16 BUN (test code = 1302856117) 9 mg/dL 7-23 GLUCOSE (test code = 9862551410) 81 mg/dL 70-110 CREATININE (test code = 3684199236) 0.91 mg/dL 0.50-1.04 TOTAL BILI (test code = 9926111726) 0.5 mg/dL 0.1-1.1 CALCIUM (test code = 1688691589) 9.2 mg/dL 8.6-10.6 T PROTEIN (test code = 3909601060) 7.4 g/dL 6.3-8.2 ALBUMIN (test code = 5995302836) 3.8 g/dL 3.5-5.0 ALK PHOS (test code = 8337344747) 80 U/L 34-122 ALTv (test code = 1742-6) 17 U/L 5-35 AST(SGOT) (test code = 1076719167) 21 U/L 13-40 eGFR (test code = 5070876378) mL/min/1.73m2 TARYN (test code = TARYN) Association [...] imaging tests). Lab Interpretation (test code = 07986-1) Abnormal [facility] TPMQGADWGBHB4758-04-35 15:36:39* Test Item Value Reference Range Interpretation Comme nts ABO & RH (test code = 20) O Positive Performed at [facility] Laboratory [facility] Blood [address] Free: [phone] No. [id number] [facility] XDMWBJPUWMQU3453-07-16 15:36:39* Test Item Value Reference Range Interpretation Comme nts ABO & RH (test code = 20) O Positive Performed at [facility] Blood [address] Free: [phone] No. [id number] [facility]ACT[facility] THRMPLAS VFN8443-85-88 15:33:00* Test Item Value Reference Range Interpretation Comme nts APTT Patient (test code = 3173-2) See_Comment [Automated message] The system which generated this result transmitted reference range: 23 - 38 Seconds. The reference range was not used to interpret this result as normal/abnormal. TARYN (test code = TARYN) The [facility] patient population mean normal value for aPTT is 30 seconds. Lab Interpretation (test code = 69843-1) Normal [facility]ACT[facility] TH[facility] XBS0358-10-15 15:33:00* Test Item Value Reference Range Interpretation Comme nts APTT Patient (test code = 3173-2) See_Comment [Automated message] The system which generated this result transmitted reference range: 23 - 38 Seconds. The reference range was not used to interpret this result as normal/abnormal. TARYN (test code = TARYN) The [facility] patient population mean normal value for aPTT is 30 seconds. Lab Interpretation (test code = 36733-3) Normal [facility] HospitalPROTHROMBIN TIME / [id number] 15:31:00* Test Item Value Reference Range Interpretation Comme nts PROTIME PATIENT (test code = 5964-2) See_Comment [Automated SeeVolutiona Social Median] The system which generated this result transmitted reference range: 12.0 - 14.7 Seconds. The reference range was not used to interpret this result as normal/abnormal. INR (test code = 6301-6) Normal INR <1.1; Warfarin Therapeutic range 2.0 to 3.0 or 2.5 to 3.5, depending upon the indications. Lab Interpretation (test code = 72766-1) Normal [facility] HospitalPROTHROMBIN TIME / [id number] 15:31:00* Test Item Value Reference Range Interpretation Comme nts PROTIME PATIENT (test code = 5964-2) See_Comment [Automated messa ge] The system which generated this result transmitted reference range: 12.0 - 14.7 Seconds. The reference range was not used to interpret this result as normal/abnormal. INR (test code = 6301-6) Normal INR <1.1; Warfarin Therapeutic range 2.0 to 3.0 or 2.5 to 3.5, depending upon the indications. Lab Interpretation (test code = 46975-9) Normal [facility] HospitalCBC WITH [id number] 15:22:21* Test Item Value Reference Range Interpretation Comme nts WBC (test code = 6690-2) See_Comment [Automated messa ge] The system which generated this result transmitted reference range: 4.30 - 11.10 10*3/?L. The reference range was not used to interpret this result as normal/abnormal. RBC (test code = 789-8) See_Comment [Automated messa ge] The system which generated this result transmitted reference range: 3.93 - 5.25 10*6/?L. The reference range was not used to interpret this result as normal/abnormal. HGB (test code = 718-7) 11.0 g/dL 11.6-15.0 L HCT (test code = 4544-3) 33.2 % 35.7-45.2 L MCV (test code = 787-2) 79.2 fL 80.6-95.5 L MCH (test code = 785-6) 26.3 pg 25.9-32.8 MCHC (test code = 786-4) 33.1 g/dL 31.6-35.1 RDW-SD (test code = 89084-7) 37.1 fL 39.0-49.9 L RDW-CV (test code = 788-0) 13.1 % 12.0-15.5 PLT (test code = 777-3) See_Comment [Automated messa ge] The system which generated this result transmitted reference range: 166 - 358 10*3/?L. The reference range was not used to interpret this result as normal/abnormal. MPV (test code = 51425-0) 10.2 fL 9.5-12.9 NRBC/100 WBC (test code = 9197723288) See_Comment [Automated CogniK ssage] The system which generated this result transmitted reference range: 0.0 - 10.0 /100 WBCs. The reference range was not used to interpret this result as normal/abnormal. NRBC x10^3 (test code = 5241909906) <0.01 See_Comment [Automated messa ge] The system which generated this result transmitted reference range: 10*3/?L. The reference range was not used to interpret this result as normal/abnormal. GRAN MAT (NEUT) % (test code = 770-8) 65.3 % IMM GRAN % (test code = 0515008676) 0.40 % LYMPH % (test code = 736-9) 22.6 % MONO % (test code = 5905-5) 8.8 % EOS % (test code = 713-8) 2.5 % BASO % (test code = 706-2) 0.4 % GRAN MAT x10^3(ANC) (test code = 2042214505) 4.75 10*3/uL 1.88-7.09 IMM GRAN x10^3 (test code = 9435648974) 0.03 10*3/uL 0.00-0.06 LYMPH x10^3 (test code = 731-0) 1.64 10*3/uL 1.32-3.29 MONO x10^3 (test code = 742-7) 0.64 10*3/uL 0.33-0.92 EOS x10^3 (test code = 711-2) 0.18 10*3/uL 0.03-0.39 BASO x10^3 (test code = 704-7) 0.03 10*3/uL 0.01-0.07 Lab Interpretation (test code = 79527-6) Abnormal [facility] WITH GDLW1606-05-97 15:22:21* Test Item Value Reference Range Interpretation Comme nts WBC (test code = 6690-2) See_Comment [Automated messa ge] The system which generated this result transmitted reference range: 4.30 - 11.10 10*3/?L. The reference range was not used to interpret this result as normal/abnormal. RBC (test code = 789-8) See_Comment [Automated SeeVolutiona ge] The system which generated this result transmitted reference range: 3.93 - 5.25 10*6/?L. The reference range was not used to interpret this result as normal/abnormal. HGB (test code = 718-7) 11.0 g/dL 11.6-15.0 L HCT (test code = 4544-3) 33.2 % 35.7-45.2 L MCV (test code = 787-2) 79.2 fL 80.6-95.5 L MCH (test code = 785-6) 26.3 pg 25.9-32.8 MCHC (test code = 786-4) 33.1 g/dL 31.6-35.1 RDW-SD (test code = 18979-9) 37.1 fL 39.0-49.9 L RDW-CV (test code = 788-0) 13.1 % 12.0-15.5 PLT (test code = 777-3) See_Comment [Automated messa ge] The system which generated this result transmitted reference range: 166 - 358 10*3/?L. The reference range was not used to interpret this result as normal/abnormal. MPV (test code = 18242-6) 10.2 fL 9.5-12.9 NRBC/100 WBC (test code = 8880614177) See_Comment [Automated CogniK ssage] The system which generated this result transmitted reference range: 0.0 - 10.0 /100 WBCs. The reference range was not used to interpret this result as normal/abnormal. NRBC x10^3 (test code = 6754099248) <0.01 See_Comment [Automated messa ge] The system which generated this result transmitted reference range: 10*3/?L. The reference range was not used to interpret this result as normal/abnormal. GRAN MAT (NEUT) % (test code = 770-8) 65.3 % IMM GRAN % (test code = 7046781894) 0.40 % LYMPH % (test code = 736-9) 22.6 % MONO % (test code = 5905-5) 8.8 % EOS % (test code = 713-8) 2.5 % BASO % (test code = 706-2) 0.4 % GRAN MAT x10^3(ANC) (test code = 7203581150) 4.75 10*3/uL 1.88-7.09 IMM GRAN x10^3 (test code = 6501718563) 0.03 10*3/uL 0.00-0.06 LYMPH x10^3 (test code = 731-0) 1.64 10*3/uL 1.32-3.29 MONO x10^3 (test code = 742-7) 0.64 10*3/uL 0.33-0.92 EOS x10^3 (test code = 711-2) 0.18 10*3/uL 0.03-0.39 BASO x10^3 (test code = 704-7) 0.03 10*3/uL 0.01-0.07 Lab Interpretation (test code = 09430-3) Abnormal [facility]19 (ID NOW RAPID TESTING)2020-10-06 06:31:15* Test Item Value Reference Range Interpretation Comme [facility] SARS-CoV-2 Rapid ID NOW (test code = 40706-5) Not Detected Not Detected TARYN (test code = TARYN) ID NOW COVID-19 As say is an isothermal nucleic acid amplification test intended for the qualitative detection of nucleic acid from SARS-CoV-2 viral RNA in nasopharyngeal (SPRINKLING SYSTEM INST[employer]ER) specimens. It is used under Emergency Use Authorization (EUA) by [facility]. The limit of detection (LOD) of the [...] patient testing if clinically indicated. Lab Interpretation (test code = 02082-2) [facility]-19 (ID NOW RAPID TESTING)2020-10-06 06:31:15* Test Item Value Reference Range Interpretation Comme [facility] SARS-CoV-2 Rapid ID NOW (test code = 16108-8) Not Detected Not Detected TARYN (test code = TARYN) ID NOW COVID-19 As say is an isothermal nucleic acid amplification test intended for the qualitative detection of nucleic acid from SARS-CoV-2 viral RNA in nasopharyngeal (SPRINKLING SYSTEM INST[employer]ER) specimens. It is used under Emergency Use Authorization (EUA) by [facility]. The limit of detection (LOD) of the [...] patient testing if clinically indicated. Lab Interpretation (test code = 26004-8) Normal [facility] HospitalComplete Metabolic Eabgu8362-22-61 04:23:07* Test Item Value Reference Range Interpretation Comme nts NA (test code = 7293679672) 139 mmol/L 135-145 K (test code = 7597912836) 3.0 mmol/L 3.5-5.0 L CL (test code = 6008353271) 103 mmol/L 98-108 CO2 TOTAL (test code = 0643274103) 28 mmol/L 23-31 AGAP (test code = 4359311828) 2-16 BUN (test code = 5930035460) 12 mg/dL 7-23 GLUCOSE (test code = 4776638538) 100 mg/dL 70-110 CREATININE (test code = 9089665025) 1.18 mg/dL 0.50-1.04 H TOTAL BILI (test code = 2870438990) 0.4 mg/dL 0.1-1.1 CALCIUM (test code = 3945125042) 9.5 mg/dL 8.6-10.6 T PROTEIN (test code = 6327887889) 7.8 g/dL 6.3-8.2 ALBUMIN (test code = 3675561041) 4.1 g/dL 3.5-5.0 ALK PHOS (test code = 3750845261) 90 U/L 34-122 ALTv (test code = 1742-6) 19 U/L 5-35 AST(SGOT) (test code = 9988281038) 24 U/L 13-40 eGFR (test code = 3521250335) mL/min/1.73m2 TARYN (test code = TARYN) Association [...] imaging tests). Lab Interpretation (test code = 00621-1) [facility]normal [facility] Metabolic [place]uk9872-60-20 04:23:07* Test Item Value Reference Range Interpretation Comme nts NA (test code = 0359574110) 139 mmol/L 135-145 K (test code = 5731207682) 3.0 mmol/L 3.5-5.0 L CL (test code = 5925860026) 103 mmol/L 98-108 CO2 TOTAL (test code = 9309825238) 28 mmol/L 23-31 AGAP (test code = 3420452859) 2-16 BUN (test code = 2036084733) 12 mg/dL 7-23 GLUCOSE (test code = 9621690251) 100 mg/dL 70-110 CREATININE (test code = 1968281335) 1.18 mg/dL 0.50-1.04 H TOTAL BILI (test code = 2844740288) 0.4 mg/dL 0.1-1.1 CALCIUM (test code = 6530853985) 9.5 mg/dL 8.6-10.6 T PROTEIN (test code = 8285144575) 7.8 g/dL 6.3-8.2 ALBUMIN (test code = 8656538741) 4.1 g/dL 3.5-5.0 ALK PHOS (test code = 7274588669) 90 U/L 34-122 ALTv (test code = 1742-6) 19 U/L 5-35 AST(SGOT) (test code = 1515541306) 24 U/L 13-40 eGFR (test code = 8828718125) mL/min/1.73m2 TARYN (test code = TARYN) Association [...] imaging tests). Lab Interpretation (test code = 88433-2) [facility]normal [facility] HospitalLip[facility], Boggt0467-09-95 04:22:26* Test Item Value Reference Range Interpretation Comme nts LIPASE (test code = 9163553626) 37 U/L 0-220 Lab Interpretation (test cod e = 25724-1) Normal [facility] HospitalLipase, Nskvk3038-51-80 04:22:26* Test Item Value Reference Range Interpretation Comme nts LIPASE (test code = 9128589899) 37 U/L 0-220 Lab Interpretation (test cod e = 29536-9) Normal [facility] HospitalUrinalysis2021-06-27 04:12:09* Test Item Value Reference Range Interpretation Comme nts APPEARANCE (test code = 5867769830) Cloudy Clear A COLOR (test code = 3349128705) Chanel Yellow A PH (test code = 1655596279) 4.8-8.0 SP GRAVITY (test code = 4874662293) 1.003-1.030 GLU U QUAL (test code = 8984272381) Normal Normal BLOOD (test code = 6539170036) Negative Negative KETONES (test code = 4178323598) 20 mg/dL Negative A PROTEIN (test code = 2887-8) 30 mg/dL Negative A UROBILIN (test code = 0357513841) 2.0 mg/dL Normal A BILIRUBIN (test code = 2400655490) Negative Negative NITRITE (test code = 8563817939) Negative Negative LEUK DENG (test code = 8111081610) Negative Negative RBC/HPF (test code = 9529885917) See_Comment H [Automated messa ge] The system which generated this result transmitted reference range: 0 - 3 HPF. The reference range was not used to interpret this result as normal/abnormal. WBC/HPF (test code = 8269825353) See_Comment H [Automated messa ge] The system which generated this result transmitted reference range: 0 - 5 HPF. The reference range was not used to interpret this result as normal/abnormal. BACTERIA (test code = 3151597639) Few Negative A MUCOUS (test code = 9258709718) Marked Negative LPF A SQ EPITH (test code = 0487053214) HPF HYAL CAST (test code = 3727642050) See_Comment H [Automated messa ge] The system which generated this result transmitted reference range: <=2 LPF. The reference range was not used to interpret this result as normal/abnormal. Lab Interpretation (test code = 80813-0) [facility]normal [facility] HospitalUrinalysis2021-06-27 04:12:09* Test Item Value Reference Range Interpretation Comme nts APPEARANCE (test code = 7002604680) Cloudy Clear A COLOR (test code = 4527628259) Chanel Yellow A PH (test code = 7954201862) 4.8-8.0 SP GRAVITY (test code = 8688615747) 1.003-1.030 GLU U QUAL (test code = 9281514352) Normal Normal BLOOD (test code = 5970979359) Negative Negative KETONES (test code = 2314068111) 20 mg/dL Negative A PROTEIN (test code = 2887-8) 30 mg/dL Negative A UROBILIN (test code = 9066244292) 2.0 mg/dL Normal A BILIRUBIN (test code = 8831790785) Negative Negative NITRITE (test code = 6246983328) Negative Negative LEUK DENG (test code = 1098033192) Negative Negative RBC/HPF (test code = 9031033461) See_Comment H [Automated messa ge] The system which generated this result transmitted reference range: 0 - 3 HPF. The reference range was not used to interpret this result as normal/abnormal. WBC/HPF (test code = 0403929047) See_Comment H [Automated messa ge] The system which generated this result transmitted reference range: 0 - 5 HPF. The reference range was not used to interpret this result as normal/abnormal. BACTERIA (test code = 8958564026) Few Negative A MUCOUS (test code = 3529077089) Marked Negative LPF A SQ EPITH (test code = 5491051846) HPF HYAL CAST (test code = 2361298974) See_Comment H [Automated messa ge] The system which generated this result transmitted reference range: <=2 LPF. The reference range was not used to interpret this result as normal/abnormal. Lab Interpretation (test code = 87787-7) Abnormal [facility] with Wivizpczhkhf3580-09-07 03:48:43* Test Item Value Reference Range Interpretation Comme nts WBC (test code = 6690-2) See_Comment [Automated messa ge] The system which generated this result transmitted reference range: 4.30 - 11.10 10*3/?L. The reference range was not used to interpret this result as normal/abnormal. RBC (test code = 789-8) See_Comment [Automated messa ge] The system which generated this result transmitted reference range: 3.93 - 5.25 10*6/?L. The reference range was not used to interpret this result as normal/abnormal. HGB (test code = 718-7) 11.7 g/dL 11.6-15.0 HCT (test code = 4544-3) 35.3 % 35.7-45.2 L MCV (test code = 787-2) 78.8 fL 80.6-95.5 L MCH (test code = 785-6) 26.1 pg 25.9-32.8 MCHC (test code = 786-4) 33.1 g/dL 31.6-35.1 RDW-SD (test code = 75479-7) 36.4 fL 39.0-49.9 L RDW-CV (test code = 788-0) 12.9 % 12.0-15.5 PLT (test code = 777-3) See_Comment [Automated messa ge] The system which generated this result transmitted reference range: 166 - 358 10*3/?L. The reference range was not used to interpret this result as normal/abnormal. MPV (test code = 89470-4) 10.5 fL 9.5-12.9 NRBC/100 WBC (test code = 6661760920) See_Comment [Automated CogniK ssage] The system which generated this result transmitted reference range: 0.0 - 10.0 /100 WBCs. The reference range was not used to interpret this result as normal/abnormal. NRBC x10^3 (test code = 1988243827) <0.01 See_Comment [Automated SeeVolutiona ge] The system which generated this result transmitted reference range: 10*3/?L. The reference range was not used to interpret this result as normal/abnormal. GRAN MAT (NEUT) % (test code = 770-8) 64.4 % IMM GRAN % (test code = 2778085480) 0.30 % LYMPH % (test code = 736-9) 23.9 % MONO % (test code = 5905-5) 9.0 % EOS % (test code = 713-8) 2.1 % BASO % (test code = 706-2) 0.3 % GRAN MAT x10^3(ANC) (test code = 7649263062) 4.93 10*3/uL 1.88-7.09 IMM GRAN x10^3 (test code = 1279043356) <0.03 0.00-0.06 LYMPH x10^3 (test code = 731-0) 1.83 10*3/uL 1.32-3.29 MONO x10^3 (test code = 742-7) 0.69 10*3/uL 0.33-0.92 EOS x10^3 (test code = 711-2) 0.16 10*3/uL 0.03-0.39 BASO x10^3 (test code = 704-7) <0.03 0.01-0.07 Lab Interpretation (test code = 88810-7) Abnormal [facility] with Jevtfynuqrpy2075-31-82 03:48:43* Test Item Value Reference Range Interpretation Comme nts WBC (test code = 6690-2) See_Comment [Automated messa ge] The system which generated this result transmitted reference range: 4.30 - 11.10 10*3/?L. The reference range was not used to interpret this result as normal/abnormal. RBC (test code = 789-8) See_Comment [Automated messa ge] The system which generated this result transmitted reference range: 3.93 - 5.25 10*6/?L. The reference range was not used to interpret this result as normal/abnormal. HGB (test code = 718-7) 11.7 g/dL 11.6-15.0 HCT (test code = 4544-3) 35.3 % 35.7-45.2 L MCV (test code = 787-2) 78.8 fL 80.6-95.5 L MCH (test code = 785-6) 26.1 pg 25.9-32.8 MCHC (test code = 786-4) 33.1 g/dL 31.6-35.1 RDW-SD (test code = 36513-7) 36.4 fL 39.0-49.9 L RDW-CV (test code = 788-0) 12.9 % 12.0-15.5 PLT (test code = 777-3) See_Comment [Automated messa ge] The system which generated this result transmitted reference range: 166 - 358 10*3/?L. The reference range was not used to interpret this result as normal/abnormal. MPV (test code = 83093-9) 10.5 fL 9.5-12.9 NRBC/100 WBC (test code = 4637326224) See_Comment [Automated CogniK ssage] The system which generated this result transmitted reference range: 0.0 - 10.0 /100 WBCs. The reference range was not used to interpret this result as normal/abnormal. NRBC x10^3 (test code = 0006019544) <0.01 See_Comment [Automated messa ge] The system which generated this result transmitted reference range: 10*3/?L. The reference range was not used to interpret this result as normal/abnormal. GRAN MAT (NEUT) % (test code = 770-8) 64.4 % IMM GRAN % (test code = 6154750799) 0.30 % LYMPH % (test code = 736-9) 23.9 % MONO % (test code = 5905-5) 9.0 % EOS % (test code = 713-8) 2.1 % BASO % (test code = 706-2) 0.3 % GRAN MAT x10^3(ANC) (test code = 7015189415) 4.93 10*3/uL 1.88-7.09 IMM GRAN x10^3 (test code = 4926886104) <0.03 0.00-0.06 LYMPH x10^3 (test code = 731-0) 1.83 10*3/uL 1.32-3.29 MONO x10^3 (test code = 742-7) 0.69 10*3/uL 0.33-0.92 EOS x10^3 (test code = 711-2) 0.16 10*3/uL 0.03-0.39 BASO x10^3 (test code = 704-7) <0.03 0.01-0.07 Lab Interpretation (test code = 08623-1) [facility]normal [facility] [id number] 13:36:00* Test Item Value Reference Range Interpretation Comme nts SARS-CoV-2 (test code = 65121-2) Not Detected Not Detected TARYN (test code = TARYN) ID NOW COVID-19 As say is an isothermal nucleic acid amplification test intended for the qualitative detection of nucleic acid from SARS-CoV-2 viral RNA in nasopharyngeal ([employer]) specimens. It is used under Emergency Use [...] patient testing if clinically indicated. Lab Interpretation (test code = 56910-2) [facility] VW [id number] 13:25:331. Minimal bibasilar pulmonary congestion, nonspecific finding were viralinfection/bronchitis.2. Nopneumonia. Disclaimer: Generally, the findings on chest imaging in COVID-19 are notspecific, and overlap with other infections, including influenza, H1N1,SARS and MERS.According to the Centers for Disease Control (CDC) and the [employer], viral testing remains the only specific method of diagnosiseven if CXR or CT findings are suggestive of COVID-19. PROCEDURE: CHEST XRAY, portable AP erect view. CLINICAL INDICATION: cough COMPARISON: Chest x-ray dated 11/25/2017. FINDINGS: Lungs: Minimal congestion in the lower lungs without focal area ofconsolidation. Pleura: No pleural effusion or pneumothorax is seen. The heart isborderline enlarged. No acute bony abnormality. [facility], Radiant Results Inft User - 08/09/2019 8:26 AM CDTPROCEDURE: CHEST XRAY, portable AP erect view.CLINICAL INDICATION: cough COMPARISON: Chest x-ray dated 11/25/2017.FINDINGS:Lungs: Minimal congestion in the lower lungs without focal area ofconsolidation.Pleura: No pleural effusion or pneumothorax is seen. The heart isborderline enlarged.No acute bony abnormality.IMPRESSION1. Minimal bibasilar pulmonarycongestion, nonspecific finding were viralinfection/bronchitis.2. No pneumonia. Disclaimer: Generally, the findings on chest imaging in COVID-19 are notspecific, and overlap with other infections, including influenza, H1N1,SARS and MERS.According to the Centers for Disease Control (CDC) and the [employer], viral testing remains the only specific method of diagnosiseven if CXR orCT findings are suggestive of COVID-19.[facility] History and Physical Notes Date/Time Note Provider Source 2023-05-27 06:15:26 86gUX80er8VcXWt+XA2x JTdAlX6ACrkHCZUWTsXTBm XZi9INFRIBQJJujJAujb2m9301-56-22P07:15:26F ormatting of this note might be different from the original.Bariatric Surgery H&P Update 05/27/2023ose Bobbi Lopez is a 52 year old female who presents for upper endoscopy. Since last being seen in clinic, the patient has been doing well with no interval health changes. Properly NPO. Signed consent is on the chart. Please see clinic note below for further details.ALBERTO Weiner-2 Surgery Resident ssociated attestation - Michell Méndez MD - 05/27/2023 8:20 AM CST After discussion with Dr. Diaz, I examined this patient. I agree with resident's note as written.Emily Francis ProfessorDivision of Minimally Invasive Surgery05/27/2023Source Note - Michell Méndez MD - 05/17/2023 10:30 AM CST GENERAL SURGERY CLINIC NOTEDate of Service: 05/17/2023 10:44CC: chronic abdominal woundSUBJECT:Bonifacio Lopez is a 52 year old female with history of gastric sleeve for morbid obesity, which was subsequently converted to some sort of gastric bypass in 2019, possible history of contained perforated marginal ulcer who presents today for evaluation of chronic abdominal wound.She reports onset of wound since about February of 2023, lower abdomen, scant drainage from time to time, brown in color. She has been doing local wound care with peroxide with minimal results.Pertinent history includes a hospital admission in 2020 due to concern for contained perforation at her GJ anastomosis, which was managed non-operatively. She had an EGD at that time, which demonstrated altered bypass anatomy (unsure of particular surgical history, possible RADHA-S vs. Possible OAGB) with ulceration at the anastomosis. Recommendations were for f/u outpatient for repeat EGD, for which she was lost to f/u. She was recently then seen by General Surgery due to chronic abdominal wound, concern for possible ECF. CTAP was obtained without oral contrast which demonstrated no acute findings, s/p sleeve. They also ordered nutritional labs, albumin 4.1, prealbumin 11.CURRENT HOSPITAL MEDICATIONSCurrent Outpatient MedicationsMedication Sig Dispense Refillcyclobenzaprine HCl (CYCLOBENZAPRINE ORAL) Take by mouth.FLUoxetine 20 mg capsule Take 1 capsule by mouth every morning.hydrOXYzine 25 mg tablet TAKE 1 TABLET BY MOUTH FOUR TIMES DAILY NEEDED FOR ANXIETYrisperiDONE 1 mg tablet Take 1 tablet by mouth at bedtime.traZODone 50 mg tablet TAKE 1 TABLET BY MOUTH EVERY DAY NEEDED FOR SLEEP.traMADoL 50 mg tablet Take 1 tablet by mouth every 6 (six) hours as needed.lithium carbonate 300 mg tablet Take 1 tablet by mouth in the morning and 1 tablet at noon and 1 tablet in the evening.pantoprazole 40 mg EC tablet Take 1 tablet by mouth in the morning for 90 days. 30 tablet 2acetaminophen 500 mg tablet Take 2 tablets by mouth every 8 (eight) hours as needed for Pain.busPIRone 10 mg tablet Take 1 tablet by mouth in the morning and 1 tablet at noon and 1 tablet in the evening.No current facility-administered medications for this visit.HISTORYPast Surgical History:Procedure Laterality DateBACK SURGERYbulging disc repairESOPHAGOGASTRODUODENOSCOPY N/A 10/08/2020urgeon: Dante Nieves MD; Location: Endoscopy ([facility]) OR LocationEXPLORATORY LAPAROTOMYHYSTERECTOMY PARTIAL ABDOMINAL LAPAROSCOPY ([facility]) 1995[place]APAROSCOP GASTRIC BYPASS 2019[place] Medical History:Diagnosis DateBipolar disease, chronicChronic back painDepressionSeasonal allergiesSocial HistorySocioeconomic HistoryMarital status: MarriedSpouse name: Not on fileNumber of children: Not on fileYears of education: Not on fileHighest education level: Not on fileOccupational HistoryNot on fileTobacco UseSmoking status: FormerSmokeless tobacco: NeverSubstance and Sexual ActivityAlcohol use: NoDrug use: NoSexual activity: NeverOther Topics ConcernNot on fileSocial History NarrativeShe lives with her 2 sons and daughter.She's not currently working.She gets routine exercise using her exercise bike.Social Determinants of HealthFinancial Resource Strain: Not on fileFood Insecurity: Not on fileTransportation Needs: Not on filePhysical Activity: Not on fileStress: Not on fileSocial Connections: Not on fileIntimate Partner Violence: Not on fileHousing Stability: Not on fileREVIEW OF SYSTEMSConstitutional: no fever, chillsHEENT: No headache, no vision changesCV: No chest painResp: No cough, no shortness of breathGI: + abdominal wound no nausea, vomiting, diarrhea, constipationNeuro: No numbness, tinglingSkin: No rashEndo: No heat or cold intoleranceMusculoskeletal: No joint painHeme: No easy bruisingPHYSICAL EXAMBP 106/73 | Pulse 94 | Temp 35.9 ?C (96.7 ?F) | Resp 20 | Ht 1.575 m (5' 2") | Wt 65.3 kg (144 lb) | SpO2 98% | BMI 26.34 kg/m?Constitutional: Alert, awakeHEENT: Extraocular movements intact, no icterus, moist mucous membranesNeck: Supple, full range of motion.Respiratory: Breathing is clear and easy on room airCardio: Regular rate and rhythmAbdomen: Soft, non-distended, lower midline wound noted with granulation tissue, no obvious fascial defect or opening noted with gently probe with q-tip, no major drainage notedGU: not testedRectal: not testedExtremities: No clubbing, cyanosis, or edema. Moves all extremitiesSkin: No rashesNeurologic: alert and oriented x 3LABORATORY/MICROBIOLOGYLabs reviewed by me on 05/17/2023. Pertinent labs include: albumin 4.1, prealbumin 11, hgb 10.7RADIOLOGYRadiology reviewed by me on 05/17/2023. Pertinent imaging includes: CTAP (05/06/23)CONCLUSION:1. No acute findings in contrast enhanced CT scan of abdomen.2. S/P sleeve gastrectomy.3. Elongated shaped mildly hydropic gallbladder noted without any other CTdetectable abnormalities.4. Areas of cortical scarring of the kidneys, likely secondary to remoteurinary tract infection, less likely due to remote vascular insults.ASSESSMENT/PLANRose Bobbi Lopez is a 52 year old female with history of obesity s/p gastric sleeve converted to some type of gastric bypass who presents with chronic abdominal wound of unknown etiology. No obvious evidence of abscess, fluid collection or fistula on exam or recent CTAP. However, CT without oral contrast at that time.PLAN:- CT abd/pelvis with po and IV contrast- additional nutritional labs, including vitamin levels, iron panel- continue local wound care at this time- will plan for repeat EGD to further assess anatomy and healing of previously noted ulceration; continue PPI in the meantimeEmily Francis ProfessorDivision of Minimally Invasive Surgery05/17/2023 65758-2Gnpfivdow History and physical [id number], Lauren1.2.840.662136.1.13.104.2.7.2.703579 UfZlhairoMlqaaxEL1566-36-77A19:20:25Attend ing History and physical noteTXT1.2.840.120642.1.13.104.2.7.2.70269 9|[id number] for patient ekur47498-0Aeqozhi and physical noteLNNARRATIVEFormatted C-CDA narrative text[address] Wc[id number] NGOOOOLIYXRTZXAP0146-62-80P01:20:251.2.840 .329827.1.72.3.15|1.2.840.250520.1.13.104. 2.7.2.727879_[id number] [facility] Notes Date/Time Note Provider Source 2023-05-21 10:30:00 WFIx4dnZn5z6fru3PMnk 7Qg301KAP62CqQalYU4FB8 JiSOfC86ZvWiPElUz3a+Ci6150-27-76G77:30:00F ormatting of this note might be different from the original.Labs drawn by RADIOLOGY4 SST1 DK XENIA1 CHRISTIAN pulled the labels for them and the collected from the IV needed for imaging 94041-9Ycezt KkdoGH2921-91-62X94:33:09Nurse NoteTXT1.2.840.654519.1.13.104.2.7.2.21807 9|[id number] for patient lbqt86394-4Rdqao NoteLNNARRATIVEFormatted C-CDA narrative text39 [address] [id number] BXOMXRVNICOKIPJU0767-30-06F41:33:091.2.840 .549639.1.72.3.15|1.2.840.660106.1.13.104. 2.7.2.727879_[id number] [facility] 2023-05-21 10:30:00 3IRT4SwSyq31ARaIdPPm /CxUBzuigVOvnMEUSY+umZ P89kRtqzxxda+UC8Uq7I5H1786-46-24C50:30:00A ddended by: HONEY MEAD, MICHELL Shell on: 05/24/2023 01:18 PMModules accepted: Orders [id number] TtncqyryDQ2303-11-09T93:18:10Addendum DocumentTXT1.2.840.139709.1.13.104.2.7.2.7 47438|[id number] for patient arus49891-5XzikOBFLERHRGVVDzcmiuvyj C-CDA narrative text[id number] QLLHHAJMJIFLDLTZ5854-78-62H86:18:101.2.840 .862516.1.72.3.15|1.2.840.767059.1.13.104. 2.7.2.727879_[id number] [facility] 2023-05-03 09:30:00 jfHfrG8FlTSDOFz2UUGC hsHj6EQ+oQSel9NKiuzHV2 5FnpLODhResC6JAH2LEzdI0155-56-50N34:30:00F ormatting of this note is different from the original.Images from the original note were not included.Venipuncture collection performed by clean technique on the left anticubitus. Total of 1 attempts were made. Slight pressure and a bandage/dressing were applied to the site(s). The patient experienced no complications. The following specimens were processed according to instructions and sent to [facility] laboratories per lab order on 05/03/2023:LT BLUESST 1REDLAV 1PPTDK GREEN (LiHep)DK GREEN (SodH)GRAYDK BLUE (K2)DK BLUE (S)ACDBlood CultureNIPT/NTD 57604-3Ztqfc AzkvLH7590-67-58J86:38:45Nurse NoteTXT1.2.840.589045.1.13.104.2.7.2.12395 9|[id number] for patient hkka14257-5Nwfdz NoteLNNARRATIVEFormatted C-CDA narrative text[address] My[id number] IKXOTRHWSACWKRUH7741-00-32Q94:38:451.2.840 .506021.1.72.3.15|1.2.840.964835.1.13.104. 2.7.2.727879_[id number] [facility]
[2023-08-04] MEDS ORDERED: ACETAMINOPHEN 500 MG TAB ONE (21:17)
[2023-08-04] MEDS ORDERED: NA CHLORIDE 0.9% 1,000 ML ONE (21:17)
[2023-08-04 21:26] LABS: Absolute Lymphocytes (CBC) 0.5 K/uL (0.7-4.9); Absolute Monocytes 0.6 K/uL (0.1-1.3); Absolute Neutrophil 8.5 K/uL (1.8-8.0); Basophils % 0.2 % (0-1.3); Hematocrit 38.2 % (36.0-45.0); Hemoglobin 12.7 g/dL (12.0-15.0); Lymphocytes % 5.2 % (15.3-44.8); MCH 26.9 pg (27.0-35.0); MCHC 33.2 g/dL (32.0-36.0); MCV 81.1 fL (80-100); MPV 8.6 fL (7.6-11.3); Monocytes % 6.7 % (3.3-12.3); Neutrophils % 87.9 % (41.7-73.7); Platelets 175 thou/uL (152-406); RBC Red Blood Cell Count 4.71 M/uL (3.86-4.86); Red Cell Distribution Width 14.6 % (12.1-15.2)
[2023-08-04 21:34] LABS: PT Prothrombin Time 13.6 SECONDS (9.5-12.5); PTT, Activated Partial Thromb 31.2 SECONDS (24.3-36.9); Protime INR 1.24
[2023-08-04 21:38] LABS: SARS-CoV-2 Antigen CONTROL BLUE LINE VIS/BG OK; SARS-CoV-2 Antigen Rapid Res Negative (Negative)
[2023-08-04 21:43] LABS: Albumin 3.6 g/dL (3.4-5.0); Albumin/Globulin Ratio 0.7 (1.1-1.8); Anion Gap 10.1 mEq/L (5.0-15.0); Bilirubin Total 0.7 mg/dL (0.2-1.0); Potassium 3.1 mEq/L (3.5-5.1); Protein, Total 8.6 g/dL (6.4-8.2)
[2023-08-04] MEDS ORDERED: POTASSIUM CL SA 10 MEQ TAB PO ONE (22:05)
--- NOTE | 2023-08-04 22:18 | RAD REPORT ---
EXAM DESCRIPTION: RADChest Single View08/04/2023 9:33 pm CLINICAL HISTORY: COUGH COMPARISON: Chest Pa And Lat (2 Views) dated 01/10/2023; Chest Single View dated 03/14/2018 TECHNIQUE: Portable AP view of the chest. FINDINGS: Mild central interstitial prominence. No focal consolidation. No pneumothorax or effusion . The cardiomediastinal contours are unremarkable. IMPRESSION: Mild central interstitial prominence, may reflect central congestion/CHF.
--- NOTE | 2023-08-04 22:41 | EDPHYS ---
Physician Documentation [facility] Name: Bailey Lopez Age: 52 yrs Sex: Female : 1970 Arrival Date: 08/04/2023 Time: 20:38 Bed 19 Private MD: ED Physician Lucius Eubanks HPI: 08/03 22:36 This 52 yrs old Black Female presents to ER via Ambulatory with complaints of Cough, kb Congestion, Fever. 22:36 Pt is a 52 year old female who presents for cough, congestion, fever and decreased kb appetite for 3 days. Denies chest pain or shortness of breath. . 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 - Infectious Disease History:: Denies. - Social history:: Smoking status: Patient denies any tobacco usage or history of. ROS: 22:35 Constitutional: As per HPI kb Exam: 21:28 Constitutional: This is a well developed, well nourished patient who is awake, alert, kb and in no acute distress. Head/Face: Normocephalic, atraumatic. ENT: Moist Mucous membranes Cardiovascular: Regular rate Respiratory: Respirations even and unlabored. No increased work of breathing. Talking in full sentences Abdomen/GI: Soft, non-tender. No distention Skin: Warm, dry with normal turgor. Normal color. MS/ Extremity: Pulses equal, no cyanosis. Neurovascular intact. Full, normal range of motion. Neuro: Awake and alert, GCS 15, oriented to person, place, time, and situation. Moves all extremities. Normal gait. 21:28 ECG was reviewed by the Attending Physician. 22:35 ECG was reviewed by the Attending Physician. kb Vital Signs: 20:44 BP 112 / 84; Pulse 121; Resp 18; Temp 99.4; Pulse Ox 94% on R/A; Weight 63.5 kg; Height rv 5 ft. 3 in. ; 21:09 Temp 100.7(O); rv 21:28 BP 118 / 106; Pulse 115; Resp 18; Temp 100.1; Pulse Ox 100% ; Pain 10/10; bm8 22:11 BP 133 / 81; Pulse 99; Resp 19; Temp 99.7; Pulse Ox 95% on R/A; Pain 8/10; bm8 22:45 BP 123 / 87; Pulse 95; Resp 17; Temp 99.1; Pulse Ox 98% on R/A; Pain 6/10; bm8 20:44 Body Mass Index 24.80 (63.50 kg, 160.02 cm) rv 21:28 Pain Scale: Adult bm8 22:11 Pain Scale: Adult bm8 22:45 Pain Scale: Adult bm8 [place] Coma Score: 21:28 Eye Response: spontaneous(4). Motor Response: obeys commands(6). Verbal Response: bm8 oriented(5). Total: 15. 22:11 Eye Response: spontaneous(4). Motor Response: obeys commands(6). Verbal Response: bm8 oriented(5). Total: 15. 22:45 Eye Response: spontaneous(4). Motor Response: obeys commands(6). Verbal Response: bm8 oriented(5). Total: 15. MDM: 20:45 Patient medically screened. kb 22:36 Differential Diagnosis: Bronchitis Influenza Upper Respiratory Infection Pneumonia. kb Data reviewed: vital signs, nurses notes. 22:40 Consideration of Admission/Observation Escalation of care including kb admission/observation considered. admission considered, but pt states she is feeling ok and will follow up with PCP. Counseling: I had a detailed discussion with the patient and/or guardian regarding the historical points, exam findings, and any diagnostic results supporting the discharge/admit diagnosis, lab results, radiology results, the need for outpatient follow up, a family practitioner, to return to the emergency department if symptoms worsen or persist or if there are any questions or concerns that arise at home. 08/03 20:51 Order name: Blood Culture Adult (2) kb 08/03 20:51 Order name: CBC with Diff; Complete Time: 21:30 kb 08/03 20:51 Order name: CMP; Complete Time: 22:50 kb 08/03 20:51 Order name: Lactate w/ 2H reflex if indic.; Complete Time: 21:43 kb 08/03 20:51 Order name: Protime (+inr); Complete Time: 21:35 kb 08/03 20:51 Order name: Ptt, Activated; Complete Time: 21:35 kb 08/03 20:51 Order name: Flu; Complete Time: 21:45 kb 08/03 20:51 Order name: SARS-COV-2 Antigen Rapid; Complete Time: 21:42 kb 08/03 22:22 Order name: BNP kb 08/03 22:26 Order name: NT PRO-BNP; Complete Time: 22:50 EDMS 08/03 20:51 Order name: Chest Single View XRAY; Complete Time: 22:21 kb 08/03 20:51 Order name: EKG; Complete Time: 20:52 kb 08/03 22:22 Order name: EKG; Complete Time: 22:23 kb 08/03 20:51 Order name: Accucheck; Complete Time: 21:15 kb 08/03 20:51 Order name: Cardiac monitoring; Complete Time: 21:15 kb 08/03 20:51 Order name: EKG - Nurse/Tech; Complete Time: 21:15 kb 08/03 20:51 Order name: IV Saline Lock - Large Bore; Complete Time: 21:15 kb 08/03 20:51 Order name: Labs collected and sent; Complete Time: 21:15 kb 08/03 20:51 Order name: O2 Per Protocol; Complete Time: 21:15 kb 08/03 20:51 Order name: O2 Sat Monitoring; Complete Time: 21:15 kb 08/03 20:51 Order name: Vital Signs; Complete Time: 21:15 kb 08/03 22:22 Order name: EKG - Nurse/Tech; Complete Time: 22:37 kb EC: Rate is 114 beats/min. Rhythm is regular. QRS [place] is Normal. QRS interval is normal at kb 90 msec. QT interval is prolonged at 653 msec. 22:35 Rate is 101 beats/min. Rhythm is regular. QRS [place] is Normal. MT interval is normal at kb 176 msec. QRS interval is normal at 94 msec. QT interval is normal at 401 msec. Administered Medications: 21:31 Drug: NS 0.9% IV 1000 ml IV at 1000 ml once Route: IV; Rate: 1000 ml; Site: right bm8 forearm; 22:14 Follow up: Response: No adverse reaction; IV Status: Completed infusion; IV Intake: bm8 1000ml 21:31 Drug: Acetaminophen PO 650 mg PO once Route: PO; bm8 22:13 Follow up: Response: No adverse reaction bm8 22:11 Drug: Potassium Chloride PO 40 mEq PO once Route: PO; bm8 22:49 Follow up: Response: No adverse reaction bm8 Disposition Summary: 08/04/23 22:41 Discharge Ordered Notes: Location: Home kb Condition: Stable kb Diagnosis - Acute upper respiratory infection, unspecified kb Followup: kb - With: Emergency Department - When: As needed - Reason: Worsening of condition Followup: kb - With: Private Physician - When: 2 - 3 days - Reason: Recheck today's complaints, Continuance of care, Re-evaluation by your physician Discharge Instructions: - Discharge Summary Sheet kb - Upper Respiratory Infection, Adult, Zlui-jl-Mbwa kb - Viral Respiratory Infection, Ouur-Ra-Geqd kb Forms: - Medication Reconciliation Form kb - Antibiotic Education kb - Prescription Opioid Use kb - Patient Portal Instructions kb - Leadership Thank You Letter kb Signatures: Dispatcher [employer] Pina Orona, CUSTOMER SOLUTIONS SPECIALIST-C CUSTOMER SOLUTIONS SPECIALIST-Zach Cedeño, RN RN Lorenzo Napier, RN RN bm8
--- NOTE | 2023-08-04 22:41 | ER ---
Nurse's Notes [facility] Name: Bailey Lopez Age: 52 yrs Sex: Female : 1970 Arrival Date: 08/04/2023 Time: 20:38 Bed 19 Private MD: Diagnosis: Acute upper respiratory infection, unspecified Presentation: 08/03 20:44 Chief complaint: Patient states: cough, congestion and fever, decreased appetite since rv Wednesday, fell twice today because of generalized weakness, hurting the left side. denies chest pain and sob. have been taking tylenol and motrin all day for fever. Coronavirus screen: Client presents with at least one sign or symptom that may indicate coronavirus-19. Standard/surgical mask placed on the client. Provider contacted for isolation considerations. Ebola Screen: No symptoms or risks identified at this time. Initial Sepsis Screen: Does the patient meet any 2 criteria? No. Patient's initial sepsis screen is negative. Does the patient have a suspected source of infection? No. Patient's initial sepsis screen is negative. Risk Assessment: Do you want to hurt yourself or someone else? Patient reports no desire to harm self or others. Onset of symptoms was August 02, 2023. 20:44 Method Of Arrival: Ambulatory rv 20:44 Acuity: ALBERTO 3 rv Triage Assessment: 20:47 General: Appears ill, Behavior is calm, cooperative. Pain: Complains of pain in left rv side. Neuro: Level of Consciousness is awake, alert, obeys commands, Oriented to person, place, time, situation. Cardiovascular: Capillary refill < 3 seconds Patient's skin is warm and dry. Respiratory: Airway is patent Breath sounds are clear bilaterally. GI: Reports anorexia. : No signs and/or symptoms were reported regarding the genitourinary system. Derm: Skin is intact. 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 - Infectious Disease History:: Denies. - Social history:: Smoking status: Patient denies any tobacco usage or history of. Screenin:48 [facility] ED Fall Risk Assessment (Adult) History of falling in the last 3 months, rv including since admission Yes- single mechanical fall (1 pt) Score/Fall Risk Level 3 or more points = High Risk Oriented to surroundings, Maintained a safe environment, Educated pt \T\ family on fall prevention, incl call for assistance when getting out of bed, Assessed \T\ reinforced patient's understanding of fall precautions. Abuse screen: Denies threats or abuse. Denies injuries from another. Nutritional screening: No deficits noted. Tuberculosis screening: No symptoms or risk factors identified. Assessment: 21:28 Reassessment: Patient appears in no apparent distress at this time. Patient and/or bm8 family updated on plan of care and expected duration. Pain level reassessed. Patient is alert, oriented x 3, equal unlabored respirations, skin warm/dry/pink. General: Appears in no apparent distress. comfortable, Behavior is calm, cooperative, appropriate for age. Pain: Complains of pain in head and chest Pain does not radiate. Pain currently is 10 out of 10 on a pain scale. Quality of pain is described as sharp. Neuro: Level of Consciousness is awake, alert, obeys commands, Oriented to person, place, time, situation, Appropriate for age. Cardiovascular: Reports chest pain, she thinks its from all the coughing Heart tones S1 S2 present Capillary refill < 3 seconds Patient's skin is warm and dry. Respiratory: No deficits noted. Airway is patent Respiratory effort is even, unlabored, Respiratory pattern is regular, symmetrical, Breath sounds are clear bilaterally. GI: No deficits noted. No signs and/or symptoms were reported involving the gastrointestinal system. : No deficits noted. No signs and/or symptoms were reported regarding the genitourinary system. 22:11 Reassessment: Patient appears in no apparent distress at this time. Patient and/or bm8 family updated on plan of care and expected duration. Pain level reassessed. Patient is alert, oriented x 3, equal unlabored respirations, skin warm/dry/pink. pt is resting with eyes closed breathing is even unlabored at this time, at bedside. pt is easily rousable by voice. moving all ext with ease. 22:45 Reassessment: Patient appears in no apparent distress at this time. No changes from bm8 previously documented assessment. Patient and/or family updated on plan of care and expected duration. Pain level reassessed. Patient is alert, oriented x 3, equal unlabored respirations, skin warm/dry/pink. Patient states symptoms have improved. Vital Signs: 20:44 BP 112 / 84; Pulse 121; Resp 18; Temp 99.4; Pulse Ox 94% on R/A; Weight 63.5 kg; Height rv 5 ft. 3 in. ; 21:09 Temp 100.7(O); rv 21:28 BP 118 / 106; Pulse 115; Resp 18; Temp 100.1; Pulse Ox 100% ; Pain 10/10; bm8 22:11 BP 133 / 81; Pulse 99; Resp 19; Temp 99.7; Pulse Ox 95% on R/A; Pain 8/10; bm8 22:45 BP 123 / 87; Pulse 95; Resp 17; Temp 99.1; Pulse Ox 98% on R/A; Pain 6/10; bm8 20:44 Body Mass Index 24.80 (63.50 kg, 160.02 cm) rv 21:28 Pain Scale: Adult bm8 22:11 Pain Scale: Adult bm8 22:45 Pain Scale: Adult bm8 [place] Coma Score: 21:28 Eye Response: spontaneous(4). Motor Response: obeys commands(6). Verbal Response: bm8 oriented(5). Total: 15. 22:11 Eye Response: spontaneous(4). Motor Response: obeys commands(6). Verbal Response: bm8 oriented(5). Total: 15. 22:45 Eye Response: spontaneous(4). Motor Response: obeys commands(6). Verbal Response: bm8 oriented(5). Total: 15. ED Course: 20:41 Patient arrived in ED. jj6 20:45 [facility] kb 20:45 Lucius Eubanks MD is Attending Physician. kb 20:47 Triage completed. rv 20:47 Arm band placed on right wrist. rv 20:48 Patient has correct armband on for positive identification. Client placed on continuous rv cardiac and pulse oximetry monitoring. NIBP monitoring applied. 20:48 No provider procedures requiring assistance completed. rv 20:50 Lorenzo Martin, RN is Primary Nurse. bm8 21:15 Inserted saline lock: 20 gauge in right forearm, using aseptic technique. Blood rv1 collected. 21:15 SARS-COV-2 Antigen Rapid Sent. rv1 21:15 Flu Sent. rv1 21:15 Blood Culture Adult (2) Sent. rv1 21:15 CBC with Diff Sent. rv1 21:15 CMP Sent. rv1 21:16 Lactate w/ 2H reflex if indic. Sent. rv1 21:16 Protime (+inr) Sent. rv1 21:16 Ptt, Activated Sent. rv1 21:28 fraud analyst on. Pulse ox on. NIBP on. Door closed. Noise minimized. Lights dimmed. bm8 Verbal reassurance given. Head of bed elevated. 21:35 Chest Single View XRAY In Process Unspecified. EDMS 22:45 Provided Education on: post er care. bm8 22:45 IV discontinued, intact, bleeding controlled, No redness/swelling at site. Pressure bm8 dressing applied. Administered Medications: 21:31 Drug: NS 0.9% IV 1000 ml IV at 1000 ml once Route: IV; Rate: 1000 ml; Site: right bm8 forearm; 22:14 Follow up: Response: No adverse reaction; IV Status: Completed infusion; IV Intake: bm8 1000ml 21:31 Drug: Acetaminophen PO 650 mg PO once Route: PO; bm8 22:13 Follow up: Response: No adverse reaction bm8 22:11 Drug: Potassium Chloride PO 40 mEq PO once Route: PO; bm8 22:49 Follow up: Response: No adverse reaction bm8 Medication: 20:48 VIS not applicable for this client. rv Intake: 22:14 IV: 1000ml; Total: 1000ml. bm8 Outcome: 22:41 Discharge ordered by . cristina 22:45 Discharged to home ambulatory, bm8 22:45 Condition: stable 22:45 Discharge instructions given to patient, family, Instructed on discharge instructions, follow up and referral plans. medication usage, safety practices, Demonstrated understanding of instructions, follow-up care, medications, 22:53 Patient left the ED. bm8 Signatures: Dispatcher [employer] EDVT Pina Pace, SHIRAZ HERNANDEZ-Zach Cedeño, KOMAL RN Vivian Brannon6 Temi Thompson rv1 Lorenzo Martin, KOMAL RN bm8
[2023-08-04 23:10] VITALS: BP 123/87; TEMP 99.1; O2SAT 98
--- NOTE | 2023-08-05 16:42 | EKG ---
Test Date: 2023-08-04 Test Time: 21:02:12 Locomotive Crane Operator: RV MEASUREMENT RESULTS: Intervals: Rate: 114 TX: QRSD: 90 QT: 474 QTc: 653 [place]: P: TX: QRS: 15 T: 47 INTERPRETIVE STATEMENTS: Accelerated Junctional rhythm Septal infarct, age undetermined Abnormal ECG Compared to ECG 01/10/2023 23:50:00 Accelerated junctional rhythm now present Myocardial infarct finding now present Sinus tachycardia no longer present First degree AV block no longer present ST (T wave) deviation no longer present Electronically Signed On 08-05-23 16:41:35 CDT by Kevin Crisostomo
--- NOTE | 2023-08-05 16:42 | EKG ---
Test Date: 2023-08-04 Test Time: 22:32:30 Tumbler Machine Operator Helper: TAI MEASUREMENT RESULTS: Intervals: Rate: 101 SC: 176 QRSD: 94 QT: 310 QTc: 401 [place]: P: 3 SC: 176 QRS: 1 T: 15 INTERPRETIVE STATEMENTS: Sinus tachycardia Inferior infarct, age undetermined Abnormal ECG Compared to ECG 08/04/2023 21:02:12 Accelerated junctional rhythm no longer present Myocardial infarct finding still present Electronically Signed On 08-05-23 16:41:34 CDT by Kevin Crisostomo
== END 2023-08-04 22:53 | disposition home or self-care (01) ==
LOC: ER 20:38
DX: J06.9 Acute upper respiratory infection, unspecified (principal); Z11.52 Encounter for screening for COVID-19; Z88.5 Allergy status to narcotic agent; Z88.8 Allergy status to other drugs, medicaments and biological substances
CPT/HCPCS: 87040 ×2; 85025; 36415; 85610; 83605; 85730; 80053; 83880; 87804 ×2; 71045; 87811; J7030; 93005